=== PATIENT | female | born 1935 | race Caucasian/White ===

== ENCOUNTER 2016-03-03 22:00 | Inpatient (IN) | payer BC, OTHER ==
[2016-03-03 22:31] VITALS: BMI 35.7
--- NOTE | 2016-03-04 00:55 | PDOC ---
*Physical Exam - Vital Signs Last Vital Signs Temp Pulse Resp BP Pulse Ox 98.2 F 109 H 20 147/84 94 L 03/03/16 22:28 03/03/16 22:28 03/03/16 22:28 03/03/16 22:28 03/03/16 22:28 ED Treatment Course - LABORATORY CBC & Chemistry Diagram: 03/05/16 05:35 03/05/16 05:35 Medical Decision Making - Medical Decision Making 03/04/16 00:55 Pt seen by the Advanced Practice Provider under my direct supervision Ancillary studies reviewed I agree with plan as outlined by the Advanced Practice Provider NARAYAN Davidson *DC/Admit/Observation/Transfer Diagnosis at time of Disposition: CHF (congestive heart failure) - Discharge Dispostion Condition at time of disposition: Fair
[2016-03-04 01:11] LABS: MCH 31.1 pg (25.7-33.7); MCHC 33.8 g/dl (32.0-36.0); MEAN CELL VOLUME 92.1 fl (80-96); MEAN PLT VOLUME 8.3 fl (7.5-11.1); PLATELET COUNT 158 K/MM3 (134-434); RDW 13.9 % (11.6-15.6); WHITE BLOOD COUNT 8.8 K/mm3 (4.0-10.0)
[2016-03-04 01:40] LABS: CALCIUM 9.4 mg/dL (8.5-10.1); CREATININE 0.8 mg/dL (0.55-1.02)
--- NOTE | 2016-03-04 02:25 | PDOC ---
History of Present Illness - General Chief Complaint: Shortness of Breath Stated Complaint: SOB Time Seen by Provider: 03/03/16 22:54 History Source: Patient, Family Exam Limitations: No Limitations - History of Present Illness Initial Comments: 03/04/16 00:19 80yo Female patient presents to ED c/o shortness of breath on exertion. Patient states symptoms began 7 days ago, she saw her PCP a few days ago and was diagnosed with upper respiratory infection; given flonase and cough syrup. Patient states symptoms progressed to being SOB when walking short distances and continued to progress throughout the day. Patient grandson called 911 due to patient c/o chest pain with trouble breathing. O2 sat 90% RA. Denies being home O2 dependent. Patient currently denies CP, Abd pain, n/v/d, fever, back pain, cough, or any other complaints. Associated SOB. 03/04/16 02:26 Timing/Duration: reports: week Severity: reports: moderate Possible Cause: Yes: no prior episodes Modifying Factors: improves with: oxygen, rest Associated Symptoms: reports: shortness of breath. denies: chest pain/soreness , cough, dizziness, earache, fever/chills, headache, nasal congestion, nasal drainage, sore throat, wheezing Aspirin Received prior to arrival: Yes: no aspirin today Past History - Travel Traveled outside of the country in the last 30 days: No Close contact w/someone who was outside of country & ill: No - Past Medical History Allergies/Adverse Reactions: Allergies Allergy/AdvReac Type Severity Reaction Status Date / Time No Known Allergies Allergy Verified 03/03/16 22:30 Home Medications: Ambulatory Orders Hydrochlorothiazide [Hctz -] 25 mg PO DAILY 01/04/14 Sertraline HCl [Zoloft -] 50 mg PO HS 01/05/14 Multivitamin [Poly-Vitamin] 1 each PO DAILY 12/22/15 Simvastatin 20 mg PO HS 12/22/15 Anemia: No Asthma: No Cancer: No Cardiac Disorders: No CVA: Yes (04/07/13) COPD: No CHF: No Dementia: No Diabetes: No GI Disorders: Yes (diverticulosis, hx of diverticulitis) Disorders: No HTN: Yes Hypercholesterolemia: No Liver Disease: No Suicide Attempt (Hx): No Seizures: No Thyroid Disease: No - Surgical History Abdominal Surgery: Yes Appendectomy: Yes Cardiac Surgery: No Cholecystectomy: Yes Lung Surgery: No Neurologic Surgery: No Orthopedic Surgery: Yes (left hip replacement) - Immunization History Immunization Up to Date: Yes - Psycho/Social/Smoking Cessation Hx Anxiety: No Suicidal Ideation: No Smoking Status: No Smoking History: Never smoked Number of Cigarettes Smoked Daily: 0 Hx Alcohol Use: No Drug/Substance Use Hx: No Substance Use Type: None Hx Substance Use Treatment: No Respiratory Specific PMHX - Complaint Specific PMHX Angina: No Bronchitis: No Pneumonia: No Pulmonary Embolus: No TB (Tuberculosis): No Review of Systems - Review of Systems Able to Perform ROS?: Yes Is the patient limited Nepali proficient: No Constitutional: No: Chills, Fever, Weakness HEENTM: No: Blurred Vision, Double Vision, Nose Congestion, Throat Pain Respiratory: Yes: Cough, Shortness of Breath, SOB with Exertion. No: Orthopnea , Stridor, Wheezing, Productive cough Cardiac (ROS): Yes: Chest Pain. No: Edema, Irregular Heart Rate, Palpitations, Syncope, Chest Tightness ABD/GI: No: Constipated, Diarrhea, Nausea, Poor Appetite, Poor Fluid Intake, Rectal Bleeding, Vomiting : No: Burning, Dysuria, Frequency, Hematuria, Pain, Urgency Musculoskeletal: No: Back Pain, Joint Pain, Muscle Weakness Integumentary: No: Bruising, Erythema, Rash Neurological: No: Headache, Seizure, Tingling, Dizziness All Other Systems: Reviewed and Negative *Physical Exam - Vital Signs Last Vital Signs Temp Pulse Resp BP Pulse Ox 98.2 F 89 18 139/73 98 03/03/16 22:28 03/04/16 02:07 03/04/16 02:07 03/04/16 02:07 03/04/16 02:07 - Physical Exam General Appearance: Yes: Nourished, Appropriately Dressed. No: Apparent Distress, Mild Distress, Moderate Distress, Severe Distress HEENT: positive: EOMI, LINA, Normal ENT Inspection, Normal Voice, Symmetrical, TMs Normal, Pharynx Normal. negative: Nasal Congestion, Rhinorrhea Neck: positive: Trachea midline, Supple. negative: Stridor, Lymphadenopathy (R) , Lymphadenopathy (L) Respiratory/Chest: positive: Decreased Breath Sounds, Crackles (Fine Bibasilar crackles). negative: Respiratory Distress, Accessory Muscle Use, Labored Respiration, Rapid RR, Rhonchi, Stridor, Wheezing Cardiovascular: positive: Tachycardia Gastrointestinal/Abdominal: positive: Normal Bowel Sounds, Soft. negative: Distended, Guarding, Rebound, Tenderness Musculoskeletal: positive: Normal Inspection. negative: CVA Tenderness Extremity: positive: Normal Capillary Refill, Normal Inspection, Normal Range of Motion Integumentary: positive: Normal Color, Dry, Warm. negative: Swelling Neurologic: positive: ore washer II-XII NML intact, Fully Oriented, Alert, Normal Mood/ Affect, Normal Response, Motor Strength 5/5 Heart Score/ECG Review - ECG Impressions Normal ECG: Yes Non-specific ST Elevation: No Ischemic Changes: No Bradycardia: No Tachycardia: Sinus ED Treatment Course - LABORATORY CBC & Chemistry Diagram: 03/04/16 00:15 03/04/16 00:15 - ADDITIONAL ORDERS Additional order review: Laboratory Results 03/04/16 00:15 Sodium 143 Potassium 3.8 Chloride 103 Carbon Dioxide 27 Anion Gap 13 BUN 13 Creatinine 0.8 Random Glucose 145 H D Calcium 9.4 B-Natriuretic Peptide 2249.27 H 03/04/16 00:15 RBC 4.78 MCV 92.1 MCHC 33.8 RDW 13.9 MPV 8.3 - RADIOLOGY Radiology Studies Ordered: Category Date Time Status CHEST PA & LAT [RAD] Stat Radiology 03/04/16 01:07 Taken *DC/Admit/Observation/Transfer Diagnosis at time of Disposition: Congestive heart failure Qualifiers: Congestive heart failure type: unspecified congestive heart failure type Congestive heart failure chronicity: acute Qualified Code(s): I50.9 - Heart failure, unspecified - Discharge Dispostion Condition at time of disposition: Fair Admit: Yes - Referrals Referrals: Jamie Mccabe MD [Primary Care Provider] -
[2016-03-04 03:28] LABS: INR 1.14 (0.82-1.09); PROTHROMBIN TIME (PATIENT) 12.6 SEC (9.98-11.88)
[2016-03-04 08:45] LABS: TROPONIN I 0.28 ng/ml (0.00-0.05)
[2016-03-04] MEDS: PANTOPRAZOLE 40 MG TABLET (FP) PO SCH (09:36)
[2016-03-04] MEDS: ASPIRIN COATED 81 MG TABLET.EC PO SCH (09:36)
[2016-03-04] MEDS: FUROSEMIDE 40 MG/4 ML INJECTABLE VIAL IVPB SCH (09:36)
[2016-03-04] MEDS: HEPARIN NA (PORCINE) 5,000 UNITS/ML 1ML VIAL SQ SCH ×2 (09:36→22:11)
--- NOTE | 2016-03-04 10:41 | CON.CARD ---
Cardiology Consult (text) - Consultation Consultation Note: cc: sob hpi: 80 f hx htn, hld, here with sob. Past week has felt sob with URI sxs ( cough, runny nose). Went to pmd and given abx but sob worsened so came to ER. Pt also reports mild le edema past few weeks as well. No cp, palps, dizzy, loc , pnd, orthopnea. No hx hrt dz. Admitted for possible chf. pmh: per hpi psh: hip surgery, cholecystectomy fam: no premature cad, scd social: no tob ros: per hpi; no nvd, fever, valle, vision changes, wt loss, gib, hematuria, muscle pains meds: Medication Instructions Recorded Hydrochlorothiazide [Hctz -] 25 mg PO DAILY 01/04/14 Sertraline HCl [Zoloft -] 50 mg PO HS 01/05/14 Multivitamin [Poly-Vitamin] 1 each PO DAILY 12/22/15 Simvastatin 20 mg PO HS 12/22/15 pe: Vital Signs Period Temp Pulse Resp BP Sys/Charles Pulse Ox Last 24 Hr 97 F-98.2 F 89-109 18-20 113-150/73-99 94-98 nad, no jvd rrr s1s2 no mrg cta bl nl eff aaox3 trace-1+le edema bl, no c/c abd nt nd pos bs pos dp pt, no carotid bruits no jaundice diaphoresis Laboratory Last Values WBC 8.8 K/mm3 (4.0-10.0) 03/04/16 00:15 RBC 4.78 M/mm3 (3.60-5.2) 03/04/16 00:15 Hgb 14.8 GM/dL (10.7-15.3) 03/04/16 00:15 Hct 44.0 % (32.4-45.2) 03/04/16 00:15 MCV 92.1 fl (80-96) 03/04/16 00:15 MCHC 33.8 g/dl (32.0-36.0) 03/04/16 00:15 RDW 13.9 % (11.6-15.6) 03/04/16 00:15 Plt Count 158 K/MM3 (134-434) 03/04/16 00:15 MPV 8.3 fl (7.5-11.1) 03/04/16 00:15 INR 1.14 (0.82-1.09) 03/04/16 03:00 Sodium 143 mmol/L (136-145) 03/04/16 00:15 Potassium 3.8 mmol/L (3.5-5.1) 03/04/16 00:15 Chloride 103 mmol/L (98-107) 03/04/16 00:15 Carbon Dioxide 27 mmol/L (21-32) 03/04/16 00:15 Anion Gap 13 (8-16) 03/04/16 00:15 BUN 13 mg/dL (7-18) 03/04/16 00:15 Creatinine 0.8 mg/dL (0.55-1.02) 03/04/16 00:15 Random Glucose 145 mg/dL (74-106) H D 03/04/16 00:15 Calcium 9.4 mg/dL (8.5-10.1) 03/04/16 00:15 Creatine Kinase 135 IU/L (26-192) 03/04/16 06:10 Troponin I 0.28 ng/ml (0.00-0.05) H 03/04/16 06:10 B-Natriuretic Peptide 2249.27 pg/ml (5-450) H 03/04/16 00:15 tele: sr, pacs, pvcs ecg 03/04/16: sr, 103, nl intervals, IRBBB, no ischemic changes cxr: no chf a/p: 80 f hx htn, hld, here with sob. sob, acute chf exacerbation (diastolic vs systolic, echo pending): -pt with some le edema and sob with elevated bnp so possibly with mild chf exacerbation (no prior hx chf) -will cont with trial of iv lasix to see if helps sxs -check echo to see lvef, valves htn: -on hctz at home, holding while giving lasix hld: -cont statin positive trops: -trop in borderline range with nl ck and no ischemic ecg changes, not consistent with acs. cont to trend CE's. -monitor on tele, check echo
--- NOTE | 2016-03-04 13:39 | HP ---
Admitting History and Physical - Primary Care Physician PCP: Jamie Mccabe - Admission Chief Complaint: I could not breathe. History of Present Illness: Ms Asencio is a pleasant 80 year old female who comes in with shortness of breath. She says it began about 3 weeks ago. It was mainly dyspnea on exertion, she would go up her stairs (there are 16 total) and she would be winded. She says that as time when on it began to be harder to go up the stairs. She says she also had lightheadedness with this. She states she had difficulty lying flat with this. She noted some chest pressure with the shortness of breath. She had a non-productive cough with the shortness of breath. She noted worsening swelling in her legs. She denies fevers, chills, passing out, nausea, vomiting, abdominal pain, diarrhea, constipation, difficulty or pain on urination with this. She was seen in the office and there was concern for bronchitis and it was attempted to be treated as an outpatient. However it did not improve and patient presents here for further assistance. History Source: Patient Limitations to Obtaining History: No Limitations - Past Medical History Gastrointestinal: Yes: Diverticulosis, GI Bleed (20 yrs ago), Hemorrhoids Psych: Yes: Depression - Past Surgical History Past Surgical History: Yes: Appendectomy, Cholecystectomy - Smoking History Smoking history: Never smoked Aproximately how many cigarettes per day: 0 - Alcohol/Substance Use Hx Alcohol Use: No History of Substance Use: reports: None - Social History Usual Living Arrangement: Yes: Alone ADL: Independent History of Recent Travel: No Home Medications - Allergies Allergies/Adverse Reactions: Allergies Allergy/AdvReac Type Severity Reaction Status Date / Time No Known Allergies Allergy Verified 03/03/16 22:30 - Home Medications Home Medications: Ambulatory Orders Hydrochlorothiazide [Hctz -] 25 mg PO DAILY 01/04/14 Sertraline HCl [Zoloft -] 50 mg PO HS 01/05/14 Multivitamin [Poly-Vitamin] 1 each PO DAILY 12/22/15 Simvastatin 20 mg PO HS 12/22/15 Family Disease History - Family Disease History Family Disease History: Diabetes: Mother (CHF), Heart Disease: Mother, CA: Father Review of Systems Findings/Remarks: Full review of systems obtained, as per HPI and otherwise negative Physical Examination Vital Signs: Vital Signs Temperature 97.8 F 03/04/16 10:00 Pulse Rate 101 H 03/04/16 10:00 Respiratory Rate 18 03/04/16 10:00 Blood Pressure 113/80 03/04/16 10:00 O2 Sat by Pulse Oximetry (%) 98 03/04/16 09:00 Constitutional: Yes: No Distress, Mild Distress, Obese Eyes: Yes: Conjunctiva Clear, EOM Intact HENT: Yes: Atraumatic, Normocephalic Cardiovascular: Yes: Regular Rate and Rhythm. No: Gallop, Murmur, Rub Respiratory: Yes: On Nasal O2, Rales (bilaterally), SOB on Exertion (with talking), Tachypnea. No: Rhonchi, Wheezes Gastrointestinal: Yes: Normal Bowel Sounds, Soft. No: Distention, Tenderness Extremities: Yes: WNL Edema: Yes Edema: LLE: 1+, RLE: 1+ Labs: Laboratory Results - last 24 hr 03/04/16 03/04/16 03/04/16 00:15 00:15 02:18 WBC 8.8 RBC 4.78 Hgb 14.8 Hct 44.0 MCV 92.1 MCHC 33.8 RDW 13.9 Plt Count 158 MPV 8.3 INR Sodium 143 Potassium 3.8 Chloride 103 Carbon Dioxide 27 Anion Gap 13 BUN 13 Creatinine 0.8 Random Glucose 145 H D Calcium 9.4 Creatine Kinase Troponin I 0.38 H B-Natriuretic Peptide 2249.27 H 03/04/16 03/04/16 03:00 06:10 WBC RBC Hgb Hct MCV MCHC RDW Plt Count MPV INR 1.14 Sodium Potassium Chloride Carbon Dioxide Anion Gap BUN Creatinine Random Glucose Calcium Creatine Kinase 135 Troponin I 0.28 H B-Natriuretic Peptide Imaging - Results Chest X-ray: Report Reviewed, Image Reviewed Problem List - Problems (1) CHF (congestive heart failure) Assessment/Plan: -patient presents with symptoms most consistent with CHF -new diagnosis -appreciate cardiology assistance -currently on IV lasix -follow up ECHO results Code(s): I50.9 - HEART FAILURE, UNSPECIFIED Qualifiers: Congestive heart failure type: unspecified congestive heart failure type Congestive heart failure chronicity: acute Qualified Code(s): I50.9 - Heart failure, unspecified (2) History of CVA (cerebrovascular accident) Assessment/Plan: -patient says she does not have a history of TIA/CVA -there was a concern but it turned out to be labyrinthitis Code(s): Z86.73 - PRSNL HX OF TIA (TIA), AND CEREB INFRC W/O RESID DEFICITS (3) Elevated troponin Assessment/Plan: -cardiology following and trending -appears stress induced as opposed to ACS per cardiology Code(s): R79.89 - OTHER SPECIFIED ABNORMAL FINDINGS OF BLOOD CHEMISTRY
--- NOTE | 2016-03-04 14:13 | EKG ---
Test Reason : Blood Pressure : / mmHG Vent. Rate : 103 BPM Atrial Rate : 103 BPM P-R Int : 198 ms QRS Dur : 102 ms QT Int : 374 ms P-R-T Axes : 038 -36 -07 degrees QTc Int : 489 ms SINUS TACHYCARDIA LEFT AXIS DEVIATION LOW VOLTAGE QRS INCOMPLETE RIGHT BUNDLE BRANCH BLOCK POSSIBLE ANTEROLATERAL INFARCT (CITED ON OR BEFORE 04-JAN-2014) ABNORMAL ECG WHEN COMPARED WITH ECG OF 22-DEC-2015 11:32, VENT. RATE HAS INCREASED BY 38 BPM QT HAS LENGTHENED Confirmed by ROBINSON DIAMOND MD ([id number]) on 03/04/2016 2:12:44 PM Referred By: Confirmed By:ROBINSON DIAMOND MD
[2016-03-04 14:31] LABS: TROPONIN I 0.36 ng/ml (0.00-0.05)
[2016-03-04] MEDS: ATORVASTATIN CA 10 MG TABLET (FP) PO SCH (22:11)
[2016-03-04] MEDS: SERTRALINE HCL 25 MG TABLET (FP) PO SCH (22:11)
[2016-03-05 07:16] LABS: BASOPHIL 0.3 % (0-2.0); EOSINOPHIL 0.5 % (0-4.5); MCH 31.9 pg (25.7-33.7); MCHC 34.4 g/dl (32.0-36.0); MEAN CELL VOLUME 92.9 fl (80-96); MEAN PLT VOLUME 8.7 fl (7.5-11.1); NEUTROPHILS 69.4 % (42.8-82.8); PLATELET COUNT 151 K/MM3 (134-434); RDW 13.8 % (11.6-15.6); WHITE BLOOD COUNT 10.8 K/mm3 (4.0-10.0)
[2016-03-05 08:02] LABS: ALBUMIN 3.5 g/dl (3.4-5.0); ANION GAP 12 (8-16); CALCIUM 9.2 mg/dL (8.5-10.1); CO2 27 mmol/L (21-32); GLUCOSE,RANDOM 114 mg/dL (74-106); MAGNESIUM 2.1 mg/dL (1.8-2.4)
[2016-03-05 08:06] LABS: ALK PHOS 90 U/L (45-117); BILIRUBIN,TOTAL 0.6 mg/dL (0.2-1.0); CREATININE 0.9 mg/dL (0.55-1.02); SGOT/AST 24 U/L (15-37); SGPT/ALT 36 U/L (12-78); TOT PROT 6.8 g/dl (6.4-8.2)
[2016-03-05] MEDS: PANTOPRAZOLE 40 MG TABLET (FP) PO SCH (09:39)
[2016-03-05] MEDS: ASPIRIN COATED 81 MG TABLET.EC PO SCH (09:40)
[2016-03-05] MEDS: FUROSEMIDE 40 MG/4 ML INJECTABLE VIAL IVPB SCH (09:40)
[2016-03-05] MEDS: HEPARIN NA (PORCINE) 5,000 UNITS/ML 1ML VIAL SQ SCH ×2 (09:40→21:21)
--- NOTE | 2016-03-05 11:18 | PN ---
Progress Note (short form) - Note Progress Note: s: sob much better; no cp dizzy palps o: Vital Signs Period Temp Pulse Resp BP Sys/Charles Pulse Ox Last 24 Hr 97.5 F-98.7 F 67-110 18-20 103-149/63-93 89-94 nad, no jvd rrr s1s2 no mrg cta bl nl eff aaox3 trace le edema bl, no c/c no jaundice diaphoresis Current Medications Generic Name Dose Route Start Last Admin Trade Name Freq PRN Reason Stop Dose Admin Acetaminophen 650 mg 03/04/16 03:00 Tylenol - PO Q6H PRN FEVER OR PAIN Aspirin 81 mg 03/04/16 10:00 03/05/16 09:40 Ecotrin - PO 81 mg DAILY JORGE Administration Atorvastatin Calcium 10 mg 03/04/16 22:00 03/04/16 22:11 Lipitor - PO 10 mg HS JORGE Administration Furosemide 40 mg 03/06/16 10:00 Lasix - PO DAILY JORGE Heparin Sodium (Porcine) 5,000 unit 03/04/16 10:00 03/05/16 09:40 Heparin - SQ 5,000 unit BID JORGE Administration Pantoprazole Sodium 40 mg 03/04/16 10:00 03/05/16 09:39 Protonix - PO 40 mg DAILY JORGE Administration Sertraline HCl 50 mg 03/04/16 22:00 03/04/16 22:11 Zoloft - PO 50 mg HS JORGE Administration CBC, BMP 03/05/16 05:35 03/05/16 05:35 tele: sr, brief atrial run ecg 03/04/16: sr, 103, nl intervals, IRBBB, no ischemic changes cxr: no chf echo 02/2016: tds; nl lv/rv, mild-mod tr, mild phtn a/p: 80 f hx htn, hld, here with sob. sob, acute diastolic chf exacerbation -pt with some le edema and sob with elevated bnp being treated as mild chf exacerbation (no prior hx chf) -after iv lasix pt has less le edema and reports feeling much better, able to walk more w/o sob -will cont iv lasix today and likely can change to po tomorrow AM with plans for dc if pt feeling better still htn: -on hctz at home, will dc this now that she will require lasix upon dc -bp has been ok, if becomes high would start metoprolol hld: -cont statin positive trops: -trop in borderline range with flat trend and nl ck and no ischemic ecg changes , not consistent with acs.
--- NOTE | 2016-03-05 12:33 | PN ---
Progress Note, Physician Chief Complaint: Patient says she was feeling well this morning, but when she got up and walked became extremely short of breath. RN notes patient desaturates with ambulation. No cp or n/v. - Current Medication List Current Medications: Active Medications Acetaminophen (Tylenol -) 650 mg PO Q6H PRN PRN Reason: FEVER OR PAIN Aspirin (Ecotrin -) 81 mg PO DAILY [facility] [place] Last Admin: 03/05/16 09:40 Dose: 81 mg Atorvastatin Calcium (Lipitor -) 10 mg PO HS [facility] [place] Last Admin: 03/04/16 22:11 Dose: 10 mg Furosemide (Lasix -) 40 mg PO DAILY [facility] [place] Heparin Sodium (Porcine) (Heparin -) 5,000 unit SQ BID [facility] [place] Last Admin: 03/05/16 09:40 Dose: 5,000 unit Pantoprazole Sodium (Protonix -) 40 mg PO DAILY [facility] [place] Last Admin: 03/05/16 09:39 Dose: 40 mg Sertraline HCl (Zoloft -) 50 mg PO [facility] Last Admin: 03/04/16 22:11 Dose: 50 mg - Objective Vital Signs: Vital Signs Temperature 97.9 F 03/05/16 01:53 Pulse Rate 78 03/05/16 12:06 Respiratory Rate 20 03/05/16 08:07 Blood Pressure 138/93 03/05/16 08:04 O2 Sat by Pulse Oximetry (%) 86 L 03/05/16 12:06 Constitutional: Yes: Well Nourished, No Distress, Calm Cardiovascular: Yes: Regular Rate and Rhythm. No: Gallop, Murmur, Rub Respiratory: Yes: Regular, CTA Bilaterally. No: Rales, Rhonchi, Wheezes Gastrointestinal: Yes: Normal Bowel Sounds, Soft. No: Distention, Tenderness Extremities: Yes: WNL Edema: Yes Edema: LLE: Trace, RLE: Trace Labs: CBC, BMP 03/05/16 05:35 03/05/16 05:35 INR, PTT INR 1.14 (0.82-1.09) 03/04/16 03:00 Problem List - Problems (1) CHF (congestive heart failure) Code(s): I50.9 - HEART FAILURE, UNSPECIFIED Qualifiers: Congestive heart failure type: unspecified congestive heart failure type Congestive heart failure chronicity: acute Qualified Code(s): I50.9 - Heart failure, unspecified (2) History of CVA (cerebrovascular accident) Code(s): Z86.73 - PRSNL HX OF TIA (TIA), AND CEREB INFRC W/O RESID DEFICITS (3) Elevated troponin Code(s): R79.89 - OTHER SPECIFIED ABNORMAL FINDINGS OF BLOOD CHEMISTRY Assessment/Plan (1) CHF (congestive heart failure) Assessment/Plan: -cardiology following -continue IV lasix -ECHO reviewed -still with dyspnea on exertion, will monitor if improves with further diuresis -if continues, will discuss with cardiology further testing -also consider pulmonary consult if does not improve Code(s): I50.9 - HEART FAILURE, UNSPECIFIED Qualifiers: Congestive heart failure type: unspecified congestive heart failure type Congestive heart failure chronicity: acute Qualified Code(s): I50.9 - Heart failure, unspecified (2) History of CVA (cerebrovascular accident) Assessment/Plan: -patient says she does not have a history of TIA/CVA -there was a concern but it turned out to be labyrinthitis Code(s): Z86.73 - PRSNL HX OF TIA (TIA), AND CEREB INFRC W/O RESID DEFICITS (3) Elevated troponin Assessment/Plan: -cardiology following -appears stress induced as opposed to ACS per cardiology Code(s): R79.89 - OTHER SPECIFIED ABNORMAL FINDINGS OF BLOOD CHEMISTRY
[2016-03-05] MEDS: SERTRALINE HCL 25 MG TABLET (FP) PO SCH (21:21)
[2016-03-05] MEDS: ATORVASTATIN CA 10 MG TABLET (FP) PO SCH (21:21)
[2016-03-06 06:57] LABS: BASOPHIL 0.5 % (0-2.0); EOSINOPHIL 1.4 % (0-4.5); MCH 31.6 pg (25.7-33.7); MCHC 34.2 g/dl (32.0-36.0); MEAN CELL VOLUME 92.4 fl (80-96); MEAN PLT VOLUME 8.8 fl (7.5-11.1); NEUTROPHILS 69.3 % (42.8-82.8); PLATELET COUNT 144 K/MM3 (134-434); WHITE BLOOD COUNT 8.9 K/mm3 (4.0-10.0)
[2016-03-06 07:52] LABS: CALCIUM 8.7 mg/dL (8.5-10.1); CREATININE 0.9 mg/dL (0.55-1.02); MAGNESIUM 1.8 mg/dL (1.8-2.4); PHOSPHOROUS 3.6 mg/dL (2.5-4.9)
--- NOTE | 2016-03-06 08:57 | PN ---
Progress Note, Physician Chief Complaint: chf History of Present Illness: no longer sob at rest, as she was at home; remains "panting" when walks to bathroom and back (5-10 feet)--not at all her baseline; no cp, palpitations; feeling nauseated since last night - Current Medication List Current Medications: Active Medications Acetaminophen (Tylenol -) 650 mg PO Q6H PRN PRN Reason: FEVER OR PAIN Aspirin (Ecotrin -) 81 mg PO DAILY [facility] Last Admin: 03/05/16 09:40 Dose: 81 mg Atorvastatin Calcium (Lipitor -) 10 mg PO HS [facility] Last Admin: 03/05/16 21:21 Dose: 10 mg Furosemide (Lasix -) 40 mg PO DAILY [facility] Heparin Sodium (Porcine) (Heparin -) 5,000 unit SQ BID [facility] Last Admin: 03/05/16 21:21 Dose: 5,000 unit Pantoprazole Sodium (Protonix -) 40 mg PO DAILY [facility] Last Admin: 03/05/16 09:39 Dose: 40 mg Sertraline HCl (Zoloft -) 50 mg PO HS [facility] Last Admin: 03/05/16 21:21 Dose: 50 mg - Objective Vital Signs: Vital Signs Temperature 97.5 F L 03/06/16 06:00 Pulse Rate 90 03/06/16 06:00 Respiratory Rate 18 03/06/16 06:00 Blood Pressure 129/84 03/06/16 06:00 O2 Sat by Pulse Oximetry (%) 96 03/06/16 05:35 Constitutional: Yes: No Distress, Calm, Obese Cardiovascular: Yes: Regular Rate and Rhythm, JVD (almost to jaw), S1, S2. No: Gallop, Murmur Respiratory: Yes: Regular, CTA Bilaterally. No: Accessory Muscle Use, Rales, Wheezes Extremities: No: Cold Edema: No Neurological: Yes: Alert, Oriented Psychiatric: No: Agitated Labs: CBC, BMP 03/06/16 05:35 03/06/16 05:35 INR, PTT INR 1.14 (0.82-1.09) 03/04/16 03:00 - ....Imaging EKG: Other (tele: NSR) Assessment/Plan cxr: no chf echo 02/2016: tds; nl lv/rv, mild-mod tr, mild phtn a/p: 80 f hx htn, hld, here with sob. sob, acute diastolic chf exacerbation -+ LE edema and sob with elevated bnp (2200) -03/05: after iv lasix (40 qd) pt reports sob much improved, able to walk significantly more--changed to lasix 40 po -03/06: wt down 3 lbs here (210), remains with marked sob walking short distances , JVD near jaw--likely very volume overloaded still -change back to iv lasix, start 80 qd; -will check office records for pt dry wt (she doesn't know it) -replete K today, monitor daily BMP -consider outpt sleep study htn: -on hctz at home, will dc this now that she will require lasix upon dc -bp controlled here hld: -cont statin positive trops: -trop in borderline range with flat trend (0.2-0.3) and nl ck, no ischemic ecg changes = not consistent with acs.
[2016-03-06] MEDS ORDERED: POTASSIUM CHLORIDE TABS 20 MEQ TABLET.ER (FP) PO ONE (09:15)
[2016-03-06] MEDS: HEPARIN NA (PORCINE) 5,000 UNITS/ML 1ML VIAL SQ SCH ×2 (09:26→21:16)
[2016-03-06] MEDS: ASPIRIN COATED 81 MG TABLET.EC PO SCH (09:26)
[2016-03-06] MEDS: PANTOPRAZOLE 40 MG TABLET (FP) PO SCH (09:27)
[2016-03-06] MEDS ORDERED: FUROSEMIDE 40 MG TABLET (FP) PO SCH (10:00)
--- NOTE | 2016-03-06 13:11 | PN ---
Progress Note (short form) - Note Progress Note: Has exertional dyspnea No chest pain or palpitations No fever but has fatigued Nausea+ O/E Heart regular Lungs clear Ext trace edema Vital Signs Period Temp Pulse Resp BP Sys/Charles Pulse Ox Last 24 Hr 97.5 F-99.3 F 75-90 18-20 108-144/71-84 95-96 Current Medications Acetaminophen (Tylenol -) 650 mg PO Q6H PRN PRN Reason: FEVER OR PAIN Aspirin (Ecotrin -) 81 mg PO DAILY [facility] Last Admin: 03/06/16 09:26 Dose: 81 mg Atorvastatin Calcium (Lipitor -) 10 mg PO HS [facility] Last Admin: 03/05/16 21:21 Dose: 10 mg Furosemide (Lasix Injection -) 80 mg IVPUSH DAILY [facility] Heparin Sodium (Porcine) (Heparin -) 5,000 unit SQ BID [facility] Last Admin: 03/06/16 09:26 Dose: 5,000 unit Pantoprazole Sodium (Protonix -) 40 mg PO DAILY [facility] Last Admin: 03/06/16 09:27 Dose: 40 mg Potassium Chloride (K-Dur -) 40 meq PO DAILY [facility] Sertraline HCl (Zoloft -) 50 mg PO HS [facility] Last Admin: 03/05/16 21:21 Dose: 50 mg Laboratory Results - last 24 hr 03/06/16 03/06/16 03/06/16 05:35 05:35 11:35 WBC 8.9 RBC 4.36 Hgb 13.7 Hct 40.3 MCV 92.4 MCHC 34.2 RDW 14.0 Plt Count 144 MPV 8.8 Neutrophils % 69.3 Lymphocytes % 21.0 Monocytes % 7.8 Eosinophils % 1.4 D Basophils % 0.5 Sodium 142 Potassium 3.3 L Chloride 101 Carbon Dioxide 31 Anion Gap 10 BUN 29 H Creatinine 0.9 Random Glucose 148 H D Calcium 8.7 Phosphorus 3.6 Magnesium 1.8 TSH Cancelled ssessment/Plan (1) CHF (congestive heart failure) Assessment/Plan: -continue IV lasix -ECHO reviewed -still with dyspnea on exertion, will monitor if improves with further diuresis Code(s): I50.9 - HEART FAILURE, UNSPECIFIED Qualifiers: Congestive heart failure type: unspecified congestive heart failure type Congestive heart failure chronicity: acute Qualified Code(s): I50.9 - Heart failure, unspecified (2) History of CVA (cerebrovascular accident) Assessment/Plan: -no evidence Code(s): Z86.73 - PRSNL HX OF TIA (TIA), AND CEREB INFRC W/O RESID DEFICITS (3) Elevated troponin Assessment/Plan: Is mild and resolving Code(s): R79.89 - OTHER SPECIFIED ABNORMAL FINDINGS OF BLOOD CHEMISTRY 4.Dyspnea Pulmonary eval 5.Nausea Etiology is not clear Meds are a likely cause
[2016-03-06] MEDS: FUROSEMIDE 40 MG/4 ML INJECTABLE VIAL IVPUSH SCH (13:32)
[2016-03-06 13:43] LABS: THYROID STIMULATING HORMONE 0.98 uIU/ml (0.358-3.74)
[2016-03-06] MEDS: ATORVASTATIN CA 10 MG TABLET (FP) PO SCH (21:16)
[2016-03-06] MEDS: SERTRALINE HCL 25 MG TABLET (FP) PO SCH (21:16)
[2016-03-07 08:11] LABS: CALCIUM 9.2 mg/dL (8.5-10.1)
[2016-03-07] MEDS: PANTOPRAZOLE 40 MG TABLET (FP) PO SCH (09:06)
[2016-03-07] MEDS: FUROSEMIDE 40 MG/4 ML INJECTABLE VIAL IVPUSH SCH (09:06)
[2016-03-07] MEDS: ASPIRIN COATED 81 MG TABLET.EC PO SCH (09:07)
[2016-03-07] MEDS: POTASSIUM CHLORIDE TABS 20 MEQ TABLET.ER (FP) PO SCH (09:07)
[2016-03-07] MEDS: HEPARIN NA (PORCINE) 5,000 UNITS/ML 1ML VIAL SQ SCH (09:07)
--- NOTE | 2016-03-07 09:14 | PN ---
Progress Note (short form) - Note Progress Note: s: sob better but still present with minimal exertion; no cp dizzy palps o: Vital Signs Period Temp Pulse Resp BP Sys/Charles Pulse Ox Last 24 Hr 97.4 F-98.1 F 74-93 18-20 107-139/64-78 96-96 nad rrr s1s2 no mrg cta bl nl eff aaox3 trace le edema bl, no c/c no jaundice diaphoresis Current Medications Generic Name Dose Route Start Last Admin Trade Name Freq PRN Reason Stop Dose Admin Acetaminophen 650 mg 03/04/16 03:00 Tylenol - PO Q6H PRN FEVER OR PAIN Aspirin 81 mg 03/04/16 10:00 03/06/16 09:26 Ecotrin - PO 81 mg DAILY JORGE Administration Atorvastatin Calcium 10 mg 03/04/16 22:00 03/06/16 21:16 Lipitor - PO 10 mg HS JORGE Administration Furosemide 80 mg 03/06/16 12:15 03/06/16 13:32 Lasix Injection - IVPUSH 80 mg DAILY JORGE Administration Heparin Sodium (Porcine) 5,000 unit 03/04/16 10:00 03/06/16 21:16 Heparin - SQ 5,000 unit BID JORGE Administration Pantoprazole Sodium 40 mg 03/04/16 10:00 03/06/16 09:27 Protonix - PO 40 mg DAILY JORGE Administration Potassium Chloride 40 meq 03/07/16 10:00 K-Dur - PO DAILY JORGE Sertraline HCl 50 mg 03/04/16 22:00 03/06/16 21:16 Zoloft - PO 50 mg HS JORGE Administration CBC, BMP 03/06/16 05:35 03/07/16 05:35 tele: sr ecg 03/04/16: sr, 103, nl intervals, IRBBB, no ischemic changes cxr: no chf echo 02/2016: tds; nl lv/rv, mild-mod tr, mild phtn a/p: 80 f hx htn, hld, here with sob. sob, acute diastolic chf exacerbation -+ LE edema and sob with elevated bnp (2200) -03/05: after iv lasix (40 qd) pt reports sob much improved, able to walk significantly more--changed to lasix 40 po -03/06: wt down 3 lbs here (210), remains with marked sob walking short distances , JVD near jaw--likely very volume overloaded still -change back to iv lasix, start 80 qd; -03/07: still with laguerre but wt continues to drop (208 today), cr stable, cont iv lasix for now. (Baseline office wts from past year have ranged from 215lbs to 224lbs so possibly she has had some vol overload present chronically) -consider outpt sleep study htn: -on hctz at home, will dc this now that she will require lasix upon dc -bp controlled here hld: -cont statin positive trops: -trop in borderline range with flat trend (0.2-0.3) and nl ck, no ischemic ecg changes = not consistent with acs.
[2016-03-07 12:38] LABS: ARTERIAL BLD GAS O2 SATURATION 85.4 % (90-98.9); ARTERIAL BLOOD GAS BASE EXCESS 5.7 meq/l (-2-2); ARTERIAL BLOOD GAS HCO3 29.1 meq/L (22-26); ARTERIAL BLOOD GAS pH 7.49 (7.35-7.45)
[2016-03-07 12:39] LABS: ALLENS TEST POSITIVE; ART PUNCT SITE RIGHT RADIAL; PT. ON O2? NO
[2016-03-07 12:40] LABS: ARTERIAL BLOOD GAS PO2 49.5 mmHg (70-100)
--- NOTE | 2016-03-07 13:10 | PN ---
Progress Note (short form) - Note Progress Note: Has incressed SOB on ambulating No chest pain or palpitations O/E Heart regular Lungs clear Ext no edema Vital Signs Period Temp Pulse Resp BP Sys/Charles Pulse Ox Last 24 Hr 97 F-98.1 F 74-105 18-20 107-139/64-78 88-96 Current Medications Acetaminophen (Tylenol -) 650 mg PO Q6H PRN PRN Reason: FEVER OR PAIN Aspirin (Ecotrin -) 81 mg PO DAILY [facility] Last Admin: 03/07/16 09:07 Dose: 81 mg Atorvastatin Calcium (Lipitor -) 10 mg PO HS [facility] Last Admin: 03/06/16 21:16 Dose: 10 mg Furosemide (Lasix Injection -) 80 mg IVPUSH DAILY [facility] Last Admin: 03/07/16 09:06 Dose: 80 mg Heparin Sodium (Porcine) (Heparin -) 5,000 unit SQ BID [facility] Last Admin: 03/07/16 09:07 Dose: 5,000 unit Pantoprazole Sodium (Protonix -) 40 mg PO DAILY [facility] Last Admin: 03/07/16 09:06 Dose: 40 mg Potassium Chloride (K-Dur -) 40 meq PO DAILY [facility] Last Admin: 03/07/16 09:07 Dose: 40 meq Sertraline HCl (Zoloft -) 50 mg PO HS [facility] Last Admin: 03/06/16 21:16 Dose: 50 mg Vital Signs Period Temp Pulse Resp BP Sys/Charles Pulse Ox Last 24 Hr 97 F-98.1 F 74-105 18-20 107-139/64-78 88-96 ssessment/Plan (1) CHF (congestive heart failure) Assessment/Plan: -continue IV lasix -ECHO reviewed -still with dyspnea on exertion, ABG noted and she has a big Aa gradient. Needs CT to r/o PE Code(s): I50.9 - HEART FAILURE, UNSPECIFIED Qualifiers: Congestive heart failure type: unspecified congestive heart failure type Congestive heart failure chronicity: acute Qualified Code(s): I50.9 - Heart failure, unspecified (2) History of CVA (cerebrovascular accident) Assessment/Plan: -no evidence Code(s): Z86.73 - PRSNL HX OF TIA (TIA), AND CEREB INFRC W/O RESID DEFICITS (3) Elevated troponin Assessment/Plan: Is mild and resolving Code(s): R79.89 - OTHER SPECIFIED ABNORMAL FINDINGS OF BLOOD CHEMISTRY
[2016-03-07] MEDS: KCL 10 MEQ IVPB 100 ML IVPB SCH ×2 (14:43→16:00)
[2016-03-07] MEDS ORDERED: ENOXAPARIN NA (PORCINE) 80 MG/0.8 ML DISP.SYRIN SQ ONE (16:45)
[2016-03-07] MEDS ORDERED: POTASSIUM CHLORIDE TABS 20 MEQ TABLET.ER (FP) PO ONE (17:30)
[2016-03-07] MEDS: APIXABAN 5 MG TABLET PO SCH (21:42)
[2016-03-07] MEDS: ATORVASTATIN CA 10 MG TABLET (FP) PO SCH (21:42)
[2016-03-07] MEDS: SERTRALINE HCL 25 MG TABLET (FP) PO SCH (21:43)
[2016-03-08 07:25] LABS: MCH 31.8 pg (25.7-33.7); MEAN CELL VOLUME 93.6 fl (80-96); MEAN PLT VOLUME 8.7 fl (7.5-11.1); PLATELET COUNT 147 K/MM3 (134-434); RDW 13.9 % (11.6-15.6); WHITE BLOOD COUNT 8.9 K/mm3 (4.0-10.0)
[2016-03-08 08:08] LABS: ALBUMIN 3.5 g/dl (3.4-5.0); CALCIUM 9.5 mg/dL (8.5-10.1); CREATININE 1.1 mg/dL (0.55-1.02); TOT PROT 7.2 g/dl (6.4-8.2)
--- NOTE | 2016-03-08 08:26 | PN ---
Progress Note, Physician Chief Complaint: sob, chf, pe History of Present Illness: remains sob walking to bathroom (3 feet)--new for her vs 1-2 wks ago. no cp, palpit, syncope +PE on CTA yest no cigs (ever) - Current Medication List Current Medications: Active Medications Acetaminophen (Tylenol -) 650 mg PO Q6H PRN PRN Reason: FEVER OR PAIN Apixaban (Eliquis -) 10 mg PO BID [facility] Stop: 03/14/16 10:01 Last Admin: 03/07/16 21:42 Dose: 10 mg Apixaban (Eliquis -) 5 mg PO BID [facility] Aspirin (Ecotrin -) 81 mg PO DAILY [facility] Last Admin: 03/07/16 09:07 Dose: 81 mg Atorvastatin Calcium (Lipitor -) 10 mg PO HS [facility] Last Admin: 03/07/16 21:42 Dose: 10 mg Furosemide (Lasix Injection -) 80 mg IVPUSH DAILY [facility] Last Admin: 03/07/16 09:06 Dose: 80 mg Pantoprazole Sodium (Protonix -) 40 mg PO DAILY [facility] Last Admin: 03/07/16 09:06 Dose: 40 mg Potassium Chloride (K-Dur -) 40 meq PO DAILY [facility] Last Admin: 03/07/16 09:07 Dose: 40 meq Sertraline HCl (Zoloft -) 50 mg PO HS [facility] Last Admin: 03/07/16 21:43 Dose: 50 mg - Objective Vital Signs: Vital Signs Temperature 98.1 F 03/08/16 06:00 Pulse Rate 83 03/08/16 06:00 Respiratory Rate 18 03/08/16 06:00 Blood Pressure 110/69 03/08/16 06:00 O2 Sat by Pulse Oximetry (%) 96 03/08/16 06:00 Constitutional: Yes: No Distress, Calm Eyes: No: Sclera Icterus HENT: No: Nasal Congestion Cardiovascular: Yes: Regular Rate and Rhythm, S1, S2, Other (PMI non diplaced). No: JVD, Gallop, Murmur Respiratory: Yes: CTA Bilaterally, Wheezes (few scattered whz). No: Accessory Muscle Use, Rales Gastrointestinal: Yes: Normal Bowel Sounds, Soft. No: Tenderness Musculoskeletal: Yes: Other (No kyphosis) Extremities: No: Cold Edema: No Integumentary: No: Jaundice Neurological: Yes: Alert, Oriented (x3) Psychiatric: No: Agitated Labs: CBC, BMP 03/08/16 05:35 03/08/16 05:35 INR, PTT INR 1.14 (0.82-1.09) 03/04/16 03:00 Assessment/Plan echo 02/2016: tds; nl lv/rv, mild-mod tr, mild phtn a/p: 80 f hx htn, hld, here with sob. acute bilat PEs, acute HFpEF -+ LE edema and sob with elevated bnp (2200), wt 213 lb -03/08: diuresed 7 lbs here, JVD resolved, bun/creat and bicarb now rising -sob at rest resolved but still dyspneic with minimal activity -+acute bilat PEs on CTA -likely had right heart chf sec to PEs, now diuresed and R heart pressures improved--change to po lasix -eliquis started for PE (10 bid x 7d, then 5 bid) -RV size/fxn normal on echo htn: -on hctz at home, will dc this now that she will require lasix upon dc -bp controlled here hld: -cont statin positive trops: -trop in borderline range with flat trend (0.2-0.3) and nl ck, no ischemic ecg changes = not consistent with acs. -sec to PE
[2016-03-08] MEDS: APIXABAN 5 MG TABLET PO SCH (09:25)
[2016-03-08] MEDS: POTASSIUM CHLORIDE TABS 20 MEQ TABLET.ER (FP) PO SCH (09:25)
[2016-03-08] MEDS: PANTOPRAZOLE 40 MG TABLET (FP) PO SCH (09:26)
[2016-03-08] MEDS: ASPIRIN COATED 81 MG TABLET.EC PO SCH (09:26)
[2016-03-08] MEDS: FUROSEMIDE 40 MG/4 ML INJECTABLE VIAL IVPUSH SCH (09:26)
[2016-03-08] MEDS: FUROSEMIDE 40 MG TABLET (FP) PO SCH (11:07)
--- NOTE | 2016-03-08 15:44 | PN ---
Progress Note, Physician Chief Complaint: Patient still with shortness of breath on exertion. No cp or n/v. - Current Medication List Current Medications: Active Medications Acetaminophen (Tylenol -) 650 mg PO Q6H PRN PRN Reason: FEVER OR PAIN Apixaban (Eliquis -) 10 mg PO BID [facility] Stop: 03/14/16 10:01 Last Admin: 03/08/16 09:25 Dose: 10 mg Apixaban (Eliquis -) 5 mg PO BID [facility] Aspirin (Ecotrin -) 81 mg PO DAILY [facility] Last Admin: 03/08/16 09:26 Dose: 81 mg Atorvastatin Calcium (Lipitor -) 10 mg PO HS [facility] Last Admin: 03/07/16 21:42 Dose: 10 mg Furosemide (Lasix -) 40 mg PO DAILY [facility] Last Admin: 03/08/16 11:07 Dose: Not Given Pantoprazole Sodium (Protonix -) 40 mg PO DAILY [facility] Last Admin: 03/08/16 09:26 Dose: 40 mg Potassium Chloride (K-Dur -) 40 meq PO DAILY [facility] Last Admin: 03/08/16 09:25 Dose: 40 meq Sertraline HCl (Zoloft -) 50 mg PO HS [facility] Last Admin: 03/07/16 21:43 Dose: 50 mg - Objective Vital Signs: Vital Signs Temperature 97.8 F 03/08/16 15:36 Pulse Rate 78 03/08/16 15:36 Respiratory Rate 20 03/08/16 15:36 Blood Pressure 136/64 03/08/16 15:36 O2 Sat by Pulse Oximetry (%) 96 03/08/16 10:00 Constitutional: Yes: Well Nourished, No Distress, Calm Cardiovascular: Yes: Regular Rate and Rhythm. No: Gallop, Murmur, Rub Respiratory: Yes: Regular, CTA Bilaterally, On Nasal O2. No: Rales, Rhonchi, Wheezes Gastrointestinal: Yes: Normal Bowel Sounds, Soft. No: Distention, Tenderness Extremities: Yes: WNL Edema: No Labs: CBC, BMP 03/08/16 05:35 03/08/16 05:35 INR, PTT INR 1.14 (0.82-1.09) 03/04/16 03:00 Problem List - Problems (1) Pulmonary embolism, bilateral Code(s): I26.99 - OTHER PULMONARY EMBOLISM WITHOUT ACUTE COR PULMONALE (2) CHF (congestive heart failure) Code(s): I50.9 - HEART FAILURE, UNSPECIFIED Qualifiers: Congestive heart failure type: unspecified congestive heart failure type Congestive heart failure chronicity: acute Qualified Code(s): I50.9 - Heart failure, unspecified (3) History of CVA (cerebrovascular accident) Code(s): Z86.73 - PRSNL HX OF TIA (TIA), AND CEREB INFRC W/O RESID DEFICITS (4) Elevated troponin Code(s): R79.89 - OTHER SPECIFIED ABNORMAL FINDINGS OF BLOOD CHEMISTRY Assessment/Plan (1) Bilateral pulmonary embolism -patient says she is active at home -no injury, no recent surgery, not sedentary -will consult hematology for unprovoked PE -ECHO reviewed by Dr Duran, right heart strain noted -recommending thrombolysis -Dr Duran to speak with Dr De La Torre to evaluate this -on anticoagulation (2) CHF (congestive heart failure) Assessment/Plan: -secondary to pulmonary embolism causing heart strain -thrombolysis as above Code(s): I50.9 - HEART FAILURE, UNSPECIFIED Qualifiers: Congestive heart failure type: unspecified congestive heart failure type Congestive heart failure chronicity: acute Qualified Code(s): I50.9 - Heart failure, unspecified (3) History of CVA (cerebrovascular accident) Assessment/Plan: -patient says she does not have a history of TIA/CVA -there was a concern but it turned out to be labyrinthitis Code(s): Z86.73 - PRSNL HX OF TIA (TIA), AND CEREB INFRC W/O RESID DEFICITS (4) Elevated troponin Assessment/Plan: -secondary to PE Code(s): R79.89 - OTHER SPECIFIED ABNORMAL FINDINGS OF BLOOD CHEMISTRY
--- NOTE | 2016-03-08 16:12 | CONSULT ---
Consult - text type - Consultation Consultation Note: Ms Asencio is a pleasant 80 year old female who comes in with shortness of breath. She says it began about 3 weeks ago. It was mainly dyspnea on exertion, she would go up her stairs (there are 16 total) and she would be winded. She says that as time when on it began to be harder to go up the stairs. She says she also had lightheadedness with this. She states she had difficulty lying flat with this. She noted some chest pressure with the shortness of breath. She had a non-productive cough with the shortness of breath. She noted worsening swelling in her legs. She denies fevers, chills, passing out, nausea, vomiting, abdominal pain, diarrhea, constipation, difficulty or pain on urination with this. She was admitted on 03/03 and was being treated for CHF. she then had a CTA on the which showed b/l PE Currently she feels better today but still dyspneic She report s that there was no provoking factor for the PE - Past Medical History Gastrointestinal: Yes: Diverticulosis, GI Bleed (20 yrs ago), Hemorrhoids Psych: Yes: Depression obesity arthritis - Past Surgical History Past Surgical History: Yes: Appendectomy, Cholecystectomy - Smoking History Smoking history: Never smoked - Social History Usual Living Arrangement: Yes: Alone ADL: Independent Home Medications - Allergies Allergies/Adverse Reactions: Allergies Allergy/AdvReac Type Severity Reaction Status Date / Time No Known Allergies Allergy Verified 03/03/16 22:30 - Home Medications Home Medications: Ambulatory Orders Hydrochlorothiazide [Hctz -] 25 mg PO DAILY 01/04/14 Sertraline HCl [Zoloft -] 50 mg PO HS 01/05/14 Multivitamin [Poly-Vitamin] 1 each PO DAILY 12/22/15 Simvastatin 20 mg PO HS 12/22/15 Current Medications Acetaminophen (Tylenol -) 650 mg PO Q6H PRN PRN Reason: FEVER OR PAIN Apixaban (Eliquis -) 10 mg PO BID [facility] Stop: 03/14/16 10:01 Last Admin: 03/08/16 09:25 Dose: 10 mg Apixaban (Eliquis -) 5 mg PO BID [facility] Aspirin (Ecotrin -) 81 mg PO DAILY [facility] Last Admin: 03/08/16 09:26 Dose: 81 mg Atorvastatin Calcium (Lipitor -) 10 mg PO HS [facility] Last Admin: 03/07/16 21:42 Dose: 10 mg Furosemide (Lasix -) 40 mg PO DAILY [facility] Last Admin: 03/08/16 11:07 Dose: Not Given Pantoprazole Sodium (Protonix -) 40 mg PO DAILY [facility] Last Admin: 03/08/16 09:26 Dose: 40 mg Potassium Chloride (K-Dur -) 40 meq PO DAILY [facility] Last Admin: 03/08/16 09:25 Dose: 40 meq Sertraline HCl (Zoloft -) 50 mg PO [facility] Last Admin: 03/07/16 21:43 Dose: 50 mg Abnormal Lab Results 03/08/16 05:35 Carbon Dioxide 33 H BUN 27 H Creatinine 1.1 H Random Glucose 117 H Family Disease History - Family Disease History Family Disease History: Diabetes: Mother (CHF), Heart Disease: Mother, CA: Father Vital Signs: AFVSS Constitutional: Yes:, Mild Distress, Obese Eyes: Yes: Conjunctiva Clear, EOM Intact HENT: Yes: Atraumatic, Normocephalic Cardiovascular: Yes: Regular Rate and Rhythm. No: Gallop, Murmur, Rub Respiratory: Yes: On Nasal O2, Rales (bilaterally), SOB on Exertion (with talking), Tachypnea. No: Rhonchi, Wheezes Gastrointestinal: Yes: Normal Bowel Sounds, Soft. No: Distention, Tenderness Extremities: Yes: WNL Edema: Yes Edema: LLE: 1+, RLE: 1+ Labs: Abnormal Lab Results 03/08/16 05:35 Carbon Dioxide 33 H BUN 27 H Creatinine 1.1 H Random Glucose 117 H - Results Chest X-ray: Report Reviewed, Image Reviewed A/P 80 y/o patient with obesity, arthritis,hyperlipidemia, htn came in with wprsening SOB. Was being treated for CHF. CTA on showed b/l upper and lower lobar PEs with suggestion of rt. heart strain. 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 now switched to heparin drip per IR in anticipation of thrombolysis. Discussed with cardiology team. Switch to oral anticoagulant when cleared by IR team Unprovoked PE -- patient reports that she is very mobile despite arthritis. She has had her colonoscopy and mammogram 2 yrs. ago which were normal per patient Her son and of arterial clots Her mother had gastric cancer She will need thrombophilia w/u as out patient Also willneed mammogram, f/u CT scan regarding RT. lung nodule and gi f/u as outpatient discussed in grat detail with delvismary and her son
[2016-03-08] MEDS ORDERED: HEPARIN NA (PORCINE) 5,000 UNITS/ML 1ML VIAL IVPUSH PRN (19:30)
[2016-03-08] MEDS: HEPARIN - 25,000 UNIT in SODIUM CHLORIDE 495 ML IV SCH (21:35)
[2016-03-08] MEDS: ATORVASTATIN CA 10 MG TABLET (FP) PO SCH (21:37)
[2016-03-08] MEDS: SERTRALINE HCL 25 MG TABLET (FP) PO SCH (21:37)
[2016-03-09 07:57] LABS: BASOPHIL 0.6 % (0-2.0); EOSINOPHIL 1.8 % (0-4.5); MCH 32.6 pg (25.7-33.7); MCHC 35.2 g/dl (32.0-36.0); MEAN CELL VOLUME 92.6 fl (80-96); MEAN PLT VOLUME 8.8 fl (7.5-11.1); PLATELET COUNT 150 K/MM3 (134-434); RDW 14.1 % (11.6-15.6); WHITE BLOOD COUNT 8.3 K/mm3 (4.0-10.0)
[2016-03-09 08:48] LABS: CREATININE 0.8 mg/dL (0.55-1.02); PHOSPHOROUS 3.9 mg/dL (2.5-4.9)
[2016-03-09 09:01] LABS: INR 1.47 (0.82-1.09); PROTHROMBIN TIME (PATIENT) 16.3 SEC (9.98-11.88)
[2016-03-09] MEDS: HEPARIN - 25,000 UNIT in SODIUM CHLORIDE 495 ML IV SCH ×3 (09:44→21:52)
[2016-03-09] MEDS: PANTOPRAZOLE 40 MG TABLET (FP) PO SCH (09:45)
[2016-03-09] MEDS: FUROSEMIDE 40 MG TABLET (FP) PO SCH (09:45)
[2016-03-09] MEDS: POTASSIUM CHLORIDE TABS 20 MEQ TABLET.ER (FP) PO SCH (09:45)
--- NOTE | 2016-03-09 10:29 | PN ---
Progress Note (short form) - Note Progress Note: PT not yet seen. Chief Complaint: sob, chf, pe History of Present Illness: remains sob walking to bathroom (3 feet)--new for her vs 1-2 wks ago. no cp, palpit, syncope +PE on CTA yest no cigs (ever) - Current Medication List Current Medications: Active Medications Acetaminophen (Tylenol -) 650 mg PO Q6H PRN PRN Reason: FEVER OR PAIN Apixaban (Eliquis -) 10 mg PO BID [facility] Stop: 03/14/16 10:01 Last Admin: 03/07/16 21:42 Dose: 10 mg Apixaban (Eliquis -) 5 mg PO BID [facility] Aspirin (Ecotrin -) 81 mg PO DAILY [facility] Last Admin: 03/07/16 09:07 Dose: 81 mg Atorvastatin Calcium (Lipitor -) 10 mg PO HS [facility] Last Admin: 03/07/16 21:42 Dose: 10 mg Furosemide (Lasix Injection -) 80 mg IVPUSH DAILY [facility] Last Admin: 03/07/16 09:06 Dose: 80 mg Pantoprazole Sodium (Protonix -) 40 mg PO DAILY [facility] Last Admin: 03/07/16 09:06 Dose: 40 mg Potassium Chloride (K-Dur -) 40 meq PO DAILY [facility] Last Admin: 03/07/16 09:07 Dose: 40 meq Sertraline HCl (Zoloft -) 50 mg PO HS [facility] Last Admin: 03/07/16 21:43 Dose: 50 mg - Objective Vital Signs: Vital Signs Temperature 98.1 F 03/08/16 06:00 Pulse Rate 83 03/08/16 06:00 Respiratory Rate 18 03/08/16 06:00 Blood Pressure 110/69 03/08/16 06:00 O2 Sat by Pulse Oximetry (%) 96 03/08/16 06:00 Constitutional: Yes: No Distress, Calm Eyes: No: Sclera Icterus HENT: No: Nasal Congestion Cardiovascular: Yes: Regular Rate and Rhythm, S1, S2, Other (PMI non diplaced). No: JVD, Gallop, Murmur Respiratory: Yes: CTA Bilaterally, Wheezes (few scattered whz). No: Accessory Muscle Use, Rales Gastrointestinal: Yes: Normal Bowel Sounds, Soft. No: Tenderness Musculoskeletal: Yes: Other (No kyphosis) Extremities: No: Cold Edema: No Integumentary: No: Jaundice Neurological: Yes: Alert, Oriented (x3) Psychiatric: No: Agitated Labs: CBC, BMP 03/08/16 05:35 03/08/16 05:35 INR, PTT INR 1.14 (0.82-1.09) 03/04/16 03:00 Assessment/Plan echo 02/2016: tds; nl lv/rv, mild-mod tr, mild phtn Repeat echo: Per Dr. Duran's review: RV images TDS but it is likely mild or possibly moderately dilated; mid and basal wall systolic function is impaired, with hyperdynamic apical contraction c/w "Mcconell's sign"; suspect there was acute RV strain on admit; peak TR gradient obtained was approximately 41, hence PASP was at least 44 on admit (higher if RA pressure was elevated). a/p: 80 f hx htn, hld, here with sob. acute bilat PEs, acute HFpEF -+ LE edema and sob with elevated bnp (2200), wt 213 lb -03/08: diuresed 7 lbs here, JVD resolved, bun/creat and bicarb now rising -sob at rest resolved but still dyspneic with minimal activity -+acute bilat PEs on CTA -likely had right heart chf sec to PEs, now diuresed and R heart pressures improved--change to po lasix -eliquis started for PE (10 bid x 7d, then 5 bid) - 03/08 Dr. Duran d/w'd dr ponce--intra-PA lytics are indicated even after several days from time of initial PE, given the evidence of RV strain, to minimize risk of persistent pulm HTN and RV dysfunction. He will d/w pt and schedule probably tomorrow. Eliquis --> heparing gtt in preparation. she is hemodynamically stable, no ongoing chf (s/p diuresis). htn: -on hctz at home, will dc this now that she will require lasix upon dc -bp controlled here hld: -cont statin positive trops: -trop in borderline range with flat trend (0.2-0.3) and nl ck, no ischemic ecg changes = not consistent with acs. -sec to PE
[2016-03-09] MEDS ORDERED: ALTEPLASE 50MG 25 MG in SODIUM CHLORIDE 250 ML IVPB ONE (12:00)
--- NOTE | 2016-03-09 14:07 | CONSULT ---
Consult Consult Specialty:: Pulmonary/CCM Referred by:: Pedro Pablo Reason for Consultation:: ICU care for Tpa thrombolysis - History of Present Illness Chief Complaint: dyspnea on exertion History of Present Illness: 80F history of HTN HLD and depression presents to the ED with SOB and worsening dyspnea on exertion for about 3 weeks. She was initially thought to be in new onset CHF exacerbation and was later found to have extensive bilateral DVTs and bilateral PEs. bilateral pulmonary embolisms causing right heart strain and causing a CHF like picture. PE's also causing a troponinemia. She also complained on worsening leg swelling and orthopnea. Per patient she is active and it seems these were unprovoked events. She was started on NOAC and was eventually transitioned to hep gtt in anticipation for IR. She went to IR today for catheter directed TPA thrombolysis of bilateral pulmonary arteries. She tolerated the procedure well and there were no complications. she presents to the ICU hemodynamically stable. She has no complaints. Denies all symptoms. - History Source History Provided By: Patient, Medical Record Limitations to Obtaining History: No Limitations - Past Medical History Cardio/Vascular: Yes: HTN, Hyperlipdemia Gastrointestinal: Yes: Diverticulosis, GI Bleed (20 yrs ago), Hemorrhoids Psych: Yes: Depression Additional Medical History: Insomnia - Past Surgical History Past Surgical History: Yes: Appendectomy, Cholecystectomy - Alcohol/Substance Use Hx Alcohol Use: No History of Substance Use: reports: None - Smoking History Smoking history: Never smoked Aproximately how many cigarettes per day: 0 - Social History ADL: Independent History of Recent Travel: No Home Medications - Allergies Allergies/Adverse Reactions: Allergies Allergy/AdvReac Type Severity Reaction Status Date / Time No Known Allergies Allergy Verified 03/03/16 22:30 - Home Medications Home Medications: Ambulatory Orders Hydrochlorothiazide [Hctz -] 25 mg PO DAILY 01/04/14 Sertraline HCl [Zoloft -] 50 mg PO HS 01/05/14 Multivitamin [Poly-Vitamin] 1 each PO DAILY 12/22/15 Simvastatin 20 mg PO HS 12/22/15 Family Disease History - Family Disease History Family Disease History: Diabetes: Mother (CHF), Heart Disease: Mother, CA: Father Review of Systems - Review of Systems Constitutional: reports: No Symptoms Eyes: reports: No Symptoms HENT: reports: No Symptoms Neck: reports: No Symptoms Cardiovascular: reports: Edema, Shortness of Breath Respiratory: reports: Exercise Intolerance, Orthopnea, SOB on Exertion Gastrointestinal: reports: No Symptoms Genitourinary: reports: No Symptoms Musculoskeletal: reports: No Symptoms Physical Exam Vital Signs: Vital Signs Temperature 97.2 F L 03/09/16 02:00 Pulse Rate 78 03/09/16 13:05 Respiratory Rate 16 03/09/16 13:05 Blood Pressure 127/83 03/09/16 13:05 O2 Sat by Pulse Oximetry (%) 100 03/09/16 13:05 Constitutional: Yes: No Distress, Calm, Obese Eyes: Yes: EOM Intact HENT: Yes: Atraumatic Neck: Yes: Supple, Trachea Midline, Other (cordis in place in right neck. Dressing C/D/I) Cardiovascular: Yes: Regular Rate and Rhythm Respiratory: Yes: CTA Bilaterally Gastrointestinal: Yes: Soft, Abdomen, Obese Extremities: Yes: WNL Edema: Yes Edema: LLE: 1+ (non pitting), RLE: 1+ (non pitting ) Neurological: Yes: WNL, Alert, Oriented Labs: CBC, BMP 03/09/16 06:06 03/09/16 06:06 Imaging - Results X-ray: Report Reviewed, Image Reviewed Ultrasound: Report Reviewed Assessment/Plan 80F with worsening shortness of breath and dyspnea on exertion found to have bilateral DVTs and bilateral PEs. DVT/PE: s/p thrombectomy and catherter directed TPa thrombolysis ICU monitoring continue TPA gtt heparin gtt per protocol q6h PTT and fibrinogen IR to reassess patient tomorrow for removal of catheter vs continuing the gtt's longer frequent neuro checks frequent GI checks to make sure patient does not bleed will need outpt thrombophilia work up Hematology on board consult appreciated Possible heart failure with preserved ejection fraction: Echo reviewed likely heart failure like symptoms due to right heart strain from pulmonary embolism patient diuresed and JVD now flat continue lasix PO stop HCTZ cardiology consult appreciated HTN: lasix BP well controlled at this time Cardiology consult appreciated HLD: lipitor Depression: zoloft FEN: no IVF daily potassium sodium controlled diet PPx: Hep gtt protonix PT consult ICU care CCTime 60 min
--- NOTE | 2016-03-09 17:22 | PN ---
Progress Note, Physician Chief Complaint: Ms Asencio says her breathing is much improved after thrombectomy. Denies cp or n/v. - Current Medication List Current Medications: Active Medications Acetaminophen (Tylenol -) 650 mg PO Q6H PRN PRN Reason: FEVER OR PAIN Atorvastatin Calcium (Lipitor -) 10 mg PO HS JORGE Last Admin: 03/08/16 21:37 Dose: 10 mg Furosemide (Lasix -) 40 mg PO DAILY JORGE Last Admin: 03/09/16 09:45 Dose: 40 mg Heparin Sodium (Porcine) (Heparin -) 5,000 unit IVPUSH PRN PRN Heparin Sodium (Porcine) (Heparin -) 1,000 unit IVPUSH PRN PRN Heparin Sodium (Porcine) 25, (000 unit/ Sodium Chloride) 500 mls @ 20 mls/hr IV TITR JORGE; 1,000 UNIT/HR PRN Reason: Protocol Last Titration: 03/09/16 13:45 Dose: 500 unit/hr Alteplase, Recombinant 25 mg/ (Sodium Chloride) 250 mls @ 5 mls/hr IVPB ONCE ONE Stop: 03/11/16 13:59 Last Admin: 03/09/16 13:45 Dose: 5 mls/hr Alteplase, Recombinant 25 mg/ (Sodium Chloride) 250 mls @ 5 mls/hr IVPB ONCE ONE Stop: 03/11/16 13:59 Last Admin: 03/09/16 13:45 Dose: 5 mls/hr Pantoprazole Sodium (Protonix -) 40 mg PO DAILY JORGE Last Admin: 03/09/16 09:45 Dose: 40 mg Potassium Chloride (K-Dur -) 40 meq PO DAILY JORGE Last Admin: 03/09/16 09:45 Dose: 40 meq Sertraline HCl (Zoloft -) 50 mg PO HS [facility] Last Admin: 03/08/16 21:37 Dose: 50 mg - Objective Vital Signs: Vital Signs Temperature 98.3 F 03/09/16 17:17 Pulse Rate 74 03/09/16 16:49 Respiratory Rate 21 03/09/16 16:49 Blood Pressure 129/81 03/09/16 16:49 O2 Sat by Pulse Oximetry (%) 100 03/09/16 15:00 Constitutional: Yes: Well Nourished, No Distress, Calm Cardiovascular: Yes: Regular Rate and Rhythm. No: Gallop, Murmur, Rub Respiratory: Yes: Regular, CTA Bilaterally. No: Rales, Rhonchi, Wheezes Gastrointestinal: Yes: Normal Bowel Sounds, Soft. No: Distention, Tenderness Extremities: Yes: WNL Edema: No Labs: CBC, BMP 03/09/16 06:06 03/09/16 06:06 INR, PTT INR 1.47 (0.82-1.09) H 03/09/16 06:06 Fibrinogen 362.0 mg/dL (238-498) 03/09/16 06:06 Problem List - Problems (1) Pulmonary embolism, bilateral Code(s): I26.99 - OTHER PULMONARY EMBOLISM WITHOUT ACUTE COR PULMONALE (2) CHF (congestive heart failure) Code(s): I50.9 - HEART FAILURE, UNSPECIFIED Qualifiers: Congestive heart failure type: unspecified congestive heart failure type Congestive heart failure chronicity: acute Qualified Code(s): I50.9 - Heart failure, unspecified (3) History of CVA (cerebrovascular accident) Code(s): Z86.73 - PRSNL HX OF TIA (TIA), AND CEREB INFRC W/O RESID DEFICITS (4) Elevated troponin Code(s): R79.89 - OTHER SPECIFIED ABNORMAL FINDINGS OF BLOOD CHEMISTRY Assessment/Plan (1) Bilateral pulmonary embolism -appreciate hematology assistance -s/p thrombectomy, breathing feels improved -change to oral anticoagulation per cardiology -monitor in the ICU overnight (2) CHF (congestive heart failure) Assessment/Plan: -secondary to pulmonary embolism causing heart strain -thrombolysis as above Code(s): I50.9 - HEART FAILURE, UNSPECIFIED Qualifiers: Congestive heart failure type: unspecified congestive heart failure type Congestive heart failure chronicity: acute Qualified Code(s): I50.9 - Heart failure, unspecified (3) History of CVA (cerebrovascular accident) Assessment/Plan: -patient says she does not have a history of TIA/CVA -there was a concern but it turned out to be labyrinthitis Code(s): Z86.73 - PRSNL HX OF TIA (TIA), AND CEREB INFRC W/O RESID DEFICITS (4) Elevated troponin Assessment/Plan: -secondary to PE Code(s): R79.89 - OTHER SPECIFIED ABNORMAL FINDINGS OF BLOOD CHEMISTRY
[2016-03-09 19:27] LABS: ACTIVATED PTT 39.4 SECONDS (26.9-34.4)
--- NOTE | 2016-03-09 21:02 | PN ---
History of Present Illness: Patient seen and examined Breathing improved. No significant LE discomfort S/P thrombectomy with catheter directed thrombolysis initiated because of P.E .associated with right heart strain and hoped for decrease in sequelae of pulmonary hypertension. Last Vital Signs Temp Pulse Resp BP Pulse Ox 98.3 F 76 18 140/79 99 03/09/16 17:17 03/09/16 20:00 03/09/16 20:00 03/09/16 20:00 03/09/16 19:00 HEENT: LALITA, EOM Intact Oropharynx: No thrush, No mucositis Neck: catheter in place Cor: RSR, No murmurs, No gallops Lungs: Clear to P&A Abd: Soft, Normal bowel sounds, No organomegaly Ext:No significant edema, no significant calf tenderness Skin: No rashes, Integument intact CBC, BMP 03/09/16 06:06 03/09/16 06:06 Current Medications Generic Name Dose Route Start Last Admin Trade Name Freq PRN Reason Stop Dose Admin Acetaminophen 650 mg 03/04/16 03:00 Tylenol - PO Q6H PRN FEVER OR PAIN Atorvastatin Calcium 10 mg 03/04/16 22:00 03/08/16 21:37 Lipitor - PO 10 mg HS JORGE Administration Furosemide 40 mg 03/08/16 10:00 03/09/16 09:45 Lasix - PO 40 mg DAILY JORGE Administration Heparin Sodium (Porcine) 5,000 unit 03/08/16 19:30 03/09/16 19:55 Heparin - IVPUSH 5,000 unit PRN PRN Administration Heparin Sodium (Porcine) 1,000 unit 03/08/16 19:30 Heparin - IVPUSH PRN PRN Heparin Sodium (Porcine) 25, 500 mls @ 20 mls/hr 03/08/16 21:00 03/09/16 19:56 000 unit/ Sodium Chloride IV 13 mls/hr TITR JORGE Administration Protocol 1,000 UNIT/HR Alteplase, Recombinant 25 mg/ 250 mls @ 5 mls/hr 03/09/16 12:00 03/09/16 13:45 Sodium Chloride IVPB 03/11/16 13:59 5 mls/hr ONCE ONE Administration Alteplase, Recombinant 25 mg/ 250 mls @ 5 mls/hr 03/09/16 12:00 03/09/16 13:45 Sodium Chloride IVPB 03/11/16 13:59 5 mls/hr ONCE ONE Administration Pantoprazole Sodium 40 mg 03/04/16 10:00 03/09/16 09:45 Protonix - PO 40 mg DAILY JORGE Administration Potassium Chloride 40 meq 03/07/16 10:00 03/09/16 09:45 K-Dur - PO 40 meq DAILY JORGE Administration Sertraline HCl 50 mg 03/04/16 22:00 03/08/16 21:37 Zoloft - PO 50 mg HS [facility] Administration - Medications/Allergies Allergies/Adverse Reactions: Allergies Allergy/AdvReac Type Severity Reaction Status Date / Time No Known Allergies Allergy Verified 03/03/16 22:30 Medications: Current Medications Acetaminophen (Tylenol -) 650 mg PO Q6H PRN PRN Reason: FEVER OR PAIN Atorvastatin Calcium (Lipitor -) 10 mg PO HS JORGE Last Admin: 03/08/16 21:37 Dose: 10 mg Furosemide (Lasix -) 40 mg PO DAILY [facility] Last Admin: 03/09/16 09:45 Dose: 40 mg Heparin Sodium (Porcine) (Heparin -) 5,000 unit IVPUSH PRN PRN Last Admin: 03/09/16 19:55 Dose: 5,000 unit Heparin Sodium (Porcine) (Heparin -) 1,000 unit IVPUSH PRN PRN Heparin Sodium (Porcine) 25, (000 unit/ Sodium Chloride) 500 mls @ 20 mls/hr IV TITR JORGE; 1,000 UNIT/HR PRN Reason: Protocol Last Admin: 03/09/16 19:56 Dose: 13 mls/hr Alteplase, Recombinant 25 mg/ (Sodium Chloride) 250 mls @ 5 mls/hr IVPB ONCE ONE Stop: 03/11/16 13:59 Last Admin: 03/09/16 13:45 Dose: 5 mls/hr Alteplase, Recombinant 25 mg/ (Sodium Chloride) 250 mls @ 5 mls/hr IVPB ONCE ONE Stop: 03/11/16 13:59 Last Admin: 03/09/16 13:45 Dose: 5 mls/hr Pantoprazole Sodium (Protonix -) 40 mg PO DAILY JORGE Last Admin: 03/09/16 09:45 Dose: 40 mg Potassium Chloride (K-Dur -) 40 meq PO DAILY [facility] Last Admin: 03/09/16 09:45 Dose: 40 meq Sertraline HCl (Zoloft -) 50 mg PO HS JORGE Last Admin: 03/08/16 21:37 Dose: 50 mg - Objective Vital Signs: Vital Signs Temperature 98.3 F 03/09/16 17:17 Pulse Rate 76 03/09/16 20:00 Respiratory Rate 18 03/09/16 20:00 Blood Pressure 140/79 03/09/16 20:00 O2 Sat by Pulse Oximetry (%) 99 03/09/16 19:00 Labs: CBC, BMP 03/09/16 06:06 03/09/16 06:06 Problem List - Problems (1) Pulmonary embolism, bilateral Assessment/Plan: Bilateral Pulmonary embolism and bilateral DVT- unprovoked. When feasible screening for malignancy with CT scans , pulmonary monitoring. Thrombophilia work up as out patient. Code(s): I26.99 - OTHER PULMONARY EMBOLISM WITHOUT ACUTE COR PULMONALE (2) Elevated troponin Assessment/Plan: Likely related to pulmonary rather than cardiac event. Code(s): R79.89 - OTHER SPECIFIED ABNORMAL FINDINGS OF BLOOD CHEMISTRY (3) CHF (congestive heart failure) Assessment/Plan: Weight loss secondary to diuresis. Continued management. Code(s): I50.9 - HEART FAILURE, UNSPECIFIED Qualifiers: Congestive heart failure type: unspecified congestive heart failure type Congestive heart failure chronicity: acute Qualified Code(s): I50.9 - Heart failure, unspecified
[2016-03-09] MEDS: ATORVASTATIN CA 10 MG TABLET (FP) PO SCH (21:52)
[2016-03-09] MEDS: SERTRALINE HCL 25 MG TABLET (FP) PO SCH (21:52)
--- NOTE | 2016-03-09 22:00 | CONSULT ---
Consult Consult Specialty:: Pulm/CC - History of Present Illness History of Present Illness: Pt is a 80yr old woman with PMHx of pulm htn, HTN, HLD and depression. She presented to the ER on 03/04 with CC of HEARN x 7 days, progressively worsening. Pt admitted for presumed CHF and troponemia. Treated with lasix with some improvement. On 03/07 pt had a CTA which showed bilateral pulmonary emboli. Vascular study on 03/09 also shows extensive BLE DVTs. Pt now s/p thrombectomy and in the ICU for further management. Upon assessment pt denies chest pain/sob/headache/n/v, with anteplase and heparin infusing. - History Source History Provided By: Patient, Medical Record Limitations to Obtaining History: No Limitations - Past Medical History Cardio/Vascular: Yes: HTN, Hyperlipdemia Gastrointestinal: Yes: Diverticulosis, GI Bleed (20 yrs ago), Hemorrhoids Psych: Yes: Depression Additional Medical History: Insomnia - Past Surgical History Past Surgical History: Yes: Appendectomy, Cholecystectomy - Alcohol/Substance Use Hx Alcohol Use: No History of Substance Use: reports: None - Smoking History Smoking history: Never smoked Aproximately how many cigarettes per day: 0 - Social History ADL: Independent History of Recent Travel: No Home Medications - Allergies Allergies/Adverse Reactions: Allergies Allergy/AdvReac Type Severity Reaction Status Date / Time No Known Allergies Allergy Verified 03/03/16 22:30 - Home Medications Home Medications: Ambulatory Orders Hydrochlorothiazide [Hctz -] 25 mg PO DAILY 01/04/14 Sertraline HCl [Zoloft -] 50 mg PO HS 01/05/14 Multivitamin [Poly-Vitamin] 1 each PO DAILY 12/22/15 Simvastatin 20 mg PO HS 12/22/15 Family Disease History - Family Disease History Family Disease History: Diabetes: Mother (CHF), Heart Disease: Mother, CA: Father Review of Systems - Review of Systems Eyes: reports: No Symptoms Cardiovascular: reports: Shortness of Breath Respiratory: reports: SOB on Exertion Gastrointestinal: reports: Nausea. denies: Constipation, Diarrhea Genitourinary: denies: Dysuria Neurological: denies: Headache Physical Exam Vital Signs: Vital Signs Period Temp Pulse Resp BP Sys/Charles Pulse Ox Last 24 Hr 97.2 F-98.3 F 67-90 16-25 114-157/63-90 96-100 Intake & Output 03/06/16 03/07/16 03/08/16 03/09/16 23:59 23:59 23:59 23:59 Intake Total 330 310 210 420 Output Total 650 Balance 330 310 210 -230 Weight 210 lb 8 oz 208 lb 206 lb 9.6 oz 209 lb 6.4 oz Constitutional: Yes: Well Nourished, No Distress, Calm Eyes: Yes: WNL, PERRL HENT: Yes: WNL Neck: Yes: Other (rt IJ central line) Cardiovascular: Yes: S1, S2, Other (sinus on tele) Respiratory: Yes: Diminished, On Nasal O2. No: Rhonchi, Tachypnea, Wheezes Gastrointestinal: Yes: Normal Bowel Sounds, Soft, Abdomen, Obese. No: Tenderness ...Rectal Exam: Yes: Deferred Edema: Yes Edema: LLE: Trace, RLE: Trace Peripheral Pulses WNL: (+2 rt, +1 left pedal ) Integumentary: Yes: WNL Neurological: Yes: WNL Psychiatric: Yes: WNL Labs: Abnormal Lab Results 03/09/16 03/09/16 03/09/16 03:45 06:06 06:06 INR 1.47 H PTT (Actin FS) 81.5 H D BUN 31 H Random Glucose 116 H 03/09/16 03/09/16 03/09/16 06:06 15:20 17:45 INR PTT (Actin FS) 94.4 H 41.5 H D 39.4 H BUN Random Glucose Imaging - Results Cat Scan: Report Reviewed (CTA -- bilateral PEs) Ultrasound: Report Reviewed (doppler, extensive BLE DVT) Other: Report Reviewed (echo 03/09 -- EF 62%, RVSP 40-50) Assessment/Plan Pt is a 80yr old woman with PMHx of pulm htn, HTN, HLD and depression. Now in the ICU for management of anteplase infusion s/p thrombectomy and heparin drip in setting of extensive BLE DVTs. Pulm: Pulm htn, bilateral PE with recent thrombectomy -O2 support prn -Albuterol BID and prn -Incentive spirometer Heme: BLE DVTs, bilateral PEs -Hematology group following -Monitor h/h, coags -Anteplase infusing per Dr. [place] -Heparin drip -Thrombophilia workup as outpt ID: -Monitor off antibiotics for now Cardiac -Cardiology following -EF 45 -->62 s/p thrombectomy -BP control -Continue statin Renal -IVF as tolerated -Replete electrolytes prn Neuro -Pain management -Continue home Zoloft Prophylactic -DVT -OOB as able
[2016-03-09] MEDS ORDERED: ALBUTEROL SO4 0.083% IH SOL 2.5 MG/3 ML VIAL.NEB. NEB PRN (22:29)
[2016-03-10 01:39] LABS: ACTIVATED PTT 61.3 SECONDS (26.9-34.4)
[2016-03-10] MEDS: HEPARIN - 25,000 UNIT in SODIUM CHLORIDE 495 ML IV SCH ×3 (02:59→21:19)
[2016-03-10 05:56] LABS: MCH 31.4 pg (25.7-33.7); MCHC 33.7 g/dl (32.0-36.0); MEAN CELL VOLUME 93.3 fl (80-96); MEAN PLT VOLUME 9.1 fl (7.5-11.1); PLATELET COUNT 159 K/MM3 (134-434); RDW 14.1 % (11.6-15.6); WHITE BLOOD COUNT 7.6 K/mm3 (4.0-10.0)
[2016-03-10 06:17] LABS: CALCIUM 8.8 mg/dL (8.5-10.1); CREATININE 0.7 mg/dL (0.55-1.02); MAGNESIUM 1.9 mg/dL (1.8-2.4); PHOSPHOROUS 3.7 mg/dL (2.5-4.9)
[2016-03-10] MEDS: HEPARIN NA (PORCINE) 5,000 UNITS/ML 1ML VIAL IVPUSH PRN ×2 (06:33→20:42)
[2016-03-10] MEDS: ALBUTEROL SO4 0.083% IH SOL 2.5 MG/3 ML VIAL.NEB. NEB SCH ×3 (10:00→22:20)
--- NOTE | 2016-03-10 11:32 | PN ---
Teaching Attending Note Name of Resident: Jah Murdock ATTENDING PHYSICIAN STATEMENT I saw and evaluated the patient. I reviewed the resident's note and discussed the case with the resident. I agree with the resident's findings and plan as documented. SUBJECTIVE: Pt seen and examined in the ICU. s/p catheter directed thrombectomy/ thrombolysis with improvement in symptoms. Denies current shortness of breath or chest pain. No palpitations. OBJECTIVE: Last Vital Signs Temp Pulse Resp BP Pulse Ox 98.2 F 61 16 143/83 97 03/10/16 06:00 03/10/16 10:06 03/10/16 10:06 03/10/16 10:06 03/10/16 08:20 Intake & Output 03/07/16 03/08/16 03/09/16 03/10/16 23:59 23:59 23:59 23:59 Intake Total 310 210 420 510 Output Total 1050 Balance 310 210 -630 510 Weight 208 lb 206 lb 9.6 oz 209 lb 6.4 oz 201 lb 6.4 oz Gen: NAD at rest Heart: RRR Lung: clear to auscultation Abd: soft, nontender Ext: no edema CBC, BMP 03/10/16 05:00 03/10/16 05:00 Active Medications Acetaminophen (Tylenol -) 650 mg PO Q6H PRN PRN Reason: FEVER OR PAIN Albuterol Sulfate (Ventolin 0.083% Nebulizer Soln -) 1 amp NEB BID JORGE Albuterol Sulfate (Ventolin 0.083% Nebulizer Soln -) 1 amp NEB Q4H PRN PRN Reason: SHORT OF BREATH/WHEEZING Atorvastatin Calcium (Lipitor -) 10 mg PO HS JORGE Last Admin: 03/09/16 21:52 Dose: 10 mg Furosemide (Lasix -) 40 mg PO DAILY JORGE Last Admin: 03/09/16 09:45 Dose: 40 mg Heparin Sodium (Porcine) (Heparin -) 5,000 unit IVPUSH PRN PRN Last Admin: 03/09/16 19:55 Dose: 5,000 unit Heparin Sodium (Porcine) (Heparin -) 1,000 unit IVPUSH PRN PRN Last Admin: 03/10/16 06:33 Dose: 1,000 unit Heparin Sodium (Porcine) 25, (000 unit/ Sodium Chloride) 500 mls @ 20 mls/hr IV TITR JORGE; 1,000 UNIT/HR PRN Reason: Protocol Last Admin: 03/10/16 06:33 Dose: 15 mls/hr Alteplase, Recombinant 25 mg/ (Sodium Chloride) 250 mls @ 5 mls/hr IVPB ONCE ONE Stop: 03/11/16 13:59 Last Admin: 03/09/16 13:45 Dose: 5 mls/hr Alteplase, Recombinant 25 mg/ (Sodium Chloride) 250 mls @ 5 mls/hr IVPB ONCE ONE Stop: 03/11/16 13:59 Last Admin: 03/09/16 13:45 Dose: 5 mls/hr Pantoprazole Sodium (Protonix -) 40 mg PO DAILY [facility] Last Admin: 03/09/16 09:45 Dose: 40 mg Potassium Chloride (K-Dur -) 40 meq PO DAILY [facility] Last Admin: 03/09/16 09:45 Dose: 40 meq Potassium Chloride (K-Dur -) 40 meq PO ONCE ONE Stop: 03/10/16 16:01 Sertraline HCl (Zoloft -) 50 mg PO HS [facility] Last Admin: 03/09/16 21:52 Dose: 50 mg ASSESSMENT AND PLAN: Submassive PE Bilateral DVT Unprovoked VTE Right Heart Dysfunction/Pulmonary HTN +Troponins s/p Catheter directed Thrombectomy/Thrombolysis HTN Hyperlipidemia - will need temporary IVC filter placement - continue anticoagulation, transition to PO when invasive procedures completed - O2 as needed - OOB to chair - rehab/PT - can monitor on floor
--- NOTE | 2016-03-10 11:39 | PN ---
Progress Note, Physician History of Present Illness: no issues overnight feels much better today afebrile - Current Medication List Current Medications: Active Medications Acetaminophen (Tylenol -) 650 mg PO Q6H PRN PRN Reason: FEVER OR PAIN Albuterol Sulfate (Ventolin 0.083% Nebulizer Soln -) 1 amp NEB BID JORGE Albuterol Sulfate (Ventolin 0.083% Nebulizer Soln -) 1 amp NEB Q4H PRN PRN Reason: SHORT OF BREATH/WHEEZING Atorvastatin Calcium (Lipitor -) 10 mg PO HS JORGE Last Admin: 03/09/16 21:52 Dose: 10 mg Furosemide (Lasix -) 40 mg PO DAILY JORGE Last Admin: 03/09/16 09:45 Dose: 40 mg Heparin Sodium (Porcine) (Heparin -) 5,000 unit IVPUSH PRN PRN Last Admin: 03/09/16 19:55 Dose: 5,000 unit Heparin Sodium (Porcine) (Heparin -) 1,000 unit IVPUSH PRN PRN Last Admin: 03/10/16 06:33 Dose: 1,000 unit Heparin Sodium (Porcine) 25, (000 unit/ Sodium Chloride) 500 mls @ 20 mls/hr IV TITR JORGE; 1,000 UNIT/HR PRN Reason: Protocol Last Admin: 03/10/16 06:33 Dose: 15 mls/hr Alteplase, Recombinant 25 mg/ (Sodium Chloride) 250 mls @ 5 mls/hr IVPB ONCE ONE Stop: 03/11/16 13:59 Last Admin: 03/09/16 13:45 Dose: 5 mls/hr Alteplase, Recombinant 25 mg/ (Sodium Chloride) 250 mls @ 5 mls/hr IVPB ONCE ONE Stop: 03/11/16 13:59 Last Admin: 03/09/16 13:45 Dose: 5 mls/hr Pantoprazole Sodium (Protonix -) 40 mg PO DAILY JORGE Last Admin: 03/09/16 09:45 Dose: 40 mg Potassium Chloride (K-Dur -) 40 meq PO DAILY JORGE Last Admin: 03/09/16 09:45 Dose: 40 meq Potassium Chloride (K-Dur -) 40 meq PO ONCE ONE Stop: 03/10/16 16:01 Sertraline HCl (Zoloft -) 50 mg PO HS JORGE Last Admin: 03/09/16 21:52 Dose: 50 mg - Objective Vital Signs: Vital Signs Temperature 98.2 F 03/10/16 06:00 Pulse Rate 61 03/10/16 10:06 Respiratory Rate 16 03/10/16 10:06 Blood Pressure 143/83 03/10/16 10:06 O2 Sat by Pulse Oximetry (%) 97 03/10/16 08:20 Constitutional: Yes: No Distress, Calm, Obese Eyes: Yes: EOM Intact HENT: Yes: Atraumatic Neck: Yes: Supple, Trachea Midline, Cardiovascular: Yes: Regular Rate and Rhythm Respiratory: Yes: CTA Bilaterally Gastrointestinal: Yes: Soft, Abdomen, Obese Extremities: Yes: WNL Edema: Yes Edema: LLE: 1+ (non pitting), RLE: 1+ (non pitting ) Neurological: Yes: WNL, Alert, Oriented Labs: CBC, BMP 03/10/16 05:00 03/10/16 05:00 INR, PTT INR 1.47 (0.82-1.09) H 03/09/16 06:06 Fibrinogen 384.0 mg/dL (238-498) 03/10/16 05:00 - ....Imaging Chest X-ray: Report Reviewed, Image Reviewed Assessment/Plan 80F with worsening shortness of breath and dyspnea on exertion found to have bilateral DVTs and bilateral PEs. DVT/PE: s/p thrombectomy and catherter directed TPa thrombolysis now s/p removal ICU monitoring heparin gtt per protocol will need outpt thrombophilia work up Hematology on board consult appreciated will consider oral AC will consider IVC filter Possible heart failure with preserved ejection fraction: Echo reviewed likely heart failure like symptoms due to right heart strain from pulmonary embolism patient diuresed and JVD now flat continue lasix PO stop HCTZ cardiology consult appreciated HTN: lasix BP well controlled at this time Cardiology consult appreciated HLD: lipitor Depression: zoloft FEN: no IVF daily potassium give extra potassium for hypokalemia sodium controlled diet PPx: Hep gtt protonix PT consult ICU care
--- NOTE | 2016-03-10 11:43 | PN ---
Progress Note (short form) - Note Progress Note: s: s/p catheter directed thrombolysis, feeling well since with less sob (not ambulating yet though); no cp, palps, dizzy o: Vital Signs Temp 98.2 F 03/10/16 06:00 Pulse 61 03/10/16 10:06 Resp 16 03/10/16 10:06 BP 143/83 03/10/16 10:06 Pulse Ox 97 03/10/16 08:20 Intake & Output 03/09/16 03/09/16 03/10/16 11:59 23:59 11:59 Intake Total 180 240 510 Output Total 1050 Balance 180 -810 510 Weight 209 lb 6.4 oz 201 lb 6.4 oz Intake: IV 180 120 260 Heparin - 25,000 Unit In 180 60 160 Normal Saline - 495 ml @ 1,000 UNIT/HR 20 mls/hr IV TITR JORGE Rx#: [id number] tpa x 2 60 100 Oral 120 250 Output: Urine 1050 Void 1050 Other: Voiding Method Toilet Bedpan # Unmeasured Voids Void 2 Weight Measurement Method Standing Scale Built in [facility] Constitutional: Yes: No Distress, Calm Eyes: No: Sclera Icterus HENT: No: Nasal Congestion Cardiovascular: Yes: Regular Rate and Rhythm, S1, S2, No: JVD, Gallop, Murmur Respiratory: Yes: CTA Bilaterally, . No: Accessory Muscle Use, Rales Gastrointestinal: Yes: Normal Bowel Sounds, Soft. No: Tenderness Extremities: No: Cold Edema: No Integumentary: No: Jaundice Neurological: Yes: Alert, Oriented (x3) Psychiatric: No: Agitated no diaphoresis, jaundice Current Medications Generic Name Dose Route Start Last Admin Trade Name Freq PRN Reason Stop Dose Admin Acetaminophen 650 mg 03/04/16 03:00 Tylenol - PO Q6H PRN FEVER OR PAIN Albuterol Sulfate 1 amp 03/10/16 10:00 Ventolin 0.083% Nebulizer Soln - NEB BID JORGE Albuterol Sulfate 1 amp 03/09/16 22:29 Ventolin 0.083% Nebulizer Soln - NEB Q4H PRN SHORT OF BREATH/WHEEZING Atorvastatin Calcium 10 mg 03/04/16 22:00 03/09/16 21:52 Lipitor - PO 10 mg HS JORGE Administration Furosemide 40 mg 03/08/16 10:00 03/09/16 09:45 Lasix - PO 40 mg DAILY JORGE Administration Heparin Sodium (Porcine) 5,000 unit 03/08/16 19:30 03/09/16 19:55 Heparin - IVPUSH 5,000 unit PRN PRN Administration Heparin Sodium (Porcine) 1,000 unit 03/08/16 19:30 03/10/16 06:33 Heparin - IVPUSH 1,000 unit PRN PRN Administration Heparin Sodium (Porcine) 25, 500 mls @ 20 mls/hr 03/08/16 21:00 03/10/16 06:33 000 unit/ Sodium Chloride IV 15 mls/hr TITR JORGE Administration Protocol 1,000 UNIT/HR Alteplase, Recombinant 25 mg/ 250 mls @ 5 mls/hr 03/09/16 12:00 03/09/16 13:45 Sodium Chloride IVPB 03/11/16 13:59 5 mls/hr ONCE ONE Administration Alteplase, Recombinant 25 mg/ 250 mls @ 5 mls/hr 03/09/16 12:00 03/09/16 13:45 Sodium Chloride IVPB 03/11/16 13:59 5 mls/hr ONCE ONE Administration Pantoprazole Sodium 40 mg 03/04/16 10:00 03/09/16 09:45 Protonix - PO 40 mg DAILY JORGE Administration Potassium Chloride 40 meq 03/07/16 10:00 03/09/16 09:45 K-Dur - PO 40 meq DAILY JORGE Administration Potassium Chloride 40 meq 03/10/16 16:00 K-Dur - PO 03/10/16 16:01 ONCE ONE Sertraline HCl 50 mg 03/04/16 22:00 03/09/16 21:52 Zoloft - PO 50 mg HS JORGE Administration Laboratory Last Values WBC 7.6 K/mm3 (4.0-10.0) 03/10/16 05:00 RBC 4.27 M/mm3 (3.60-5.2) 03/10/16 05:00 Hgb 13.4 GM/dL (10.7-15.3) 03/10/16 05:00 Hct 39.9 % (32.4-45.2) 03/10/16 05:00 MCV 93.3 fl (80-96) 03/10/16 05:00 MCHC 33.7 g/dl (32.0-36.0) 03/10/16 05:00 RDW 14.1 % (11.6-15.6) 03/10/16 05:00 Plt Count 159 K/MM3 (134-434) 03/10/16 05:00 MPV 9.1 fl (7.5-11.1) 03/10/16 05:00 Neutrophils % 65.0 % (42.8-82.8) 03/09/16 06:06 Lymphocytes % 23.4 % (8-40) 03/09/16 06:06 Monocytes % 9.2 % (3.8-10.2) 03/09/16 06:06 Eosinophils % 1.8 % (0-4.5) 03/09/16 06:06 Basophils % 0.6 % (0-2.0) 03/09/16 06:06 INR 1.47 (0.82-1.09) H 03/09/16 06:06 PTT (Actin FS) 43.6 SECONDS (26.9-34.4) H 03/10/16 05:00 Fibrinogen 384.0 mg/dL (238-498) 03/10/16 05:00 Puncture Site Right radial 03/07/16 12:35 ABG pH 7.49 (7.35-7.45) H 03/07/16 12:35 ABG pCO2 at Pt Temp 39.0 mmHg (35-45) 03/07/16 12:35 ABG pO2 at Pt Temp 49.5 mmHg (70-100) L* 03/07/16 12:35 ABG HCO3 29.1 meq/L (22-26) H 03/07/16 12:35 ABG O2 Sat (Measured) 85.4 % (90-98.9) L 03/07/16 12:35 ABG O2 Content 18.4 % vol (15-22) 03/07/16 12:35 ABG Base Excess 5.7 meq/l (-2-2) H 03/07/16 12:35 Chapin Test Positive 03/07/16 12:35 Oxygen Flow Rate No 03/07/16 12:35 PEEP 0.0 cmH2O 03/07/16 12:35 Sodium 142 mmol/L (136-145) 03/10/16 05:00 Potassium 3.6 mmol/L (3.5-5.1) 03/10/16 05:00 Chloride 102 mmol/L (98-107) 03/10/16 05:00 Carbon Dioxide 32 mmol/L (21-32) 03/10/16 05:00 Anion Gap 8 (8-16) 03/10/16 05:00 BUN 27 mg/dL (7-18) H 03/10/16 05:00 Creatinine 0.7 mg/dL (0.55-1.02) 03/10/16 05:00 Creat Clearance w eGFR 47.91 (>60) 03/08/16 05:35 Random Glucose 106 mg/dL (74-106) 03/10/16 05:00 Calcium 8.8 mg/dL (8.5-10.1) 03/10/16 05:00 Phosphorus 3.7 mg/dL (2.5-4.9) 03/10/16 05:00 Magnesium 1.9 mg/dL (1.8-2.4) 03/10/16 05:00 Total Bilirubin 1.0 mg/dL (0.2-1.0) D 03/08/16 05:35 AST 17 U/L (15-37) D 03/08/16 05:35 ALT 38 U/L (12-78) 03/08/16 05:35 Alkaline Phosphatase 97 U/L (45-117) 03/08/16 05:35 Creatine Kinase 162 IU/L (26-192) 03/04/16 13:45 CK-MB (CK-2) 2.906 ng/ml (0.5-3.6) 03/04/16 13:45 Troponin I 0.36 ng/ml (0.00-0.05) H 03/04/16 13:45 B-Natriuretic Peptide 2249.27 pg/ml (5-450) H 03/04/16 00:15 Total Protein 7.2 g/dl (6.4-8.2) 03/08/16 05:35 Albumin 3.5 g/dl (3.4-5.0) 03/08/16 05:35 TSH Cancelled 03/06/16 11:35 echo 02/2016: tds; nl lv/rv, mild-mod tr, mild phtn tele: sr, occ pvcs cxr: left base consolidation est cct 35 mins a/p: 80 f hx htn, hld, here with sob. sob, hypoxia, acute bilat PEs, acute HFpEF: -on admit with + LE edema and sob with elevated bnp (2200), wt 213 lb -diuresed with iv lasix and wt/vol status improved but sob/hypoxia persisted so had cta chest showing bl pe's. also with bl dvts. -s/p catheter directed thrombolysis 03/09 and now sob/resp status improved -planned for ivc filter as well -repeat echo prior to thrombolysis per dr link review had shown: RV images TDS but it is likely mild or possibly moderately dilated; mid and basal wall systolic function is impaired, with hyperdynamic apical contraction c/w "Mcconell's sign". Thus it appears she had acute right heart strain on admit that led to right sided HF. This should improve now after thrombolysis. Vol status improved, cxr w/o chf. Cont po lasix. -change to po NOAC when invasive procedures complete htn: -on hctz at home, has been dc'ed now that she will require lasix upon dc -bp controlled here hld: -cont statin positive trops: -trop in borderline range with flat trend (0.2-0.3) and nl ck, no ischemic ecg changes = not consistent with acs, likely was secondary to PE's -echo with normal lvef, no WMAs
[2016-03-10] MEDS: POTASSIUM CHLORIDE TABS 20 MEQ TABLET.ER (FP) PO SCH (12:02)
[2016-03-10] MEDS: FUROSEMIDE 40 MG TABLET (FP) PO SCH (12:03)
[2016-03-10] MEDS: PANTOPRAZOLE 40 MG TABLET (FP) PO SCH (12:03)
[2016-03-10 13:23] LABS: ACTIVATED PTT 64.6 SECONDS (26.9-34.4)
--- NOTE | 2016-03-10 15:58 | PN ---
Progress Note, Physician Chief Complaint: Ms Asencio says she is feeling much better. No cp, sob, n/v. - Current Medication List Current Medications: Active Medications Acetaminophen (Tylenol -) 650 mg PO Q6H PRN PRN Reason: FEVER OR PAIN Albuterol Sulfate (Ventolin 0.083% Nebulizer Soln -) 1 amp NEB BID JORGE Last Admin: 03/10/16 14:30 Dose: 1 amp Albuterol Sulfate (Ventolin 0.083% Nebulizer Soln -) 1 amp NEB Q4H PRN PRN Reason: SHORT OF BREATH/WHEEZING Atorvastatin Calcium (Lipitor -) 10 mg PO HS JORGE Last Admin: 03/09/16 21:52 Dose: 10 mg Furosemide (Lasix -) 40 mg PO DAILY JORGE Last Admin: 03/10/16 12:03 Dose: 40 mg Heparin Sodium (Porcine) (Heparin -) 5,000 unit IVPUSH PRN PRN Last Admin: 03/09/16 19:55 Dose: 5,000 unit Heparin Sodium (Porcine) (Heparin -) 1,000 unit IVPUSH PRN PRN Last Admin: 03/10/16 06:33 Dose: 1,000 unit Heparin Sodium (Porcine) 25, (000 unit/ Sodium Chloride) 500 mls @ 20 mls/hr IV TITR JORGE; 1,000 UNIT/HR PRN Reason: Protocol Last Admin: 03/10/16 06:33 Dose: 15 mls/hr Pantoprazole Sodium (Protonix -) 40 mg PO DAILY JORGE Last Admin: 03/10/16 12:03 Dose: 40 mg Potassium Chloride (K-Dur -) 40 meq PO DAILY JORGE Last Admin: 03/10/16 12:02 Dose: 40 meq Potassium Chloride (K-Dur -) 40 meq PO ONCE ONE Stop: 03/10/16 16:01 Sertraline HCl (Zoloft -) 50 mg PO HS JORGE Last Admin: 03/09/16 21:52 Dose: 50 mg - Objective Vital Signs: Vital Signs Temperature 98 F 03/10/16 12:00 Pulse Rate 60 03/10/16 12:00 Respiratory Rate 16 03/10/16 12:00 Blood Pressure 127/73 03/10/16 12:00 O2 Sat by Pulse Oximetry (%) 100 03/10/16 10:00 Constitutional: Yes: No Distress, Calm, Obese Cardiovascular: Yes: Regular Rate and Rhythm. No: Gallop, Murmur, Rub Respiratory: Yes: Regular, CTA Bilaterally. No: Rales, Rhonchi, Wheezes Gastrointestinal: Yes: Normal Bowel Sounds, Soft. No: Distention, Tenderness Extremities: Yes: WNL Edema: No Labs: CBC, BMP 03/10/16 05:00 03/10/16 05:00 INR, PTT INR 1.47 (0.82-1.09) H 03/09/16 06:06 Fibrinogen 420.0 mg/dL (238-498) 03/10/16 12:06 Problem List - Problems (1) Pulmonary embolism, bilateral Code(s): I26.99 - OTHER PULMONARY EMBOLISM WITHOUT ACUTE COR PULMONALE (2) CHF (congestive heart failure) Code(s): I50.9 - HEART FAILURE, UNSPECIFIED Qualifiers: Congestive heart failure type: unspecified congestive heart failure type Congestive heart failure chronicity: acute Qualified Code(s): I50.9 - Heart failure, unspecified (3) History of CVA (cerebrovascular accident) Code(s): Z86.73 - PRSNL HX OF TIA (TIA), AND CEREB INFRC W/O RESID DEFICITS (4) Elevated troponin Code(s): R79.89 - OTHER SPECIFIED ABNORMAL FINDINGS OF BLOOD CHEMISTRY Assessment/Plan (1) Bilateral pulmonary embolism -appreciate hematology assistance -s/p thrombectomy, breathing feels improved -case d/w pulmonary, patient with bilateral DVTs -plan for temporary IVC filter -on heparin gtt while planning for this (2) CHF (congestive heart failure) Assessment/Plan: -secondary to pulmonary embolism causing heart strain -s/p thrombolysis Code(s): I50.9 - HEART FAILURE, UNSPECIFIED Qualifiers: Congestive heart failure type: unspecified congestive heart failure type Congestive heart failure chronicity: acute Qualified Code(s): I50.9 - Heart failure, unspecified (3) History of CVA (cerebrovascular accident) Assessment/Plan: -patient says she does not have a history of TIA/CVA -there was a concern but it turned out to be labyrinthitis Code(s): Z86.73 - PRSNL HX OF TIA (TIA), AND CEREB INFRC W/O RESID DEFICITS (4) Elevated troponin Assessment/Plan: -secondary to PE Code(s): R79.89 - OTHER SPECIFIED ABNORMAL FINDINGS OF BLOOD CHEMISTRY
[2016-03-10] MEDS ORDERED: POTASSIUM CHLORIDE TABS 20 MEQ TABLET.ER (FP) PO ONE (16:00)
[2016-03-10 18:39] LABS: ACTIVATED PTT 40.5 SECONDS (26.9-34.4)
--- NOTE | 2016-03-10 18:57 | PN ---
Progress Note (short form) - Note Progress Note: PAtient seen and examined Brathing more comfortably Last Vital Signs Temp Pulse Resp BP Pulse Ox 97.8 F 68 20 131/66 100 03/10/16 14:00 03/10/16 18:00 03/10/16 18:00 03/10/16 18:00 03/10/16 17:03 HEENT: LALITA, EOM Intact Oropharynx: No thrush, No mucositis Neck: Supple Cor: RSR, No murmurs, No gallops Lungs: decreased at bases Abd: Soft, Normal bowel sounds, No organomegaly Abnormal Lab Results 03/09/16 03/10/16 03/10/16 17:45 01:00 05:00 PTT (Actin FS) 39.4 H 61.3 H D 43.6 H BUN 03/10/16 03/10/16 03/10/16 05:00 12:06 17:00 PTT (Actin FS) 64.6 H D 40.5 H D BUN 27 H Current Medications Acetaminophen (Tylenol -) 650 mg PO Q6H PRN PRN Reason: FEVER OR PAIN Albuterol Sulfate (Ventolin 0.083% Nebulizer Soln -) 1 amp NEB BID JORGE Last Admin: 03/10/16 14:30 Dose: 1 amp Albuterol Sulfate (Ventolin 0.083% Nebulizer Soln -) 1 amp NEB Q4H PRN PRN Reason: SHORT OF BREATH/WHEEZING Atorvastatin Calcium (Lipitor -) 10 mg PO HS JORGE Last Admin: 03/09/16 21:52 Dose: 10 mg Furosemide (Lasix -) 40 mg PO DAILY JORGE Last Admin: 03/10/16 12:03 Dose: 40 mg Heparin Sodium (Porcine) (Heparin -) 5,000 unit IVPUSH PRN PRN Last Admin: 03/09/16 19:55 Dose: 5,000 unit Heparin Sodium (Porcine) (Heparin -) 1,000 unit IVPUSH PRN PRN Last Admin: 03/10/16 06:33 Dose: 1,000 unit Heparin Sodium (Porcine) 25, (000 unit/ Sodium Chloride) 500 mls @ 20 mls/hr IV TITR JORGE; 1,000 UNIT/HR PRN Reason: Protocol Last Admin: 03/10/16 06:33 Dose: 15 mls/hr Pantoprazole Sodium (Protonix -) 40 mg PO DAILY [facility] Last Admin: 03/10/16 12:03 Dose: 40 mg Potassium Chloride (K-Dur -) 40 meq PO DAILY [facility] Last Admin: 03/10/16 12:02 Dose: 40 meq Sertraline HCl (Zoloft -) 50 mg PO HS [facility] Last Admin: 03/09/16 21:52 Dose: 50 mg A/P 80 y/o patient with obesity, arthritis,hyperlipidemia, htn came in with wprsening SOB. Was being treated for CHF. CTA on showed b/l upper and lower lobar PEs with suggestion of rt. heart strain. Submassive PE b/l DVT----noted on s/p catheter directed thrombectomy/thrombolysis of PE may get ivc filter and thrombectomy of DVTs tomorrow On heparin drip Switch to oral anticoagulant when cleared by IR team Unprovoked PE -- patient reports that she is very mobile despite arthritis. She has had her colonoscopy and mammogram 2 yrs. ago which were normal per patient Her son and of arterial clots Her mother had gastric cancer She will need thrombophilia w/u as out patient Also willneed mammogram, f/u CT scan regarding RT. lung nodule and gi f/u as outpatient
[2016-03-10] MEDS: SERTRALINE HCL 25 MG TABLET (FP) PO SCH (21:18)
[2016-03-10] MEDS: ATORVASTATIN CA 10 MG TABLET (FP) PO SCH (21:19)
[2016-03-11 06:18] LABS: MCH 31.3 pg (25.7-33.7); MCHC 33.6 g/dl (32.0-36.0); MEAN CELL VOLUME 93.2 fl (80-96); MEAN PLT VOLUME 8.8 fl (7.5-11.1); PLATELET COUNT 158 K/MM3 (134-434); RDW 13.6 % (11.6-15.6); WHITE BLOOD COUNT 6.5 K/mm3 (4.0-10.0)
[2016-03-11 06:53] LABS: CALCIUM 9.3 mg/dL (8.5-10.1); CREATININE 0.9 mg/dL (0.55-1.02); PHOSPHOROUS 4.1 mg/dL (2.5-4.9)
[2016-03-11] MEDS: ALBUTEROL SO4 0.083% IH SOL 2.5 MG/3 ML VIAL.NEB. NEB SCH ×2 (09:55→22:05)
[2016-03-11] MEDS: HEPARIN - 25,000 UNIT in SODIUM CHLORIDE 495 ML IV SCH ×2 (10:59→21:25)
[2016-03-11] MEDS: FUROSEMIDE 40 MG TABLET (FP) PO SCH (11:00)
[2016-03-11] MEDS: POTASSIUM CHLORIDE TABS 20 MEQ TABLET.ER (FP) PO SCH (11:00)
[2016-03-11] MEDS: PANTOPRAZOLE 40 MG TABLET (FP) PO SCH (11:00)
--- NOTE | 2016-03-11 11:07 | PN ---
Progress Note, Physician History of Present Illness: no issues overnight no complaints seen and examined at bedside in ICU - Current Medication List Current Medications: Active Medications Acetaminophen (Tylenol -) 650 mg PO Q6H PRN PRN Reason: FEVER OR PAIN Albuterol Sulfate (Ventolin 0.083% Nebulizer Soln -) 1 amp NEB BID JORGE Last Admin: 03/11/16 09:55 Dose: 1 amp Albuterol Sulfate (Ventolin 0.083% Nebulizer Soln -) 1 amp NEB Q4H PRN PRN Reason: SHORT OF BREATH/WHEEZING Atorvastatin Calcium (Lipitor -) 10 mg PO HS JORGE Last Admin: 03/10/16 21:19 Dose: 10 mg Furosemide (Lasix -) 40 mg PO DAILY JORGE Last Admin: 03/10/16 12:03 Dose: 40 mg Heparin Sodium (Porcine) (Heparin -) 5,000 unit IVPUSH PRN PRN Last Admin: 03/09/16 19:55 Dose: 5,000 unit Heparin Sodium (Porcine) (Heparin -) 1,000 unit IVPUSH PRN PRN Last Admin: 03/10/16 20:42 Dose: 1,000 unit Heparin Sodium (Porcine) 25, (000 unit/ Sodium Chloride) 500 mls @ 20 mls/hr IV TITR JORGE; 1,000 UNIT/HR PRN Reason: Protocol Last Admin: 03/11/16 10:59 Dose: 16 mls/hr Pantoprazole Sodium (Protonix -) 40 mg PO DAILY [facility] Last Admin: 03/10/16 12:03 Dose: 40 mg Polyethylene Glycol (Miralax (For Daily Use) -) 17 gm PO DAILY [facility] Potassium Chloride (K-Dur -) 40 meq PO DAILY [facility] Last Admin: 03/10/16 12:02 Dose: 40 meq Sertraline HCl (Zoloft -) 50 mg PO HS [facility] Last Admin: 03/10/16 21:18 Dose: 50 mg - Objective Vital Signs: Vital Signs Temperature 98.2 F 03/11/16 10:00 Pulse Rate 69 03/11/16 10:00 Respiratory Rate 16 03/11/16 10:00 Blood Pressure 127/50 03/11/16 10:00 O2 Sat by Pulse Oximetry (%) 96 03/11/16 09:31 Constitutional: Yes: No Distress, Calm, Obese Eyes: Yes: EOM Intact HENT: Yes: Atraumatic Neck: Yes: Supple, Trachea Midline, Cardiovascular: Yes: Regular Rate and Rhythm Respiratory: Yes: CTA Bilaterally Gastrointestinal: Yes: Soft, Abdomen, Obese Extremities: Yes: WNL Edema: Yes Edema: LLE: 1+ (non pitting), RLE: 1+ (non pitting ) Neurological: Yes: WNL, Alert, Oriented Labs: CBC, BMP 03/11/16 05:20 03/11/16 05:20 INR, PTT INR 1.47 (0.82-1.09) H 03/09/16 06:06 Fibrinogen 369.0 mg/dL (238-498) 03/10/16 17:00 Assessment/Plan 80F with worsening shortness of breath and dyspnea on exertion found to have bilateral DVTs and bilateral PEs. DVT/PE: s/p thrombectomy and catherter directed TPa thrombolysis now s/p removal ICU monitoring heparin gtt per protocol will need outpt thrombophilia work up Hematology on board consult appreciated for IR today IVC filter counselled on needing to re-evaluate filter need in 6 months with PMD possible thrombectomy of leg today Possible heart failure with preserved ejection fraction: Echo reviewed likely heart failure like symptoms due to right heart strain from pulmonary embolism patient diuresed and JVD now flat continue lasix PO stop HCTZ cardiology consult appreciated HTN: lasix BP well controlled at this time Cardiology consult appreciated HLD: lipitor Depression: zoloft FEN: no IVF daily potassium give extra potassium for hypokalemia sodium controlled diet npo for now pending procedure PPx: Hep gtt protonix PT consult miralax for constipation ICU care
--- NOTE | 2016-03-11 11:11 | PN ---
Progress Note (short form) - Note Progress Note: s: s/p catheter directed thrombolysis, feeling well since with less sob (not ambulating yet though); no cp, palps, dizzy o: Vital Signs Period Temp Pulse Resp BP Sys/Charles Pulse Ox Last 24 Hr 97.8 F-98.4 F 55-78 15-20 118-149/50-76 96-100 Constitutional: Yes: No Distress, Calm Eyes: No: Sclera Icterus HENT: No: Nasal Congestion Cardiovascular: Yes: Regular Rate and Rhythm, S1, S2, No: JVD, Gallop, Murmur Respiratory: Yes: CTA Bilaterally, . No: Accessory Muscle Use, Rales Gastrointestinal: Yes: Normal Bowel Sounds, Soft. No: Tenderness Extremities: No: Cold Edema: No Integumentary: No: Jaundice Neurological: Yes: Alert, Oriented (x3) Psychiatric: No: Agitated no diaphoresis, jaundice Current Medications Generic Name Dose Route Start Last Admin Trade Name Freq PRN Reason Stop Dose Admin Acetaminophen 650 mg 03/04/16 03:00 Tylenol - PO Q6H PRN FEVER OR PAIN Albuterol Sulfate 1 amp 03/10/16 10:00 03/11/16 09:55 Ventolin 0.083% Nebulizer Soln - NEB 1 amp BID JORGE Administration Albuterol Sulfate 1 amp 03/09/16 22:29 Ventolin 0.083% Nebulizer Soln - NEB Q4H PRN SHORT OF BREATH/WHEEZING Atorvastatin Calcium 10 mg 03/04/16 22:00 03/10/16 21:19 Lipitor - PO 10 mg HS JORGE Administration Furosemide 40 mg 03/08/16 10:00 03/10/16 12:03 Lasix - PO 40 mg DAILY JORGE Administration Heparin Sodium (Porcine) 5,000 unit 03/08/16 19:30 03/09/16 19:55 Heparin - IVPUSH 5,000 unit PRN PRN Administration Heparin Sodium (Porcine) 1,000 unit 03/08/16 19:30 03/10/16 20:42 Heparin - IVPUSH 1,000 unit PRN PRN Administration Heparin Sodium (Porcine) 25, 500 mls @ 20 mls/hr 03/08/16 21:00 03/11/16 10:59 000 unit/ Sodium Chloride IV 16 mls/hr TITR JORGE Administration Protocol 1,000 UNIT/HR Pantoprazole Sodium 40 mg 03/04/16 10:00 03/10/16 12:03 Protonix - PO 40 mg DAILY JORGE Administration Polyethylene Glycol 17 gm 03/11/16 11:00 Miralax (For Daily Use) - PO DAILY JORGE Potassium Chloride 40 meq 03/07/16 10:00 03/10/16 12:02 K-Dur - PO 40 meq DAILY JORGE Administration Sertraline HCl 50 mg 03/04/16 22:00 03/10/16 21:18 Zoloft - PO 50 mg HS JORGE Administration CBC, BMP 03/11/16 05:20 03/11/16 05:20 echo 02/2016: tds; nl lv/rv, mild-mod tr, mild phtn tele: sr a/p: 80 f hx htn, hld, here with sob. sob, hypoxia, acute bilat PEs, acute HFpEF: -on admit with + LE edema and sob with elevated bnp (2200), wt 213 lb -diuresed with iv lasix and wt/vol status improved but sob/hypoxia persisted so had cta chest showing bl pe's. also with bl dvts. -s/p catheter directed thrombolysis 03/09 and now sob/resp status improved -planned for ivc filter as well -repeat echo prior to thrombolysis per dr link review had shown: RV images TDS but it is likely mild or possibly moderately dilated; mid and basal wall systolic function is impaired, with hyperdynamic apical contraction c/w "Mcconell's sign". Thus it appears she had acute right heart strain on admit that led to right sided HF. This should improve now after thrombolysis. Vol status improved. Cont po lasix. -change to po NOAC when invasive procedures complete htn: -on hctz at home, has been dc'ed now that she will require lasix upon dc -bp controlled here hld: -cont statin positive trops: -trop in borderline range with flat trend (0.2-0.3) and nl ck, no ischemic ecg changes = not consistent with acs, likely was secondary to PE's -echo with normal lvef, no WMAs
--- NOTE | 2016-03-11 11:18 | PN ---
Teaching Attending Note Name of Resident: Jah Murdock ATTENDING PHYSICIAN STATEMENT I saw and evaluated the patient. I reviewed the resident's note and discussed the case with the resident. I agree with the resident's findings and plan as documented. SUBJECTIVE: Pt seen and examined in the ICU. Denies shortness of breath, chest pain or palpitations. On heparin gtt. OBJECTIVE: Last Vital Signs Temp Pulse Resp BP Pulse Ox 98.2 F 69 16 127/50 96 03/11/16 10:00 03/11/16 10:00 03/11/16 10:00 03/11/16 10:03/11/16 09:31 Intake & Output 03/08/16 03/09/16 03/10/16 03/11/16 23:59 23:59 23:59 23:59 Intake Total 681 142 8575 136 Output Total 1050 750 400 Balance 210 -630 420 -264 Weight 206 lb 9.6 oz 209 lb 6.4 oz 201 lb 6.4 oz 218 lb Gen: NAD at rest Heart: RRR Lung: decreased breath sounds at the bases Abd: soft, nontender Ext: no edema CBC, BMP 03/11/16 05:20 03/11/16 05:20 Active Medications Acetaminophen (Tylenol -) 650 mg PO Q6H PRN PRN Reason: FEVER OR PAIN Albuterol Sulfate (Ventolin 0.083% Nebulizer Soln -) 1 amp NEB BID JORGE Last Admin: 03/11/16 09:55 Dose: 1 amp Albuterol Sulfate (Ventolin 0.083% Nebulizer Soln -) 1 amp NEB Q4H PRN PRN Reason: SHORT OF BREATH/WHEEZING Atorvastatin Calcium (Lipitor -) 10 mg PO HS [facility]OR[facility] Last Admin: 03/10/16 21:19 Dose: 10 mg Furosemide (Lasix -) 40 mg PO DAILY [facility] Last Admin: 03/10/16 12:03 Dose: 40 mg Heparin Sodium (Porcine) (Heparin -) 5,000 unit IVPUSH PRN PRN Last Admin: 03/09/16 19:55 Dose: 5,000 unit Heparin Sodium (Porcine) (Heparin -) 1,000 unit IVPUSH PRN PRN Last Admin: 03/10/16 20:42 Dose: 1,000 unit Heparin Sodium (Porcine) 25, (000 unit/ Sodium Chloride) 500 mls @ 20 mls/hr IV TITR JORGE; 1,000 UNIT/HR PRN Reason: Protocol Last Admin: 03/11/16 10:59 Dose: 16 mls/hr Pantoprazole Sodium (Protonix -) 40 mg PO DAILY [facility] Last Admin: 03/10/16 12:03 Dose: 40 mg Polyethylene Glycol (Miralax (For Daily Use) -) 17 gm PO DAILY [facility] Potassium Chloride (K-Dur -) 40 meq PO DAILY [facility] Last Admin: 03/10/16 12:02 Dose: 40 meq Sertraline HCl (Zoloft -) 50 mg PO HS [facility] Last Admin: 03/10/16 21:18 Dose: 50 mg ASSESSMENT AND PLAN: Submassive PE Bilateral DVT Unprovoked VTE Right Heart Dysfunction/Pulmonary HTN +Troponins s/p Catheter directed Thrombectomy/Thrombolysis HTN Hyperlipidemia - for venous thrombectomy/temporary IVC filter placement today - continue anticoagulation, transition to PO when invasive procedures completed - O2 as needed - OOB to chair - rehab/PT
[2016-03-11] MEDS: POLYETHYLENE GLYCOL 3350 119 GM BTL PO SCH (12:00)
--- NOTE | 2016-03-11 12:46 | PN ---
Progress Note, Physician Chief Complaint: Ms Asencio says her breathing is doing well. No cp or n/v. - Current Medication List Current Medications: Active Medications Acetaminophen (Tylenol -) 650 mg PO Q6H PRN PRN Reason: FEVER OR PAIN Albuterol Sulfate (Ventolin 0.083% Nebulizer Soln -) 1 amp NEB BID JORGE Last Admin: 03/11/16 09:55 Dose: 1 amp Albuterol Sulfate (Ventolin 0.083% Nebulizer Soln -) 1 amp NEB Q4H PRN PRN Reason: SHORT OF BREATH/WHEEZING Atorvastatin Calcium (Lipitor -) 10 mg PO HS [facility] Last Admin: 03/10/16 21:19 Dose: 10 mg Furosemide (Lasix -) 40 mg PO DAILY [facility] Last Admin: 03/10/16 12:03 Dose: 40 mg Heparin Sodium (Porcine) (Heparin -) 5,000 unit IVPUSH PRN PRN Last Admin: 03/09/16 19:55 Dose: 5,000 unit Heparin Sodium (Porcine) (Heparin -) 1,000 unit IVPUSH PRN PRN Last Admin: 03/10/16 20:42 Dose: 1,000 unit Heparin Sodium (Porcine) 25, (000 unit/ Sodium Chloride) 500 mls @ 20 mls/hr IV TITR JORGE; 1,000 UNIT/HR PRN Reason: Protocol Last Admin: 03/11/16 10:59 Dose: 16 mls/hr Pantoprazole Sodium (Protonix -) 40 mg PO DAILY [facility] Last Admin: 03/10/16 12:03 Dose: 40 mg Polyethylene Glycol (Miralax (For Daily Use) -) 17 gm PO DAILY [facility] Potassium Chloride (K-Dur -) 40 meq PO DAILY [facility] Last Admin: 03/10/16 12:02 Dose: 40 meq Sertraline HCl (Zoloft -) 50 mg PO HS [facility] Last Admin: 03/10/16 21:18 Dose: 50 mg - Objective Vital Signs: Vital Signs Temperature 98.2 F 03/11/16 10:00 Pulse Rate 69 03/11/16 10:00 Respiratory Rate 16 03/11/16 10:00 Blood Pressure 127/50 03/11/16 10:00 O2 Sat by Pulse Oximetry (%) 96 03/11/16 09:31 Constitutional: Yes: Well Nourished, No Distress, Calm Cardiovascular: Yes: Regular Rate and Rhythm. No: Gallop, Murmur, Rub Respiratory: Yes: Regular, CTA Bilaterally. No: Rales, Rhonchi, Wheezes Gastrointestinal: Yes: Normal Bowel Sounds, Soft. No: Distention, Tenderness Extremities: Yes: WNL Edema: No Labs: CBC, BMP 03/11/16 05:20 03/11/16 05:20 INR, PTT INR 1.47 (0.82-1.09) H 03/09/16 06:06 Fibrinogen 369.0 mg/dL (238-498) 03/10/16 17:00 Problem List - Problems (1) Pulmonary embolism, bilateral Code(s): I26.99 - OTHER PULMONARY EMBOLISM WITHOUT ACUTE COR PULMONALE (2) CHF (congestive heart failure) Code(s): I50.9 - HEART FAILURE, UNSPECIFIED Qualifiers: Congestive heart failure type: unspecified congestive heart failure type Congestive heart failure chronicity: acute Qualified Code(s): I50.9 - Heart failure, unspecified (3) History of CVA (cerebrovascular accident) Code(s): Z86.73 - PRSNL HX OF TIA (TIA), AND CEREB INFRC W/O RESID DEFICITS (4) Elevated troponin Code(s): R79.89 - OTHER SPECIFIED ABNORMAL FINDINGS OF BLOOD CHEMISTRY Assessment/Plan (1) Bilateral pulmonary embolism -appreciate hematology assistance -s/p thrombectomy, breathing feels improved -case d/w pulmonary -planning for IVC filter today (2) CHF (congestive heart failure) Assessment/Plan: -secondary to pulmonary embolism causing heart strain -s/p thrombolysis Code(s): I50.9 - HEART FAILURE, UNSPECIFIED Qualifiers: Congestive heart failure type: unspecified congestive heart failure type Congestive heart failure chronicity: acute Qualified Code(s): I50.9 - Heart failure, unspecified (3) History of CVA (cerebrovascular accident) Assessment/Plan: -patient says she does not have a history of TIA/CVA -there was a concern but it turned out to be labyrinthitis Code(s): Z86.73 - PRSNL HX OF TIA (TIA), AND CEREB INFRC W/O RESID DEFICITS (4) Elevated troponin Assessment/Plan: -secondary to PE Code(s): R79.89 - OTHER SPECIFIED ABNORMAL FINDINGS OF BLOOD CHEMISTRY
[2016-03-11] MEDS ORDERED: ALTEPLASE 50 MG VIAL IV ONE (15:15)
[2016-03-11] MEDS: SERTRALINE HCL 25 MG TABLET (FP) PO SCH (21:26)
[2016-03-11] MEDS: ATORVASTATIN CA 10 MG TABLET (FP) PO SCH (21:26)
--- NOTE | 2016-03-11 22:07 | PN ---
Progress Note (short form) - Note Progress Note: PAtient seen and examined s/p ivc filter? AFVSS HEENT: LALITA, EOM Intact Oropharynx: No thrush, No mucositis Neck: Supple Cor: RSR, No murmurs, No gallops Lungs: decreased at bases Abd: Soft, Normal bowel sounds, No organomegaly Labs/mds reviewed A/P 80 y/o patient with obesity, arthritis,hyperlipidemia, htn came in with wprsening SOB. Was being treated for CHF. CTA on showed b/l upper and lower lobar PEs with suggestion of rt. heart strain. Submassive PEb/l DVT L>Rt s/p catheter directed thrombectomy/thrombolysis of PE ? s/p ivc filter placement today On heparin drip Switch to oral anticoagulant when cleared by IR team Unprovoked DVT/PE -- patient reports that she is very mobile despite arthritis. She has had her colonoscopy and mammogram 2 yrs. ago which were normal per patient Her son and of arterial clots Her mother had gastric cancer She will need thrombophilia w/u as out patient Also willneed mammogram, f/u CT scan regarding RT. lung nodule and gi f/u as outpatient
[2016-03-12 05:45] LABS: BASOPHIL 0.7 % (0-2.0); EOSINOPHIL 2.6 % (0-4.5); MCH 31.6 pg (25.7-33.7); MCHC 34.1 g/dl (32.0-36.0); MEAN CELL VOLUME 92.9 fl (80-96); MEAN PLT VOLUME 8.9 fl (7.5-11.1); NEUTROPHILS 63.5 % (42.8-82.8); PLATELET COUNT 161 K/MM3 (134-434)
[2016-03-12 06:08] LABS: CALCIUM 9.4 mg/dL (8.5-10.1); CREATININE 0.7 mg/dL (0.55-1.02)
[2016-03-12] MEDS: ALBUTEROL SO4 0.083% IH SOL 2.5 MG/3 ML VIAL.NEB. NEB SCH ×2 (09:50→22:25)
--- NOTE | 2016-03-12 11:25 | PN ---
Teaching Attending Note Name of Resident: Jah Murdock ATTENDING PHYSICIAN STATEMENT I saw and evaluated the patient. I reviewed the resident's note and discussed the case with the resident. I agree with the resident's findings and plan as documented. SUBJECTIVE: Patient seen and examined in the ICU. Denies shortness of breath, chest pain, or palpitations. On heparin drip. For review the LLE and determine the need for further intervention today. No bleeding. OBJECTIVE: Intake & Output 03/09/16 03/10/16 03/11/16 03/12/16 23:59 23:59 23:59 23:59 Intake Total 420 1170 1178 Output Total 1050 750 900 Balance -630 420 278 Weight 209 lb 6.4 oz 201 lb 6.4 oz 218 lb Last Vital Signs Temp Pulse Resp BP Pulse Ox 98.2 F 63 17 125/63 97 03/12/16 06:00 03/12/16 10:00 03/12/16 10:00 03/12/16 10:00 03/12/16 10:00 Active Medications Acetaminophen (Tylenol -) 650 mg PO Q6H PRN PRN Reason: FEVER OR PAIN Albuterol Sulfate (Ventolin 0.083% Nebulizer Soln -) 1 amp NEB BID JOR[facility] Last Admin: 03/11/16 22:05 Dose: 1 amp Albuterol Sulfate (Ventolin 0.083% Nebulizer Soln -) 1 amp NEB Q4H PRN PRN Reason: SHORT OF BREATH/WHEEZING Atorvastatin Calcium (Lipitor -) 10 mg PO HS [facility] Last Admin: 03/11/16 21:26 Dose: 10 mg Furosemide (Lasix -) 40 mg PO DAILY [facility] Last Admin: 03/11/16 11:00 Dose: Not Given Heparin Sodium (Porcine) (Heparin -) 5,000 unit IVPUSH PRN PRN Last Admin: 03/09/16 19:55 Dose: 5,000 unit Heparin Sodium (Porcine) (Heparin -) 1,000 unit IVPUSH PRN PRN Last Admin: 03/10/16 20:42 Dose: 1,000 unit Heparin Sodium (Porcine) 25, (000 unit/ Sodium Chloride) 500 mls @ 20 mls/hr IV TITR JORGE; 1,000 UNIT/HR PRN Reason: Protocol Last Titration: 03/12/16 06:51 Dose: 800 unit/hr Pantoprazole Sodium (Protonix -) 40 mg PO DAILY [facility]S AT [facility] Last Admin: 03/11/16 11:00 Dose: Not Given Polyethylene Glycol (Miralax (For Daily Use) -) 17 gm PO DAILY [facility]S [facility] Last Admin: 03/11/16 12:00 Dose: Not Given Potassium Chloride (K-Dur -) 40 meq PO DAILY [facility] 234 [facility]S [facility] Last Admin: 03/11/16 11:00 Dose: Not Given Sertraline HCl (Zoloft -) 50 mg PO HS [facility] 234 BEDS AT [facility] Last Admin: 03/11/16 21:26 Dose: 50 mg Gen: NAD at rest Heart: RRR Lung: decreased breath sounds at the bases Abd: soft, nontender Ext: no edema Laboratory Results - last 24 hr 03/12/16 03/12/16 03/12/16 05:15 05:15 05:15 WBC 6.0 RBC 3.86 Hgb 12.2 Hct 35.8 MCV 92.9 MCHC 34.1 RDW 14.0 Plt Count 161 MPV 8.9 Neutrophils % 63.5 Lymphocytes % 23.3 Monocytes % 9.9 Eosinophils % 2.6 Basophils % 0.7 PTT (Actin FS) 56.8 H D Sodium 143 Potassium 3.9 Chloride 105 Carbon Dioxide 30 Anion Gap 8 BUN 23 H Creatinine 0.7 D Random Glucose 105 Calcium 9.4 ASSESSMENT AND PLAN: Submassive PE Bilateral DVT Unprovoked VTE Right Heart Dysfunction/Pulmonary HTN +Troponins s/p Catheter directed Thrombectomy/Thrombolysis HTN Hyperlipidemia For possible venous thrombectomy of the LLE today Continue anticoagulation, transition to PO when invasive procedures completed O2 as needed OOB to chair Dr Crandall CCTime 35"
--- NOTE | 2016-03-12 11:35 | PN ---
Progress Note, Physician Chief Complaint: Ms Asencio says her breathing is doing well. No cp or n/v. - Current Medication List Current Medications: Active Medications Acetaminophen (Tylenol -) 650 mg PO Q6H PRN PRN Reason: FEVER OR PAIN Albuterol Sulfate (Ventolin 0.083% Nebulizer Soln -) 1 amp NEB BID [facility]OR[facility] Last Admin: 03/11/16 22:05 Dose: 1 amp Albuterol Sulfate (Ventolin 0.083% Nebulizer Soln -) 1 amp NEB Q4H PRN PRN Reason: SHORT OF BREATH/WHEEZING Atorvastatin Calcium (Lipitor -) 10 mg PO HS [facility] Last Admin: 03/11/16 21:26 Dose: 10 mg Furosemide (Lasix -) 40 mg PO DAILY [facility] Last Admin: 03/11/16 11:00 Dose: Not Given Heparin Sodium (Porcine) (Heparin -) 5,000 unit IVPUSH PRN PRN Last Admin: 03/09/16 19:55 Dose: 5,000 unit Heparin Sodium (Porcine) (Heparin -) 1,000 unit IVPUSH PRN PRN Last Admin: 03/10/16 20:42 Dose: 1,000 unit Heparin Sodium (Porcine) 25, (000 unit/ Sodium Chloride) 500 mls @ 20 mls/hr IV TITR JORGE; 1,000 UNIT/HR PRN Reason: Protocol Last Titration: 03/12/16 06:51 Dose: 800 unit/hr Pantoprazole Sodium (Protonix -) 40 mg PO DAILY [facility] Last Admin: 03/11/16 11:00 Dose: Not Given Polyethylene Glycol (Miralax (For Daily Use) -) 17 gm PO DAILY [facility] Last Admin: 03/11/16 12:00 Dose: Not Given Potassium Chloride (K-Dur -) 40 meq PO DAILY [facility] Last Admin: 03/11/16 11:00 Dose: Not Given Sertraline HCl (Zoloft -) 50 mg PO HS [facility] Last Admin: 03/11/16 21:26 Dose: 50 mg - Objective Vital Signs: Vital Signs Temperature 98.2 F 03/12/16 06:00 Pulse Rate 63 03/12/16 10:00 Respiratory Rate 17 03/12/16 10:00 Blood Pressure 125/63 03/12/16 10:00 O2 Sat by Pulse Oximetry (%) 97 03/12/16 10:00 Constitutional: Yes: Well Nourished, No Distress, Calm Cardiovascular: Yes: Regular Rate and Rhythm. No: Gallop, Murmur, Rub Respiratory: Yes: Regular, CTA Bilaterally. No: Rales, Rhonchi, Wheezes Gastrointestinal: Yes: Normal Bowel Sounds, Soft. No: Distention, Tenderness Extremities: Yes: WNL Edema: No Labs: CBC, BMP 03/12/16 05:15 03/12/16 05:15 INR, PTT INR 1.47 (0.82-1.09) H 03/09/16 06:06 Fibrinogen 369.0 mg/dL (238-498) 03/10/16 17:00 Problem List - Problems (1) Pulmonary embolism, bilateral Code(s): I26.99 - OTHER PULMONARY EMBOLISM WITHOUT ACUTE COR PULMONALE (2) CHF (congestive heart failure) Code(s): I50.9 - HEART FAILURE, UNSPECIFIED Qualifiers: Congestive heart failure type: unspecified congestive heart failure type Congestive heart failure chronicity: acute Qualified Code(s): I50.9 - Heart failure, unspecified (3) History of CVA (cerebrovascular accident) Code(s): Z86.73 - PRSNL HX OF TIA (TIA), AND CEREB INFRC W/O RESID DEFICITS (4) Elevated troponin Code(s): R79.89 - OTHER SPECIFIED ABNORMAL FINDINGS OF BLOOD CHEMISTRY Assessment/Plan (1) Bilateral pulmonary embolism -s/p thrombectomy and IVC filter -planning for thrombectomy in LLE today -restart eliquis when safe from IR standpoint -continue heparin gtt currently (2) CHF (congestive heart failure) Assessment/Plan: -secondary to pulmonary embolism causing heart strain -s/p thrombolysis Code(s): I50.9 - HEART FAILURE, UNSPECIFIED Qualifiers: Congestive heart failure type: unspecified congestive heart failure type Congestive heart failure chronicity: acute Qualified Code(s): I50.9 - Heart failure, unspecified (3) History of CVA (cerebrovascular accident) Assessment/Plan: -patient says she does not have a history of TIA/CVA -there was a concern but it turned out to be labyrinthitis Code(s): Z86.73 - PRSNL HX OF TIA (TIA), AND CEREB INFRC W/O RESID DEFICITS (4) Elevated troponin Assessment/Plan: -secondary to PE Code(s): R79.89 - OTHER SPECIFIED ABNORMAL FINDINGS OF BLOOD CHEMISTRY
--- NOTE | 2016-03-12 11:35 | PN ---
Progress Note, Physician History of Present Illness: no issues overnight feels well today no complaints seen and examined at bedside in ICU - Current Medication List Current Medications: Active Medications Acetaminophen (Tylenol -) 650 mg PO Q6H PRN PRN Reason: FEVER OR PAIN Albuterol Sulfate (Ventolin 0.083% Nebulizer Soln -) 1 amp NEB BID JORGE Last Admin: 03/11/16 22:05 Dose: 1 amp Albuterol Sulfate (Ventolin 0.083% Nebulizer Soln -) 1 amp NEB Q4H PRN PRN Reason: SHORT OF BREATH/WHEEZING Atorvastatin Calcium (Lipitor -) 10 mg PO HS [facility] Last Admin: 03/11/16 21:26 Dose: 10 mg Furosemide (Lasix -) 40 mg PO DAILY [facility] Last Admin: 03/11/16 11:00 Dose: Not Given Heparin Sodium (Porcine) (Heparin -) 5,000 unit IVPUSH PRN PRN Last Admin: 03/09/16 19:55 Dose: 5,000 unit Heparin Sodium (Porcine) (Heparin -) 1,000 unit IVPUSH PRN PRN Last Admin: 03/10/16 20:42 Dose: 1,000 unit Heparin Sodium (Porcine) 25, (000 unit/ Sodium Chloride) 500 mls @ 20 mls/hr IV TITR JORGE; 1,000 UNIT/HR PRN Reason: Protocol Last Titration: 03/12/16 06:51 Dose: 800 unit/hr Pantoprazole Sodium (Protonix -) 40 mg PO DAILY [facility] Last Admin: 03/11/16 11:00 Dose: Not Given Polyethylene Glycol (Miralax (For Daily Use) -) 17 gm PO DAILY [facility] Last Admin: 03/11/16 12:00 Dose: Not Given Potassium Chloride (K-Dur -) 40 meq PO DAILY [facility] Last Admin: 03/11/16 11:00 Dose: Not Given Sertraline HCl (Zoloft -) 50 mg PO HS [facility] Last Admin: 03/11/16 21:26 Dose: 50 mg - Objective Vital Signs: Vital Signs Temperature 98.2 F 03/12/16 06:00 Pulse Rate 63 03/12/16 10:00 Respiratory Rate 17 03/12/16 10:00 Blood Pressure 125/63 03/12/16 10:00 O2 Sat by Pulse Oximetry (%) 97 03/12/16 10:00 Constitutional: Yes: No Distress, Calm, Obese Eyes: Yes: EOM Intact HENT: Yes: Atraumatic Neck: Yes: Supple, Trachea Midline, Cardiovascular: Yes: Regular Rate and Rhythm Respiratory: Yes: CTA Bilaterally Gastrointestinal: Yes: Soft, Abdomen, Obese Extremities: Yes: WNL Edema: Yes Edema: LLE: 1+ (non pitting), RLE: 1+ (non pitting ) Neurological: Yes: WNL, Alert, Oriented Labs: CBC, BMP 03/12/16 05:15 03/12/16 05:15 INR, PTT INR 1.47 (0.82-1.09) H 03/09/16 06:06 Fibrinogen 369.0 mg/dL (238-498) 03/10/16 17:00 Assessment/Plan 80F with worsening shortness of breath and dyspnea on exertion found to have bilateral DVTs and bilateral PEs. DVT/PE: s/p thrombectomy and catheter directed TPa thrombolysis of bilateral pulmonary arteries now s/p removal ICU monitoring heparin gtt per protocol will need outpt thrombophilia work up Hematology on board consult appreciated s/p IVC filter and RLE thrombectomy not done since now patent LLE US done which still shows extensive DVT will go for thrombectomy and possible thrombolysis transition to eliquis after IR procedure Possible heart failure with preserved ejection fraction: Echo reviewed likely heart failure like symptoms due to right heart strain from pulmonary embolism patient diuresed and JVD now flat continue lasix PO stop HCTZ cardiology consult appreciated HTN: lasix BP well controlled at this time Cardiology consult appreciated HLD: lipitor Depression: zoloft FEN: no IVF daily potassium give extra potassium for hypokalemia sodium controlled diet npo for now pending procedure PPx: Hep gtt protonix PT consult miralax for constipation ok to monitor on Med/Surg
--- NOTE | 2016-03-12 11:36 | PN ---
Progress Note (short form) - Note Progress Note: s: s/p ivc filter yesterday, no sob, cp, palps, dizzy o: Vital Signs Period Temp Pulse Resp BP Sys/Charles Pulse Ox Last 24 Hr 97.3 F-98.8 F 55-67 12-21 118-166/57-78 96-100 Constitutional: Yes: No Distress, Calm Eyes: No: Sclera Icterus HENT: No: Nasal Congestion Cardiovascular: Yes: Regular Rate and Rhythm, S1, S2, No: JVD, Gallop, Murmur Respiratory: Yes: CTA Bilaterally, . No: Accessory Muscle Use, Rales Gastrointestinal: Yes: Normal Bowel Sounds, Soft. No: Tenderness Extremities: No: Cold Edema: No Integumentary: No: Jaundice Neurological: Yes: Alert, Oriented (x3) Psychiatric: No: Agitated no diaphoresis, jaundice Current Medications Generic Name Dose Route Start Last Admin Trade Name Freq PRN Reason Stop Dose Admin Acetaminophen 650 mg 03/04/16 03:00 Tylenol - PO Q6H PRN FEVER OR PAIN Albuterol Sulfate 1 amp 03/10/16 10:00 03/11/16 22:05 Ventolin 0.083% Nebulizer Soln - NEB 1 amp BID JORGE Administration Albuterol Sulfate 1 amp 03/09/16 22:29 Ventolin 0.083% Nebulizer Soln - NEB Q4H PRN SHORT OF BREATH/WHEEZING Atorvastatin Calcium 10 mg 03/04/16 22:00 03/11/16 21:26 Lipitor - PO 10 mg HS JORGE Administration Furosemide 40 mg 03/08/16 10:00 03/11/16 11:00 Lasix - PO Not Given DAILY JOR[facility] Heparin Sodium (Porcine) 5,000 unit 03/08/16 19:30 03/09/16 19:55 Heparin - IVPUSH 5,000 unit PRN PRN Administration Heparin Sodium (Porcine) 1,000 unit 03/08/16 19:30 03/10/16 20:42 Heparin - IVPUSH 1,000 unit PRN PRN Administration Heparin Sodium (Porcine) 25, 500 mls @ 20 mls/hr 03/08/16 21:00 03/12/16 06:51 000 unit/ Sodium Chloride IV 800 unit/hr TITR JORGE Titration Protocol 1,000 UNIT/HR Pantoprazole Sodium 40 mg 03/04/16 10:00 03/11/16 11:00 Protonix - PO Not Given DAILY [facility] Polyethylene Glycol 17 gm 03/11/16 11:00 03/11/16 12:00 Miralax (For Daily Use) - PO Not Given DAILY [facility] Potassium Chloride 40 meq 03/07/16 10:00 03/11/16 11:00 K-Dur - PO Not Given DAILY [facility] Sertraline HCl 50 mg 03/04/16 22:00 03/11/16 21:26 Zoloft - PO 50 mg HS JORGE Administration CBC, BMP 03/12/16 05:15 03/12/16 05:15 echo 02/2016: tds; nl lv/rv, mild-mod tr, mild phtn tele: sr a/p: 80 f hx htn, hld, here with sob. sob, hypoxia, acute bilat PEs, acute HFpEF: -on admit with + LE edema and sob with elevated bnp (2200), wt 213 lb -diuresed with iv lasix and wt/vol status improved but sob/hypoxia persisted so had cta chest showing bl pe's. also with bl dvts. -s/p catheter directed thrombolysis 03/09 and now sob/resp status improved -s/p ivc filter 03/11 -Extensive DVT on left remains so may go for thrombectomy and possible thrombolysis today with IR -repeat echo prior to thrombolysis per dr link review had shown: RV images TDS but it is likely mild or possibly moderately dilated; mid and basal wall systolic function is impaired, with hyperdynamic apical contraction c/w "Mcconell's sign". Thus it appears she had acute right heart strain on admit that led to right sided HF. This should improve now after thrombolysis. Vol status improved. Cont po lasix. -change to po NOAC when invasive procedures complete htn: -on hctz at home, has been dc'ed now that she will require lasix upon dc hld: -cont statin positive trops: -trop in borderline range with flat trend (0.2-0.3) and nl ck, no ischemic ecg changes = not consistent with acs, likely was secondary to PE's -echo with normal lvef, no WMAs
[2016-03-12] MEDS ORDERED: ALTEPLASE 50 MG VIAL IVPB ONE (13:30)
--- NOTE | 2016-03-12 15:52 | PN ---
Progress Note (short form) - Note Progress Note: PAtient seen and examined Brathing more comfortably Last Vital Signs Temp Pulse Resp BP Pulse Ox 98.2 F 65 16 162/60 100 03/12/16 06:00 03/12/16 15:04 03/12/16 15:04 03/12/16 15:04 03/12/16 15:04 HEENT: LALITA, EOM Intact Oropharynx: No thrush, No mucositis Neck: Supple Cor: RSR, No murmurs, No gallops Lungs: decreased at bases Abd: Soft, Normal bowel sounds, No organomegaly Abnormal Lab Results 03/12/16 03/12/16 05:15 05:15 PTT (Actin FS) 56.8 H D BUN 23 H Current Medications Acetaminophen (Tylenol -) 650 mg PO Q6H PRN PRN Reason: FEVER OR PAIN Albuterol Sulfate (Ventolin 0.083% Nebulizer Soln -) 1 amp NEB BID JORGE Last Admin: 03/12/16 09:50 Dose: 1 amp Albuterol Sulfate (Ventolin 0.083% Nebulizer Soln -) 1 amp NEB Q4H PRN PRN Reason: SHORT OF BREATH/WHEEZING Atorvastatin Calcium (Lipitor -) 10 mg PO HS [facility] Last Admin: 03/11/16 21:26 Dose: 10 mg Furosemide (Lasix -) 40 mg PO DAILY [facility] Last Admin: 03/11/16 11:00 Dose: Not Given Heparin Sodium (Porcine) (Heparin -) 5,000 unit IVPUSH PRN PRN Last Admin: 03/09/16 19:55 Dose: 5,000 unit Heparin Sodium (Porcine) (Heparin -) 1,000 unit IVPUSH PRN PRN Last Admin: 03/10/16 20:42 Dose: 1,000 unit Heparin Sodium (Porcine) 25, (000 unit/ Sodium Chloride) 500 mls @ 20 mls/hr IV TITR JORGE; 1,000 UNIT/HR PRN Reason: Protocol Last Titration: 03/12/16 06:51 Dose: 800 unit/hr Pantoprazole Sodium (Protonix -) 40 mg PO DAILY [facility] Last Admin: 03/11/16 11:00 Dose: Not Given Polyethylene Glycol (Miralax (For Daily Use) -) 17 gm PO DAILY [facility] Last Admin: 03/11/16 12:00 Dose: Not Given Potassium Chloride (K-Dur -) 40 meq PO DAILY [facility] Last Admin: 03/11/16 11:00 Dose: Not Given Sertraline HCl (Zoloft -) 50 mg PO HS [facility] Last Admin: 03/11/16 21:26 Dose: 50 mg A/P 80 y/o patient with obesity, arthritis,hyperlipidemia, htn came in with worsening SOB. Was being treated for CHF. CTA on showed b/l upper and lower lobar PEs with suggestion of rt. heart strain. Submassive PE b/l DVT----noted on s/p catheter directed thrombectomy/thrombolysis of PE may get ivc filter and thrombectomy of DVTs tomorrow On heparin drip Switch to oral anticoagulant-- NOAC -- eliquis 5mg bid-- when cleared by IR team. will need IR clearence Unprovoked PE -- patient reports that she is very mobile despite arthritis. She has had her colonoscopy and mammogram 2 yrs. ago which were normal per patient Her son and of arterial clots Her mother had gastric cancer She will need thrombophilia w/u as out patient Also willneed mammogram, f/u CT scan regarding RT. lung nodule and gi f/u as outpatient
[2016-03-12] MEDS: PANTOPRAZOLE 40 MG TABLET (FP) PO SCH (18:09)
[2016-03-12] MEDS: POLYETHYLENE GLYCOL 3350 119 GM BTL PO SCH (18:09)
[2016-03-12] MEDS: FUROSEMIDE 40 MG TABLET (FP) PO SCH (18:09)
[2016-03-12] MEDS: POTASSIUM CHLORIDE TABS 20 MEQ TABLET.ER (FP) PO SCH (18:10)
[2016-03-12] MEDS: HEPARIN - 25,000 UNIT in SODIUM CHLORIDE 495 ML IV SCH ×2 (20:50→21:53)
[2016-03-12] MEDS ORDERED: HEPARIN INFUSION - 500 ML IVPB ONE (21:51)
[2016-03-12] MEDS: ATORVASTATIN CA 10 MG TABLET (FP) PO SCH (21:52)
[2016-03-12] MEDS: SERTRALINE HCL 25 MG TABLET (FP) PO SCH (21:52)
[2016-03-13 08:24] LABS: MCH 31.9 pg (25.7-33.7); MCHC 34.3 g/dl (32.0-36.0); MEAN PLT VOLUME 8.9 fl (7.5-11.1); PLATELET COUNT 171 K/MM3 (134-434); RDW 13.9 % (11.6-15.6); WHITE BLOOD COUNT 6.3 K/mm3 (4.0-10.0)
[2016-03-13] MEDS: HEPARIN NA (PORCINE) 5,000 UNITS/ML 1ML VIAL IVPUSH PRN (09:12)
[2016-03-13] MEDS: HEPARIN - 25,000 UNIT in SODIUM CHLORIDE 495 ML IV SCH (09:14)
[2016-03-13 09:15] LABS: CALCIUM 8.9 mg/dL (8.5-10.1); CREATININE 0.8 mg/dL (0.55-1.02)
[2016-03-13] MEDS ORDERED: PT OWN MED DRAWER 7, Y5N ONE ×3 (10:30→21:32)
--- NOTE | 2016-03-13 10:30 | PN ---
Progress Note (short form) - Note Progress Note: No CP or SOB. Some leg cramps when walking o the bathroom this AM. Intake & Output 03/10/16 03/11/16 03/12/16 03/13/16 23:59 23:59 23:59 23:59 Intake Total 1170 1178 320 192 Output Total 750 900 600 Balance 420 278 -280 192 Weight 201 lb 6.4 oz 218 lb 214 lb 205 lb 9.6 oz Last Vital Signs Temp Pulse Resp BP Pulse Ox 97.8 F 65 18 107/71 100 03/13/16 09:00 03/13/16 09:00 03/13/16 09:00 03/13/16 09:00 03/12/16 22:00 Active Medications Acetaminophen (Tylenol -) 650 mg PO Q6H PRN PRN Reason: FEVER OR PAIN Albuterol Sulfate (Ventolin 0.083% Nebulizer Soln -) 1 amp NEB BID [facility] Last Admin: 03/12/16 22:25 Dose: 1 amp Albuterol Sulfate (Ventolin 0.083% Nebulizer Soln -) 1 amp NEB Q4H PRN PRN Reason: SHORT OF BREATH/WHEEZING Atorvastatin Calcium (Lipitor -) 10 mg PO HS [facility] Last Admin: 03/12/16 21:52 Dose: 10 mg Furosemide (Lasix -) 40 mg PO DAILY [facility] Last Admin: 03/12/16 18:09 Dose: 40 mg Heparin Sodium (Porcine) (Heparin -) 5,000 unit IVPUSH PRN PRN Last Admin: 03/09/16 19:55 Dose: 5,000 unit Heparin Sodium (Porcine) (Heparin -) 1,000 unit IVPUSH PRN PRN Last Admin: 03/13/16 09:12 Dose: 1,000 unit Heparin Sodium (Porcine) 25, (000 unit/ Sodium Chloride) 500 mls @ 20 mls/hr IV TITR JORGE; 1,000 UNIT/HR PRN Reason: Protocol Last Admin: 03/13/16 09:14 Dose: 18 mls/hr Pantoprazole Sodium (Protonix -) 40 mg PO DAILY [facility] Last Admin: 03/12/16 18:09 Dose: 40 mg Polyethylene Glycol (Miralax (For Daily Use) -) 17 gm PO DAILY [facility] Last Admin: 03/12/16 18:09 Dose: 17 grams Potassium Chloride (K-Dur -) 40 meq PO DAILY [facility]S [facility]CLUDE 234 BEDS AT [facility] Last Admin: 03/12/16 18:10 Dose: 40 meq Sertraline HCl (Zoloft -) 50 mg PO HS [facility]S INCLUDE 234 BEDS AT [facility] Last Admin: 03/12/16 21:52 Dose: 50 mg Gen: NAD at rest Heart: RRR Lung: decreased breath sounds at the bases Abd: soft, nontender Ext: no edema Laboratory Results - last 24 hr 03/13/16 03/13/16 03/13/16 06:00 06:00 06:00 WBC 6.3 RBC 3.94 Hgb 12.6 Hct 36.6 MCV 93.0 MCHC 34.3 RDW 13.9 Plt Count 171 MPV 8.9 PTT (Actin FS) 45.0 H Sodium 142 Potassium 4.4 Chloride 102 Carbon Dioxide 28 Anion Gap 12 BUN 19 H Creatinine 0.8 Random Glucose 106 Calcium 8.9 Phosphorus 4.0 Magnesium 2.0 ASSESSMENT AND PLAN: Submassive PE Bilateral DVT Unprovoked VTE Right Heart Dysfunction/Pulmonary HTN +Troponins s/p Catheter directed Thrombectomy/Thrombolysis HTN Hyperlipidemia 0.5 non-calcified RLL subpleural nodule -> stable since 2006 D/W IR -> OK to change to NOAC O2 as needed D/C planning Dr Crandall
[2016-03-13] MEDS: POTASSIUM CHLORIDE TABS 20 MEQ TABLET.ER (FP) PO SCH (10:32)
[2016-03-13] MEDS: POLYETHYLENE GLYCOL 3350 119 GM BTL PO SCH (10:32)
[2016-03-13] MEDS: FUROSEMIDE 40 MG TABLET (FP) PO SCH (10:32)
[2016-03-13] MEDS: PANTOPRAZOLE 40 MG TABLET (FP) PO SCH (10:32)
[2016-03-13] MEDS: ALBUTEROL SO4 0.083% IH SOL 2.5 MG/3 ML VIAL.NEB. NEB SCH ×2 (11:10→22:00)
[2016-03-13] MEDS: APIXABAN 5 MG TABLET PO SCH ×2 (13:52→21:55)
--- NOTE | 2016-03-13 14:10 | PN ---
Progress Note (short form) - Note Progress Note: C/O B/L Lower extremities pain upon walking. Denies chest pain,shortness of breath, palpitation or dizziness. - Current Medication List Current Medications: Active Medications Acetaminophen (Tylenol -) 650 mg PO Q6H PRN PRN Reason: FEVER OR PAIN Albuterol Sulfate (Ventolin 0.083% Nebulizer Soln -) 1 amp NEB BID [facility] Last Admin: 03/11/16 22:05 Dose: 1 amp Albuterol Sulfate (Ventolin 0.083% Nebulizer Soln -) 1 amp NEB Q4H PRN PRN Reason: SHORT OF BREATH/WHEEZING Atorvastatin Calcium (Lipitor -) 10 mg PO HS [facility] Last Admin: 03/11/16 21:26 Dose: 10 mg Furosemide (Lasix -) 40 mg PO DAILY [facility] Last Admin: 03/11/16 11:00 Dose: Not Given Heparin Sodium (Porcine) (Heparin -) 5,000 unit IVPUSH PRN PRN Last Admin: 03/09/16 19:55 Dose: 5,000 unit Heparin Sodium (Porcine) (Heparin -) 1,000 unit IVPUSH PRN PRN Last Admin: 03/10/16 20:42 Dose: 1,000 unit Heparin Sodium (Porcine) 25, (000 unit/ Sodium Chloride) 500 mls @ 20 mls/hr IV TITR [facility]OR[facility]; 1,000 UNIT/HR PRN Reason: Protocol Last Titration: 03/12/16 06:51 Dose: 800 unit/hr Pantoprazole Sodium (Protonix -) 40 mg PO DAILY [facility] Last Admin: 03/11/16 11:00 Dose: Not Given Polyethylene Glycol (Miralax (For Daily Use) -) 17 gm PO DAILY [facility] Last Admin: 03/11/16 12:00 Dose: Not Given Potassium Chloride (K-Dur -) 40 meq PO DAILY [facility] Last Admin: 03/11/16 11:00 Dose: Not Given Sertraline HCl (Zoloft -) 50 mg PO HS [facility] Last Admin: 03/11/16 21:26 Dose: 50 mg - Objective Vital Signs: Vital Signs Period Temp Pulse Resp BP Sys/Charles Pulse Ox Last 24 Hr 97.6 F-98.6 F 58-90 16-20 107-163/46-77 99-100 Constitutional: Yes: Well Nourished, No Distress, Calm Cardiovascular: Yes: Regular Rate and Rhythm. No: Gallop, Murmur, Rub Respiratory: Yes: Regular, CTA Bilaterally. No: Rales, Rhonchi, Wheezes Gastrointestinal: Yes: Normal Bowel Sounds, Soft. No: Distention, Tenderness Extremities: Yes: WNL Edema: No Labs: CBC, BMP 03/13/16 06:00 03/13/16 06:00 INR, PTT INR 1.47 (0.82-1.09) H 03/09/16 06:06 Fibrinogen 369.0 mg/dL (238-498) 03/10/16 17:00 Problem List - Problems (1) Pulmonary embolism, bilateral Code(s): I26.99 - OTHER PULMONARY EMBOLISM WITHOUT ACUTE COR PULMONALE (2) CHF (congestive heart failure) Code(s): I50.9 - HEART FAILURE, UNSPECIFIED Qualifiers: Congestive heart failure type: unspecified congestive heart failure type Congestive heart failure chronicity: acute Qualified Code(s): I50.9 - Heart failure, unspecified (3) History of CVA (cerebrovascular accident) Code(s): Z86.73 - PRSNL HX OF TIA (TIA), AND CEREB INFRC W/O RESID DEFICITS (4) Elevated troponin Code(s): R79.89 - OTHER SPECIFIED ABNORMAL FINDINGS OF BLOOD CHEMISTRY Assessment/Plan (1) Bilateral pulmonary embolism -s/p thrombectomy and IVC filter -Off heparin gtt - Eliquis started. (2) CHF (congestive heart failure) Assessment/Plan: -Stable. -secondary to pulmonary embolism causing heart strain -s/p thrombolysis Code(s): I50.9 - HEART FAILURE, UNSPECIFIED Qualifiers: Congestive heart failure type: unspecified congestive heart failure type Congestive heart failure chronicity: acute Qualified Code(s): I50.9 - Heart failure, unspecified (3) History of CVA (cerebrovascular accident) Assessment/Plan: -patient says she does not have a history of TIA/CVA -there was a concern but it turned out to be labyrinthitis Code(s): Z86.73 - PRSNL HX OF TIA (TIA), AND CEREB INFRC W/O RESID DEFICITS (4) Elevated troponin Assessment/Plan: -secondary to PE Code(s): R79.89 - OTHER SPECIFIED ABNORMAL FINDINGS OF BLOOD CHEMISTRY
--- NOTE | 2016-03-13 15:10 | PN ---
Progress Note (short form) - Note Progress Note: CC: PE s: no cp, palps, dizzy. mild sob walking to the bathroom, improved. Still with B LE pain when ambulating o: Current Medications Acetaminophen (Tylenol -) 650 mg PO Q6H PRN PRN Reason: FEVER OR PAIN Albuterol Sulfate (Ventolin 0.083% Nebulizer Soln -) 1 amp NEB BID [facility] Last Admin: 03/13/16 11:10 Dose: 1 amp Albuterol Sulfate (Ventolin 0.083% Nebulizer Soln -) 1 amp NEB Q4H PRN PRN Reason: SHORT OF BREATH/WHEEZING Apixaban (Eliquis -) 5 mg PO BID [facility] Last Admin: 03/13/16 13:52 Dose: 5 mg Atorvastatin Calcium (Lipitor -) 10 mg PO HS [facility] Last Admin: 03/12/16 21:52 Dose: 10 mg Furosemide (Lasix -) 40 mg PO DAILY [facility] Last Admin: 03/13/16 10:32 Dose: 40 mg Pantoprazole Sodium (Protonix -) 40 mg PO DAILY [facility] Last Admin: 03/13/16 10:32 Dose: 40 mg Polyethylene Glycol (Miralax (For Daily Use) -) 17 gm PO DAILY [facility] Last Admin: 03/13/16 10:32 Dose: 17 grams Potassium Chloride (K-Dur -) 40 meq PO DAILY [facility] Last Admin: 03/13/16 10:32 Dose: 40 meq Sertraline HCl (Zoloft -) 50 mg PO HS [facility] Last Admin: 03/12/16 21:52 Dose: 50 mg Vital Signs - 24 hr 03/12/16 03/12/16 03/12/16 17:08 21:00 22:00 Temperature 97.6 F 97.8 F Pulse Rate 58 L 67 Respiratory 20 20 Rate Blood Pressure 121/51 113/60 O2 Sat by Pulse 99 100 Oximetry (%) 03/13/16 03/13/16 03/13/16 02:00 05:50 09:00 Temperature 98.3 F 98.6 F 97.8 F Pulse Rate 64 90 65 Respiratory 18 18 18 Rate Blood Pressure 113/46 125/73 107/71 O2 Sat by Pulse 99 Oximetry (%) 03/13/16 14:20 Temperature 98.2 F Pulse Rate 70 Respiratory 18 Rate Blood Pressure 101/57 O2 Sat by Pulse Oximetry (%) Intake & Output 03/11/16 03/12/16 03/13/16 03/14/16 07:59 07:59 07:59 07:59 Intake Total 796 1042 512 Output Total 1150 500 600 Balance -354 542 -88 Weight 218 lb 205 lb 9.6 oz Constitutional: Yes: No Distress, Calm Eyes: No: Sclera Icterus HENT: No: Nasal Congestion Cardiovascular: Yes: Regular Rate and Rhythm, S1, S2, No: JVD, Gallop, Murmur Respiratory: Yes: CTA Bilaterally, . No: Accessory Muscle Use, Rales Gastrointestinal: Yes: Normal Bowel Sounds, Soft. No: Tenderness Extremities: No: Cold Edema: trace Integumentary: No: Jaundice Neurological: Yes: Alert, Oriented (x3) Psychiatric: No: Agitated no diaphoresis, jaundice CBC, BMP 03/13/16 06:00 03/13/16 06:00 Laboratory Tests 03/09/16 03/09/16 03/09/16 06:06 06:06 06:06 INR 1.47 H PTT (Actin FS) 94.4 H Magnesium 2.0 03/13/16 06:00 INR PTT (Actin FS) Magnesium 2.0 echo 02/2016: tds; nl lv/rv, mild-mod tr, mild phtn prior tele: sr a/p: 80 f hx htn, hld, here with sob. sob, hypoxia, acute bilat PEs, acute HFpEF: -on admit with + LE edema and sob with elevated bnp (2200), wt 213 lb -diuresed with iv lasix and wt/vol status improved but sob/hypoxia persisted so had cta chest showing bl pe's. also with bl dvts. -s/p catheter directed thrombolysis 03/09 and now sob/resp status improving -s/p ivc filter 03/11 -repeat echo prior to thrombolysis per dr link review had shown: RV images TDS but it is likely mild or possibly moderately dilated; mid and basal wall systolic function is impaired, with hyperdynamic apical contraction c/w "Mcconell's sign". Thus it appears she had acute right heart strain on admit that led to right sided HF. This should improve now after thrombolysis. Vol status improved. Cont po lasix. - daily weights to monitor volume status. -now off heparin ip and on eliquis htn: -on hctz at home, has been dc'ed now that she will require lasix upon dc - today bp running low, asx. con't to monitor. hgb stable. hld: -cont statin positive trops: -trop in borderline range with flat trend (0.2-0.3) and nl ck, no ischemic ecg changes = not consistent with acs, likely was secondary to PE's -echo with normal lvef, no WMAs
[2016-03-13] MEDS: ATORVASTATIN CA 10 MG TABLET (FP) PO SCH (21:54)
[2016-03-13] MEDS: SERTRALINE HCL 25 MG TABLET (FP) PO SCH (21:54)
[2016-03-14 07:14] LABS: MCH 31.3 pg (25.7-33.7); MCHC 33.6 g/dl (32.0-36.0); MEAN CELL VOLUME 93.3 fl (80-96); MEAN PLT VOLUME 8.8 fl (7.5-11.1); PLATELET COUNT 211 K/MM3 (134-434); RDW 14.5 % (11.6-15.6); WHITE BLOOD COUNT 6.2 K/mm3 (4.0-10.0)
[2016-03-14] MEDS ORDERED: PT OWN MED DRAWER 7, Y5N ONE ×2 (09:02→21:07)
[2016-03-14] MEDS: APIXABAN 5 MG TABLET PO SCH ×2 (09:03→21:31)
[2016-03-14] MEDS: POTASSIUM CHLORIDE TABS 20 MEQ TABLET.ER (FP) PO SCH (09:03)
[2016-03-14] MEDS: FUROSEMIDE 40 MG TABLET (FP) PO SCH (09:04)
[2016-03-14] MEDS: POLYETHYLENE GLYCOL 3350 119 GM BTL PO SCH (09:04)
[2016-03-14] MEDS: PANTOPRAZOLE 40 MG TABLET (FP) PO SCH (09:04)
[2016-03-14] MEDS: ALBUTEROL SO4 0.083% IH SOL 2.5 MG/3 ML VIAL.NEB. NEB SCH ×2 (10:30→22:14)
--- NOTE | 2016-03-14 11:01 | PN ---
Progress Note (short form) - Note Progress Note: No CP or SOB. No acute events overnight. Intake & Output 03/11/16 03/12/16 03/13/16 03/14/16 23:59 23:59 23:59 23:59 Intake Total 1178 320 292 Output Total 900 600 Balance 278 -280 292 Weight 218 lb 214 lb 205 lb 9.6 oz 206 lb Last Vital Signs Temp Pulse Resp BP Pulse Ox 98.5 F 60 18 140/58 98 03/14/16 05:45 03/14/16 05:45 03/14/16 05:45 03/14/16 05:45 03/14/16 09:00 Active Medications Acetaminophen (Tylenol -) 650 mg PO Q6H PRN PRN Reason: FEVER OR PAIN Albuterol Sulfate (Ventolin 0.083% Nebulizer Soln -) 1 amp NEB BID [facility] Last Admin: 03/14/16 10:30 Dose: 1 amp Albuterol Sulfate (Ventolin 0.083% Nebulizer Soln -) 1 amp NEB Q4H PRN PRN Reason: SHORT OF BREATH/WHEEZING Apixaban (Eliquis -) 5 mg PO BID [facility] Last Admin: 03/14/16 09:03 Dose: 5 mg Atorvastatin Calcium (Lipitor -) 10 mg PO HS [facility] Last Admin: 03/13/16 21:54 Dose: 10 mg Furosemide (Lasix -) 40 mg PO DAILY [facility] Last Admin: 03/14/16 09:04 Dose: 40 mg Pantoprazole Sodium (Protonix -) 40 mg PO DAILY [facility] Last Admin: 03/14/16 09:04 Dose: 40 mg Polyethylene Glycol (Miralax (For Daily Use) -) 17 gm PO DAILY [facility] Last Admin: 03/14/16 09:04 Dose: Not Given Potassium Chloride (K-Dur -) 40 meq PO DAILY [facility] Last Admin: 03/14/16 09:03 Dose: 40 meq Sertraline HCl (Zoloft -) 50 mg PO HS [facility] Last Admin: 03/13/16 21:54 Dose: 50 mg Gen: NAD at rest Heart: RRR Lung: decreased breath sounds at the bases Abd: soft, nontender Ext: no edema Laboratory Results - last 24 hr 03/14/16 03/14/16 06:00 06:00 WBC 6.2 RBC 4.01 Hgb 12.6 Hct 37.4 MCV 93.3 MCHC 33.6 RDW 14.5 Plt Count 211 D MPV 8.8 PTT (Actin FS) 35.4 H ASSESSMENT AND PLAN: Submassive PE Bilateral DVT Unprovoked VTE Right Heart Dysfunction/Pulmonary HTN +Troponins s/p Catheter directed Thrombectomy/Thrombolysis HTN Hyperlipidemia 0.5 non-calcified 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
[2016-03-14] MEDS: ACETAMINOPHEN 325 MG TABLET (FP) PO PRN (12:17)
--- NOTE | 2016-03-14 13:57 | PN ---
Progress Note (short form) - Note Progress Note: C/O B/L Lower extremities pain upon ambulation and noted to be very tachycardic on ambulation Denies chest pain,shortness of breath, palpitation or dizziness. - Current Medication List Current Medications: Active Medications Acetaminophen (Tylenol -) 650 mg PO Q6H PRN PRN Reason: FEVER OR PAIN Albuterol Sulfate (Ventolin 0.083% Nebulizer Soln -) 1 amp NEB BID [facility] Last Admin: 03/11/16 22:05 Dose: 1 amp Albuterol Sulfate (Ventolin 0.083% Nebulizer Soln -) 1 amp NEB Q4H PRN PRN Reason: SHORT OF BREATH/WHEEZING Atorvastatin Calcium (Lipitor -) 10 mg PO HS [facility] Last Admin: 03/11/16 21:26 Dose: 10 mg Furosemide (Lasix -) 40 mg PO DAILY [facility] Last Admin: 03/11/16 11:00 Dose: Not Given Heparin Sodium (Porcine) (Heparin -) 5,000 unit IVPUSH PRN PRN Last Admin: 03/09/16 19:55 Dose: 5,000 unit Heparin Sodium (Porcine) (Heparin -) 1,000 unit IVPUSH PRN PRN Last Admin: 03/10/16 20:42 Dose: 1,000 unit Heparin Sodium (Porcine) 25, (000 unit/ Sodium Chloride) 500 mls @ 20 mls/hr IV TITR [facility]OR[facility]; 1,000 UNIT/HR PRN Reason: Protocol Last Titration: 03/12/16 06:51 Dose: 800 unit/hr Pantoprazole Sodium (Protonix -) 40 mg PO DAILY [facility] Last Admin: 03/11/16 11:00 Dose: Not Given Polyethylene Glycol (Miralax (For Daily Use) -) 17 gm PO DAILY [facility] Last Admin: 03/11/16 12:00 Dose: Not Given Potassium Chloride (K-Dur -) 40 meq PO DAILY [facility] Last Admin: 03/11/16 11:00 Dose: Not Given Sertraline HCl (Zoloft -) 50 mg PO HS [facility] Last Admin: 03/11/16 21:26 Dose: 50 mg - Objective Vital Signs: Vital Signs Period Temp Pulse Resp BP Sys/Charles Pulse Ox Last 24 Hr 98.2 F-98.7 F 60-91 16-20 101-140/57-67 96-98 Constitutional: Yes: Well Nourished, No Distress, Calm Cardiovascular: Yes: Regular Rate and Rhythm. No: Gallop, Murmur, Rub Respiratory: Yes: Regular, CTA Bilaterally. No: Rales, Rhonchi, Wheezes Gastrointestinal: Yes: Normal Bowel Sounds, Soft. No: Distention, Tenderness Extremities: Yes: WNL Edema: No Labs: CBC, BMP 03/14/16 06:00 03/13/16 06:00 INR, PTT INR 1.47 (0.82-1.09) H 03/09/16 06:06 Fibrinogen 369.0 mg/dL (238-498) 03/10/16 17:00 Problem List - Problems (1) Pulmonary embolism, bilateral Code(s): I26.99 - OTHER PULMONARY EMBOLISM WITHOUT ACUTE COR PULMONALE (2) CHF (congestive heart failure) Code(s): I50.9 - HEART FAILURE, UNSPECIFIED Qualifiers: Congestive heart failure type: unspecified congestive heart failure type Congestive heart failure chronicity: acute Qualified Code(s): I50.9 - Heart failure, unspecified (3) History of CVA (cerebrovascular accident) Code(s): Z86.73 - PRSNL HX OF TIA (TIA), AND CEREB INFRC W/O RESID DEFICITS (4) Elevated troponin Code(s): R79.89 - OTHER SPECIFIED ABNORMAL FINDINGS OF BLOOD CHEMISTRY Assessment/Plan (1) Bilateral pulmonary embolism -s/p thrombectomy and IVC filter -Off heparin gtt - Eliquis started. (2) CHF (congestive heart failure) Assessment/Plan: -Stable. -secondary to pulmonary embolism causing heart strain -s/p thrombolysis Code(s): I50.9 - HEART FAILURE, UNSPECIFIED Qualifiers: Congestive heart failure type: unspecified congestive heart failure type Congestive heart failure chronicity: acute Qualified Code(s): I50.9 - Heart failure, unspecified (3) History of CVA (cerebrovascular accident) Assessment/Plan: -patient says she does not have a history of TIA/CVA -there was a concern but it turned out to be labyrinthitis Code(s): Z86.73 - PRSNL HX OF TIA (TIA), AND CEREB INFRC W/O RESID DEFICITS (4) Elevated troponin Assessment/Plan: -secondary to PE Code(s): R79.89 - OTHER SPECIFIED ABNORMAL FINDINGS OF BLOOD CHEMISTRY Patient will need snf placement. Discussed with patient and she agreed. PT evaluation. If everything is set up then she is stable to be discharged to snf tomorrow.
--- NOTE | 2016-03-14 14:02 | PN ---
Progress Note (short form) - Note Progress Note: CC: PE s: no cp, palps, dizzy. mild sob walking to the bathroom, improved. Still with B LE pain when ambulating o: Current Medications Acetaminophen (Tylenol -) 650 mg PO Q6H PRN PRN Reason: FEVER OR PAIN Last Admin: 03/14/16 12:17 Dose: 650 mg Albuterol Sulfate (Ventolin 0.083% Nebulizer Soln -) 1 amp NEB BID [facility] Last Admin: 03/14/16 10:30 Dose: 1 amp Albuterol Sulfate (Ventolin 0.083% Nebulizer Soln -) 1 amp NEB Q4H PRN PRN Reason: SHORT OF BREATH/WHEEZING Apixaban (Eliquis -) 5 mg PO BID [facility] Last Admin: 03/14/16 09:03 Dose: 5 mg Atorvastatin Calcium (Lipitor -) 10 mg PO [facility] Last Admin: 03/13/16 21:54 Dose: 10 mg Furosemide (Lasix -) 40 mg PO DAILY [facility] Last Admin: 03/14/16 09:04 Dose: 40 mg Pantoprazole Sodium (Protonix -) 40 mg PO DAILY [facility] Last Admin: 03/14/16 09:04 Dose: 40 mg Polyethylene Glycol (Miralax (For Daily Use) -) 17 gm PO DAILY [facility] Last Admin: 03/14/16 09:04 Dose: Not Given Potassium Chloride (K-Dur -) 40 meq PO DAILY [facility] Last Admin: 03/14/16 09:03 Dose: 40 meq Sertraline HCl (Zoloft -) 50 mg PO [facility] Last Admin: 03/13/16 21:54 Dose: 50 mg Vital Signs - 24 hr 03/13/16 03/13/16 03/13/16 14:20 18:00 20:49 Temperature 98.2 F 98.2 F 98.7 F Pulse Rate 70 65 64 Respiratory 18 16 20 Rate Blood Pressure 101/57 127/67 135/66 O2 Sat by Pulse Oximetry (%) 03/14/16 03/14/16 03/14/16 05:45 09:00 11:40 Temperature 98.5 F Pulse Rate 60 91 H Respiratory 18 Rate Blood Pressure 140/58 O2 Sat by Pulse 98 96 Oximetry (%) Intake & Output 03/12/16 03/13/16 03/14/16 03/15/16 07:59 07:59 07:59 07:59 Intake Total 1042 512 100 Output Total 500 600 Balance 542 -88 100 Weight 205 lb 9.6 oz 206 lb Constitutional: Yes: No Distress, Calm Eyes: No: Sclera Icterus HENT: No: Nasal Congestion Cardiovascular: Yes: Regular Rate and Rhythm, S1, S2, No: JVD, Gallop, Murmur Respiratory: Yes: CTA Bilaterally, . No: Accessory Muscle Use, Rales Gastrointestinal: Yes: Normal Bowel Sounds, Soft. No: Tenderness Extremities: No: Cold Edema: trace Integumentary: No: Jaundice Neurological: Yes: Alert, Oriented (x3) Psychiatric: No: Agitated no diaphoresis, jaundice CBC, BMP 03/14/16 06:00 03/13/16 06:00 Laboratory Tests 03/13/16 06:00 Magnesium 2.0 echo 02/2016: tds; nl lv/rv, mild-mod tr, mild phtn prior tele: sr a/p: 80 f hx htn, hld, here with sob. sob, hypoxia, acute bilat PEs, acute HFpEF: -on admit with + LE edema and sob with elevated bnp (2200), wt 213 lb -diuresed with iv lasix and wt/vol status improved but sob/hypoxia persisted so had cta chest showing bl pe's. also with bl dvts. -s/p catheter directed thrombolysis 03/09 and now sob/resp status improving -s/p ivc filter 03/11 -repeat echo prior to thrombolysis per dr link review had shown: RV images TDS but it is likely mild or possibly moderately dilated; mid and basal wall systolic function is impaired, with hyperdynamic apical contraction c/w "Mcconell's sign". Thus it appears she had acute right heart strain on admit that led to right sided HF. This should improve now after thrombolysis. Vol status improved. Cont po lasix. - daily weights to monitor volume status. -now off heparin drip and on eliquis - sx's still persist, will change lasix to IV lasix. htn: -on hctz at home, has been dc'ed now that she will require lasix upon dc - con't to monitor off anti-hypertensives. hgb stable. hld: -cont statin positive trops: -trop in borderline range with flat trend (0.2-0.3) and nl ck, no ischemic ecg changes = not consistent with acs, likely was secondary to PE's -echo with normal lvef, no WMAs
[2016-03-14] MEDS: ATORVASTATIN CA 10 MG TABLET (FP) PO SCH (21:31)
[2016-03-14] MEDS: SERTRALINE HCL 25 MG TABLET (FP) PO SCH (21:32)
[2016-03-14] MEDS ORDERED: APIXABAN 5 MG TABLET PO SCH (22:00)
[2016-03-15 07:01] LABS: EOSINOPHIL 2.9 % (0-4.5); MCH 31.6 pg (25.7-33.7); MEAN PLT VOLUME 8.3 fl (7.5-11.1); NEUTROPHILS 65.4 % (42.8-82.8); PLATELET COUNT 188 K/MM3 (134-434); RDW 14.2 % (11.6-15.6); WHITE BLOOD COUNT 6.9 K/mm3 (4.0-10.0)
[2016-03-15 07:21] LABS: ALBUMIN 3.1 g/dl (3.4-5.0); ANION GAP 9 (8-16); CALCIUM 9.4 mg/dL (8.5-10.1); CO2 31 mmol/L (21-32); CREATININE 0.8 mg/dL (0.55-1.02); GLUCOSE,RANDOM 116 mg/dL (74-106); SGOT/AST 20 U/L (15-37); SGPT/ALT 28 U/L (12-78)
[2016-03-15 07:23] LABS: ALK PHOS 93 U/L (45-117); BILIRUBIN,TOTAL 0.4 mg/dL (0.2-1.0)
[2016-03-15] MEDS ORDERED: PT OWN MED DRAWER 7, Y5N ONE (09:27)
[2016-03-15] MEDS: APIXABAN 5 MG TABLET PO SCH ×2 (09:41→21:14)
[2016-03-15] MEDS: POTASSIUM CHLORIDE TABS 20 MEQ TABLET.ER (FP) PO SCH (09:47)
[2016-03-15] MEDS: PANTOPRAZOLE 40 MG TABLET (FP) PO SCH (09:48)
[2016-03-15] MEDS ORDERED: FUROSEMIDE 40 MG/4 ML INJECTABLE VIAL IVPUSH SCH (10:00)
--- NOTE | 2016-03-15 10:28 | PN ---
Progress Note, Physician Chief Complaint: PE, sob History of Present Illness: only mild sob ambulating to bathroom (10 feet), much improved vs prior; no cp, palpit, presyncope - Current Medication List Current Medications: Active Medications Acetaminophen (Tylenol -) 650 mg PO Q6H PRN PRN Reason: FEVER OR PAIN Last Admin: 03/14/16 12:17 Dose: 650 mg Apixaban (Eliquis -) 5 mg PO BID [facility] Last Admin: 03/15/16 09:41 Dose: 5 mg Atorvastatin Calcium (Lipitor -) 10 mg PO HS [facility] Last Admin: 03/14/16 21:31 Dose: 10 mg Furosemide (Lasix Injection -) 40 mg IVPUSH DAILY [facility] Last Admin: 03/15/16 09:43 Dose: 40 mg Pantoprazole Sodium (Protonix -) 40 mg PO DAILY [facility] Last Admin: 03/15/16 09:48 Dose: 40 mg Polyethylene Glycol (Miralax (For Daily Use) -) 17 gm PO DAILY [facility] Last Admin: 03/14/16 09:04 Dose: Not Given Potassium Chloride (K-Dur -) 40 meq PO DAILY [facility] Last Admin: 03/15/16 09:47 Dose: 40 meq Sertraline HCl (Zoloft -) 50 mg PO HS [facility] Last Admin: 03/14/16 21:32 Dose: 50 mg - Objective Vital Signs: Vital Signs Temperature 97.5 F L 03/15/16 06:00 Pulse Rate 91 H 03/15/16 06:00 Respiratory Rate 20 03/15/16 06:00 Blood Pressure 137/64 03/15/16 06:00 O2 Sat by Pulse Oximetry (%) 96 03/14/16 22:00 Constitutional: Yes: Well Nourished, No Distress, Calm Cardiovascular: Yes: Regular Rate and Rhythm, S1, S2. No: Gallop, Murmur Respiratory: Yes: Regular, CTA Bilaterally. No: Accessory Muscle Use, Wheezes Extremities: No: Cold Edema: No Neurological: Yes: Alert, Oriented Psychiatric: No: Agitated Labs: CBC, BMP 03/15/16 06:00 03/15/16 06:00 INR, PTT INR 1.47 (0.82-1.09) H 03/09/16 06:06 Fibrinogen 369.0 mg/dL (238-498) 03/10/16 17:00 Assessment/Plan echo 02/2016: tds; nl lv/rv, mild-mod tr, mild phtn prior tele: sr a/p: 80 f hx htn, hld, here with sob. sob, hypoxia, acute bilat PEs, acute RV strain with right sided CHF: -on admit with + LE edema and sob with elevated bnp (2200), wt 213 lb -diuresed with iv lasix and wt/vol status improved but sob/hypoxia persisted so had cta chest showing bl pe's. also with bl dvts. -s/p catheter directed thrombolysis 03/09 and now sob/resp status improving -s/p ivc filter 03/11 -repeat echo prior to thrombolysis per dr link review had shown: RV images TDS but it is likely mild or possibly moderately dilated; mid and basal wall systolic function is impaired, with hyperdynamic apical contraction c/w "Mcconell's sign". Thus it appears she had acute right heart strain on admit that led to right sided HF. This should improve now after thrombolysis. Vol status improved. Cont po lasix. -cont eliquis -for outpt hypercoag w/u per heme (family h/o arterial clotting events noted) -wt remains well below her chronic office baseline wt; evidence of right sided CHF resolved with iv lasix, sob much improved--will likely need maintenance po lasix for now--change to 40 po qd -routine electrolyte/bun and creat monitoring in SNF -rpt BNP -she was told to make 4 wk outpt f/u with us (for once home from rehab)--cont lasix until then if BMPs remains table -will reassess pulm pressure/RV size and fxn on f/u echo later in office (6-8 wks) htn: -on hctz at home, has been dc'ed now that she will require lasix upon dc - con't to monitor off anti-hypertensives. hgb stable. hld: -cont statin positive trops: -trop in borderline range with flat trend (0.2-0.3) and nl ck, no ischemic ecg changes = not consistent with acs, likely was secondary to PE's -echo with normal lvef, no WMAs
--- NOTE | 2016-03-15 10:45 | PN ---
Progress Note (short form) - Note Progress Note: PULMONARY Denies shortness of breath, chest pain or palpitations. c/o leg pain/weakness when ambulating. Last Vital Signs Temp Pulse Resp BP Pulse Ox 97.5 F L 91 H 20 137/64 96 03/15/16 06:00 03/15/16 06:00 03/15/16 06:00 03/15/16 06:00 03/14/16 22:00 Gen: NAD at rest Heart: RRR Lung: distant breath sounds Abd: soft, nontender Ext: no edema CBC, BMP 03/15/16 06:00 03/15/16 06:00 Active Medications Acetaminophen (Tylenol -) 650 mg PO Q6H PRN PRN Reason: FEVER OR PAIN Last Admin: 03/14/16 12:17 Dose: 650 mg Apixaban (Eliquis -) 5 mg PO BID [facility] Last Admin: 03/15/16 09:41 Dose: 5 mg Atorvastatin Calcium (Lipitor -) 10 mg PO HS [facility] Last Admin: 03/14/16 21:31 Dose: 10 mg Furosemide (Lasix Injection -) 40 mg IVPUSH DAILY [facility] Last Admin: 03/15/16 09:43 Dose: 40 mg Pantoprazole Sodium (Protonix -) 40 mg PO DAILY [facility] Last Admin: 03/15/16 09:48 Dose: 40 mg Polyethylene Glycol (Miralax (For Daily Use) -) 17 gm PO DAILY [facility] Last Admin: 03/14/16 09:04 Dose: Not Given Potassium Chloride (K-Dur -) 40 meq PO DAILY [facility] Last Admin: 03/15/16 09:47 Dose: 40 meq Sertraline HCl (Zoloft -) 50 mg PO HS [facility] Last Admin: 03/14/16 21:32 Dose: 50 mg A/P Unprovoked Submassive PE/Bilateral DVT Right Heart Dysfunction/Pulmonary HTN +Troponins s/p Catheter directed Thrombectomy/Thrombolysis/IVC filter placement HTN Hyperlipidemia - continue anticoagulation - O2 as needed - OOB to chair - rehab/PT - d/c planning - outpt malignancy screening
[2016-03-15] MEDS: ALBUTEROL SO4 0.083% IH SOL 2.5 MG/3 ML VIAL.NEB. NEB SCH (11:00)
[2016-03-15] MEDS ORDERED: ALBUTEROL SO4 0.083% IH SOL 2.5 MG/3 ML VIAL.NEB. NEB ONE (11:06)
--- NOTE | 2016-03-15 11:19 | PN ---
Progress Note, Physician Chief Complaint: Ms Asencio says she feels good today, that this is the first day she feels like herself. No cp, sob, n/v. - Current Medication List Current Medications: Active Medications Acetaminophen (Tylenol -) 650 mg PO Q6H PRN PRN Reason: FEVER OR PAIN Last Admin: 03/14/16 12:17 Dose: 650 mg Apixaban (Eliquis -) 5 mg PO BID [facility] Last Admin: 03/15/16 09:41 Dose: 5 mg Atorvastatin Calcium (Lipitor -) 10 mg PO HS [facility] Last Admin: 03/14/16 21:31 Dose: 10 mg Furosemide (Lasix Injection -) 40 mg IVPUSH DAILY [facility] Last Admin: 03/15/16 09:43 Dose: 40 mg Pantoprazole Sodium (Protonix -) 40 mg PO DAILY [facility] Last Admin: 03/15/16 09:48 Dose: 40 mg Polyethylene Glycol (Miralax (For Daily Use) -) 17 gm PO DAILY [facility] Last Admin: 03/14/16 09:04 Dose: Not Given Potassium Chloride (K-Dur -) 40 meq PO DAILY [facility] Last Admin: 03/15/16 09:47 Dose: 40 meq Sertraline HCl (Zoloft -) 50 mg PO HS [facility] Last Admin: 03/14/16 21:32 Dose: 50 mg - Objective Vital Signs: Vital Signs Temperature 97.5 F L 03/15/16 06:00 Pulse Rate 91 H 03/15/16 06:00 Respiratory Rate 20 03/15/16 06:00 Blood Pressure 137/64 03/15/16 06:00 O2 Sat by Pulse Oximetry (%) 96 03/14/16 22:00 Constitutional: Yes: No Distress, Calm, Obese Cardiovascular: Yes: Regular Rate and Rhythm. No: Gallop, Murmur, Rub Respiratory: Yes: Regular, CTA Bilaterally. No: Rales, Rhonchi, Wheezes Gastrointestinal: Yes: Normal Bowel Sounds, Soft. No: Distention, Tenderness Extremities: Yes: WNL Edema: No Labs: CBC, BMP 03/15/16 06:00 03/15/16 06:00 INR, PTT INR 1.47 (0.82-1.09) H 03/09/16 06:06 Fibrinogen 369.0 mg/dL (238-498) 03/10/16 17:00 Problem List - Problems (1) Pulmonary embolism, bilateral Code(s): I26.99 - OTHER PULMONARY EMBOLISM WITHOUT ACUTE COR PULMONALE (2) CHF (congestive heart failure) Code(s): I50.9 - HEART FAILURE, UNSPECIFIED Qualifiers: Qualified Code(s): I50.9 - Heart failure, unspecified (3) History of CVA (cerebrovascular accident) Code(s): Z86.73 - PRSNL HX OF TIA (TIA), AND CEREB INFRC W/O RESID DEFICITS (4) Elevated troponin Code(s): R79.89 - OTHER SPECIFIED ABNORMAL FINDINGS OF BLOOD CHEMISTRY Assessment/Plan (1) Bilateral pulmonary embolism -s/p thrombectomy and IVC filter -feeling well today -on eliquis -PT and pre/post oxygen saturations -may need oxygen at home -evaluate if needs SNF placement (2) CHF (congestive heart failure) Assessment/Plan: -cardiology following -currently receiving IV lasix -when changed to oral lasix, begin discharge planning Code(s): I50.9 - HEART FAILURE, UNSPECIFIED Qualifiers: Congestive heart failure type: unspecified congestive heart failure type Congestive heart failure chronicity: acute Qualified Code(s): I50.9 - Heart failure, unspecified (3) History of CVA (cerebrovascular accident) Assessment/Plan: -patient says she does not have a history of TIA/CVA -there was a concern but it turned out to be labyrinthitis Code(s): Z86.73 - PRSNL HX OF TIA (TIA), AND CEREB INFRC W/O RESID DEFICITS (4) Elevated troponin Assessment/Plan: -secondary to PE Code(s): R79.89 - OTHER SPECIFIED ABNORMAL FINDINGS OF BLOOD CHEMISTRY Dispo -possible discharge tomorrow if changed to oral lasix
[2016-03-15] MEDS: POLYETHYLENE GLYCOL 3350 119 GM BTL PO SCH (12:42)
[2016-03-15] MEDS: ATORVASTATIN CA 10 MG TABLET (FP) PO SCH (21:14)
[2016-03-15] MEDS: SERTRALINE HCL 25 MG TABLET (FP) PO SCH (21:15)
[2016-03-16] MEDS: ACETAMINOPHEN 325 MG TABLET (FP) PO PRN (06:02)
[2016-03-16 07:37] LABS: CALCIUM 9.2 mg/dL (8.5-10.1); CREATININE 0.9 mg/dL (0.55-1.02)
[2016-03-16] MEDS ORDERED: PT OWN MED DRAWER 7, Y5N ONE ×2 (09:32→21:11)
[2016-03-16] MEDS: PANTOPRAZOLE 40 MG TABLET (FP) PO SCH (09:38)
[2016-03-16] MEDS: FUROSEMIDE 40 MG TABLET (FP) PO SCH (09:38)
[2016-03-16] MEDS: APIXABAN 5 MG TABLET PO SCH ×2 (09:38→21:22)
[2016-03-16] MEDS: POTASSIUM CHLORIDE TABS 20 MEQ TABLET.ER (FP) PO SCH (09:38)
[2016-03-16] MEDS: POLYETHYLENE GLYCOL 3350 119 GM BTL PO SCH (09:38)
--- NOTE | 2016-03-16 10:36 | PN ---
Progress Note (short form) - Note Progress Note: PULMONARY Denies shortness of breath, chest pain or palpitations. Still with bilateral leg pain/weakness when ambulating. Requesting rehab placement. SpO2 98% on room air. Last Vital Signs Temp Pulse Resp BP Pulse Ox 98.2 F 63 20 143/68 94 L 03/16/16 05:45 03/16/16 05:45 03/16/16 05:45 03/16/16 05:45 03/15/16 22:00 Gen: NAD at rest Heart: RRR Lung: distant breath sounds Abd: soft, nontender Ext: no edema CBC, BMP 03/15/16 06:00 03/16/16 06:00 Active Medications Acetaminophen (Tylenol -) 650 mg PO Q6H PRN PRN Reason: FEVER OR PAIN Last Admin: 03/16/16 06:02 Dose: 650 mg Apixaban (Eliquis -) 5 mg PO BID [facility] Last Admin: 03/16/16 09:38 Dose: 5 mg Atorvastatin Calcium (Lipitor -) 10 mg PO HS [facility] Last Admin: 03/15/16 21:14 Dose: 10 mg Furosemide (Lasix -) 40 mg PO DAILY [facility] Last Admin: 03/16/16 09:38 Dose: 40 mg Pantoprazole Sodium (Protonix -) 40 mg PO DAILY [facility] Last Admin: 03/16/16 09:38 Dose: 40 mg Polyethylene Glycol (Miralax (For Daily Use) -) 17 gm PO DAILY [facility] Last Admin: 03/16/16 09:38 Dose: 17 grams Potassium Chloride (K-Dur -) 40 meq PO DAILY [facility] Last Admin: 03/16/16 09:38 Dose: 40 meq Sertraline HCl (Zoloft -) 50 mg PO HS [facility] Last Admin: 03/15/16 21:15 Dose: 50 mg A/P Unprovoked Submassive PE/Bilateral DVT Right Heart Dysfunction/Pulmonary HTN +Troponins s/p Catheter directed Thrombectomy/Thrombolysis/IVC filter placement HTN Hyperlipidemia - continue anticoagulation likely lifelong - outpt hypercoagulable work up/malignancy screening - O2 as needed - OOB to chair - rehab/PT - d/c planning
[2016-03-16] MEDS ORDERED: oxyCODONE HCL 5 MG TABLET PO PRN (14:16)
--- NOTE | 2016-03-16 17:10 | PN ---
Progress Note, Physician Chief Complaint: Ms Asencio complains of leg pain with walking. No cp, sob, n/v. - Current Medication List Current Medications: Active Medications Acetaminophen (Tylenol -) 650 mg PO Q6H PRN PRN Reason: FEVER OR PAIN Last Admin: 03/16/16 06:02 Dose: 650 mg Apixaban (Eliquis -) 5 mg PO BID [facility] Last Admin: 03/16/16 09:38 Dose: 5 mg Atorvastatin Calcium (Lipitor -) 10 mg PO HS [facility] Last Admin: 03/15/16 21:14 Dose: 10 mg Furosemide (Lasix -) 40 mg PO DAILY [facility] Last Admin: 03/16/16 09:38 Dose: 40 mg Oxycodone HCl (Roxicodone -) 10 mg PO Q4H PRN PRN Reason: PAIN Last Admin: 03/16/16 14:28 Dose: 10 mg Pantoprazole Sodium (Protonix -) 40 mg PO DAILY [facility] Last Admin: 03/16/16 09:38 Dose: 40 mg Polyethylene Glycol (Miralax (For Daily Use) -) 17 gm PO DAILY [facility] Last Admin: 03/16/16 09:38 Dose: 17 grams Potassium Chloride (K-Dur -) 40 meq PO DAILY [facility] Last Admin: 03/16/16 09:38 Dose: 40 meq Sertraline HCl (Zoloft -) 50 mg PO HS [facility] Last Admin: 03/15/16 21:15 Dose: 50 mg - Objective Vital Signs: Vital Signs Temperature 97.4 F L 03/16/16 15:07 Pulse Rate 60 03/16/16 15:07 Respiratory Rate 20 03/16/16 15:07 Blood Pressure 120/65 03/16/16 15:07 O2 Sat by Pulse Oximetry (%) 97 03/16/16 12:57 Constitutional: Yes: No Distress, Calm, Obese Cardiovascular: Yes: Regular Rate and Rhythm. No: Gallop, Murmur, Rub Respiratory: Yes: Regular, CTA Bilaterally. No: Rales, Rhonchi, Wheezes Gastrointestinal: Yes: Normal Bowel Sounds, Soft. No: Distention, Tenderness Extremities: Yes: WNL Edema: No Labs: CBC, BMP 03/15/16 06:00 03/16/16 06:00 INR, PTT INR 1.47 (0.82-1.09) H 03/09/16 06:06 Fibrinogen 369.0 mg/dL (238-498) 03/10/16 17:00 Problem List - Problems (1) Pulmonary embolism, bilateral Code(s): I26.99 - OTHER PULMONARY EMBOLISM WITHOUT ACUTE COR PULMONALE (2) CHF (congestive heart failure) Code(s): I50.9 - HEART FAILURE, UNSPECIFIED Qualifiers: Congestive heart failure type: unspecified congestive heart failure type Congestive heart failure chronicity: acute Qualified Code(s): I50.9 - Heart failure, unspecified (3) History of CVA (cerebrovascular accident) Code(s): Z86.73 - PRSNL HX OF TIA (TIA), AND CEREB INFRC W/O RESID DEFICITS (4) Elevated troponin Code(s): R79.89 - OTHER SPECIFIED ABNORMAL FINDINGS OF BLOOD CHEMISTRY Assessment/Plan (1) Bilateral pulmonary embolism -s/p thrombectomy and IVC filter -on eliquis -evaluated for SNF, currently not a candidate -stairs training, concern patient will not be able to walk up stairs to her home (2) CHF (congestive heart failure) Assessment/Plan: -cardiology following -continue oral lasix Code(s): I50.9 - HEART FAILURE, UNSPECIFIED Qualifiers: Congestive heart failure type: unspecified congestive heart failure type Congestive heart failure chronicity: acute Qualified Code(s): I50.9 - Heart failure, unspecified (3) History of CVA (cerebrovascular accident) Assessment/Plan: -patient says she does not have a history of TIA/CVA -there was a concern but it turned out to be labyrinthitis Code(s): Z86.73 - PRSNL HX OF TIA (TIA), AND CEREB INFRC W/O RESID DEFICITS (4) Elevated troponin Assessment/Plan: -secondary to PE Code(s): R79.89 - OTHER SPECIFIED ABNORMAL FINDINGS OF BLOOD CHEMISTRY Dispo -pending further evaluation for SNF placement
--- NOTE | 2016-03-16 18:20 | PN ---
Progress Note (short form) - Note Progress Note: Patient seen and examined Complains of SOB on exertion, not at rest Complains of discomfort in thighs bilaterally Last Vital Signs Temp Pulse Resp BP Pulse Ox 97.4 F L 60 20 120/65 97 03/16/16 15:07 03/16/16 15:07 03/16/16 15:07 03/16/16 15:07 03/16/16 12:57 HEENT: LALITA, EOM Intact Oropharynx: No thrush, No mucositis Cor-RSR Lungs: Clear to P&A Abd: Soft, Normal bowel sounds, No organomegaly Ext:No significant edema Skin: No rashes, Integument intact CBC, BMP 03/15/16 06:00 03/16/16 06:00 Current Medications Generic Name Dose Route Start Last Admin Trade Name Freq PRN Reason Stop Dose Admin Acetaminophen 650 mg 03/04/16 03:00 03/16/16 06:02 Tylenol - PO 650 mg Q6H PRN Administration FEVER OR PAIN Apixaban 5 mg 03/13/16 11:30 03/16/16 09:38 Eliquis - PO 5 mg BID JORGE Administration Atorvastatin Calcium 10 mg 03/04/16 22:00 03/15/16 21:14 Lipitor - PO 10 mg HS JORGE Administration Furosemide 40 mg 03/16/16 10:00 03/16/16 09:38 Lasix - PO 40 mg DAILY [facility] Administration Oxycodone HCl 10 mg 03/16/16 14:16 03/16/16 14:28 Roxicodone - PO 10 mg Q4H PRN Administration PAIN Pantoprazole Sodium 40 mg 03/04/16 10:00 03/16/16 09:38 Protonix - PO 40 mg DAILY JORGE Administration Polyethylene Glycol 17 gm 03/11/16 11:00 03/16/16 09:38 Miralax (For Daily Use) - PO 17 grams DAILY [facility] Administration Potassium Chloride 40 meq 03/07/16 10:00 03/16/16 09:38 K-Dur - PO 40 meq DAILY [facility] Administration Sertraline HCl 50 mg 03/04/16 22:00 03/15/16 21:15 Zoloft - PO 50 mg HS JORGE Administration Impression: Unprovoked DVT/P.E> S/P thrombectomy, thrombolysis and IVC filter Indication_ Submassive PE with right heart strain Plan: Lifelong A/C for unprovoked P.E. Complete malignancy work up and thrombophilia work up as out patient. Problem List - Problems (1) Pulmonary embolism, bilateral Code(s): I26.99 - OTHER PULMONARY EMBOLISM WITHOUT ACUTE COR PULMONALE (2) Elevated troponin Code(s): R79.89 - OTHER SPECIFIED ABNORMAL FINDINGS OF BLOOD CHEMISTRY (3) CHF (congestive heart failure) Code(s): I50.9 - HEART FAILURE, UNSPECIFIED Qualifiers: Congestive heart failure type: unspecified congestive heart failure type Congestive heart failure chronicity: acute Qualified Code(s): I50.9 - Heart failure, unspecified
[2016-03-16] MEDS: SERTRALINE HCL 25 MG TABLET (FP) PO SCH (21:21)
[2016-03-16] MEDS: ATORVASTATIN CA 10 MG TABLET (FP) PO SCH (21:21)
[2016-03-17] MEDS ORDERED: PT OWN MED DRAWER 7, Y5N ONE (10:57)
[2016-03-17] MEDS: PANTOPRAZOLE 40 MG TABLET (FP) PO SCH (10:57)
[2016-03-17] MEDS: APIXABAN 5 MG TABLET PO SCH (10:58)
[2016-03-17] MEDS: FUROSEMIDE 40 MG TABLET (FP) PO SCH (10:58)
[2016-03-17] MEDS: POTASSIUM CHLORIDE TABS 20 MEQ TABLET.ER (FP) PO SCH (10:58)
--- NOTE | 2016-03-17 11:16 | PN ---
Progress Note (short form) - Note Progress Note: s: no sob, cp, palps, dizzy o: Vital Signs Period Temp Pulse Resp BP Sys/Charles Pulse Ox Last 24 Hr 97.4 F-97.9 F 59-80 20-20 115-125/46-75 92-97 Constitutional: Yes: No Distress, Calm Eyes: No: Sclera Icterus HENT: No: Nasal Congestion Cardiovascular: Yes: Regular Rate and Rhythm, S1, S2, No: JVD, Gallop, Murmur Respiratory: Yes: CTA Bilaterally, . No: Accessory Muscle Use, Rales Gastrointestinal: Yes: Normal Bowel Sounds, Soft. No: Tenderness Extremities: No: Cold Edema: No Integumentary: No: Jaundice Neurological: Yes: Alert, Oriented (x3) Psychiatric: No: Agitated no diaphoresis, jaundice Current Medications Generic Name Dose Route Start Last Admin Trade Name Freq PRN Reason Stop Dose Admin Acetaminophen 650 mg 03/04/16 03:00 03/16/16 06:02 Tylenol - PO 650 mg Q6H PRN Administration FEVER OR PAIN Apixaban 5 mg 03/13/16 11:30 03/17/16 10:58 Eliquis - PO 5 mg BID [facility] Administration Atorvastatin Calcium 10 mg 03/04/16 22:00 03/16/16 21:21 Lipitor - PO 10 mg HS [facility] Administration Furosemide 40 mg 03/16/16 10:00 03/17/16 10:58 Lasix - PO 40 mg DAILY [facility] Administration Oxycodone HCl 10 mg 03/16/16 14:16 03/16/16 14:28 Roxicodone - PO 10 mg Q4H PRN Administration PAIN Pantoprazole Sodium 40 mg 03/04/16 10:00 03/17/16 10:57 Protonix - PO 40 mg DAILY [facility] Administration Polyethylene Glycol 17 gm 03/11/16 11:00 03/16/16 09:38 Miralax (For Daily Use) - PO 17 grams DAILY [facility] Administration Potassium Chloride 40 meq 03/07/16 10:00 03/17/16 10:58 K-Dur - PO 40 meq DAILY [facility] Administration Sertraline HCl 50 mg 03/04/16 22:00 03/16/16 21:21 Zoloft - PO 50 mg HS [facility] Administration CBC, BMP 03/15/16 06:00 03/16/16 06:00 echo 02/2016: tds; nl lv/rv, mild-mod tr, mild phtn a/p: 80 f hx htn, hld, here with sob. sob, hypoxia, acute bilat PEs, acute RV strain with right sided CHF: -on admit with + LE edema and sob with elevated bnp (2200), wt 213 lb -diuresed with iv lasix and wt/vol status improved but sob/hypoxia persisted so had cta chest showing bl pe's. also with bl dvts. -s/p catheter directed thrombolysis 03/09 and now sob/resp status improving -s/p ivc filter 03/11 -repeat echo prior to thrombolysis per dr link review had shown: RV images TDS but it is likely mild or possibly moderately dilated; mid and basal wall systolic function is impaired, with hyperdynamic apical contraction c/w "Mcconell's sign". Thus it appears she had acute right heart strain on admit that led to right sided HF. This should improve now after thrombolysis. Vol status improved. -cont eliquis -for outpt hypercoag w/u per heme (family h/o arterial clotting events noted) -wt remains well below her chronic office baseline wt; evidence of right sided CHF resolved with iv lasix, sob much improved--will likely need maintenance po lasix for now, cont 40 po qd -routine electrolyte/bun and creat monitoring in SNF -she was told to make 4 wk outpt f/u with us (for once home from rehab)--cont lasix until then if BMPs remains stable -will reassess pulm pressure/RV size and fxn on f/u echo later in office (6-8 wks) htn: -on hctz at home, has been dc'ed now that she will require lasix upon dc hld: -cont statin positive trops: -trop in borderline range with flat trend (0.2-0.3) and nl ck, no ischemic ecg changes = not consistent with acs, likely was secondary to PE's -echo with normal lvef, no WMAs cardiac lozada remains stable
--- NOTE | 2016-03-17 11:42 | PN ---
Progress Note (short form) - Note Progress Note: PULMONBARY SITTING UP IN BED DENIES CP/SOB CONTINUES TO HAVE LOWER EXT DISCOMFORT VSS/AFEBRILE ANICTERIC CHEST CLEAR S1S2 BS+ NO EDEMA LABS/MEDS/NOTES/IMAGING/ORDERS REVIEWED Unprovoked Sub-massive PE/Bilateral DVT Right Heart Dysfunction/Pulmonary HTN +Troponin s/p Catheter directed Thrombectomy/Thrombolysis/IVC filter placement HTN Hyperlipidemia - continue anticoagulation likely lifelong - outpt hypercoagulable work up/malignancy screening - O2 as needed - OOB to chair - rehab/PT - will order pre/post amb sp02 - no objection to discharge Jessica CARRION MD
--- NOTE | 2016-03-17 15:13 | DS ---
Physical Examination Vital Signs: Vital Signs Temperature 97.9 F 03/17/16 05:33 Pulse Rate 95 H 03/17/16 13:15 Respiratory Rate 20 03/17/16 05:33 Blood Pressure 115/46 03/17/16 05:33 O2 Sat by Pulse Oximetry (%) 92 L 03/17/16 13:15 Constitutional: Yes: No Distress, Calm, Obese Cardiovascular: Yes: Regular Rate and Rhythm. No: Gallop, Murmur, Rub Respiratory: Yes: Regular, CTA Bilaterally. No: Rales, Rhonchi, Wheezes Gastrointestinal: Yes: Normal Bowel Sounds, Soft. No: Distention, Tenderness Extremities: Yes: WNL Edema: No Labs: CBC, BMP 03/15/16 06:00 03/16/16 06:00 Discharge Summary Reason For Visit: CHF Current Active Problems CHF (congestive heart failure) (Acute) DVT (deep venous thrombosis) (Acute) Elevated troponin (Acute) Pulmonary embolism, bilateral (Acute) Hospital Course: (1) Pulmonary embolism, bilateral Code(s): I26.99 - OTHER PULMONARY EMBOLISM WITHOUT ACUTE COR PULMONALE (2) CHF (congestive heart failure) Code(s): I50.9 - HEART FAILURE, UNSPECIFIED Qualifiers: Congestive heart failure type: unspecified congestive heart failure type Congestive heart failure chronicity: acute Qualified Code(s): I50.9 - Heart failure, unspecified (3) History of CVA (cerebrovascular accident) Code(s): Z86.73 - PRSNL HX OF TIA (TIA), AND CEREB INFRC W/O RESID DEFICITS (4) Elevated troponin Code(s): R79.89 - OTHER SPECIFIED ABNORMAL FINDINGS OF BLOOD CHEMISTRY Ms Asencio is a pleasant 81 year old female who presents to the hospital and was found to have bilateral pulmonary embolism. She was admitted to the hospital and was started on anticoagulation. She was evaluated and underwent thrombolysis. Also a filter was placed. She tolerated this well and was able to be weaned off of oxygen. Currently she is doing better and is safe for discharge home with [facility]. 36 minutes spent in preparation of this discharge Condition: Good - Instructions Diet, Activity, Other Instructions: resume previous diet and activity Referrals: Jose Chanel MD [Staff Physician] - Jamie Mccabe MD [Primary Care Provider] - Chad Roman MD [Staff Physician] - Disposition: VNS/HOME HEALTH CARE - Home Medications Comprehensive Discharge Medication List: Ambulatory Orders Sertraline HCl [Zoloft -] 50 mg PO HS 01/05/14 Multivitamin [Poly-Vitamin] 1 each PO DAILY 12/22/15 Simvastatin 20 mg PO HS 12/22/15 Apixaban [Eliquis -] 5 mg PO BID #60 tablet 03/17/16 Furosemide [Lasix -] 40 mg PO DAILY #30 tablet 03/17/16 Oxycodone HCl [Roxicodone -] 10 mg PO Q4H PRN #30 tablet MDD 60mg 03/17/16 Potassium Chloride [K-Dur -] 40 meq PO DAILY #30 tablet.er 03/17/16
[2016-03-17 15:22] VITALS: BP 109/67; PULSE 71; TEMP 97.8
== END 2016-03-17 15:47 | disposition home health service (06) | DRG 163 ==
LOC: JER 22:00 → UNDOADMIN 03-04 02:50 → JERBED 03-04 02:50 → J4W 03-04 04:30 → JICU 03-09 13:49 → J7W 03-12 15:42
PROVIDERS: ADMIT Internal Medicine Geriatric Medicine; ATTEND Internal Medicine Geriatric Medicine
PROC: 02CR3ZZ Extirpation of Matter from Left Pulmonary Artery, Percutaneous Approach (ICD-10-PCS; principal; 2016-03-09)
PROC: 3E06317 Introduction of Other Thrombolytic into Central Artery, Percutaneous Approach (ICD-10-PCS; 2016-03-09)
PROC: 3E033GC Introduction of Other Therapeutic Substance into Peripheral Vein, Percutaneous Approach (ICD-10-PCS; 2016-03-09)
PROC: B31TZZZ Fluoroscopy of Left Pulmonary Artery (ICD-10-PCS; 2016-03-09)
PROC: B31SZZZ Fluoroscopy of Right Pulmonary Artery (ICD-10-PCS; 2016-03-09)
PROC: 02CR3ZZ Extirpation of Matter from Left Pulmonary Artery, Percutaneous Approach (ICD-10-PCS; 2016-03-10)
PROC: 02CQ3ZZ Extirpation of Matter from Right Pulmonary Artery, Percutaneous Approach (ICD-10-PCS; 2016-03-10)
PROC: B31TZZZ Fluoroscopy of Left Pulmonary Artery (ICD-10-PCS; 2016-03-10)
PROC: B31SZZZ Fluoroscopy of Right Pulmonary Artery (ICD-10-PCS; 2016-03-10)
PROC: 06H03DZ Insertion of Intraluminal Device into Inferior Vena Cava, Percutaneous Approach (ICD-10-PCS; 2016-03-11)
DX: I26.99 Other pulmonary embolism without acute cor pulmonale (principal); I50.33 Acute on chronic diastolic (congestive) heart failure; I82.403 Acute embolism and thrombosis of unspecified deep veins of lower extremity, bilateral; K57.90 Diverticulosis of intestine, part unspecified, without perforation or abscess without bleeding; I11.0 Hypertensive heart disease with heart failure; R79.89 Other specified abnormal findings of blood chemistry; F32.9 Major depressive disorder, single episode, unspecified; E66.9 Obesity, unspecified; Z68.34 Body mass index [BMI] 34.0-34.9, adult; Z71.3 Dietary counseling and surveillance; M19.90 Unspecified osteoarthritis, unspecified site; I27.2 Other secondary pulmonary hypertension; E87.6 Hypokalemia
CPT/HCPCS: 36415; 36600; 37187; 37191; 37212; 61651; 71010-TC; 71020-TC; 71260-TC; 75743-TC; 75820-TC; 76000-TC; 76937-TC; 76998-TC; 80048; 80053; 82550; 82553; 82803; 83735; 83880; 84100; 84443; 84484; 85025; 85027; 85384; 85610; 85730; 93005; 93010; 93306-TC; 93970-TC; 93971-TC; 94640; 94761; 97116-GP; 97162-PG; 99283-25; C1769; C1880; C1887; C1894; C9999; J1644; J2997

== ENCOUNTER 2017-10-29 19:50 | Observation (INO) | payer BC, OTHER ==
--- NOTE | 2017-10-29 20:42 | PDOC ---
Attending Attestation - HPI HPI: 10/29/17 22:25 The patient is a 82 year old female, with a significant PMH of CAD, PE, DVT, HLD , who presents to the emergency department sent in by PCP Dr. Mccabe for admission secondary to CT findings from yesterday reporting acute/subacute left occipital cortical infarct. The patient states she had difficulty ambulating and blurry vision on Tuesday which prompted the head CT. The patient states her visual disturbance had resolved but she still has unsteady gait. The patient denies any recent injuries, fall or trauma. The patient denies chest pain, shortness of breath, headache and dizziness. Denies fever, chills, nausea, vomit, diarrhea and constipation. Denies dysuria, frequency, urgency and hematuria. Allergies: olmesartan Past surgical history: cholecystectomy and appendectomy - Physicial Exam PE: 10/29/17 22:37 Vitals: Triage vital signs reviewed General Appearance: No acute distress, well nourished, well developed Neck: Supple; No nuchal rigidity Chest Wall: Nontender Cardiac: Regular rate and rhythm, no murmurs, no rubs, no gallops Lungs: Clear to auscultation bilateral, good air movement bilaterally Abdomen: Soft, nondistended, normal bowel sounds, nontender to palpation Rectal: Exam deferred Extremities: Full range of motion to all extremities, no cyanosis, clubbing, or edema Skin: Warm and dry, no rashes or lesions, no rash, no petechiae Neuro: AOX3; Cranial Nerves 2-12 grossly intact, Strength intact to all extremities, Sensation intact to all extremities. Psych: Normal mood, normal affect - Medical Decision Making 10/29/17 22:27 82 year old female with history of CAD, PE, DVT, HLD presents to the emergency department sent in by PCP Dr. Mccabe for admission secondary to CT findings from yesterday reporting acute/subacute left occipital cortical infarct. Plan: blood work/ labs, EKG, Meds, CXR, neuro consult <Matt Day - Last Filed: 10/29/17 22:37> - Resident Resident Name: Yony Owen - ED Attending Attestation I have performed the following: I have examined & evaluated the patient, The case was reviewed & discussed with the resident, I agree w/resident's findings & plan, Exceptions are as noted - Medical Decision Making 10/29/17 23:01 NIHSS stroke scale score now [address] from yesterday demonstrates subtle stroke Case discussed with neurology We'll admit for further management. Patient already on <Garry Noel - Last Filed: 10/29/17 23:02> Attestations - Attestations 10/29/17 22:27 Documentation prepared by Matt Day, acting as certified medical biller for Garry Noel MD. <Matt Day - Last Filed: 10/29/17 22:37>
[2017-10-29] MEDS: SODIUM CHLORIDE 1,000 ML IV SCH (20:45)
[2017-10-29 21:11] LABS: BASO % 0.7 % (0-2.0); EOS % 3.7 % (0-4.5); HEMOGLOBIN 13.4 GM/dL (10.7-15.3); MCH 31.5 pg (25.7-33.7); MCHC 34.5 g/dl (32.0-36.0); MEAN CELL VOLUME 91.4 fl (80-96); MEAN PLT VOLUME 8.5 fl (7.5-11.1); MONO % 9.5 % (3.8-10.2); NEUT % 59.1 % (42.8-82.8); PLATELET COUNT 228 K/MM3 (134-434); RBC 4.26 M/mm3 (3.60-5.2); RDW 14.1 % (11.6-15.6); WHITE BLOOD COUNT 8.4 K/mm3 (4.0-10.0)
[2017-10-29 21:29] LABS: INR 1.27 (0.83-1.09); PROTHROMBIN TIME (PATIENT) 14.4 SEC (9.7-13.0)
[2017-10-29 21:32] LABS: ACTIVATED PTT 30.8 SECONDS (25.2-36.5)
--- NOTE | 2017-10-29 21:40 | PDOC ---
History of Present Illness - General Chief Complaint: Revisit,Radiology Variance Stated Complaint: PCP ADMIT Time Seen by Provider: 10/29/17 19:55 History Source: Patient Exam Limitations: No Limitations - History of Present Illness Initial Comments: 10/29/17 21:34 Ms. Asencio is a 82 yo F with a hx of CAD, multiple pulmonary embolisms and DVTs (last one 1.5 yrs ago s/p IVC filter), and HLD who presents to the emergency department after referral from her PMD (Dr. Mccabe) 03/11 to acute/ subacute left occipital cortical infarct on head CT yesterday. She states she began having unstable gait and visual disturbances Tuesday prompting a head CT. Currently, her visual disturbance resolved but has residual unsteady gait. Per the patient, she denies head trauma, mechanical fall, LOC, or palpitations during the episode. Dr. Mccabe called at 12:30 am this morning to notify the patient to proceed to the emergency department immediately for evaluation, but the patient delayed due to "not wanting to ruin the weekend". Currently denies pain. Denies the following: fevers, chills, headaches, nausea, vomiting, abdominal pain, dysuria, hematuria, diarrhea, and leg pain/swelling. Allergies: Olmesartan Social: Denies tobacco, alcohol, and substance abuse. tPA Exclusion Checklist 0-3hr - Time Elapsed Date last known well: 10/26/17 Time last known well: 12:00 Elaspsed time: 4 Day(s) and 10 Hour(s) and 36 Minutes - Thrombolytic Therapy Candidate Is the patient eligible for Thrombolytic Therapy?: No - Exclusion Criteria 0-3hr SBP greater than 185 or DBP greater than 110mmHg despite tx: No Recent IC/spinal surgery,head trauma or stroke w/in last 3mo: No Hx of previous IC hemorrhage, IC neoplasm, AVM or aneurysm: No Active internal bleeding: No Blding diathesis(low plt ct, inc PTT,INR>1.7 or use of NOAC): No Symptoms suggest subarachnoid hemorrhage: No CT demonstrates multilobar infarct(>1/3 cerebral hemiphere): No Arterial puncture at noncompressible site in previous 7 days: No Blood glucose concentration less than 50mg/dL (2.7mmol/L): No - Relative Exclusion Criteria 0-3h Life expectancy <1yr/severe co-morbid illness/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 on admit: No : No Patient/family refused: No Rapid improvement: No Stroke severity too mild: Yes Recent acute [place] (w/in previous 3 months): No Seizure at onset with postictal residual neuro impairments: No Major surgery or serious trauma w/in previous 14 days: No Recent GI or hemorrhage (w/in previous 21 days): No - Ineligibility reason(s) Reasons No tPA given: Outside of window - delayed arrival (pt was last normal on tuesday when she began experiencing unsteady gait and visual disturbances) NIH Stroke Scale - Last Known Well Date/Time & Onset Date Last Known Well: 10/26/17 Time Last Known Well: 12:00 - Initial Evaluation Level of consciousness: Alert Ask patient the month and their age: Answers both correctly Ask patient to open & close eyes; make fist and let go: Obeys both correctly Best gaze (horizontal eye movement): Normal Visual field testing: No visual field loss Facial paresis (Show teeth/raise eyebrows/close eyes tight): Normal symmetrical movement Motor Function: Left Arm: Normal Motor Function: Right Arm: Normal (extends arm 90 (or 45) degrees for 10 seconds without drift Motor Function: Left Leg: Normal (extends leg 30 degrees for 5 seconds without drift) Motor Function: Right Leg: Normal (extends leg 30 degrees for 5 seconds without drift) Limb Ataxia: No ataxia Sensory(Use pinprick test arms,legs,trunk,face/side to side): Normal Best language (Describe picture, name items, read sentences): No Aphasia Dysarthria (read several words): Normal articulation Extinction and Inattention: No abnormality - Total Score NIH Stroke Scale Score: 0 Past History - Past Medical History Allergies/Adverse Reactions: Allergies Allergy/AdvReac Type Severity Reaction Status Date / Time olmesartan [From Benicar] Allergy Verified 10/29/17 20:02 Home Medications: Ambulatory Orders Sertraline HCl [Zoloft -] 50 mg PO HS 01/05/14 Multivitamin [Poly-Vitamin] 1 each PO DAILY 12/22/15 Simvastatin 20 mg PO HS 12/22/15 Apixaban [Eliquis -] 5 mg PO BID #60 tablet 03/17/16 Furosemide [Lasix -] 40 mg PO DAILY #30 tablet 03/17/16 Potassium Chloride [K-Dur -] 40 meq PO DAILY #30 tablet.er 03/17/16 Anemia: No Asthma: No Cancer: No Cardiac Disorders: Yes (a.fib, P.E) CVA: Yes (04/07/13) COPD: No CHF: No Dementia: No Diabetes: No GI Disorders: Yes (diverticulosis, hx of diverticulitis) Disorders: No HTN: Yes Hypercholesterolemia: No Liver Disease: No Seizures: No Thyroid Disease: No - Surgical History Abdominal Surgery: Yes (cholecystectomy) Appendectomy: Yes Cardiac Surgery: No Cholecystectomy: Yes Lung Surgery: No Neurologic Surgery: No Orthopedic Surgery: Yes (left hip replacement) - Immunization History Immunization Up to Date: Yes - Suicide/Smoking/Psychosocial Hx Smoking Status: No Smoking History: Never smoked Have you smoked in the past 12 months: No Number of Cigarettes Smoked Daily: 0 Information on smoking cessation initiated: No Hx Alcohol Use: No Drug/Substance Use Hx: No Substance Use Type: None Hx Substance Use Treatment: No Review of Systems - Review of Systems Able to Perform ROS?: Yes Is the patient limited Tajik proficient: No Constitutional: No: Chills, Diaphoresis, Fever HEENTM: No: Eye Pain, Recent change in vision, Double Vision, Ear Pain, Nose Pain, Throat Pain, Mouth Pain Respiratory: No: Cough, Shortness of Breath, Hemoptysis Cardiac (ROS): No: Chest Pain, Edema, Irregular Heart Rate, Lightheadedness, Palpitations, Syncope, Chest Tightness ABD/GI: No: Abdominal Distended, Constipated, Diarrhea, Difficulty Swallowing, Nausea, Rectal Bleeding, Vomiting, Tarry Stools : No: Burning, Dysuria, Hematuria Musculoskeletal: No: Back Pain, Joint Pain, Neck Pain Integumentary: No: Rash Neurological: Yes: Unsteady Gait. No: Headache, Numbness, Paresthesia, Pre- Existing Deficit, Seizure, Tingling, Tremors, Weakness, Dizziness Psychiatric: Yes: Anxiety. No: Stressors Endocrine: No: Unexplained Weight Gain Hematologic/Lymphatic: No: Anemia *Physical Exam - Vital Signs Last Vital Signs Temp Pulse Resp BP Pulse Ox 98.5 F 60 18 165/84 95 10/29/17 20:02 10/29/17 20:02 10/29/17 20:02 10/29/17 20:02 10/29/17 20:02 - Physical Exam General Appearance: Yes: Nourished, Appropriately Dressed HEENT: positive: EOMI, LINA, Normal Voice, Symmetrical Neck: positive: Trachea midline. negative: Lymphadenopathy (R), Lymphadenopathy (L) Respiratory/Chest: positive: Lungs Clear, Normal Breath Sounds. negative: Chest Tender, Respiratory Distress, Accessory Muscle Use, Rhonchi, Stridor, Wheezing Cardiovascular: positive: Regular Rhythm, Regular Rate, S1, S2. negative: Systolic Murmur Vascular Pulses: Dorsalis-Pedis (R): 3+, Doralis-Pedis (L): 3+ Gastrointestinal/Abdominal: positive: Normal Bowel Sounds. negative: Tender Lymphatic: negative: Adenopathy Musculoskeletal: positive: Normal Inspection. negative: CVA Tenderness Extremity: positive: Normal Capillary Refill, Normal Inspection, Normal Range of Motion. 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 negative: EOM Palsy, Facial Droop, Numbness, Sensory Deficit, Confused, Disoriented, Depressed Affect Heart Score/ECG Review - ECG Intrepretation Comment:: 10/29/17 22:14 ventricular rate 54 bpm, GA 206 ms, QRS duration 100 ms, QTc is 430 ms. Sinus bradycardia without ST elevations and depressions. Incomplete right bundle bracj block seen. T wave inversion in V2-5. ED Treatment Course - LABORATORY CBC & Chemistry Diagram: 10/30/17 06:00 10/30/17 06:00 - ADDITIONAL ORDERS Additional order review: Laboratory Results 10/29/17 20:50 Total LDL Cholesterol Cancelled 10/29/17 20:50 RBC 4.26 MCV 91.4 MCHC 34.5 RDW 14.1 MPV 8.5 Neutrophils % 59.1 Lymphocytes % 27.0 D Monocytes % 9.5 Eosinophils % 3.7 Basophils % 0.7 - RADIOLOGY Radiology Studies Ordered: Category Date Time Status CHEST X-RAY PORTABLE* [RAD] Stat Radiology 10/29/17 20:30 Taken Medical Decision Making - Medical Decision Making 10/29/17 22:21 Ms. Asencio is a 82 yo F with a hx of CAD, multiple pulmonary embolisms and DVTs (last one 1.5 yrs ago s/p IVC filter), and HLD who presents to the emergency department after referral from her PMD (Dr. Mccabe) 2/ to acute/ subacute left occipital cortical infarct on head CT yesterday. ddx: ischemic CVA Initial vitals: Initial Vital Signs Temp Pulse Resp BP Pulse Ox 98.5 F 60 18 165/84 95 10/29/17 20:02 10/29/17 20:02 10/29/17 20:02 10/29/17 20:02 10/29/17 20:02 Work up: Laboratory Tests 10/29/17 10/29/17 10/29/17 20:50 20:50 20:50 WBC 8.4 RBC 4.26 Hgb 13.4 Hct 39.0 MCV 91.4 MCH 31.5 MCHC 34.5 RDW 14.1 Plt Count 228 D MPV 8.5 Absolute Neuts (auto) 5.0 Neutrophils % 59.1 Lymphocytes % 27.0 D Monocytes % 9.5 Eosinophils % 3.7 Basophils % 0.7 Nucleated RBC % 0 PT with INR 14.40 H INR 1.27 H PTT (Actin FS) 30.8 Sodium 144 Potassium 3.3 L Chloride 103 Carbon Dioxide 30 Anion Gap 11 BUN 19 H Creatinine 1.0 Creat Clearance w eGFR 53.21 Random Glucose 95 Calcium 9.5 Total Bilirubin 0.5 AST 24 ALT 28 Alkaline Phosphatase 107 Creatine Kinase 233 H Troponin I < 0.02 Total Protein 7.3 Albumin 3.7 Triglycerides 259 H Cholesterol 202 H Total LDL Cholesterol 137 H HDL Cholesterol 40 10/29/17 20:50 WBC RBC Hgb Hct MCV MCH MCHC RDW Plt Count MPV Absolute Neuts (auto) Neutrophils % Lymphocytes % Monocytes % Eosinophils % Basophils % Nucleated RBC % PT with INR INR PTT (Actin FS) Sodium Potassium Chloride Carbon Dioxide Anion Gap BUN Creatinine Creat Clearance w eGFR Random Glucose Calcium Total Bilirubin AST ALT Alkaline Phosphatase Creatine Kinase Troponin I Total Protein Albumin Triglycerides Cholesterol Total LDL Cholesterol Cancelled HDL Cholesterol The patient presents after her referral from PMD for ischemia in the left occipital region. While in the emergency department, her initial presenting neuro exam was within normal limits and no deficits were found on exam. She was pain free and complained of unsteady gait but visual disturbances resolved Based on her labs, imaging, and clinical exam, she should be admitted. Dr. Rhodes who is the neurologist operations and maintenance technician, recommends telemetry and to continue the eliquis. Dispo: Admit 10/29/17 23:38 *DC/Admit/Observation/Transfer Diagnosis at time of Disposition: Acute cerebral ischemia - Discharge Dispostion Decision to Admit order: Yes - Referrals - Patient Instructions - Post Discharge Activity
[2017-10-29 21:41] LABS: ALBUMIN 3.7 g/dl (3.4-5.0); ALK PHOS 107 U/L (45-117); ANION GAP 11 MMOL/L (8-16); BILIRUBIN,TOTAL 0.5 mg/dL (0.2-1); BLOOD UREA NITROGEN 19 mg/dL (7-18); CALCIUM 9.5 mg/dL (8.5-10.1); CHLORIDE 103 mmol/L (98-107); CHOLESTEROL 202 mg/dL (50-200); CO2 30 mmol/L (21-32); GLUCOSE,RANDOM 95 mg/dL (74-106); HDL CHOLESTEROL 40 mg/dL (40-60); POTASSIUM 3.3 mmol/L (3.5-5.1); SGOT/AST 24 U/L (15-37); SGPT/ALT 28 U/L (13-61); SODIUM 144 mmol/L (136-145); TOT PROT 7.3 g/dl (6.4-8.2); TRIGLYCERIDES 259 mg/dL (0-150)
--- NOTE | 2017-10-29 21:55 | CON.NEURO ---
Consult Consult Specialty:: Carmelo Referred by:: Neurology Reason for Consultation:: CVA - History of Present Illness History of Present Illness: 82 years old woman with PMH CAd OA PE DVT On AC was complaining to her PCP of lightheaded CT head done 10/28 ?? 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 I saw the patient on the telemetry no report of any chest pain palpitations diarrhea blurry vision double vision no dizziness. - History Source History Provided By: Patient, Medical Record Limitations to Obtaining History: No Limitations - Past Medical History Cardio/Vascular: Yes: HTN, Hyperlipdemia Gastrointestinal: Yes: Diverticulosis, GI Bleed (20 yrs ago), Hemorrhoids Psych: Yes: Depression Additional Medical History: Insomnia - Past Surgical History Past Surgical History: Yes: Appendectomy, Cholecystectomy - Alcohol/Substance Use Hx Alcohol Use: No History of Substance Use: reports: None - Smoking History Smoking history: Never smoked Have you smoked in the past 12 months: No Aproximately how many cigarettes per day: 0 - Social History ADL: Independent History of Recent Travel: No Home Medications - Allergies Allergies/Adverse Reactions: Allergies Allergy/AdvReac Type Severity Reaction Status Date / Time olmesartan [From Benicar] Allergy Verified 10/29/17 20:02 - Home Medications Home Medications: Ambulatory Orders Sertraline HCl [Zoloft -] 50 mg PO HS 01/05/14 Multivitamin [Poly-Vitamin] 1 each PO DAILY 12/22/15 Simvastatin 20 mg PO HS 12/22/15 Apixaban [Eliquis -] 5 mg PO BID #60 tablet 03/17/16 Furosemide [Lasix -] 40 mg PO DAILY #30 tablet 03/17/16 Potassium Chloride [K-Dur -] 40 meq PO DAILY #30 tablet.er 03/17/16 Family Disease History - Family Disease History Family Disease History: Diabetes: Mother (CHF), Heart Disease: Mother, CA: Father Physical Exam-Neuro Vital Signs: Vital Signs Temperature 98.5 F 10/29/17 20:02 Pulse Rate 60 10/29/17 20:02 Respiratory Rate 18 10/29/17 20:02 Blood Pressure 165/84 10/29/17 20:02 O2 Sat by Pulse Oximetry (%) 95 10/29/17 20:02 Labs: CBC, BMP 10/29/17 20:50 10/29/17 20:50 INR, PTT INR 1.27 (0.83-1.09) H 10/29/17 20:50 - Neuro Exam Level Of Consciousness: Yes: Oriented to Person, Oriented to Place, Oriented to Time Eyes: Yes: PERRLA Speech: WNL Dominant Hand: Right Cranial Nerves II-XII Intact: Yes Gag: Present DTR's: 1+ Left Bicep, 1+ Right Bicep, 1+ Left Brachioradialis, 1+ Right Brachioradialis Response to light touch: Normal Response to pain prick: Normal Response to temperature: Normal Response to vibration: Normal Motor Strength: 3/5: Left Arm, Right Arm, Left Leg, Right Leg Gait: Deferred Imaging - Results Cat Scan: Image Reviewed MRI: Image Reviewed Problem List - Problems (1) 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 Neuro check 2. Hold off ASA Antiplatelet 3. Fall precautions 4, Am lipid 5. PT 5. Dysphagia protocol 6. Statin 7. Echo 8. Stroke education: weight loss and smoking cessation 9. SCDs units 10. MRI brain with no Ronak 11. Tight BP control target mean ABP around 110 12. continue ellquis the same. I thank you for getting me involved in the is patient neurological care Thank you Code(s): I63.9 - CEREBRAL INFARCTION, UNSPECIFIED; D57.1 - SICKLE-CELL DISEASE WITHOUT CRISIS
[2017-10-29 22:26] LABS: URINE APPEARANCE CLOUDY; URINE BILIRUBIN NEGATIVE (<2.0 mg/dL); URINE COLOR DKYELLOW; URINE GLUCOSE (UA) NEGATIVE (NEGATIVE); URINE KETONE NEGATIVE (NEGATIVE); URINE LEUK ESTERASE NEGATIVE (NEGATIVE); URINE NITRITE NEGATIVE (NEGATIVE); URINE UROBILINOGEN NEGATIVE mg/dL (0.2-1.0)
[2017-10-29 22:28] LABS: URINE PROTEIN 1+ (NEGATIVE)
[2017-10-29 22:31] LABS: URINE HYALINE CAST 2 /lpf; URINE MUCUS MODERATE
--- NOTE | 2017-10-29 22:34 | HP ---
CHIEF COMPLAINT: gait imbalance x3 days PCP: HISTORY OF PRESENT ILLNESS: Pt is an 82 yo F, with a signif PMHx of CAD, PE, DVT , HLD, presenting to ER for visual and gait disturbances and a referral from her PCP, Dr. Mccabe for CT head 10/28 findings showing acute/subacute left occipital cortical infarct. Pt describes a new onset R sided tilt while walking for the past 3 days, requiring extra concentration and focus to avoid walking into objects. She describes an episode of flashing lights while working on the computer in the day time and a one minute sharp midline occipital headache also on Tuesday. The patient states her visual disturbance has resolved but she still has unsteady gait. No recent injuries, fall or trauma. No fevers, nasal congestion, dizziness or vertigo. No syncope, palpitations, SOB or chest pain. There is an unclear history of vestibular neuronitis in the past or a likely TIA. She has had previous ECHO and 2 stress tests done in the past which she says are normal with no known CAD disease or hx of irregular heart rate. 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 ED spoke to Dr Rhodes who asked for pt to be continued on her home meds and stroke protocol, including MRI. Pt has had bilateral hip replacements (she thinks she has had an MRI done since the hip replacements). ER course was notable for: (1) K-3.3, trop x1<0.02, Ck-233, TG-259, chol 202, HDL-40 (2) UA- 3+ blood, mod mucus, [id number], 1+ Pr, WBC-3 (3) Recent Travel: PAST MEDICAL HISTORY: CAD- unclear hx PE- s/p catheter thrombectomy- Mar 2016 DVT-2017 ([facility]) HLD PAST SURGICAL HISTORY: Appendectomy, cholecystectomy R hip replacement 2017 L hip replacement-2013 Back surgery Social History: Smoking: Alcohol: Drugs: Family History: Allergies olmesartan [From Benicar] Allergy (Verified 10/29/17 20:02) HOME MEDICATIONS: Home Medications Medication Instructions Recorded Sertraline HCl [Zoloft -] 50 mg PO HS 01/05/14 Multivitamin [Poly-Vitamin] 1 each PO DAILY 12/22/15 Simvastatin 20 mg PO HS 12/22/15 Apixaban [Eliquis -] 5 mg PO BID #60 tablet 03/17/16 Furosemide [Lasix -] 40 mg PO DAILY #30 tablet 03/17/16 Potassium Chloride [K-Dur -] 40 meq PO DAILY #30 tablet.er 03/17/16 REVIEW OF SYSTEMS CONSTITUTIONAL: Absent: fever, chills, diaphoresis, generalized weakness, malaise, loss of appetite, weight change HEENT: Absent: rhinorrhea, nasal congestion, throat pain, throat swelling, difficulty swallowing, mouth swelling, ear pain, eye pain, visual changes CARDIOVASCULAR: Absent: chest pain, syncope, palpitations, irregular heart rate, lightheadedness , peripheral edema RESPIRATORY: Absent: cough, shortness of breath, dyspnea with exertion, orthopnea, wheezing, stridor, hemoptysis GASTROINTESTINAL: Absent: abdominal pain, abdominal distension, nausea, vomiting, diarrhea, constipation, melena, hematochezia GENITOURINARY: Absent: dysuria, frequency, urgency, hesitancy, hematuria, flank pain, genital pain MUSCULOSKELETAL: Absent: myalgia, arthralgia, joint swelling, back pain, neck pain SKIN: Absent: rash, itching, pallor HEMATOLOGIC/IMMUNOLOGIC: Absent: easy bleeding, easy bruising, lymphadenopathy, frequent infections ENDOCRINE: Absent: unexplained weight gain, unexplained weight loss, heat intolerance, cold intolerance NEUROLOGIC: Absent: headache, focal weakness or paresthesias, dizziness, unsteady gait, seizure, mental status changes, bladder or bowel incontinence PSYCHIATRIC: Absent: anxiety, depression, suicidal or homicidal ideation, hallucinations. PHYSICAL EXAMINATION Vital Signs - 24 hr 10/29/17 20:02 Temperature 98.5 F Pulse Rate 60 Respiratory 18 Rate Blood Pressure 165/84 O2 Sat by Pulse 95 Oximetry (%) GENERAL: Awake, alert, and fully oriented, in no acute distress. Very detail oriented, good historian HEAD: Normal with no signs of trauma. EYES: Visual acuity appears normal in both eyes, no visual field impairments, fundoscopy- (limited- showed enlared vessels) Pupils equal, round and reactive to light, extraocular movements intact, sclera anicteric, conjunctiva clear. No lid lag. EARS, NOSE, THROAT: Ears normal, nares patent, oropharynx clear without exudates. Moist mucous membranes. NECK: Normal range of motion, supple without lymphadenopathy, JVD, or masses. LUNGS: Breath sounds equal, clear to auscultation bilaterally. No wheezes, and no crackles. HEART: Regular rate and rhythm, normal S1 and S2 without murmur ABDOMEN: Obese, Soft, nontender, normoactive bowel sounds, no guarding, no rebound, no masses. MUSCULOSKELETAL: Normal range of motion at all joints. No bony deformities or tenderness. No CVA tenderness. Midline and bilateral paraspinal lumbar healed surgical scars, no spinal or paraspinal tenderness LOWER EXTREMITIES: 2+ pulses, warm, well-perfused. No calf tenderness. No peripheral edema. NEUROLOGICAL: No facial droop, no slurred speech, no tongue deviation, midline , UE b/l and LE b/l 5/5 flexion extension, abduction and adduction, b/l dorsiflexion and plantar flexion 5/5. No pronator drift. Sensation intact. Pt with unstable gait favoring the R side. No tremors PSYCHIATRIC: Cooperative. Good eye contact. Appropriate mood and affect. Laboratory Results - last 24 hr 10/29/17 10/29/17 10/29/17 20:50 20:50 20:50 WBC 8.4 RBC 4.26 Hgb 13.4 Hct 39.0 MCV 91.4 MCH 31.5 MCHC 34.5 RDW 14.1 Plt Count 228 D MPV 8.5 Absolute Neuts (auto) 5.0 Neutrophils % 59.1 Lymphocytes % 27.0 D Monocytes % 9.5 Eosinophils % 3.7 Basophils % 0.7 Nucleated RBC % 0 PT with INR 14.40 H INR 1.27 H PTT (Actin FS) 30.8 Sodium 144 Potassium 3.3 L Chloride 103 Carbon Dioxide 30 Anion Gap 11 BUN 19 H Creatinine 1.0 Creat Clearance w eGFR 53.21 Random Glucose 95 Calcium 9.5 Total Bilirubin 0.5 AST 24 ALT 28 Alkaline Phosphatase 107 Creatine Kinase 233 H Troponin I < 0.02 Total Protein 7.3 Albumin 3.7 Triglycerides 259 H Cholesterol 202 H Total LDL Cholesterol 137 H HDL Cholesterol 40 Urine Color Urine Appearance Urine pH Ur Specific [place] Urine Protein Urine Glucose (UA) Urine Ketones Urine Blood Urine Nitrite Urine Bilirubin Urine Urobilinogen Ur Leukocyte Esterase Urine WBC (Auto) Urine RBC (Auto) Hyaline Casts Urine Mucus 10/29/17 10/29/17 20:50 22:15 WBC RBC Hgb Hct MCV MCH MCHC RDW Plt Count MPV Absolute Neuts (auto) Neutrophils % Lymphocytes % Monocytes % Eosinophils % Basophils % Nucleated RBC % PT with INR INR PTT (Actin FS) Sodium Potassium Chloride Carbon Dioxide Anion Gap BUN Creatinine Creat Clearance w eGFR Random Glucose Calcium Total Bilirubin AST ALT Alkaline Phosphatase Creatine Kinase Troponin I Total Protein Albumin Triglycerides Cholesterol Total LDL Cholesterol Cancelled HDL Cholesterol Urine Color Dkyellow Urine Appearance Cloudy Urine pH 5.0 D Ur Specific [place] 1.017 Urine Protein 1+ H Urine Glucose (UA) Negative Urine Ketones Negative Urine Blood 3+ H Urine Nitrite Negative Urine Bilirubin Negative Urine Urobilinogen Negative Ur Leukocyte Esterase Negative Urine WBC (Auto) 3 Urine RBC (Auto) 113 Hyaline Casts 2 Urine Mucus Moderate ASSESSMENT/PLAN: Pt is an 82 yo F, with a signif PMHx of CAD, PE, DVT, HLD, presenting to ER for visual and gait disturbances and a referral from her PCP, Dr. Mccabe for CT head 10/28 findings showing acute/subacute left occipital cortical infarct. R/O Stroke Pt with new onset and on going unstable gait favoring the R side, hx of flashes of light affecting vision, now resolved CT head 10/28 findings showing acute/subacute left occipital cortical infarct. Pt has bilateral metallic hip replacement- to verify if MRI compartible prior to undergoing MRI by primary team ED spoke with neurologist- Dr Rhodes see recommendations below NihSS scale-0, pt also out of TPA window, last known well was Friday 10/27 Stroke protocol initiated NPO ECHO Tele Obs Speech and swallow Cont eliquis Fall precautions PT Stroke education MRI brain w/o contrast Hold off ASA Neurochecks Glucose monitoring NPO for now Elevated lipids- Crestor initiated Trops negativ x1, repeat Cardiac monitoring Hypokalemia No hx of losses via vomiting or diarrhea, may be due to low intake PO Kcl 40meq tid x3 doses monitor Mg Hematuria UA Kidney bladder US For outpx urology fll up CAD, Pt not noted to be on ASA at home, was not given in ED, unclear neurologist recommendations PE/DVT Cont home eliquis, no evidence of bleed HLD Crestor 40mg Anxiety Cont sertraline FEN No standing fluids Monitor lytes NPO for dysphagia evaluation Dispo Tele obs Visit type - Emergency Visit Emergency Visit: Yes ED Registration Date: 10/29/17 Care time: The patient presented to the Emergency Department on the above date and was hospitalized for further evaluation of their emergent condition. - New Patient This patient is new to me today: Yes Date on this admission: 10/30/17 - Critical Care Critical Care patient: No Hospitalist Screening - Colonoscopy Questionnaire Colonoscopy Questionnaire: Colonoscopy Questionnaire - Patient: 50 - 75 years old and never had a screening colonoscopy: No History of colon or rectal polyps, or CA: Unknown History of IBD, Crohn's disease or UC: Unknown History of abdominal radiation therapy as a child: Unknown - Relative: 1 with colon or rectal CA, or polyps at age 60 or younger: Unknown Colon or rectal CA diagnosed at age 45 or younger: Unknown Multiple relatives with colon or rectal CA: Unknown - Outcome: Screening Result: Negative Screen
--- NOTE | 2017-10-29 22:44 | PN ---
Teaching Attending Note Name of Resident: Carina Ray ATTENDING PHYSICIAN STATEMENT I saw and evaluated the patient. I reviewed the resident's note and discussed the case with the resident. I agree with the resident's findings and plan as documented. SUBJECTIVE: Patient is a 82 year old woman with a history of CAD, bilateral hip replacement , multiple pulmonary embolisms and DVTs (last one 1.5 yrs ago s/p IVC filter), and HLD who presents to the ER after referral from her PMD (Dr. Mccabe) due to acute/subacute left occipital cortical infarct on head CT yesterday. She states she began having unstable gait and visual disturbances Tuesday prompting a head CT. Currently, her visual disturbance resolved but has residual unsteady gait. Per the patient, she denies head trauma, mechanical fall, LOC, or palpitations during the episode. Dr. Mccabe called at 12:30 am this morning to notify the patient to proceed to the emergency department immediately for evaluation, but the patient delayed due to "not wanting to ruin the weekend". Currently denies pain, chills, headaches, nausea, vomiting, abdominal pain or dysuria. OBJECTIVE: Alert Vital Signs Period Temp Pulse Resp BP Sys/Charles Pulse Ox Last 24 Hr 98.5 F 60 18 165/84 95 HEENT: No Jaundice, eye redness or discharge, PERRLA, EOMI. Normocephalic, atraumatic. External ears are normal and hearing is grossly intact. No nasal discharge. Neck: Supple, nontender. No palpable adenopathy or thyromegaly. No JVD Chest: Good effort. Clear to auscultation and percussion. Heart: Regular. No S3, rub or murmur Abdomen: Not distended, soft, nontender and no HSM. No rebound or guarding. Normoactive bowel sounds. Ext: Peripheral pulses intact. No leg edema. Skin: Warm and dry. No petechiae, rash or ecchymosis. Neuro: Alert. Oriented x3. CN 2-12 grossly intact. Sensation grossly intact in all four extremities and DTR are symmetric. Current Medications Generic Name Dose Route Start Last Admin Trade Name Freq PRN Reason Stop Dose Admin Sodium Chloride 1,000 mls @ 42 mls/hr 10/29/17 20:45 10/29/17 20:45 Normal Saline - IV 42 mls/hr ASDIR [facility] Administration Rosuvastatin Calcium 40 mg 10/30/17 22:00 Crestor - PO HS [facility] Home Medications Medication Instructions Recorded Sertraline HCl [Zoloft -] 50 mg PO HS 01/05/14 Multivitamin [Poly-Vitamin] 1 each PO DAILY 12/22/15 Simvastatin 20 mg PO HS 12/22/15 Apixaban [Eliquis -] 5 mg PO BID #60 tablet 03/17/16 Furosemide [Lasix -] 40 mg PO DAILY #30 tablet 03/17/16 Potassium Chloride [K-Dur -] 40 meq PO DAILY #30 tablet.er 03/17/16 Abnormal Lab Results 10/29/17 10/29/17 10/29/17 20:50 20:50 22:15 PT with INR 14.40 H INR 1.27 H Potassium 3.3 L BUN 19 H Creatine Kinase 233 H Triglycerides 259 H Cholesterol 202 H Total LDL Cholesterol 137 H Urine Protein 1+ H Urine Blood 3+ H ASSESSMENT AND PLAN: 1. CVA:left occipital infarct - Outside the window for TPA. Consult PT and maximize statin and diet therapy to address hyperlipidemia. Implement fall precautions and permissive hypertension. Speech and swallow evaluation and aspirin therapy. Get ECHO. Monitor on telemetry to detect any arrhythmia - has unexplained bradycardia with no chnages of ACS - will repeat EKG. Continue Eliquis for remote PE and DVT. Has hematuria - will get kidney and bladder sonogram and outpatient evaluation by urology. 2. Hypokalemia - Likely due to lasix. Check Mg+ level and give PO KCL. 3. DVT prophylaxis - On Eliquis 4. Advance directives - Full code
[2017-10-29] MEDS ORDERED: POTASSIUM CHLORIDE ORAL LIQUID 20 MEQ/15 ML PO SCH (23:30)
[2017-10-29] MEDS ORDERED: POTASSIUM CHLORIDE ORAL LIQUID 20 MEQ/15 ML ONE (23:45)
[2017-10-29] MEDS: POTASSIUM CHLORIDE ORAL LIQUID 20 MEQ/15 ML PO SCH (23:48)
[2017-10-29] MEDS: APIXABAN 5 MG TABLET PO SCH (23:55)
[2017-10-30 02:42] VITALS: BMI 36.6
[2017-10-30] MEDS: POTASSIUM CHLORIDE ORAL LIQUID 20 MEQ/15 ML PO SCH (07:40)
[2017-10-30 08:05] LABS: BASO % 0.8 % (0-2.0); HEMATOCRIT 35.4 % (32.4-45.2); HEMOGLOBIN 12.2 GM/dL (10.7-15.3); MCH 31.5 pg (25.7-33.7); MCHC 34.5 g/dl (32.0-36.0); MEAN CELL VOLUME 91.2 fl (80-96); MEAN PLT VOLUME 8.1 fl (7.5-11.1); MONO % 9.8 % (3.8-10.2); NEUT % 55.4 % (42.8-82.8); PLATELET COUNT 177 K/MM3 (134-434); RBC 3.88 M/mm3 (3.60-5.2); RDW 13.9 % (11.6-15.6); WHITE BLOOD COUNT 5.8 K/mm3 (4.0-10.0)
[2017-10-30 08:57] LABS: ALBUMIN 3.2 g/dl (3.4-5.0); ALK PHOS 93 U/L (45-117); ANION GAP 7 MMOL/L (8-16); BILIRUBIN,TOTAL 0.5 mg/dL (0.2-1); BLOOD UREA NITROGEN 20 mg/dL (7-18); CALCIUM 8.8 mg/dL (8.5-10.1); CHLORIDE 107 mmol/L (98-107); CHOLESTEROL 171 mg/dL (50-200); CO2 29 mmol/L (21-32); CREATININE 0.9 mg/dL (0.55-1.3); GLUCOSE,RANDOM 114 mg/dL (74-106); HDL CHOLESTEROL 37 mg/dL (40-60); MAGNESIUM 1.8 mg/dL (1.8-2.4); PHOSPHOROUS 3.8 mg/dL (2.5-4.9); POTASSIUM 3.4 mmol/L (3.5-5.1); SGOT/AST 21 U/L (15-37); SGPT/ALT 22 U/L (13-61); SODIUM 143 mmol/L (136-145); TOT PROT 6.2 g/dl (6.4-8.2); TRIGLYCERIDES 159 mg/dL (0-150)
[2017-10-30] MEDS ORDERED: PT OWN MED DRAWER 7, Y5N ONE (09:47)
[2017-10-30] MEDS: MULTIVITAMINS (DAILY MVI) TABLET (FP) PO SCH (09:58)
[2017-10-30] MEDS: POTASSIUM CHLORIDE TABS 20 MEQ TABLET.ER (FP) PO SCH ×2 (09:59→15:43)
[2017-10-30] MEDS: FUROSEMIDE 40 MG TABLET (FP) PO SCH (09:59)
[2017-10-30] MEDS: APIXABAN 5 MG TABLET PO SCH ×2 (09:59→21:11)
--- NOTE | 2017-10-30 11:52 | PN ---
Progress Note, Physician Chief Complaint: Denies any ocular symptoms or weakness no c/o difficulty in walking History of Present Illness: 82 yo F, with a significant PMHx of CAD, sub massive PE, DVT s/p Catheter directed Thrombectomy/Thrombolysis/IVC filter placement in Mar 2016 on Life long AC HLD, presenting to ER for visual and gait disturbances and a referral from her PCP, Dr. Mccabe for CT head 10/28 findings showing acute/subacute left occipital cortical infarct. - Current Medication List Current Medications: Active Medications Apixaban (Eliquis -) 5 mg PO BID [facility] Last Admin: 10/30/17 09:59 Dose: 5 mg Furosemide (Lasix -) 40 mg PO DAILY [facility] Last Admin: 10/30/17 09:59 Dose: 40 mg Sodium Chloride (Normal Saline -) 1,000 mls @ 42 mls/hr IV ASDIR [facility] Last Admin: 10/29/17 20:45 Dose: 42 mls/hr Multivitamins/Minerals/Vitamin C (Tab-A-Vit -) 1 tab PO DAILY [facility] Last Admin: 10/30/17 09:58 Dose: 1 tab Potassium Chloride (K-Dur -) 40 meq PO Q8H [facility] Stop: 10/30/17 16:01 Last Admin: 10/30/17 09:59 Dose: 40 meq Rosuvastatin Calcium (Crestor -) 40 mg PO HS [facility] Sertraline HCl (Zoloft -) 50 mg PO HS [facility]OR[facility] - Objective Vital Signs: Vital Signs Temperature 98.0 F 10/30/17 05:25 Pulse Rate 53 L 10/30/17 05:25 Respiratory Rate 20 10/30/17 05:25 Blood Pressure 132/63 10/30/17 05:25 O2 Sat by Pulse Oximetry (%) 94 L 10/30/17 02:00 Elderly F comfortable not in ditress HEENT: Mm moist, no anemia, PERRLA EOMI NECK: No JVd No Bruit CHEST: CTA B/L CVS; S1S2 R no m/g/r ABD: Obese, non tender Bs + EXT: Trace edema feet, no calf tenderness EXCELSIOR CUTTER: AOx3 Speech normal Cranial N 2-12 are normal no facial asymmetry, Motor ;5/5 in all extremities Reflexes not Legalizing Sensory; No abnormality Cerebellar sign: alternate movement, nose to finger and straight walk normal some Hesitancy in tandem walk n Romberg absent Labs: CBC, BMP 10/30/17 06:00 10/30/17 06:00 INR, PTT INR 1.27 (0.83-1.09) H 10/29/17 20:50 - ....Imaging Chest X-ray: Report Reviewed (No acute changes) Cat Scan: Report Reviewed (Left occipital infarct of undernind age) MRI: Report Reviewed (No acute or sub acute infarct chronic ischemic infarct Left occipital cortex new since 2013) EKG: Report Reviewed (No acute St T changes) Problem List - Problems (1) Occipital cortex infarction Assessment/Plan: Ct and MRI confirm Left Occipital infarct probably old , currently on AC, for PE , at present no neurological symptoms, Rt sided swaying and occular symptoms resolve will cont current management F./U carotid Doppler, F/U Neurology input and ECHO Code(s): I63.9 - CEREBRAL INFARCTION, UNSPECIFIED (2) HTN (hypertension) Assessment/Plan: Well controlled cont all home meds Code(s): I10 - ESSENTIAL (PRIMARY) HYPERTENSION (3) Hypokalemia Assessment/Plan: Repleted F/U BMP Code(s): E87.6 - HYPOKALEMIA (4) Pulmonary embolism, bilateral Assessment/Plan: Submassive in Feb 2017 s/p Catheter directed Thrombectomy/Thrombolysis/IVC filter placement cont AC Code(s): I26.99 - OTHER PULMONARY EMBOLISM WITHOUT ACUTE COR PULMONALE (5) Hypercholesteremia Assessment/Plan: Cont Statin and F/U Lipid panel LDL Target < 100 Code(s): E78.00 - PURE HYPERCHOLESTEROLEMIA, UNSPECIFIED (6) CHF (congestive heart failure) Assessment/Plan: compensated Code(s): I50.9 - HEART FAILURE, UNSPECIFIED Qualifiers: Qualified Code(s): I50.9 - Heart failure, unspecified
--- NOTE | 2017-10-30 17:06 | EKG ---
Test Reason : Blood Pressure : / mmHG Vent. Rate : 054 BPM Atrial Rate : 054 BPM P-R Int : 206 ms QRS Dur : 100 ms QT Int : 454 ms P-R-T Axes : 074 -41 037 degrees QTc Int : 430 ms SINUS BRADYCARDIA LEFT AXIS DEVIATION INCOMPLETE RIGHT BUNDLE BRANCH BLOCK T WAVE ABNORMALITY, CONSIDER ANTERIOR ISCHEMIA ABNORMAL ECG WHEN COMPARED WITH ECG OF 04-MAR-2016 00:41, SIGNIFICANT CHANGES HAVE OCCURRED Confirmed by MD Vitaly, Sean ([id number]) on 10/30/2017 5:06:13 PM Referred By: Confirmed By:Sean Haider MD
[2017-10-30] MEDS: ROSUVASTATIN CA 20 MG TABLET (FP) PO SCH (21:11)
[2017-10-30] MEDS: SODIUM CHLORIDE 1,000 ML IV SCH (21:11)
[2017-10-30] MEDS: SERTRALINE HCL 50 MG TABLET (FP) PO SCH (21:11)
[2017-10-31 07:06] LABS: BASO % 0.9 % (0-2.0); EOS % 5.8 % (0-4.5); HEMATOCRIT 35.4 % (32.4-45.2); HEMOGLOBIN 12.1 GM/dL (10.7-15.3); LYMPH % 26.5 % (8-40); MCH 31.2 pg (25.7-33.7); MCHC 34.2 g/dl (32.0-36.0); MEAN CELL VOLUME 91.3 fl (80-96); MEAN PLT VOLUME 7.8 fl (7.5-11.1); MONO % 9.8 % (3.8-10.2); PLATELET COUNT 176 K/MM3 (134-434); RBC 3.88 M/mm3 (3.60-5.2); RDW 13.7 % (11.6-15.6)
[2017-10-31 07:33] LABS: ANION GAP 6 MMOL/L (8-16); BLOOD UREA NITROGEN 16 mg/dL (7-18); CALCIUM 8.7 mg/dL (8.5-10.1); CHLORIDE 106 mmol/L (98-107); CO2 29 mmol/L (21-32); CREATININE 0.9 mg/dL (0.55-1.3); GLUCOSE,RANDOM 113 mg/dL (74-106); POTASSIUM 4.2 mmol/L (3.5-5.1); SODIUM 140 mmol/L (136-145)
[2017-10-31] MEDS ORDERED: PT OWN MED DRAWER 7, Y5N ONE (09:14)
[2017-10-31] MEDS: MULTIVITAMINS (DAILY MVI) TABLET (FP) PO SCH (09:16)
[2017-10-31] MEDS: FUROSEMIDE 40 MG TABLET (FP) PO SCH (09:16)
[2017-10-31] MEDS: APIXABAN 5 MG TABLET PO SCH ×2 (09:16→21:30)
--- NOTE | 2017-10-31 11:05 | CONSULT ---
Admitting History and Physical - Primary Care Physician PCP: Jamie Mccabe - Admission History of Present Illness: Pt is an 82 yo F, with a signif PMHx of CAD, PE, DVT, HLD, presenting to ER for visual and gait disturbances R/O Stroke Pt with new onset and on going unstable gait favoring the R side, hx of flashes of light affecting vision, now resolved CT head 10/28 findings showing acute/subacute left occipital cortical infarct. Passed Dysphagia screen. Initially NPO then on vclear liquids. Presently on Regular diet/thin liquids. Selected Entries 10/30/17 10/30/17 10/30/17 02:00 05:25 13:00 Breakfast Supper Temperature 97.9 F 98.0 F 97.8 F 10/30/17 10/30/17 10/30/17 18:00 19:26 21:00 Breakfast Supper 100% Temperature 97.9 F 98.2 F 10/31/17 10/31/17 10/31/17 01:20 09:00 09:44 Breakfast 75% Supper Temperature 98.2 F 98.2 F Laboratory Tests 10/31/17 06:00 WBC 5.0 History Source: Patient Limitations to Obtaining History: No Limitations - Past Medical History Cardiovascular: Yes: HTN, Hyperlipdemia Gastrointestinal: Yes: Diverticulosis, GI Bleed (20 yrs ago), Hemorrhoids ...LMP Comment: menopause ...: No Psych: Yes: Depression - Past Surgical History Past Surgical History: Yes: Appendectomy, Cholecystectomy - Advance Directives Advance Directives: Yes: Health Care Proxy - Smoking History Smoking history: Never smoked Have you smoked in the past 12 months: No Aproximately how many cigarettes per day: 0 - Alcohol/Substance Use Hx Alcohol Use: No History of Substance Use: reports: None - Social History ADL: Independent Occupation: employed History of Recent Travel: No History - Admission Reason For Visit: CEREBROVSCULAR ACCIDENT (CVA) - Diagnostics X-ray: Report Reviewed CT Scan: Report Reviewed MRI: Report Reviewed (Chrinc left occipital infarct. No acute stroke identified. ) - General Mental Status: Alert and Oriented, Awake and Alert Attention: Intact Ability to Follow Directions: Excellent Head/Neck Control: WFL - Hearing Hearing: Normal Speech Evaluation - Communication Primary Language: SWEDISH Communication: Yes: Within Normal Limits Oral Expression Ability: Yes: No Impairment - Speech Production Able to Make Needs Known: Yes: WNL Intelligibility: Yes: WNL - Speech Characteristics Voice Loudness: Normal Voice Pitch: Yes: Normal Voice Phonatory-based Quality: Yes: Normal Speech Pattern: Normal Speech Clarity: < 100% Nasal Resonance: Normal Articulation: Yes: Precise - Language/Auditory Comprehension Follows: Yes: 2 Stage Simple Commands - Language/Verbal Expression Able to Respond to Simple Queries: Yes: WNL Able to Communicate Wants and Needs: Yes: WNL Functional Communication Status: Yes: WNL Attention: Yes: Intact - Memory/Perception ferry terminal agent Memory: Yes: WNL Short Term Memory: Yes: WNL - Swallow Evaluation/Bedside Assessment Current Nutritional Intake: Regular, Thin Liquids Oral Secretions: Yes: WFL Dentition: Yes: Adequate Facial Symmetry at Rest: Symmetrical Facial Symmetry on Retraction: Symmetrical Facial Movement: Controlled Sensation: Normal Against Resistance Opening: Normal Against Resistance Closing: Normal Pucker Lips: Normal Smile: Normal Lingual Movement: Normal, Symmetric Lingual Speed of Movement: Normal Lingual Movement Strgth Against Opposition: Normal Lingual Movement Characteristics: Normal Velopharyngeal Movement: Normal Laryngeal Elevation: WFL Laryngeal Movement: Able to Palpate Rate of Intake: WFL Bolus Size: WFL Labial Seal: WFL Chewing: WFL Oral Prep Time: WFL A-P Transit: WFL Pocketing: None Timing of Swallow: WFL Coughing/Throat Clear: No Change in Voice: No Recommendations - Speech Evaluation, Impression/Plan Impression: Speech, language, swallowing, cognition intact - Dysphagia Impressions/Plan Swallowing Skills: WF Dysphagia Impressions: No Impairment *Silent aspiration: cannot be R/O at bedside - Recommendations Diet Consistency: Regular Medication Administration: Whole with water Liquids: Thin Liquids
--- NOTE | 2017-10-31 12:55 | PN ---
Progress Note, Physician Chief Complaint: Ms Asencio says she is doing well and is without complaint. No cp, sob, n/v. - Current Medication List Current Medications: Active Medications Apixaban (Eliquis -) 5 mg PO BID [facility] Last Admin: 10/31/17 09:16 Dose: 5 mg Furosemide (Lasix -) 40 mg PO DAILY [facility] Last Admin: 10/31/17 09:16 Dose: 40 mg Multivitamins/Minerals/Vitamin C (Tab-A-Vit -) 1 tab PO DAILY [facility] Last Admin: 10/31/17 09:16 Dose: 1 tab Rosuvastatin Calcium (Crestor -) 40 mg PO [facility] Last Admin: 10/30/17 21:11 Dose: 40 mg Sertraline HCl (Zoloft -) 50 mg PO [facility] Last Admin: 10/30/17 21:11 Dose: 50 mg - Objective Vital Signs: Vital Signs Temperature 36.8 C 10/31/17 09:00 Pulse Rate 58 L 10/31/17 09:00 Respiratory Rate 19 10/31/17 09:00 Blood Pressure 139/60 10/31/17 09:00 O2 Sat by Pulse Oximetry (%) 98 10/31/17 09:00 Constitutional: Yes: Well Nourished, No Distress, Calm Cardiovascular: Yes: Regular Rate and Rhythm. No: Gallop, Murmur, Rub Respiratory: Yes: Regular, CTA Bilaterally. No: Rales, Rhonchi, Wheezes Gastrointestinal: Yes: Normal Bowel Sounds, Soft. No: Distention, Tenderness Extremities: Yes: WNL Edema: No Labs: CBC, BMP 10/31/17 06:00 10/31/17 06:00 INR, PTT INR 1.27 (0.83-1.09) H 10/29/17 20:50 Problem List - Problems (1) Pre-syncope Assessment/Plan: -patient with symptoms most c/w pre-syncope -concern for acute CVA, however MRI negative and showing only chronic CVA -appreciate neurology assistance -states had recent increase in medication, but unsure of her home medications -suspect increase in blood pressure medication -currently resolved -follow up ECHO results -PT consult -called office to obtain home medication list -possible discharge today or tomorrow pending ECHO read and PT evaluation Code(s): R55 - SYNCOPE AND COLLAPSE (2) HTN (hypertension) Assessment/Plan: -on lasix here however says is on more medication as an outpatient -SBP in the 130s today -monitor and obtain home medications Code(s): I10 - ESSENTIAL (PRIMARY) HYPERTENSION (3) Hypercholesteremia Assessment/Plan: -continue statin Code(s): E78.00 - PURE HYPERCHOLESTEROLEMIA, UNSPECIFIED (4) Hypokalemia Assessment/Plan: -replaced Code(s): E87.6 - HYPOKALEMIA (5) CHF (congestive heart failure) Assessment/Plan: -continue lasix -not in exacerbation -follow up ECHO result Code(s): I50.9 - HEART FAILURE, UNSPECIFIED Qualifiers: Qualified Code(s): I50.9 - Heart failure, unspecified (6) DVT (deep venous thrombosis) Assessment/Plan: -continue eliquis Code(s): I82.409 - ACUTE EMBOLISM AND THOMBOS UNSP DEEP VN UNSP LOWER EXTREMITY (7) History of CVA (cerebrovascular accident) Assessment/Plan: -noted on MRI Code(s): Z86.73 - PRSNL HX OF TIA (TIA), AND CEREB INFRC W/O RESID DEFICITS (8) Pulmonary embolism, bilateral Assessment/Plan: -history of -continue eliquis Code(s): I26.99 - OTHER PULMONARY EMBOLISM WITHOUT ACUTE COR PULMONALE
--- NOTE | 2017-10-31 19:12 | ECHO ---
Name: LORENA FOWLER Exam:Adult Echocardiogram Study Date: 10/31/2017 08:18 AM Age: 82 yrs Reason For Study: CVA Height: 65 in Weight: 210 lb BSA: 2.0 m2 BP: 139/60 mmHg MMode/2D Measurements & Calculations IVSd: 1.0 cm Ao root diam: 3.0 cm LVIDd: 5.4 cm LA dimension: 3.9 cm LVIDs: 3.0 cm ACS: 1.5 cm LVPWd: 1.0 cm IVSs: 1.5 cm LVPWs: 1.3 cm EDV(Teich): 142.1 ml ESV(Teich): 35.7 ml Doppler Measurements & Calculations MV E max crow: 82.7 cm/sec Ao V2 max: 155.3 cm/sec MV A max crow: 97.7 cm/sec Ao max P.6 mmHg MV E/A: 0.85 Ao V2 mean: 104.3 cm/sec Ao mean P.0 mmHg Ao V2 VTI: 36.4 cm MR max crow: 493.1 cm/sec TR max crow: 285.7 cm/sec MR max P.6 mmHg TR max P.7 mmHg Med Peak E' Crow: 4.1 cm/sec Med E/e': 20.4 Lat Peak E' Crow: 4.4 cm/sec Lat E/e': 18.8 Procedure The study was technically adequate with some images being suboptimal in quality. Left Ventricle The left ventricular size, thickness and function are normal. Grade I diastolic dysfunction, (abnorma l relaxation pattern). Right Ventricle The right ventricle is normal in size and function. Atria The left atrium is mildly dilated. The right atrium is mildly dilated. Mitral Valve There is mild mitral annular calcification. The mitral valve is grossly normal. There is mild mitral regurgitation. Tricuspid Valve The tricuspid valve is not well visualized, but is grossly normal. There is Trace to mild tricuspid regurgitation. Right ventricular systolic pressure is 25 mmhg. Aortic Valve The aortic valve opens well. There is mild aortic sclerosis.;. The aortic valve is trileaflet. No aor tic regurgitation is present. Pulmonic Valve The pulmonic valve is not well visualized. Great Vessels The aortic root is normal size. Pericardium/Pleura There is no pericardial effusion. Interpretation Summary There is no comparison study available. The right ventricle is normal in size and function. There is Trace to mild tricuspid regurgitation. The left atrium is mildly dilated. The right atrium is mildly dilated. There is mild mitral regurgitation. Grade I diastolic dysfunction, (abnormal relaxation pattern). Lenny Mohamud MD 10/31/2017 07:11 PM
[2017-10-31] MEDS: ROSUVASTATIN CA 20 MG TABLET (FP) PO SCH (21:30)
[2017-10-31] MEDS: SERTRALINE HCL 50 MG TABLET (FP) PO SCH (21:30)
[2017-11-01] MEDS: APIXABAN 5 MG TABLET PO SCH (09:20)
[2017-11-01] MEDS: MULTIVITAMINS (DAILY MVI) TABLET (FP) PO SCH (09:20)
[2017-11-01] MEDS: FUROSEMIDE 40 MG TABLET (FP) PO SCH (09:20)
[2017-11-01 10:29] VITALS: BP 152/79; PULSE 76; TEMP 98
--- NOTE | 2017-11-01 11:16 | DS ---
Physical Examination Vital Signs: Vital Signs Temperature 36.6 C 11/01/17 10:00 Pulse Rate 76 11/01/17 10:00 Respiratory Rate 20 11/01/17 10:00 Blood Pressure 152/79 11/01/17 10:00 O2 Sat by Pulse Oximetry (%) 94 L 11/01/17 03:57 Constitutional: Yes: Well Nourished, No Distress, Calm Cardiovascular: Yes: Regular Rate and Rhythm. No: Gallop, Murmur, Rub Respiratory: Yes: Regular, CTA Bilaterally. No: Rales, Rhonchi, Wheezes Gastrointestinal: Yes: Normal Bowel Sounds, Soft. No: Distention, Tenderness Extremities: Yes: WNL Edema: No Labs: CBC, BMP 10/31/17 06:00 10/31/17 06:00 Discharge Summary Reason For Visit: CEREBROVSCULAR ACCIDENT (CVA) Current Active Problems Acute cerebral ischemia (Acute) HTN (hypertension) (Acute) Hypercholesteremia (Acute) Hypokalemia (Acute) Occipital cortex infarction (Acute) Pre-syncope (Acute) Hospital Course: (1) Pre-syncope Code(s): R55 - SYNCOPE AND COLLAPSE (2) HTN (hypertension) Code(s): I10 - ESSENTIAL (PRIMARY) HYPERTENSION (3) Hypercholesteremia Code(s): E78.00 - PURE HYPERCHOLESTEROLEMIA, UNSPECIFIED (4) Hypokalemia Code(s): E87.6 - HYPOKALEMIA (5) CHF (congestive heart failure) Code(s): I50.9 - HEART FAILURE, UNSPECIFIED Qualifiers: Qualified Code(s): I50.9 - Heart failure, unspecified (6) DVT (deep venous thrombosis) Code(s): I82.409 - ACUTE EMBOLISM AND THOMBOS UNSP DEEP VN UNSP LOWER EXTREMITY (7) History of CVA (cerebrovascular accident) Code(s): Z86.73 - PRSNL HX OF TIA (TIA), AND CEREB INFRC W/O RESID DEFICITS (8) Pulmonary embolism, bilateral Code(s): I26.99 - OTHER PULMONARY EMBOLISM WITHOUT ACUTE COR PULMONALE Ms Asencio is a very pleasant 82 year old female who came in with presyncope but was admitted for possible CVA. She had episodes of unsteadiness prior to admission and had an outpatient CT scan of the head. There was concern for possible CVA so she was called to present to the ED late Tuesday evening. However she presented Tuesday for admission. She was admitted and seen by neurology. A MRI of the head showed no acute CVA but a chronic occipital CVA. She did not have recurrence of symptoms while here in the hospital. ECHO was performed and within normal limits. She was seen by PT and showed some listing but self corrected. Possible if residual from chronic occipital stroke. Currently she is safe for discharge home with close follow up with both her PCP and neurology. Call was placed to daughter and plan explained. 37 minutes spent in preparation of this discharge Condition: Good - Instructions Diet, Activity, Other Instructions: resume previous diet and activity. No change in medications. Referrals: Jamie Mccabe MD [Staff Physician] - 1 Week Disposition: HOME - Home Medications Comprehensive Discharge Medication List: Ambulatory Orders Sertraline HCl [Zoloft -] 50 mg PO HS 01/05/14 Multivitamin [Poly-Vitamin] 1 each PO DAILY 12/22/15 Simvastatin 20 mg PO HS 12/22/15 Apixaban [Eliquis -] 5 mg PO BID #60 tablet 03/17/16 Furosemide [Lasix -] 40 mg PO DAILY #30 tablet 03/17/16 Potassium Chloride [K-Dur -] 40 meq PO DAILY #30 tablet.er 03/17/16
== END 2017-11-01 13:22 | disposition home or self-care (01) ==
LOC: JER 19:50 → INTOOBSV 22:03 → UNDOADMOB 22:03 → JERBED 22:03 → J4S 10-30 01:14
PROVIDERS: ADMIT Internal Medicine Geriatric Medicine; ATTEND Internal Medicine Geriatric Medicine
PROC: 3E0337Z Introduction of Electrolytic and Water Balance Substance into Peripheral Vein, Percutaneous Approach (ICD-10-PCS; principal; 2017-10-29)
DX: I63.9 Cerebral infarction, unspecified (principal); D57.1 Sickle-cell disease without crisis; I67.82 Cerebral ischemia; R55 Syncope and collapse; E87.6 Hypokalemia; I50.9 Heart failure, unspecified; I11.0 Hypertensive heart disease with heart failure; I26.99 Other pulmonary embolism without acute cor pulmonale; I25.10 Atherosclerotic heart disease of native coronary artery without angina pectoris; E78.5 Hyperlipidemia, unspecified; R26.81 Unsteadiness on feet; R31.9 Hematuria, unspecified; M19.90 Unspecified osteoarthritis, unspecified site; F41.9 Anxiety disorder, unspecified; Z96.643 Presence of artificial hip joint, bilateral; Z79.01 Long term (current) use of anticoagulants; Z86.718 Personal history of other venous thrombosis and embolism; Z95.828 Presence of other vascular implants and grafts; Z79.82 Long term (current) use of aspirin
CPT/HCPCS: 36415; 70551-TC; 71045-TC-FY; 76775-TC; 76856-TC; 80048; 80053; 80061; 81003; 81015; 82465; 82550; 82553; 82962; 83090; 83718; 83721; 83735; 84100; 84478; 84484; 85025; 85610; 85651; 85730; 86593; 86850; 86900; 86901; 93005; 93010; 93306-TC; 97116-GP; 97161-GP; 99284-25; G0378; J7030

== ENCOUNTER 2017-12-06 16:53 | Emergency (ER) | payer BC, OTHER ==
[2017-12-06 17:15] VITALS: BP 135/47; PULSE 52; TEMP 98.1; BMI 37.4
--- NOTE | 2017-12-06 17:17 | PDOC ---
Rapid Medical Evaluation Medical Evaluation: Allergies Allergy/AdvReac Type Severity Reaction Status Date / Time olmesartan [From Benicar] Allergy Verified 10/29/17 20:02 12/06/17 17:11 Pt with PMH of CVA presents to the ED for an episode of not being able to find her words. Pt states this happened at 9:30 this morning. Pt states that it was a brief episode lasting less than one one minute. She states she returned to her normal neurological baseline. Pt admits to having a similar episode on 12/01. Pt is on Eliquis. Seen by Dr. Ragsdale today and told to come to the ED Exam: No gross neurological findings at this time Orders: Labs, head CT, ekg Pt to proceed to the ED for further evaluation Discharge Disposition - Diagnosis Aphasia - Referrals - Patient Instructions - Post Discharge Activity
[2017-12-06 18:18] LABS: BASO % 1.2 % (0-2.0); EOS % 4.3 % (0-4.5); HEMATOCRIT 39.9 % (32.4-45.2); HEMOGLOBIN 13.4 GM/dL (10.7-15.3); MCH 31.1 pg (25.7-33.7); MCHC 33.6 g/dl (32.0-36.0); MEAN CELL VOLUME 92.5 fl (80-96); MONO % 9.3 % (3.8-10.2); NEUT % 59.2 % (42.8-82.8); PLATELET COUNT 230 K/MM3 (134-434); RBC 4.32 M/mm3 (3.60-5.2); RDW 13.9 % (11.6-15.6); WHITE BLOOD COUNT 6.3 K/mm3 (4.0-10.0)
[2017-12-06 18:38] LABS: INR 1.16 (0.83-1.09); PROTHROMBIN TIME (PATIENT) 13.7 SEC (9.7-13.0)
[2017-12-06 18:40] LABS: ACTIVATED PTT 30.7 SECONDS (25.2-36.5)
--- NOTE | 2017-12-06 18:44 | PDOC ---
History of Present Illness - General Chief Complaint: CVA/TIA Stated Complaint: PCP SENT Time Seen by Provider: 12/06/17 17:19 History Source: Patient Exam Limitations: No Limitations - History of Present Illness Initial Comments: 12/06/17 18:41 Pt is an 82yo f with PMH of CAD, PE (on Eliquis) DVT with IVC filter, vestibular neuronitis, HLD sent to ED from pcp office for TIA. Pt said around 9am this morning she was talking and noticed her speech was slurred and she was having trouble finding words. This lasted for about 1 minute. She had a similar episode 5 days ago on . Pt never had a stroke in the past. 12/06/17 19:39 Past History - Past Medical History Allergies/Adverse Reactions: Allergies Allergy/AdvReac Type Severity Reaction Status Date / Time olmesartan [From Benicar] Allergy Verified 12/06/17 17:12 Home Medications: Ambulatory Orders Sertraline HCl [Zoloft -] 50 mg PO HS 01/05/14 Multivitamin [Poly-Vitamin] 1 each PO DAILY 12/22/15 Simvastatin 20 mg PO HS 12/22/15 Apixaban [Eliquis -] 5 mg PO BID #60 tablet 03/17/16 Potassium Chloride [K-Dur -] 40 meq PO DAILY #30 tablet.er 03/17/16 Ascorbate Calcium [Vitamin C] 1,000 mg PO DAILY 12/06/17 Furosemide [Lasix -] 80 mg PO DAILY 12/06/17 Anemia: No Asthma: No Cancer: No Cardiac Disorders: Yes (a.fib, P.E) CVA: Yes (04/07/13,10/2017) COPD: No CHF: No Dementia: No Diabetes: No GI Disorders: Yes (diverticulosis, hx of diverticulitis) Disorders: No HTN: Yes Hypercholesterolemia: No Liver Disease: No Seizures: No Thyroid Disease: No - Surgical History Abdominal Surgery: Yes (cholecystectomy) Appendectomy: Yes Cardiac Surgery: No Cholecystectomy: Yes Lung Surgery: No Neurologic Surgery: No Orthopedic Surgery: Yes - Immunization History Immunization Up to Date: Yes - Suicide/Smoking/Psychosocial Hx Smoking Status: No Smoking History: Never smoked Have you smoked in the past 12 months: No Number of Cigarettes Smoked Daily: 0 Hx Alcohol Use: No Drug/Substance Use Hx: No Substance Use Type: None Hx Substance Use Treatment: No *Physical Exam - Vital Signs Last Vital Signs Temp Pulse Resp BP Pulse Ox 98.1 F 52 L 18 135/47 L 97 12/06/17 17:12 12/06/17 17:12 12/06/17 17:12 12/06/17 17:12 12/06/17 17:12 *DC/Admit/Observation/Transfer Diagnosis at time of Disposition: Aphasia - Referrals Referrals: Jamie Mccabe MD [Primary Care Provider] - - Patient Instructions - Post Discharge Activity
[2017-12-06 18:51] LABS: ALBUMIN 3.8 g/dl (3.4-5.0); ALK PHOS 108 U/L (45-117); ANION GAP 10 MMOL/L (8-16); BILIRUBIN,TOTAL 0.4 mg/dL (0.2-1); BLOOD UREA NITROGEN 20 mg/dL (7-18); CALCIUM 8.9 mg/dL (8.5-10.1); CHLORIDE 105 mmol/L (98-107); CO2 27 mmol/L (21-32); GLUCOSE,RANDOM 93 mg/dL (74-106); POTASSIUM 3.7 mmol/L (3.5-5.1); SGOT/AST 20 U/L (15-37); SGPT/ALT 27 U/L (13-61); SODIUM 142 mmol/L (136-145); TOT PROT 7.2 g/dl (6.4-8.2)
--- NOTE | 2017-12-06 19:04 | PDOC ---
Attending Attestation - Resident Resident Name: Filomena Sin - ED Attending Attestation I have performed the following: I have examined & evaluated the patient, The case was reviewed & discussed with the resident, I agree w/resident's findings & plan, Exceptions are as noted - HPI HPI: 12/06/17 19:03 -year-old female had an episode of difficulty speaking slurring her words at 9 AM today. This lasted for about a minute and a half and she's had no symptoms since that time. She states that she's had TIAs in the past. She does have a history of PEs and DVTs 12/07/17 00:15 - Physicial Exam PE: 12/06/17 19:38 82 yo female in no acute distress wnwd 82 yo female who appears younger that her states age head ncat eyes evangelina eomi lungs cta b/l cvs [id number] abd protuberant neuro axox3,ambulatory,cn2-12 grossly intact,motor strength 5/5.b/l, dtr+2,no ataxia 12/07/17 00:15 - Medical Decision Making 12/07/17 00:17 pt refused hospital admission and left AMA
--- NOTE | 2017-12-07 09:55 | EKG ---
Test Reason : Blood Pressure : / mmHG Vent. Rate : 052 BPM Atrial Rate : 052 BPM P-R Int : 220 ms QRS Dur : 102 ms QT Int : 454 ms P-R-T Axes : 054 -33 021 degrees QTc Int : 422 ms SINUS BRADYCARDIA WITH SINUS ARRHYTHMIA WITH 1ST DEGREE A-V BLOCK LEFT AXIS DEVIATION INCOMPLETE RIGHT BUNDLE BRANCH BLOCK CANNOT RULE OUT ANTERIOR INFARCT , AGE UNDETERMINED ABNORMAL ECG WHEN COMPARED WITH ECG OF 29-OCT-2017 20:03, NO SIGNIFICANT CHANGE WAS FOUND Confirmed by ADRIENNE ROD, JYOTI ([id number]) on 12/07/2017 9:55:22 AM Referred By: Confirmed By:JYOTI DELEON MD
== END 2017-12-06 19:50 | disposition left against medical advice (07) ==
LOC: JER 16:53
DX: R47.01 Aphasia (principal); I25.10 Atherosclerotic heart disease of native coronary artery without angina pectoris; E78.5 Hyperlipidemia, unspecified; H81.20 Vestibular neuronitis, unspecified ear; Z86.711 Personal history of pulmonary embolism; Z86.718 Personal history of other venous thrombosis and embolism; Z79.01 Long term (current) use of anticoagulants; Z87.19 Personal history of other diseases of the digestive system; Z86.73 Personal history of transient ischemic attack (TIA), and cerebral infarction without residual deficits
CPT/HCPCS: 36415; 70450-TC; 80053; 84484; 85025; 85610; 85730; 93005; 93010; 99282-25

== ENCOUNTER 2018-01-26 12:22 | Inpatient (IN) | payer BC, OTHER ==
[2018-01-26 12:44] VITALS: BMI 37.5
--- NOTE | 2018-01-26 12:59 | PDOC ---
Attending Attestation - HPI HPI: 01/26/18 13:21 The patient is a 82 year old female, with a significant past medical history of CAD, PE (on Eliquis BID last dosage yesterday) DVT with IVC filter, vestibular neuronitis, HLD, who presents to the emergency department s/p dysphasia and unsteady gait. As per patients son, he came to see her at 11am (2 hours prior to her arrival) and the patient was dysphasic and he could not understand anything she was saying prompting him to take her to the ER. Upon her arrival, patient endorses for the past 2-3 days she has been experiencing disturbances in her vision. She notes today an occipital headache (not the worst of her life) , her vision became blurred, she began to feel unbalanced, and she fell at home. Patients son notes the last time he visited his mother was 2 days ago and she was well. Patient as evaluated for similar symptoms in the ER 12/06 when she signed out AMA and 10/29 at which time she was admitted. She denies recent fevers or chills. She denies recent nausea, vomit, diarrhea or constipation. She denies recent dysuria, frequency, urgency or hematuria. She denies recent chest pain or shortness of breath. Allergies: olmesartan Past surgical history: cholecystectomy and appendectomy Primary Care Physician: Dr. Mccabe <Kary Gregorio - Last Filed: 01/26/18 13:21> - Resident Resident Name: Matt Harrington - ED Attending Attestation I have performed the following: I have examined & evaluated the patient, The case was reviewed & discussed with the resident, I agree w/resident's findings & plan, Exceptions are as noted - Physicial Exam PE: 01/26/18 13:26 GENERAL: The patient is awake, alert, and fully oriented, Nontoxic - in no acute distress. HEAD: Normocephalic, atraumatic. EYES: extraocular movements intact, sclera anicteric, conjunctiva clear. ENT: Normal voice, Moist mucous membranes. NECK: Normal range of motion, supple LUNGS: Breath sounds equal, clear to auscultation bilaterally. No wheezes, no rhonchi, no rales. HEART: Regular rate and rhythm, normal S1 and S2 without murmur, rub or gallop. ABDOMEN: Soft, nontender, normoactive bowel sounds. No guarding, no rebound. . No CVA tenderness EXTREMITIES: Normal range of motion, no edema. No clubbing or cyanosis. No cords, erythema, or tenderness. PSYCH: Normal mood, normal affect. SKIN: Warm, Dry, normal turgor, NEURO: Mental status: The patient is oriented x3. Cranial nerves: Cranial nerves II through XII are intact Motor: The upper extremities are 5 over 5 in all muscle groups. The lower extremities are 5 over 5 in all muscle groups. Negative pronator drift Sensation: Sensation is intact to light touch throughout. romberg negative Cerebellar: Tgcgxd-enxvas-iscb is normal in both upper extremities. Heel-knee- rodriguez is normal in both lower extremities. rapid alternating movements are normal. Reflexes: 2+ and symmetric in the upper and lower extremities. - Critical Care Time Total Critical Care Time: 45 Critical Care Statement: The care of this patient involved high complexity decision making to prevent further life threatening deterioration of the patient 's condition and/or to evaluate & treat vital organ system(s) failure or risk of failure. - Medical Decision Making 01/26/18 13:10 82y F hx of CAD, PE (on eliquis), DVT w/ IVC filter, vestibular neuronitis, hld , presents with blurry vision, dizziness, off balance gait - vision changes started 2 days ago, with onset of the other symptmos approx 11:30am today. Per son the pt was also dysarthric when she got there but resolved after approx 10 minutes. The patient denies any other symptoms includes chest pain, palpitations , shortness of breath, nausea, vomiting, diaphoresis. PCP: Dr. Mccabe Allergies: Olmesartan Social: Denies tobacco, alcohol, and substance abuse. 01/26/18 13:35 Concern for possible occipital stroke, cold sykes was initiated upon arrival Patient was brought to CT the patient's exam is otherwise unremarkable, Case was discussed with neurology Will defer TPA as the patient's NIH stroke scale is 0, also - onset of her cva arguably began 2 days ago with addition of other syptoms at 11:30am today 01/26/18 14:35 CT noted for acute occipital stroke suggestive of acute/subacute stroke case dw dr. hopkins - requests CTA. Currently basically asymptmatic when at rest with normal speech, w/o dizziness will admit for further management. CTA pending 01/26/18 19:40 pt difficult stick, was unable to obtain line via multple attempts by nursing and via US. I was able to place a 20g IV in the L AC using US. pt will proced to CTA. <Chad Godinez - Last Filed: 01/27/18 00:45> Heart Score/ECG Review - ECG Impressions Comment:: 01/26/18 13:26 Twelve-lead EKG was performed and reviewed by me. There is normal sinus rhythm with a rate of 56 Left axis deviation Incomplete right bundle-branch block Abnormal R wave progression <Chad Godinez - Last Filed: 01/27/18 00:45> Attestations - Attestations 01/26/18 13:21 Documentation prepared by Kary Gregorio, acting as medical technicians for Chad Godinez MD. <Kary Gregorio - Last Filed: 01/26/18 13:21>
[2018-01-26] MEDS ORDERED: SODIUM CHLORIDE 1,000 ML IV SCH ×2 (13:00→18:00)
--- NOTE | 2018-01-26 13:06 | PDOC ---
History of Present Illness - General Chief Complaint: CVA/TIA Stated Complaint: POSSIBLE CVA/TIA Time Seen by Provider: 01/26/18 12:43 History Source: Patient Exam Limitations: No Limitations - History of Present Illness Initial Comments: Bernadette is an 82 yo f with a PMH of CAD, PE (on Eliquis - did not take it this morning) DVT with IVC filter, vestibular neuronitis, HLD who presents to the ER with blurry vision (not double) and unsteadiness on her feet which began acutely this morning. She has been experiencing occasional black spots in both eyes for the past few days but this morning it acutely worsened. Patient ran out of her amlodipine a few weeks back and has not refilled it. She denies ever having had a stroke in the past. Denies weakness, numbness, tingling, chills, headache, neck pain, chest pain, SOB, difficulty breathing, abdominal pain, leg pain, dysuria, frequency, urgency, or recent fevers and infections. PCP: Dr. Damian Allergies: Olmesartan Social: Denies tobacco, alcohol, and substance abuse. Past History - Past Medical History Allergies/Adverse Reactions: Allergies Allergy/AdvReac Type Severity Reaction Status Date / Time olmesartan [From [facility] [place]] Allergy Verified 01/26/18 12:38 Home Medications: Ambulatory Orders Sertraline HCl [Zoloft -] 50 mg PO HS 01/05/14 Multivitamin [Poly-Vitamin] 1 each PO DAILY 12/22/15 Simvastatin 20 mg PO HS 12/22/15 Apixaban [Eliquis -] 5 mg PO BID #60 tablet 03/17/16 Potassium Chloride [K-Dur -] 40 meq PO DAILY #30 tablet.er 03/17/16 Ascorbate Calcium [Vitamin C] 1,000 mg PO DAILY 12/06/17 Furosemide [Lasix -] 80 mg PO DAILY 12/06/17 Anemia: No Asthma: No Cancer: No Cardiac Disorders: Yes (a.fib, P.E) CVA: Yes (04/07/13,10/2017) COPD: No CHF: No Dementia: No Diabetes: No GI Disorders: Yes (diverticulosis, hx of diverticulitis) Disorders: No HTN: Yes Hypercholesterolemia: No Liver Disease: No Seizures: No Thyroid Disease: No - Surgical History Abdominal Surgery: Yes (cholecystectomy) Appendectomy: Yes Cardiac Surgery: No Cholecystectomy: Yes Lung Surgery: No Neurologic Surgery: No Orthopedic Surgery: Yes - Immunization History Immunization Up to Date: Yes - Suicide/Smoking/Psychosocial Hx Smoking Status: No Smoking History: Never smoked Have you smoked in the past 12 months: No Number of Cigarettes Smoked Daily: 0 Hx Alcohol Use: No Drug/Substance Use Hx: No Substance Use Type: None Hx Substance Use Treatment: No Review of Systems - Review of Systems Able to Perform ROS?: Yes Constitutional: No: Chills, Fever, Malaise, Weakness HEENTM: Yes: Blurred Vision. No: Double Vision Respiratory: No: Cough, Shortness of Breath, Wheezing Cardiac (ROS): No: Chest Pain, Edema, Lightheadedness, Syncope ABD/GI: No: Abdominal Distended, Constipated, Diarrhea, Nausea, Vomiting : No: Burning, Dysuria, Discharge, Frequency Musculoskeletal: No: Back Pain, Muscle Pain, Neck Pain Integumentary: No: Bruising, Change in Color, Dryness, Pallor, Rash Neurological: No: Headache, Numbness, Tingling, Weakness, Ataxia, Dizziness Psychiatric: No: Anxiety, Depression, Stressors, Emotional Problems Endocrine: No: Flushing, Intolerance to Cold, Intolerance to Heat Hematologic/Lymphatic: No: Anemia, Blood Clots, Easy Bleeding *Physical Exam - Vital Signs Last Vital Signs Temp Pulse Resp BP Pulse Ox 98.0 F 56 L 16 123/55 L 94 L 01/26/18 12:38 01/26/18 12:38 01/26/18 12:38 01/26/18 12:38 01/26/18 12:38 - Physical Exam General Appearance: Yes: Nourished, Appropriately Dressed, Apparent Distress HEENT: positive: EOMI, LINA, Normal Voice Neck: positive: Trachea midline, Supple. negative: Decreased range of motion, Lymphadenopathy (R), Lymphadenopathy (L) Respiratory/Chest: positive: Lungs Clear, Normal Breath Sounds. negative: Respiratory Distress, Crackles Cardiovascular: positive: Regular Rhythm, Regular Rate, S1, S2. negative: Edema Vascular Pulses: Dorsalis-Pedis (R): 2+, Doralis-Pedis (L): 2+ Gastrointestinal/Abdominal: positive: Normal Bowel Sounds, Soft. negative: Increased Bowel Sounds, Guarding, Rebound, Tenderness Rectal Exam: positive: deferred Lymphatic: negative: Adenopathy Musculoskeletal: positive: Normal Inspection. negative: CVA Tenderness Extremity: positive: Normal Capillary Refill, Normal Inspection, Normal Range of Motion Integumentary: positive: Normal Color, Dry, Warm Neurologic: positive: mutuel teller II-XII NML intact, Fully Oriented, Alert, Normal Mood/ Affect, Normal Response, Motor Strength 5/5, Responsive, Finger to Nose (normal) . negative: EOM Palsy, Facial Droop, Numbness, Sensory Deficit, Confused, Disoriented NIH Stroke Scale - Last Known Well Date/Time & Onset Date Last Known Well: 01/24/18 - Initial Evaluation Level of consciousness: Alert Ask patient the month and their age: Answers both correctly Ask patient to open & close eyes; make fist and let go: Obeys both correctly Best gaze (horizontal eye movement): Normal Visual field testing: No visual field loss Facial paresis (Show teeth/raise eyebrows/close eyes tight): Normal symmetrical movement Motor Function: Left Arm: Normal Motor Function: Right Arm: Normal (extends arm 90 (or 45) degrees for 10 seconds without drift Motor Function: Left Leg: Normal (extends leg 30 degrees for 5 seconds without drift) Motor Function: Right Leg: Normal (extends leg 30 degrees for 5 seconds without drift) Limb Ataxia: No ataxia Sensory(Use pinprick test arms,legs,trunk,face/side to side): Normal Best language (Describe picture, name items, read sentences): No Aphasia Dysarthria (read several words): Normal articulation Extinction and Inattention: No abnormality - Total Score NIH Stroke Scale Score: 0 Moderate Sedation - Procedure Monitoring Vital Signs: Procedure Monitoring Vital Signs Temperature 98.0 F 01/26/18 12:38 Pulse Rate 56 L 01/26/18 12:38 Respiratory Rate 16 01/26/18 12:38 Blood Pressure 123/55 L 01/26/18 12:38 O2 Sat by Pulse Oximetry (%) 94 L 01/26/18 12:38 Heart Score/ECG Review - ECG Intrepretation Rhythm: Regular Rhythm - [place]: Left [place] Deviation - QRS Widened: RBBB (incomplete) Comment:: low voltage - ECG Impressions Non-specific ST Elevation: No Ischemic Changes: No Critical Care Time/MDM Note - Medical Decision Making Note: Bernadette is an 82 yo f with a PMH of CAD, PE (on Eliquis - did not take it this morning) DVT with IVC filter, vestibular neuronitis, HLD who presents to the ER with blurry vision (not double), dysarthria earlier this morning, and unsteadiness on her feet which began acutely this morning. DDx IBNLT: Stroke/CVA/Tia, Posterior stroke, scotoma, ICH, Brain bleed, Infection, Migraine Plan: Stroke protocol, Head CT, Labs, Neuro consult. Spoke with Dr. Valadez - He will come evaluate the patient. Head CT shows an acute infarct in the occipital lobe Spoke with Dr. Trammell as a consult. Will admit patient to stroke unit and order CTA *DC/Admit/Observation/Transfer Diagnosis at time of Disposition: Cerebrovascular accident (CVA) - Discharge Dispostion Condition at time of disposition: Guarded Decision to Admit order: Yes - Referrals Referrals: Jamie Mccabe MD [Primary Care Provider] - - Patient Instructions - Post Discharge Activity
[2018-01-26 14:25] LABS: BASO % 0.9 % (0-2.0); EOS % 2.3 % (0-4.5); HEMATOCRIT 37.7 % (32.4-45.2); HEMOGLOBIN 13.2 GM/dL (10.7-15.3); LYMPH % 18.3 % (8-40); MCH 32.2 pg (25.7-33.7); MCHC 34.9 g/dl (32.0-36.0); MEAN CELL VOLUME 92.1 fl (80-96); MEAN PLT VOLUME 8.4 fl (7.5-11.1); MONO % 9.2 % (3.8-10.2); NEUT % 69.3 % (42.8-82.8); PLATELET COUNT 218 K/MM3 (134-434); RBC 4.09 M/mm3 (3.60-5.2); RDW 13.8 % (11.6-15.6); WHITE BLOOD COUNT 9.3 K/mm3 (4.0-10.0)
[2018-01-26 14:39] LABS: INR 1.11 (0.83-1.09); PROTHROMBIN TIME (PATIENT) 13.1 SEC (9.7-13.0)
[2018-01-26 15:09] LABS: ALBUMIN 3.5 g/dl (3.4-5.0); ALK PHOS 109 U/L (45-117); ANION GAP 7 MMOL/L (8-16); BILIRUBIN,TOTAL 0.5 mg/dL (0.2-1); BLOOD UREA NITROGEN 17 mg/dL (7-18); CALCIUM 9.3 mg/dL (8.5-10.1); CHLORIDE 100 mmol/L (98-107); CHOLESTEROL 161 mg/dL (50-200); CO2 31 mmol/L (21-32); CREATININE 0.9 mg/dL (0.55-1.3); GLUCOSE,RANDOM 96 mg/dL (74-106); HDL CHOLESTEROL 42 mg/dL (40-60); POTASSIUM 3.7 mmol/L (3.5-5.1); SGOT/AST 21 U/L (15-37); SGPT/ALT 28 U/L (13-61); SODIUM 138 mmol/L (136-145); TOT PROT 6.9 g/dl (6.4-8.2); TRIGLYCERIDES 143 mg/dL (0-150)
[2018-01-26] MEDS ORDERED: ASPIRIN 81 MG CHEWABLE TABLETS PO ONE (15:21)
[2018-01-26] MEDS ORDERED: ASPIRIN 81 MG CHEWABLE TABLETS ONE (15:42)
--- NOTE | 2018-01-26 18:03 | CON.NEURO ---
Consult Consult Specialty:: Carmelo Referred by:: ER Reason for Consultation:: Lightheaded - History of Present Illness History of Present Illness: this is an 82-year-old right-handed female patient with present medical history significant for *Coronary artery disease *Vestibular neuritis DVT *On anticoagulation *chronic low back pain *High cholesterol Patient presented to the emergency room at [facility] yesterday with a chief complaint of few days of difficulty with her vision. I spoke to the emergency room doctor at 1:30 PM yesterday CAT scan of the head was still pending patient was on anticoagulation patient was not a candidate of thrombolysis her NIH stroke scale was 0. Patient had a CAT scan of the head and I spoke again to the emergency room doctor and a CAT scan revealed evidence of questionable age right occipital stroke. Patient was to be admitted to stroke unit patient is still in the emergency room at the time of her neurological assessment and evaluation. When I interviewed the patient in the emergency room patient was not complaining of any acute change no headaches no difficulty with balance no speech alteration patient was able to eat lunch. Patient had an MRI of the brain which confirmed the presence of right occipital 2 strokes.. No evidence of bleed. - History Source History Provided By: Patient Limitations to Obtaining History: No Limitations - Past Medical History Cardio/Vascular: Yes: HTN, Hyperlipdemia Gastrointestinal: Yes: Diverticulosis, GI Bleed (20 yrs ago), Hemorrhoids Psych: Yes: Depression Additional Medical History: Insomnia - Past Surgical History Past Surgical History: Yes: Appendectomy, Cholecystectomy - Alcohol/Substance Use Hx Alcohol Use: No History of Substance Use: reports: None - Smoking History Smoking history: Never smoked Have you smoked in the past 12 months: No Aproximately how many cigarettes per day: 0 - Social History ADL: Independent Occupation: employed History of Recent Travel: No Home Medications - Allergies Allergies/Adverse Reactions: Allergies Allergy/AdvReac Type Severity Reaction Status Date / Time olmesartan [From Benicar] Allergy Verified 01/26/18 12:38 - Home Medications Home Medications: Ambulatory Orders Sertraline HCl [Zoloft -] 50 mg PO HS 01/05/14 Multivitamin [Poly-Vitamin] 1 each PO DAILY 12/22/15 Simvastatin 20 mg PO HS 12/22/15 Apixaban [Eliquis -] 5 mg PO BID #60 tablet 03/17/16 Potassium Chloride [K-Dur -] 40 meq PO DAILY #30 tablet.er 03/17/16 Ascorbate Calcium [Vitamin C] 1,000 mg PO DAILY 12/06/17 Furosemide [Lasix -] 80 mg PO DAILY 12/06/17 Family Disease History - Family Disease History Family Disease History: Diabetes: Mother (CHF), Heart Disease: Mother, CA: Father Review of Systems - Review of Systems Constitutional: reports: No Symptoms Eyes: reports: No Symptoms Neurological: reports: Incoordination, Other Physical Exam-Neuro Vital Signs: Vital Signs Temperature 98.3 F 01/26/18 16:54 Pulse Rate 58 L 01/26/18 16:54 Respiratory Rate 16 01/26/18 12:38 Blood Pressure 135/43 L 01/26/18 16:54 O2 Sat by Pulse Oximetry (%) 96 01/26/18 16:54 Constitutional: Yes: Well Nourished Neck: Yes: WNL Cardiovascular: Yes: WNL Labs: CBC, BMP 01/26/18 13:51 01/26/18 13:51 INR, PTT INR 1.11 (0.83-1.09) H 01/26/18 13:51 - Neuro Exam Level Of Consciousness: Yes: Oriented to Person, Oriented to Place, Oriented to Time Eyes: Yes: PERRLA Speech: WNL Dominant Hand: Right Cranial Nerves II-XII Intact: Yes Gag: Present DTR's: 1+ Left Bicep, 1+ Right Bicep, 1+ Left Brachioradialis, 1+ Right Brachioradialis Response to light touch: Normal Response to pain prick: Normal Response to temperature: Normal Motor Strength: 3/5: Left Arm, Right Arm, Left Leg, Right Leg Gait: Deferred NIH Stroke Scale - Last Known Well Date/Time & Onset Date Last Known Well: 01/26/18 Time Last Known Well: 13:00 - Initial Evaluation Level of consciousness: Alert Ask patient the month and their age: Answers both correctly Ask patient to open & close eyes; make fist and let go: Obeys both correctly Best gaze (horizontal eye movement): Normal Visual field testing: No visual field loss Facial paresis (Show teeth/raise eyebrows/close eyes tight): Normal symmetrical movement Motor Function: Left Arm: Normal Motor Function: Right Arm: Normal (extends arm 90 (or 45) degrees for 10 seconds without drift Motor Function: Left Leg: Normal (extends leg 30 degrees for 5 seconds without drift) Motor Function: Right Leg: Normal (extends leg 30 degrees for 5 seconds without drift) Limb Ataxia: No ataxia Sensory(Use pinprick test arms,legs,trunk,face/side to side): Normal Best language (Describe picture, name items, read sentences): No Aphasia Dysarthria (read several words): Normal articulation Extinction and Inattention: No abnormality - Total Score NIH Stroke Scale Score: 0 Imaging - Results Cat Scan: Image Reviewed MRI: Image Reviewed Problem List - Problems (1) 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 1. Neuro checks every 1 hour. 2. Fall precautions. 3. At the baby aspirin. 4. Continue the Ellquis 5. Obtain the old charts for review and check the echocardiogram questionable need for MEGHA. 6. Stop atorvastatin. 7. Trial of Crestor 20 mg. 8. Target cholesterol less than 160. 9. Stroke education with weight loss. 10. Physical therapy. 11. eexpected length of stay is 2 days Discharge will be to home with visiting nurse service Thank you very much for neurological evaluation and consultation Code(s): I63.9 - CEREBRAL INFARCTION, UNSPECIFIED; D57.1 - SICKLE-CELL DISEASE WITHOUT CRISIS
[2018-01-26] MEDS ORDERED: ATORVASTATIN CA 10 MG TABLET (FP) PO SCH (22:00)
[2018-01-26] MEDS ORDERED: APIXABAN 5 MG TABLET PO ONE (22:34)
[2018-01-26] MEDS ORDERED: SERTRALINE HCL 50 MG TABLET (FP) ONE (22:35)
[2018-01-26] MEDS ORDERED: ATORVASTATIN CA 10 MG TABLET (FP) ONE (22:35)
[2018-01-26] MEDS: APIXABAN 5 MG TABLET PO SCH (22:37)
[2018-01-26] MEDS: SERTRALINE HCL 50 MG TABLET (FP) PO SCH (22:37)
--- NOTE | 2018-01-27 02:19 | HP ---
CHIEF COMPLAINT: Slurred speech PCP: Dr. Damian HISTORY OF PRESENT ILLNESS: 82 year old female with a H signficant for CAD, PE (on Eliquis) DVT with IVC filter, vestibular neuronitis, right-sided CHF, and HLD presented to the ED after she experienced an episode of blurry vision and slurred speech. Head CT shows an acute infarct in the occipital lobe. Her symptoms started when she woke up this morning she felt very fatigued and felt her dexterity was off when she was making a sandwich. She then fell against a wall but caught herself. She called her son who found her to have slurred, unintelligible speech. He came and brought her to the hospital. By the time they arrived at the hospital, her vision and speech were back to baseline. She reports having intermittent HAs that last a few seconds and she feels a numbness in the back of her head for the past 2 weeks. Her vision would intermittently show objects moving or everything would appear pixelated. She reports two separate incidents in the past 2 weeks at her work where her speech became slurred for short periods of time. She was seen by a neurologist after these incidents but nothing was found on the neuro work up. Denies, dizziness, syncope, chest pain, sob, abdominal pain, n/v/d. Upon admission to the ED, VSS, labs WNL, trop negative, Head CT shows an acute infarct in the occipital lobe. She was given ASA in the ED. Neurologist Dr. Valadez was consulted and she is admitted to the stroke unit. 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[employer], lives at home Smoking: Never Alcohol: Rarely Drugs: Denies Family History: Mother: Diabetes, CHF, stomach cancer, age 72 Father: age 69 from an assault Brother: Emphysema, age 72 Brother: Lung cancer, age 75 2 sisters: Alzheimer's disease Allergies olmesartan [From Benicar] Allergy (Verified 01/26/18 12:38) HOME MEDICATIONS: Home Medications Medication Instructions Recorded Sertraline HCl [Zoloft -] 50 mg PO HS 01/05/14 Multivitamin [Poly-Vitamin] 1 each PO DAILY 12/22/15 Simvastatin 20 mg PO HS 12/22/15 Apixaban [Eliquis -] 5 mg PO BID #60 tablet 03/17/16 Potassium Chloride [K-Dur -] 40 meq PO DAILY #30 tablet.er 03/17/16 Ascorbate Calcium [Vitamin C] 1,000 mg PO DAILY 12/06/17 Furosemide [Lasix -] 80 mg PO DAILY 12/06/17 REVIEW OF SYSTEMS CONSTITUTIONAL: (+) generalized weakness, malaise Absent: fever, chills, diaphoresis, loss of appetite, weight change HEENT: (+) visual changes Absent: rhinorrhea, nasal congestion, throat pain, throat swelling, difficulty swallowing, mouth swelling, ear pain, eye pain CARDIOVASCULAR: Absent: chest pain, syncope, palpitations, irregular heart rate, lightheadedness , peripheral edema RESPIRATORY: Absent: cough, shortness of breath, dyspnea with exertion, orthopnea, wheezing, stridor, hemoptysis GASTROINTESTINAL: Absent: abdominal pain, abdominal distension, nausea, vomiting, diarrhea, constipation, melena, hematochezia GENITOURINARY: Absent: dysuria, frequency, urgency, hesitancy, hematuria, flank pain, genital pain MUSCULOSKELETAL: Absent: myalgia, arthralgia, joint swelling, back pain, neck pain SKIN: Absent: rash, itching, pallor HEMATOLOGIC/IMMUNOLOGIC: Absent: easy bleeding, easy bruising, lymphadenopathy, frequent infections ENDOCRINE: Absent: unexplained weight gain, unexplained weight loss, heat intolerance, cold intolerance NEUROLOGIC: (+) headache, focal weakness, unsteady gait Absent: paresthesias, dizziness, seizure, mental status changes, bladder or bowel incontinence PSYCHIATRIC: Absent: anxiety, depression, suicidal or homicidal ideation, hallucinations. PHYSICAL EXAMINATION Vital Signs - 24 hr 01/26/18 01/26/18 01/26/18 12:22 12:38 16:54 Temperature 98.3 F 98.0 F 98.3 F Pulse Rate 56 L Pulse Rate [ 58 L 58 L Apical] Respiratory 18 16 Rate Blood Pressure 123/55 L Blood Pressure 133/43 L 135/43 L [Left Arm] O2 Sat by Pulse 96 94 L 96 Oximetry (%) 01/26/18 01/26/18 18:29 21:39 Temperature 97.7 F Pulse Rate Pulse Rate [ 67 Apical] Respiratory Rate Blood Pressure Blood Pressure 165/69 [Left Arm] O2 Sat by Pulse 94 L 95 Oximetry (%) GENERAL: Awake, alert, and fully oriented, in no acute distress. HEAD: Normal with no signs of trauma. EYES: Pupils equal, round and reactive to light, extraocular movements intact, sclera anicteric, conjunctiva clear. No lid lag. EARS, NOSE, THROAT: Nares patent, oropharynx clear without exudates. Moist mucous membranes. NECK: Normal range of motion, supple without lymphadenopathy, JVD, or masses. LUNGS: Breath sounds equal, clear to auscultation bilaterally. No wheezes, and no crackles. No accessory muscle use. HEART: Regular rate and rhythm, normal S1 and S2 without murmur, rub or gallop. ABDOMEN: Obese, soft, nontender, not distended, normoactive bowel sounds, no guarding, no rebound, no masses. No hepatomegaly or splenomegaly. MUSCULOSKELETAL: Normal range of motion at all joints. No bony deformities or tenderness. No CVA tenderness. UPPER EXTREMITIES: 2+ pulses, warm, well-perfused. No cyanosis. No clubbing. No peripheral edema. LOWER EXTREMITIES: 2+ pulses, warm, well-perfused. No calf tenderness. No peripheral edema. NEUROLOGICAL: No focal deficit, no facial droop, normal speech PSYCHIATRIC: Cooperative. Good eye contact. Appropriate mood and affect. SKIN: Warm, dry, normal turgor, no rashes or lesions noted, normal capillary refill. Laboratory Results - last 24 hr 01/26/18 01/26/18 01/26/18 13:51 13:51 13:51 WBC 9.3 RBC 4.09 Hgb 13.2 Hct 37.7 MCV 92.1 MCH 32.2 MCHC 34.9 RDW 13.8 Plt Count 218 MPV 8.4 Absolute Neuts (auto) 6.4 Neutrophils % 69.3 Lymphocytes % 18.3 D Monocytes % 9.2 Eosinophils % 2.3 Basophils % 0.9 Nucleated RBC % 0 PT with INR 13.10 H INR 1.11 H Sodium 138 Potassium 3.7 Chloride 100 Carbon Dioxide 31 Anion Gap 7 L BUN 17 Creatinine 0.9 Creat Clearance w eGFR > 60 Random Glucose 96 Calcium 9.3 Total Bilirubin 0.5 AST 21 ALT 28 Alkaline Phosphatase 109 Creatine Kinase 120 Troponin I < 0.02 Total Protein 6.9 Albumin 3.5 Triglycerides 143 Cholesterol 161 Total LDL Cholesterol 94 HDL Cholesterol 42 Blood Type Antibody Screen 01/26/18 01/26/18 13:51 18:30 WBC RBC Hgb Hct MCV MCH MCHC RDW Plt Count MPV Absolute Neuts (auto) Neutrophils % Lymphocytes % Monocytes % Eosinophils % Basophils % Nucleated RBC % PT with INR INR Sodium Potassium Chloride Carbon Dioxide Anion Gap BUN Creatinine Creat Clearance w eGFR Random Glucose Calcium Total Bilirubin AST ALT Alkaline Phosphatase Creatine Kinase 109 Troponin I < 0.02 Total Protein Albumin Triglycerides Cholesterol Total LDL Cholesterol HDL Cholesterol Blood Type O NEGATIVE Antibody Screen Negative ASSESSMENT/PLAN: 82 year old female with a H signficant for CAD, PE (on Eliquis) DVT with IVC filter, vestibular neuronitis, right-sided CHF, and HLD presented to the ED after she experienced an episode of blurry vision and slurred speech. Head CT shows an acute infarct in the occipital lobe. She was admitted to the stroke unit and seen by neurologist Dr. Lechuga. CVA - Head CT shows an acute infarct in the occipital lobe - MRI of brain without contrast, final read pending - Admitted to stroke unit - Telemetry monitoring - PT consult - Neurologist Dr. Lechuga consulted Hx of PE - s/p catheter thrombectomy, Mar 2016 - Eliquis 5 mg PO BID Right-sided CHF - Lasix 80 mg PO DAILY - Potassium Chloride 40 meq PO DAILY HLD - Simvastatin 20 mg PO HS - LFTs WNL Depression - Zoloft 50 mg PO HS Supplement - Multivitamin 1 tab PO DAILY - Ascorbate Calcium [Vitamin C] 1,000 mg PO DAILY Prophylaxis - DVT: Heparin SQ FEN - PO intake adequate - BMP in the AM - Sodium and cholesterol restricted diet Disp: Patient requires further inpatient monitoring for her emergent condition. Visit type - Emergency Visit Emergency Visit: Yes ED Registration Date: 01/26/18 Care time: The patient presented to the Emergency Department on the above date and was hospitalized for further evaluation of their emergent condition. - New Patient This patient is new to me today: Yes Date on this admission: 01/27/18 - Critical Care Critical Care patient: No
[2018-01-27 09:03] LABS: HEMOGLOBIN 12.5 GM/dL (10.7-15.3); RBC 3.96 M/mm3 (3.60-5.2); WHITE BLOOD COUNT 6.5 K/mm3 (4.0-10.0)
[2018-01-27 09:04] LABS: BASO % 0.6 % (0-2.0); EOS % 2.5 % (0-4.5); HEMATOCRIT 36.2 % (32.4-45.2); LYMPH % 20.6 % (8-40); MCH 31.5 pg (25.7-33.7); MCHC 34.5 g/dl (32.0-36.0); MEAN CELL VOLUME 91.4 fl (80-96); MEAN PLT VOLUME 8.3 fl (7.5-11.1); MONO % 9.2 % (3.8-10.2); NEUT % 67.1 % (42.8-82.8); PLATELET COUNT 204 K/MM3 (134-434); RDW 13.9 % (11.6-15.6)
[2018-01-27 09:24] LABS: URINE APPEARANCE CLEAR; URINE BILIRUBIN NEGATIVE (<2.0 mg/dL); URINE COLOR LTYELLOW; URINE GLUCOSE (UA) NEGATIVE (NEGATIVE); URINE KETONE NEGATIVE (NEGATIVE); URINE LEUK ESTERASE 1+ (NEGATIVE); URINE NITRITE NEGATIVE (NEGATIVE); URINE PROTEIN NEGATIVE (NEGATIVE); URINE UROBILINOGEN NEGATIVE mg/dL (0.2-1.0)
[2018-01-27 09:42] LABS: ALBUMIN 3.3 g/dl (3.4-5.0); ALK PHOS 96 U/L (45-117); ANION GAP 7 MMOL/L (8-16); BILIRUBIN,TOTAL 0.6 mg/dL (0.2-1); BLOOD UREA NITROGEN 16 mg/dL (7-18); CALCIUM 8.9 mg/dL (8.5-10.1); CHLORIDE 105 mmol/L (98-107); CHOLESTEROL 166 mg/dL (50-200); CO2 28 mmol/L (21-32); CREATININE 0.9 mg/dL (0.55-1.3); GLUCOSE,RANDOM 115 mg/dL (74-106); HDL CHOLESTEROL 40 mg/dL (40-60); POTASSIUM 3.7 mmol/L (3.5-5.1); SGOT/AST 20 U/L (15-37); SGPT/ALT 21 U/L (13-61); SODIUM 140 mmol/L (136-145); TOT PROT 6.4 g/dl (6.4-8.2); TRIGLYCERIDES 155 mg/dL (0-150)
[2018-01-27] MEDS: MULTIVITAMINS (DAILY MVI) TABLET (FP) PO SCH (10:00)
[2018-01-27] MEDS: FUROSEMIDE 40 MG TABLET (FP) PO SCH (10:00)
[2018-01-27] MEDS: APIXABAN 5 MG TABLET PO SCH ×2 (10:00→21:47)
[2018-01-27] MEDS: ASCORBIC ACID 500 MG TABLET (FP) PO SCH (10:00)
[2018-01-27] MEDS: ASPIRIN COATED 81 MG TABLET.EC PO SCH (10:00)
[2018-01-27] MEDS: POTASSIUM CHLORIDE TABS 20 MEQ TABLET.ER (FP) PO SCH (10:00)
[2018-01-27 10:12] LABS: EPI CELLS RARE /HPF (FEW); URINE MUCUS RARE
[2018-01-27] MEDS ORDERED: ASPIRIN COATED 81 MG TABLET.EC ONE ×2 (10:20→10:31)
--- NOTE | 2018-01-27 11:29 | EKG ---
Test Reason : Blood Pressure : / mmHG Vent. Rate : 056 BPM Atrial Rate : 056 BPM P-R Int : 204 ms QRS Dur : 098 ms QT Int : 432 ms P-R-T Axes : 069 -30 019 degrees QTc Int : 416 ms SINUS BRADYCARDIA LEFT AXIS DEVIATION LOW VOLTAGE QRS INCOMPLETE RIGHT BUNDLE BRANCH BLOCK CANNOT RULE OUT ANTERIOR INFARCT (CITED ON OR BEFORE 06-DEC-2017) ABNORMAL ECG WHEN COMPARED WITH ECG OF 06-DEC-2017 18:44, NONSPECIFIC T WAVE ABNORMALITY NO LONGER EVIDENT IN LATERAL LEADS Confirmed by ADRIENNE ROD, JYOTI ([id number]) on 01/27/2018 11:28:31 AM Referred By: Confirmed By:JYOTI DELEON MD
--- NOTE | 2018-01-27 13:14 | CONSULT ---
Admitting History and Physical - Primary Care Physician PCP: Bernadette Zamudio - Admission History of Present Illness: Per EMR: HISTORY OF PRESENT ILLNESS: 82 year old female with a PMH signficant for CAD, PE (on Eliquis) DVT with IVC filter, vestibular neuronitis, right-sided CHF, and HLD presented to the ED after she experienced an episode of blurry vision and slurred speech. Head CT shows an acute infarct in the occipital lobe. Her symptoms started when she woke up this morning she felt very fatigued and felt her dexterity was off when she was making a sandwich. She then fell against a wall but caught herself. She called her son who found her to have slurred, unintelligible speech. He came and brought her to the hospital. By the time they arrived at the hospital, her vision and speech were back to baseline. She reports having intermittent HAs that last a few seconds and she feels a numbness in the back of her head for the past 2 weeks. Her vision would intermittently show objects moving or everything would appear pixelated. She reports two separate incidents in the past 2 weeks at her work where her speech became slurred for short periods of time. She was seen by a neurologist after these incidents but nothing was found on the neuro work up. Denies, dizziness, syncope, chest pain, sob, abdominal pain, n/v/d. Upon admission to the ED, VSS, labs WNL, trop negative, Head CT shows an acute infarct in the occipital lobe. She was given ASA in the ED. Neurologist Dr. aVladez was consulted and she is admitted to the stroke unit. Pt reports inability to speak with "gibberish" comin out. She denied dysphagia but reports a "terrible cough" x 2 days as well. Known to me from 10/31/17 Pt with new onset and on going unstable gait favoring the R side, hx of flashes of light affecting vision, resolved CT head 10/28 findings showing acute/subacute left occipital cortical infarct. History Source: Patient, Family Member Limitations to Obtaining History: No Limitations - Past Medical History Cardiovascular: Yes: HTN, Hyperlipdemia Gastrointestinal: Yes: Diverticulosis, GI Bleed (20 yrs ago), Hemorrhoids Psych: Yes: Depression - Past Surgical History Past Surgical History: Yes: Appendectomy, Cholecystectomy - Smoking History Smoking history: Never smoked Have you smoked in the past 12 months: No Aproximately how many cigarettes per day: 0 - Alcohol/Substance Use Hx Alcohol Use: No History of Substance Use: reports: None - Social History ADL: Independent Occupation: employed History of Recent Travel: No History - Admission Reason For Visit: CVA - Diagnostics X-ray: Report Reviewed CT Scan: Report Reviewed MRI: Report Reviewed (acute infarct in the right occipital lobe) - General Mental Status: Alert and Oriented, Awake and Alert, Able to Follow Commands Attention: Intact Ability to Follow Directions: Excellent Head/Neck Control: WFL - Hearing Hearing: Functional Speech Evaluation - Communication Primary Language: FRISIAN Communication: Yes: Within Normal Limits - Speech Production Able to Make Needs Known: Yes: WNL Intelligibility: Yes: WNL - Speech Characteristics Voice Loudness: Normal Voice Pitch: Yes: Normal Voice Phonatory-based Quality: Yes: Normal, Dysphonia (mild) Speech Pattern: Normal Speech Clarity: < 100% Nasal Resonance: Normal Articulation: Yes: Precise Rate of Speech: Intact - Language/Auditory Comprehension Follows: Yes: Complex Commands - Language/Verbal Expression Able to Respond to Simple Queries: Yes: WNL Able to Communicate Wants and Needs: Yes: WNL Functional Communication Status: Yes: WNL - Memory/Perception FDC Memory: Yes: WNL Short Term Memory: Yes: WNL - Swallow Evaluation/Bedside Assessment Current Nutritional Intake: Regular, Thin Liquids Oral Secretions: Yes: WFL Dentition: Yes: Adequate Facial Symmetry at Rest: Facial Droop Left (slight) Facial Symmetry on Retraction: Symmetrical Facial Movement: Controlled Sensation: Normal Against Resistance Opening: Normal Against Resistance Closing: Normal Pucker Lips: Normal Smile: Normal Lingual Movement: Normal, Symmetric Lingual Speed of Movement: Normal Lingual Movement Strgth Against Opposition: Normal Lingual Movement Characteristics: Normal Velopharyngeal Movement: Normal Laryngeal Elevation: WFL Laryngeal Movement: Able to Palpate Rate of Intake: WFL Bolus Size: WFL A-P Transit: WFL Pocketing: None Timing of Swallow: WFL Coughing/Throat Clear: No Change in Voice: No Recommendations - Speech Evaluation, Impression/Plan Impression: Slight left facial at rest, mild dysphonia, with c/o cough x 2 days. Otherwise sp/sw/cognition/language intact. - Dysphagia Impressions/Plan Dysphagia Impressions: Minimal Impairment *Silent aspiration: cannot be R/O at bedside Dysphagia Treatment Plan: Other (Monitor PO tolerance) Recommendations: Modified Barium Swallow (if cough,congestion,fever) - Recommendations Diet Consistency: Regular Medication Administration: Whole with water Liquids: Thin Liquids
[2018-01-27] MEDS ORDERED: ROSUVASTATIN CA 20 MG TABLET (FP) PO ONE (13:15)
--- NOTE | 2018-01-27 13:42 | PN ---
Progress Note, Physician Chief Complaint: Pt sitting in stretcher in no acute distress. reports feeling better today. still has mild blurred vision. Denies any chest pain, sob, n/v/d, unilateral weakness - Current Medication List Current Medications: Active Medications Apixaban (Eliquis -) 5 mg PO BID [facility] Last Admin: 01/27/18 10:00 Dose: 5 mg Ascorbic Acid (Vitamin C -) 1,000 mg PO DAILY [facility] Last Admin: 01/27/18 10:00 Dose: 1,000 mg Aspirin (Ecotrin -) 81 mg PO DAILY [facility] Last Admin: 01/27/18 10:00 Dose: 81 mg Furosemide (Lasix -) 80 mg PO DAILY [facility] Last Admin: 01/27/18 10:00 Dose: 80 mg Multivitamins/Minerals/Vitamin C (Tab-A-Vit -) 1 tab PO DAILY [facility] Last Admin: 01/27/18 10:00 Dose: 1 tab Potassium Chloride (K-Dur -) 40 meq PO DAILY [facility] Last Admin: 01/27/18 10:00 Dose: 40 meq Sertraline HCl (Zoloft -) 50 mg PO HS [facility] Last Admin: 01/26/18 22:37 Dose: 50 mg - Objective Vital Signs: Vital Signs Temperature 98.2 F 01/27/18 07:12 Pulse Rate 61 01/27/18 07:12 Respiratory Rate 16 01/26/18 12:38 Blood Pressure 136/55 L 01/27/18 07:12 O2 Sat by Pulse Oximetry (%) 92 L 01/27/18 07:12 Constitutional: Yes: Well Nourished, No Distress, Calm Eyes: Yes: Other (blurry vision) Cardiovascular: Yes: WNL, Regular Rate and Rhythm. No: Pulse Irregular Respiratory: Yes: WNL, Regular, CTA Bilaterally. No: Accessory Muscle Use, SOB , Tachypnea, Wheezes Gastrointestinal: Yes: WNL, Normal Bowel Sounds, Soft, Abdomen, Obese. No: Distention, Tenderness, Vomiting Genitourinary: Yes: WNL Musculoskeletal: Yes: WNL Edema: No Neurological: Yes: Alert, Oriented. No: Aphasia, Loss of Sensation, Seizure, Tingling, Tremors, Weakness Labs: CBC, BMP 01/27/18 08:20 01/27/18 08:20 INR, PTT INR 1.11 (0.83-1.09) H 12/20/18 13:51 Problem List - Problems (1) Cerebrovascular accident (CVA) Assessment/Plan: MRI- multiple subacute right occipital infarcts, chronic left occipital unsteady gailt, aphasia resolved, pt still w/ mild blurred vision case discussed with neurology possible MEGHA?- cardiology consulted echo ordered crestor/asa bp controlled speech/pt eval Code(s): I63.9 - CEREBRAL INFARCTION, UNSPECIFIED Qualifiers: CVA mechanism: embolism Precerebral and cerebral artery: posterior cerebral artery Laterality of affected vessel: right Qualified Code(s): 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 (2) Vertebral artery stenosis with cerebral infarction Assessment/Plan: CTA- reveals marked stenosis of b/l intracranial vertebral arteries pt presents w/ acute cva vascular consulted Code(s): I63.219 - CEREB INFRC DUE TO UNSP OCCLS OR STENOSIS OF UNSP VERTEB ART Qualifiers: Laterality of affected vessel: bilateral Qualified Code(s): I63.213 - Cerebral infarction due to unspecified occlusion or stenosis of bilateral vertebral arteries (3) CHF (congestive heart failure) Assessment/Plan: euvolemic continue lasix Code(s): I50.9 - HEART FAILURE, UNSPECIFIED (4) HTN (hypertension) Assessment/Plan: controlled continue home regimen Code(s): I10 - ESSENTIAL (PRIMARY) HYPERTENSION Qualifiers: Hypertension type: essential hypertension Qualified Code(s): I10 - Essential (primary) hypertension (5) Hypercholesteremia Assessment/Plan: LDL 96, TGL 155 LDL goal <70 crestor started per neuro low fat diet outpt monitoring Code(s): E78.00 - PURE HYPERCHOLESTEROLEMIA, UNSPECIFIED (6) History of CVA (cerebrovascular accident) Assessment/Plan: as above Code(s): Z86.73 - PRSNL HX OF TIA (TIA), AND CEREB INFRC W/O RESID DEFICITS (7) History of pulmonary embolism Assessment/Plan: S/P thrombectomy, thrombolysis and IVC filter Code(s): Z86.711 - PERSONAL HISTORY OF PULMONARY EMBOLISM (8) History of DVT (deep vein thrombosis) Assessment/Plan: chronic Code(s): Z86.718 - PERSONAL HISTORY OF OTHER VENOUS THROMBOSIS AND EMBOLISM
[2018-01-27] MEDS: SERTRALINE HCL 50 MG TABLET (FP) PO SCH (21:47)
[2018-01-27] MEDS ORDERED: ATORVASTATIN CA 80 MG TABLET (FP) PO SCH (22:00)
[2018-01-28 08:36] LABS: ALBUMIN 2.9 g/dl (3.4-5.0); ALK PHOS 105 U/L (45-117); ANION GAP 8 MMOL/L (8-16); BILIRUBIN,TOTAL 0.5 mg/dL (0.2-1); BLOOD UREA NITROGEN 18 mg/dL (7-18); CALCIUM 8.7 mg/dL (8.5-10.1); CHLORIDE 102 mmol/L (98-107); CO2 29 mmol/L (21-32); CREATININE 0.9 mg/dL (0.55-1.3); GLUCOSE,RANDOM 136 mg/dL (74-106); POTASSIUM 3.4 mmol/L (3.5-5.1); SGOT/AST 17 U/L (15-37); SGPT/ALT 19 U/L (13-61); SODIUM 139 mmol/L (136-145); TOT PROT 6.1 g/dl (6.4-8.2)
[2018-01-28] MEDS: FUROSEMIDE 40 MG TABLET (FP) PO SCH (09:11)
[2018-01-28] MEDS: APIXABAN 5 MG TABLET PO SCH (09:11)
[2018-01-28] MEDS: ASCORBIC ACID 500 MG TABLET (FP) PO SCH (09:11)
[2018-01-28] MEDS: POTASSIUM CHLORIDE TABS 20 MEQ TABLET.ER (FP) PO SCH (09:12)
[2018-01-28] MEDS: ASPIRIN COATED 81 MG TABLET.EC PO SCH (09:12)
[2018-01-28] MEDS: MULTIVITAMINS (DAILY MVI) TABLET (FP) PO SCH (09:12)
--- NOTE | 2018-01-28 10:34 | CON.CARD ---
Consult Consult Specialty:: Cardiology Referred by:: Tylor Reason for Consultation:: stroke - History of Present Illness Chief Complaint: stroke History of Present Illness: 82F h/o CAD, PE on eliquis, DVT with IVC filter, vestibular neuronitis, R side CHF, HLD p/w blurry vision, slurred speech. CT head showed acute infarct in occipital lobe. [place] fatigued and felt like she was going to fall, son felt she had unintelligible speech, by the time she got to ER vision and speech were back to baseline. Received aspirin, neuro consulted. Per patient she had a couple of episodes where she had slurred speech before, had carotid ultrasound and echo in office which she says were unremarkable. She feels well today and wants to go home. - Past Medical History Cardio/Vascular: Yes: HTN, Hyperlipdemia Gastrointestinal: Yes: Diverticulosis, GI Bleed (20 yrs ago), Hemorrhoids Psych: Yes: Depression Additional Medical History: Insomnia - Past Surgical History Past Surgical History: Yes: Appendectomy, Cholecystectomy - Alcohol/Substance Use Hx Alcohol Use: No History of Substance Use: reports: None - Smoking History Smoking history: Never smoked Have you smoked in the past 12 months: No Aproximately how many cigarettes per day: 0 - Social History ADL: Independent Occupation: employed History of Recent Travel: No Home Medications - Allergies Allergies/Adverse Reactions: Allergies Allergy/AdvReac Type Severity Reaction Status Date / Time olmesartan [From Benicar] Allergy Verified 01/26/18 12:38 - Home Medications Home Medications: Ambulatory Orders Sertraline HCl [Zoloft -] 50 mg PO HS 01/05/14 Multivitamin [Poly-Vitamin] 1 each PO DAILY 12/22/15 Simvastatin 20 mg PO HS 12/22/15 Apixaban [Eliquis -] 5 mg PO BID #60 tablet 03/17/16 Potassium Chloride [K-Dur -] 40 meq PO DAILY #30 tablet.er 03/17/16 Ascorbate Calcium [Vitamin C] 1,000 mg PO DAILY 12/06/17 Furosemide [Lasix -] 80 mg PO DAILY 12/06/17 Family Disease History - Family Disease History Family Disease History: Diabetes: Mother (CHF), Heart Disease: Mother, CA: Father Review of Systems - Review of Systems Constitutional: reports: No Symptoms Eyes: reports: No Symptoms HENT: reports: No Symptoms Neck: reports: No Symptoms Cardiovascular: reports: No Symptoms Respiratory: reports: No Symptoms Gastrointestinal: reports: No Symptoms Genitourinary: reports: No Symptoms Musculoskeletal: reports: No Symptoms Integumentary: reports: No Symptoms Neurological: reports: No Symptoms Endocrine: reports: No Symptoms Hematology/Lymphatic: reports: No Symptoms Psychiatric: reports: No Symptoms Vital Signs: Vital Signs Temperature 98 F 01/28/18 05:00 Pulse Rate 62 01/28/18 05:00 Respiratory Rate 20 01/28/18 05:00 Blood Pressure 113/56 L 01/28/18 05:00 O2 Sat by Pulse Oximetry (%) 98 01/27/18 21:00 Constitutional: Yes: No Distress, Calm Eyes: Yes: Conjunctiva Clear, EOM Intact HENT: Yes: Atraumatic, Normocephalic Neck: Yes: Supple, Trachea Midline Respiratory: Yes: Regular, CTA Bilaterally Gastrointestinal: Yes: Normal Bowel Sounds, Soft Cardiovascular: Yes: Regular Rate and Rhythm JVD: No Carotid Bruit: No PMI: Non-Displaced Heart Sounds: Yes: S1, S2 Musculoskeletal: No: Back Pain Extremities: No: Cold Edema: No Peripheral Pulses WNL: Yes Peripheral Pulses: 2+ Left Doralis Pedis, 2+ Right Dorsalis Pedis Integumentary: No: Jaundice Neurological: Yes: Alert, Oriented Psychiatric: Yes: Alert, Oriented - Other Data Labs, Other Data: CBC, BMP 01/27/18 08:20 01/28/18 05:50 INR, PTT INR 1.11 (0.83-1.09) H 01/26/18 13:51 Assessment/Plan EKG: sinus sara, IRBBB, low voltage tele: sinus, PVCs CVA - multiple subacute R occipital infarcts on MRI - per patient had normal echo in clinic within the last month, will obtain report - no events on tele - continue statin, aspirin - no further cardiac workup as inpatient, follow up as outpatient in 2-4 weeks CHF - h/o right sided CHF reported - continue lasix - appears euvolemic HLD - cont statin h/o PE, DVT - on eliquis
--- NOTE | 2018-01-28 11:43 | PN ---
Progress Note (short form) - Note Progress Note: Vascular Surgery Neck and Head CTA reviewed. All the disease seems to be intracranially. No extra-cranial carotid disease. The acute infarct is in the occipital lobe, which means it came from the posterior circulation. No need for any surgical intervention. Medical management. Angel Rudd DO
[2018-01-28] MEDS ORDERED: POTASSIUM CHLORIDE TABS 20 MEQ TABLET.ER (FP) PO ONE (16:45)
--- NOTE | 2018-01-28 17:05 | DS ---
Physical Exam: SUBJECTIVE: Patient seen and examined OBJECTIVE: Vital Signs Period Temp Pulse Resp BP Sys/Charles Pulse Ox Last 24 Hr 98 F-98.1 F 62-73 20-20 113-155/56-76 98-98 PHYSICAL EXAM GENERAL: The patient is awake, alert, and fully oriented, in no acute distress. HEAD: Normal with no signs of trauma. EYES: PERRL, extraocular movements intact, sclera anicteric, conjunctiva clear. ENT: Ears normal, nares patent, oropharynx clear without exudates, moist mucous membranes. NECK: Trachea midline, full range of motion, supple. LUNGS: Breath sounds equal, clear to auscultation bilaterally, no wheezes, no crackles, no accessory muscle use. HEART: Regular rate and rhythm, S1, S2 without murmur, rub or gallop. ABDOMEN: Soft, nontender, nondistended, normoactive bowel sounds, no guarding, no rebound, no hepatosplenomegaly, no masses. EXTREMITIES: 2+ pulses, warm, well-perfused, no edema. NEUROLOGICAL: Cranial nerves II through XII grossly intact. Normal speech, gait not observed. PSYCH: Normal mood, normal affect. SKIN: Warm, dry, normal turgor, no rashes or lesions noted. 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 You were found to have a possible stroke on CT scan of your brain. You were seen by a neurologist, Dr. Rhodes. You were started on a baby aspirin daily and Zocor (simvastatin) was changed to Crestor (rosuvastatin) to better control your cholesterol. MRI of your brain showed several subacute and chronic strokes involving the occipital lobes of the brain. CT angiogram showed blockages of the vertebral arteries bilaterally within the skull. You were seen by a vascular surgeon, Dr. Angel Rudd, who recommended medical management and no surgical intervention. You had a normal swallow evaluation. You are ambulating independently. You are being discharged home on January 28. You may resume your usual activity. You should follow a low sodium, low cholesterol/fat diet. Please schedule appointments with your primary care physician, Dr. Mccabe , next week, and with the neurologist, Dr. Rhodes, in two weeks. Please return to the ER if you develop headache, weakness, slurred speech. Referrals: Jamie Mccabe MD [Primary Care Provider] - 1 Week Delfino Rhodes MD [Staff Physician] - 2 Weeks Disposition: HOME - Home Medications Comprehensive Discharge Medication List: Ambulatory Orders Sertraline HCl [Zoloft -] 50 mg PO HS 01/05/14 Multivitamin [Poly-Vitamin] 1 each PO DAILY 12/22/15 Apixaban [Eliquis -] 5 mg PO BID #60 tablet 03/17/16 Potassium Chloride [K-Dur -] 40 meq PO DAILY #30 tablet.er 03/17/16 Ascorbate Calcium [Vitamin C] 1,000 mg PO DAILY 12/06/17 Furosemide [Lasix -] 80 mg PO DAILY 12/06/17 Aspirin Coated [Ecotrin -] 81 mg PO DAILY tablet.ec 01/28/18 Rosuvastatin Calcium [Crestor] 1 tab PO HS #30 tablet 01/28/18 This patient is new to me today: Yes Date on this admission: 01/28/18 Emergency Visit: Yes ED Registration Date: 01/26/18 Care time: The patient presented to the Emergency Department on the above date and was hospitalized for further evaluation of their emergent condition. Critical Care patient: No - Discharge Referral Referred to [facility] Med P.C.: No
[2018-01-28 18:25] VITALS: BP 140/74; PULSE 75; TEMP 98.2
== END 2018-01-28 19:02 | disposition home or self-care (01) | DRG 64 ==
LOC: JER 12:22 → JERBED 16:21 → J4W 01-27 18:28
PROVIDERS: ADMIT Internal Medicine; ATTEND Internal Medicine
DX: I63.9 Cerebral infarction, unspecified (principal); I63.213 Cerebral infarction due to unspecified occlusion or stenosis of bilateral vertebral arteries; I25.10 Atherosclerotic heart disease of native coronary artery without angina pectoris; E78.5 Hyperlipidemia, unspecified; H81.20 Vestibular neuronitis, unspecified ear; I45.10 Unspecified right bundle-branch block; H53.8 Other visual disturbances; R29.700 NIHSS score 0; R26.81 Unsteadiness on feet; M54.5 Low back pain; K57.90 Diverticulosis of intestine, part unspecified, without perforation or abscess without bleeding; R47.81 Slurred speech; M54.16 Radiculopathy, lumbar region; R47.02 Dysphasia; K64.9 Unspecified hemorrhoids; F32.9 Major depressive disorder, single episode, unspecified; G47.00 Insomnia, unspecified; M19.90 Unspecified osteoarthritis, unspecified site; D57.1 Sickle-cell disease without crisis; I11.0 Hypertensive heart disease with heart failure; E87.6 Hypokalemia; Z86.718 Personal history of other venous thrombosis and embolism; Z86.711 Personal history of pulmonary embolism
CPT/HCPCS: 36415; 70450-TC; 70496-TC; 70498-TC; 70551-TC; 71046-TC-FY; 80053; 81003; 81015; 82465; 82550; 83090; 83718; 83721; 84478; 84484; 85025; 85610; 85651; 86850; 86900; 86901; 93005; 93010; 99285-25; J7030

== ENCOUNTER 2018-03-14 19:24 | Observation (INO) | payer BC, OTHER ==
--- NOTE | 2018-03-14 19:51 | PDOC ---
Rapid Medical Evaluation Time Seen by Provider: 03/14/18 19:46 Medical Evaluation: Allergies Allergy/AdvReac Type Severity Reaction Status Date / Time olmesartan [From Benicar] Allergy Verified 01/26/18 12:38 03/14/18 19:47 Pt presents to the ED for evaluation after a fall. Son states that patient got light headed and fell backwards. Pt hit her head. She is on blood thinners. Denies LOC Exam: NAD, no gross neuro deficits Orders: Labs ,Urine, ekg, Head CT, r elbow/r knee x-rays Pt to proceed to ED for further evaluation Discharge Disposition - Diagnosis Fall - Referrals - Patient Instructions - Post Discharge Activity
[2018-03-14 20:44] LABS: HEMOGLOBIN 13.2 GM/dL (10.7-15.3); PLATELET COUNT 202 K/MM3 (134-434)
[2018-03-14 20:50] LABS: URINE APPEARANCE CLEAR; URINE BILIRUBIN NEGATIVE (<2.0 mg/dL); URINE COLOR STRAW; URINE GLUCOSE (UA) NEGATIVE (NEGATIVE); URINE KETONE NEGATIVE (NEGATIVE); URINE LEUK ESTERASE NEGATIVE (NEGATIVE); URINE NITRITE NEGATIVE (NEGATIVE); URINE PROTEIN NEGATIVE (NEGATIVE); URINE UROBILINOGEN NEGATIVE mg/dL (0.2-1.0)
[2018-03-14 20:52] LABS: BASO % 0.7 % (0-2.0); EOS % 2.3 % (0-4.5); HEMATOCRIT 37.6 % (32.4-45.2); MCH 32.7 pg (25.7-33.7); MCHC 35.2 g/dl (32.0-36.0); MEAN CELL VOLUME 92.9 fl (80-96); MEAN PLT VOLUME 8.6 fl (7.5-11.1); RBC 4.04 M/mm3 (3.60-5.2); RDW 14.8 % (11.6-15.6); WHITE BLOOD COUNT 6.6 K/mm3 (4.0-10.0)
[2018-03-14 20:57] LABS: EPI CELLS RARE /HPF (FEW)
[2018-03-14 21:00] LABS: INR 1.33 (0.83-1.09); PROTHROMBIN TIME (PATIENT) 15.7 SEC (9.7-13.0)
[2018-03-14 21:14] LABS: ALBUMIN 4.1 g/dl (3.4-5.0); ALK PHOS 108 U/L (45-117); ANION GAP 8 MMOL/L (8-16); BILIRUBIN,TOTAL 0.6 mg/dL (0.2-1); BLOOD UREA NITROGEN 19 mg/dL (7-18); CALCIUM 9.3 mg/dL (8.5-10.1); CHLORIDE 103 mmol/L (98-107); CO2 31 mmol/L (21-32); CREATININE 0.8 mg/dL (0.55-1.3); GLUCOSE,RANDOM 99 mg/dL (74-106); POTASSIUM 3.6 mmol/L (3.5-5.1); SGOT/AST 26 U/L (15-37); SGPT/ALT 32 U/L (13-61); SODIUM 142 mmol/L (136-145); TOT PROT 7.4 g/dl (6.4-8.2)
--- NOTE | 2018-03-14 21:42 | PDOC ---
Attending Attestation - HPI HPI: 03/14/18 22:07 The patient is a 82 year old female, with a significant past medical history of CAD, PE (on Eliquis BID) DVT with IVC filter, vestibular neuronitis, HLD, who presents to the emergency department s/p mechanical fall. Patient notes walking up stairs when she lost her footing subsequently falling backwards and hitting her head on a doorknob, prompting her arrival to the ED. She denies recent fevers, chills, headache or dizziness. She denies recent nausea, vomit, diarrhea or constipation. She denies recent dysuria, frequency, urgency or hematuria. She denies recent chest pain or shortness of breath. Allergies: olmesartan Past surgical history: cholecystectomy and appendectomy Primary Care Physician: Dr. Mccabe - Physicial Exam PE: 03/14/18 22:07 Agree with resident exam. <Kary Gregorio - Last Filed: 03/14/18 22:07> - Resident Resident Name: Lenny Plascencia - ED Attending Attestation I have performed the following: I have examined & evaluated the patient, The case was reviewed & discussed with the resident, I agree w/resident's findings & plan - Medical Decision Making 03/15/18 01:55 82-year-old female status post mechanical fall with a strike to the head currently on anticoagulation CT scan of the brain showed no acute abnormality Patient will be admitted to medical service for repeat CT scan in 6 hours She is currently awake alert and has had no significant change or decline in mental status while in the emergency department <Demetria Briseno - Last Filed: 03/15/18 01:56> Attestations - Attestations 03/14/18 22:07 Documentation prepared by Kary Gregorio, acting as biomedical repair technician for Demetria Briseno DO. <Kary Gregorio - Last Filed: 03/14/18 22:07>
--- NOTE | 2018-03-14 22:28 | PDOC ---
History of Present Illness - General Chief Complaint: Injury Stated Complaint: FALL Time Seen by Provider: 03/14/18 19:46 History Source: Patient Exam Limitations: No Limitations - History of Present Illness Initial Comments: 03/14/18 22:26 The patient is an 82F with a PMH of CAD, PE (on Eliquis BID last dosage yesterday) DVT with IVC filter, vestibular neuronitis, HLD who presents to the ER after having a mechanical fall. The patient states that she was going up the stairs, bumped into the side of the wall, and fell down backwards. She was up 2 stairs, took the two steps down, then fell on the ground. She denies lightheadedness, CP, SOB, palpitations, nausea, vomiting, numbness, tingling, or weakness. She denies LOC. She denies any pain in her head or neck pain. She admits to a "lump" on her head. Past History - Past Medical History Allergies/Adverse Reactions: Allergies Allergy/AdvReac Type Severity Reaction Status Date / Time olmesartan [From Benicar] Allergy Verified 01/26/18 12:38 Home Medications: Ambulatory Orders Sertraline HCl [Zoloft -] 50 mg PO HS 01/05/14 Multivitamin [Poly-Vitamin] 1 each PO DAILY 12/22/15 Apixaban [Eliquis -] 5 mg PO BID #60 tablet 03/17/16 Potassium Chloride [K-Dur -] 40 meq PO DAILY #30 tablet.er 03/17/16 Ascorbate Calcium [Vitamin C] 1,000 mg PO DAILY 12/06/17 Furosemide [Lasix -] 80 mg PO DAILY 12/06/17 Aspirin Coated [Ecotrin -] 81 mg PO DAILY tablet.ec 01/28/18 Rosuvastatin Calcium [Crestor] 1 tab PO HS #30 tablet 01/28/18 Anemia: No Asthma: No Cancer: No Cardiac Disorders: Yes (a.fib, P.E) CVA: Yes (04/07/13,10/2017) COPD: No CHF: No Dementia: No Diabetes: No GI Disorders: Yes (diverticulosis, hx of diverticulitis) Disorders: No HTN: Yes Hypercholesterolemia: No Liver Disease: No Seizures: No Thyroid Disease: No - Surgical History Abdominal Surgery: Yes (cholecystectomy) Appendectomy: Yes Cardiac Surgery: No Cholecystectomy: Yes Lung Surgery: No Neurologic Surgery: No Orthopedic Surgery: Yes - Immunization History Immunization Up to Date: Yes - Suicide/Smoking/Psychosocial Hx Smoking Status: No Smoking History: Never smoked Have you smoked in the past 12 months: No Number of Cigarettes Smoked Daily: 0 Hx Alcohol Use: No Drug/Substance Use Hx: No Substance Use Type: None Hx Substance Use Treatment: No Review of Systems - Review of Systems Able to Perform ROS?: Yes Comments:: 03/14/18 23:56 GENERAL/CONSTITUTIONAL: Positive for fall. No fever or chills. No weakness. HEAD, EYES, EARS, NOSE AND THROAT: No change in vision. No ear pain or discharge. No sore throat. CARDIOVASCULAR: No chest pain, palpitations, or lightheadedness. RESPIRATORY: No cough, wheezing, shortness of breath, or hemoptysis. GASTROINTESTINAL: No nausea, vomiting, diarrhea, constipation, or abdominal pain. GENITOURINARY: No dysuria, frequency, hematuria, or change in urination. MUSCULOSKELETAL: No joint or muscle swelling or pain. No neck or back pain. SKIN: No rash or lesions. NEUROLOGIC: No headache, numbness, tingling, focal weakness, loss of consciousness, or change in strength/sensation. Is the patient limited Beninese proficient: No *Physical Exam - Vital Signs Last Vital Signs Temp Pulse Resp BP Pulse Ox 97.8 F 64 20 130/86 95 03/14/18 19:46 03/14/18 19:46 03/14/18 19:46 03/14/18 19:46 03/14/18 19:46 - Physical Exam Comments: 03/14/18 23:56 GENERAL: Well developed, well nourished. Awake and alert. No acute distress. HEENT: 2cm hematoma on L occiput. Hearing grossly normal. Moist mucous membranes. PERRLA, EOMI. No conjunctival pallor. Sclera are non-icteric. NECK: Supple. Full ROM. No JVD. No C-spine tenderness. CARDIOVASCULAR: Regular rate and rhythm. No murmurs, rubs, or gallops. PULMONARY: No evidence of respiratory distress. Lungs clear to auscultation bilaterally. No wheezing, rales or rhonchi. ABDOMINAL: Soft. Non-tender. Non-distended. No rebound or guarding. GENITOURINARY: No CVA tenderness bilaterally. MUSCULOSKELETAL: Normal range of motion at all joints. No bony deformities or tenderness. No T or L spine tenderness. EXTREMITIES: No cyanosis. No clubbing. No edema. No calf tenderness or swelling. SKIN: Warm and dry. Normal capillary refill. No rashes. No jaundice. NEUROLOGICAL: Alert, awake, appropriate. Cranial nerves 2-12 grossly intact. Normal speech. PSYCHIATRIC: Cooperative. Good eye contact. Appropriate mood and affect. Moderate Sedation - Procedure Monitoring Vital Signs: Procedure Monitoring Vital Signs Temperature 97.8 F 03/14/18 19:46 Pulse Rate 64 03/14/18 19:46 Respiratory Rate 20 03/14/18 19:46 Blood Pressure 130/86 03/14/18 19:46 O2 Sat by Pulse Oximetry (%) 95 03/14/18 19:46 ED Treatment Course - LABORATORY CBC & Chemistry Diagram: 03/14/18 20:30 03/14/18 20:30 - ADDITIONAL ORDERS Additional order review: Laboratory Results 03/14/18 03/14/18 03/14/18 20:39 20:30 20:30 PT with INR 15.70 H INR 1.33 H Sodium 142 Potassium 3.6 Chloride 103 Carbon Dioxide 31 Anion Gap 8 BUN 19 H Creatinine 0.8 Creat Clearance w eGFR > 60 Random Glucose 99 Calcium 9.3 Total Bilirubin 0.6 AST 26 ALT 32 Alkaline Phosphatase 108 Creatine Kinase 127 Troponin I < 0.02 Total Protein 7.4 Albumin 4.1 Urine Color Straw Urine Appearance Clear Urine pH 6.0 Ur Specific [place] 1.008 L Urine Protein Negative Urine Glucose (UA) Negative Urine Ketones Negative Urine Blood 2+ H Urine Nitrite Negative Urine Bilirubin Negative Urine Urobilinogen Negative Ur Leukocyte Esterase Negative Urine WBC (Auto) 15 Urine RBC (Auto) 12 Ur Epithelial Cells Rare 03/14/18 20:30 RBC 4.04 MCV 92.9 MCHC 35.2 RDW 14.8 MPV 8.6 Neutrophils % 66.0 Lymphocytes % 23.0 Monocytes % 8.0 Eosinophils % 2.3 Basophils % 0.7 Medical Decision Making - Medical Decision Making 03/14/18 23:02 The patient is an 82F on eliquis who had a mechanical fall. Initial head CT negative. Pt will need to be admitted for repeat imaging. PE otherwise negative. Pt endorsed to Dr. Denny for admission. *DC/Admit/Observation/Transfer Diagnosis at time of Disposition: Fall Qualifiers: Encounter type: initial encounter Qualified Code(s): W19.XXXA - Unspecified fall, initial encounter - Discharge Dispostion Condition at time of disposition: Guarded Decision to Admit order: Yes - Referrals - Patient Instructions - Post Discharge Activity
--- NOTE | 2018-03-14 22:54 | PN ---
Teaching Attending Note Name of Resident: Tiffanie Denny ATTENDING PHYSICIAN STATEMENT I saw and evaluated the patient. I reviewed the resident's note and discussed the case with the resident. I agree with the resident's findings and plan as documented. SUBJECTIVE: Patient is an 82F with a PMH of CAD, unprovoked PE (on Eliquis BID last dosage yesterday) DVT with IVC filter, cholecystectomy, appendectomy, vestibular neuronitis, multiple brain infarcts on MRI and HLD who presents to the ER after a mechanical fall. The patient states that she was going up the stairs, bumped into the side of the wall, and fell down backwards. She was up 2 stairs, took the two steps down, then fell on the ground. She denies lightheadedness, chest pain, SOB, palpitations, nausea, vomiting, numbness, tingling, or weakness. She denies LOC. She denies any pain in her head or neck pain. She admits to a "lump " on her head. Has bilateral hip replacement, appendectomy and cholecystectomy. OBJECTIVE: Alert Vital Signs Period Temp Pulse Resp BP Sys/Charles Pulse Ox Last 24 Hr 97.8 F 64 20 130/86 95 HEENT: No Jaundice, eye redness or discharge, PERRLA, EOMI. Small bump on the parieta-occipital scalp area - small break in the skin - no active bleeding. External ears are normal and hearing is grossly intact. No nasal discharge. Neck: Supple, nontender. No palpable adenopathy or thyromegaly. No JVD Chest: Good effort. Clear to auscultation and percussion. Heart: Regular. No S3, rub or murmur Abdomen: Not distended, soft, nontender and no HSM. No rebound or guarding. Normoactive bowel sounds. Ext: Peripheral pulses intact. No leg edema. Skin: Warm and dry. No petechiae, rash or ecchymosis. Neuro: Alert. Oriented x3. CN 2-12 grossly intact. Sensation grossly intact in all four extremities and DTR are symmetric. Home Medications Medication Instructions Recorded Sertraline HCl [Zoloft -] 50 mg PO HS 01/05/14 Multivitamin [Poly-Vitamin] 1 each PO DAILY 12/22/15 Apixaban [Eliquis -] 5 mg PO BID #60 tablet 03/17/16 Potassium Chloride [K-Dur -] 40 meq PO DAILY #30 tablet.er 03/17/16 Ascorbate Calcium [Vitamin C] 1,000 mg PO DAILY 12/06/17 Furosemide [Lasix -] 80 mg PO DAILY 12/06/17 Aspirin Coated [Ecotrin -] 81 mg PO DAILY tablet.ec 01/28/18 Rosuvastatin Calcium [Crestor] 1 tab PO HS #30 tablet 01/28/18 Abnormal Lab Results 03/14/18 03/14/18 03/14/18 20:30 20:30 20:39 PT with INR 15.70 H INR 1.33 H BUN 19 H Ur Specific [place] 1.008 L Urine Blood 2+ H ASSESSMENT AND PLAN: 1. Mechanical Fall - No acute pathology on head CT scan. Will observe her on telemetry, do neurochecks and implement fall precautions. Use cold compress on scalp bump and repeat head CT in 12 to 24 hours in view of Eliquis therapy. No obvious fracture on xrays of the right elbow and knee. Will continue Eliquis and monitor hematocrit and size of bump on her head. 2. Obesity - Will provide patient all the necessary assistance, counseling and positive reinforcement to facilitate weight loss. Consult electronic gluing machine operator. 3. DVT prophylaxis - On Eliquis. 4. Advance directives - Full code
--- NOTE | 2018-03-14 23:53 | HP ---
CHIEF COMPLAINT: mechanical fall at home PCP: Dr. Mccabe HISTORY OF PRESENT ILLNESS: 82 y/o female with PMH of PE (on eliquis), CAD, HTN, DVT (s/p IVC filter), HLD, CVA in the past- presents to the ED after suffering a mechanical fall at home. patient states that she was taking her laundry out of the dryer when she missed the step, fell back 2 steps and hit her head, and also had some right elbow/ knee pain at the time which has since subsided- she did not lose consciousness nor did she have any symptoms such has H/A or dizziness leading up to the fall. 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 and lives and walks totally independently without the help of a cane or walker; ER course was notable for: (1) vitals/labs wnl (2)head CT negative for acute pathology (3) Recent Travel: denies PAST MEDICAL HISTORY: see above PAST SURGICAL HISTORY: cholecystectomy, appendectomy, B/L hip replacements Social History: Smoking:denies Alcohol:denies Drugs: denies Family History:mother: DM/HTN; father- from an assault Allergies olmesartan [From Getix] Allergy (Verified 01/26/18 12:38) HOME MEDICATIONS: Home Medications Medication Instructions Recorded Sertraline HCl [Zoloft -] 50 mg PO HS 01/05/14 Multivitamin [Poly-Vitamin] 1 each PO DAILY 12/22/15 Apixaban [Eliquis -] 5 mg PO BID #60 tablet 03/17/16 Potassium Chloride [K-Dur -] 40 meq PO DAILY #30 tablet.er 03/17/16 Ascorbate Calcium [Vitamin C] 1,000 mg PO DAILY 12/06/17 Furosemide [Lasix -] 80 mg PO DAILY 12/06/17 Aspirin Coated [Ecotrin -] 81 mg PO DAILY tablet.ec 01/28/18 Rosuvastatin Calcium [Crestor] 1 tab PO HS #30 tablet 01/28/18 REVIEW OF SYSTEMS CONSTITUTIONAL: Absent: fever, chills, diaphoresis, generalized weakness, malaise, loss of appetite, weight change HEENT: Absent: rhinorrhea, nasal congestion, throat pain, throat swelling, difficulty swallowing, mouth swelling, ear pain, eye pain, visual changes CARDIOVASCULAR: Absent: chest pain, syncope, palpitations, irregular heart rate, lightheadedness , peripheral edema RESPIRATORY: Absent: cough, shortness of breath, dyspnea with exertion, orthopnea, wheezing, stridor, hemoptysis GASTROINTESTINAL: Absent: abdominal pain, abdominal distension, nausea, vomiting, diarrhea, constipation, melena, hematochezia GENITOURINARY: Absent: dysuria, frequency, urgency, hesitancy, hematuria, flank pain, genital pain MUSCULOSKELETAL: Absent: myalgia, arthralgia, joint swelling, back pain, neck pain SKIN: Absent: rash, itching, pallor HEMATOLOGIC/IMMUNOLOGIC: Absent: easy bleeding, easy bruising, lymphadenopathy, frequent infections ENDOCRINE: Absent: unexplained weight gain, unexplained weight loss, heat intolerance, cold intolerance NEUROLOGIC: Present:headache Absent: focal weakness or paresthesias, dizziness, unsteady gait, seizure, mental status changes, bladder or bowel incontinence PSYCHIATRIC: Absent: anxiety, depression, suicidal or homicidal ideation, hallucinations. PHYSICAL EXAMINATION Vital Signs - 24 hr 03/14/18 19:46 Temperature 97.8 F Pulse Rate 64 Respiratory 20 Rate Blood Pressure 130/86 O2 Sat by Pulse 95 Oximetry (%) GENERAL: Awake, alert, and fully oriented, in no acute distress. HEAD:small bump on the crown of the head- no blood appreciated; slightly tender upon palpation EYES: EOMI; PEERLA; no scleral icterus NECK: no JVD, no lymphadenopathy. LUNGS:CTA B/L; no rales, rhonchi or wheezing. HEART: Regular rate and rhythm, normal S1 and S2 without murmur, rub or gallop. ABDOMEN: Soft, nontender, not distended, normoactive bowel sounds, no guarding, no rebound, no masses. No hepatomegaly or splenomegaly. MUSCULOSKELETAL: Normal range of motion at all joints. No bony deformities or tenderness. No CVA tenderness. EXTREMITIES: warm; well-perfused, no clubbbing/cyanosis or edema NEUROLOGICAL: Cranial nerves II-XII intact. Normal speech. Normal gait. PSYCHIATRIC: Cooperative. Good eye contact. Appropriate mood and affect. SKIN: Warm, dry, normal turgor, no rashes or lesions noted, normal capillary refill. Laboratory Results - last 24 hr 03/14/18 03/14/18 03/14/18 20:30 20:30 20:30 WBC 6.6 RBC 4.04 Hgb 13.2 Hct 37.6 MCV 92.9 MCH 32.7 MCHC 35.2 RDW 14.8 Plt Count 202 MPV 8.6 Absolute Neuts (auto) 4.4 Neutrophils % 66.0 Lymphocytes % 23.0 Monocytes % 8.0 Eosinophils % 2.3 Basophils % 0.7 Nucleated RBC % 0 PT with INR 15.70 H INR 1.33 H Sodium 142 Potassium 3.6 Chloride 103 Carbon Dioxide 31 Anion Gap 8 BUN 19 H Creatinine 0.8 Creat Clearance w eGFR > 60 Random Glucose 99 Calcium 9.3 Total Bilirubin 0.6 AST 26 ALT 32 Alkaline Phosphatase 108 Creatine Kinase 127 Troponin I < 0.02 Total Protein 7.4 Albumin 4.1 Urine Color Urine Appearance Urine pH Ur Specific [place] Urine Protein Urine Glucose (UA) Urine Ketones Urine Blood Urine Nitrite Urine Bilirubin Urine Urobilinogen Ur Leukocyte Esterase Urine WBC (Auto) Urine RBC (Auto) Ur Epithelial Cells 03/14/18 20:39 WBC RBC Hgb Hct MCV MCH MCHC RDW Plt Count MPV Absolute Neuts (auto) Neutrophils % Lymphocytes % Monocytes % Eosinophils % Basophils % Nucleated RBC % PT with INR INR Sodium Potassium Chloride Carbon Dioxide Anion Gap BUN Creatinine Creat Clearance w eGFR Random Glucose Calcium Total Bilirubin AST ALT Alkaline Phosphatase Creatine Kinase Troponin I Total Protein Albumin Urine Color Straw Urine Appearance Clear Urine pH 6.0 Ur Specific [place] 1.008 L Urine Protein Negative Urine Glucose (UA) Negative Urine Ketones Negative Urine Blood 2+ H Urine Nitrite Negative Urine Bilirubin Negative Urine Urobilinogen Negative Ur Leukocyte Esterase Negative Urine WBC (Auto) 15 Urine RBC (Auto) 12 Ur Epithelial Cells Rare ASSESSMENT/PLAN: 82 y/o female with PMH of PE (on eliquis), DVT, CAD, HTN, HLD, previous CVA who presents to the ED after suffering a mechanical fall at home #Mechanical fall -repeat head CT 12 hours after first one given that patient is on eliquis -f/u elbow and knee XRAY -tylenol PRN for pain -cold compress on head #PE -c/w eliquis given that patient is not having a bleed; nor showing any signs of bleed #CAD -c/w aspirin daily #HLD -c/w crestor F/E/N not on fluids monitor electolytes sodium-controlled diet DVT PPX: on eliquis Problem List - Problem (1) Fall Code(s): W19.XXXA - UNSPECIFIED FALL, INITIAL ENCOUNTER Qualifiers: Encounter type: initial encounter Qualified Code(s): W19.XXXA - Unspecified fall, initial encounter (2) HTN (hypertension) Code(s): I10 - ESSENTIAL (PRIMARY) HYPERTENSION Qualifiers: Hypertension type: essential hypertension Qualified Code(s): I10 - Essential (primary) hypertension (3) History of CVA (cerebrovascular accident) Code(s): Z86.73 - PRSNL HX OF TIA (TIA), AND CEREB INFRC W/O RESID DEFICITS (4) History of DVT (deep vein thrombosis) Code(s): Z86.718 - PERSONAL HISTORY OF OTHER VENOUS THROMBOSIS AND EMBOLISM (5) History of pulmonary embolism Code(s): Z86.711 - PERSONAL HISTORY OF PULMONARY EMBOLISM (6) Hypercholesteremia Code(s): E78.00 - PURE HYPERCHOLESTEROLEMIA, UNSPECIFIED Visit type - Emergency Visit Emergency Visit: Yes ED Registration Date: 03/14/18 Care time: The patient presented to the Emergency Department on the above date and was hospitalized for further evaluation of their emergent condition. - New Patient This patient is new to me today: Yes Date on this admission: 03/15/18 - Critical Care Critical Care patient: No
[2018-03-15 04:07] VITALS: BMI 34.7
[2018-03-15 08:14] LABS: BASO % 0.6 % (0-2.0); EOS % 2.8 % (0-4.5); HEMATOCRIT 33.1 % (32.4-45.2); HEMOGLOBIN 11.9 GM/dL (10.7-15.3); LYMPH % 30.3 % (8-40); MEAN CELL VOLUME 91.6 fl (80-96); MEAN PLT VOLUME 8.4 fl (7.5-11.1); MONO % 10.4 % (3.8-10.2); NEUT % 55.9 % (42.8-82.8); PLATELET COUNT 176 K/MM3 (134-434); RBC 3.61 M/mm3 (3.60-5.2); RDW 14.2 % (11.6-15.6); WHITE BLOOD COUNT 5.1 K/mm3 (4.0-10.0)
[2018-03-15 09:10] VITALS: BP 128/61; TEMP 98
[2018-03-15 09:36] LABS: ALBUMIN 3.4 g/dl (3.4-5.0); ALK PHOS 94 U/L (45-117); ANION GAP 8 MMOL/L (8-16); BILIRUBIN,TOTAL 0.5 mg/dL (0.2-1); BLOOD UREA NITROGEN 19 mg/dL (7-18); CALCIUM 8.6 mg/dL (8.5-10.1); CHLORIDE 104 mmol/L (98-107); CO2 30 mmol/L (21-32); CREATININE 0.7 mg/dL (0.55-1.3); GLUCOSE,RANDOM 101 mg/dL (74-106); MAGNESIUM 2.1 mg/dL (1.8-2.4); PHOSPHOROUS 4.2 mg/dL (2.5-4.9); POTASSIUM 3.2 mmol/L (3.5-5.1); SGOT/AST 20 U/L (15-37); SGPT/ALT 27 U/L (13-61); SODIUM 142 mmol/L (136-145); TOT PROT 6.3 g/dl (6.4-8.2)
[2018-03-15] MEDS ORDERED: MULTIVITAMINS (DAILY MVI) TABLET (FP) PO SCH (10:00)
[2018-03-15] MEDS ORDERED: PATIENT'S OWN MEDICATION (NON-FORMULARY) (Multivitamin [Poly-Vitamin] 1 EACH) PO SCH (10:00)
[2018-03-15] MEDS ORDERED: FUROSEMIDE 40 MG TABLET (FP) PO SCH (10:00)
[2018-03-15] MEDS ORDERED: ASPIRIN COATED 81 MG TABLET.EC PO SCH (10:00)
[2018-03-15] MEDS ORDERED: APIXABAN 5 MG TABLET PO SCH (10:00)
--- NOTE | 2018-03-15 11:39 | DS ---
Physical Exam: SUBJECTIVE: Patient seen and examined by me at bedside. Admitted s/p fall on Eliquis with small head laceration No acute events overnight Patient reports she would like to go home. 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 Still drives Denies any acute vision changes, dizziness, loss of consciousness, chest pain, palpitations, shortness of breath, nausea, vomiting, abdominal pain. OBJECTIVE: Vital Signs Period Temp Pulse Resp BP Sys/Charles Pulse Ox Last 24 Hr 97.8 F-98.1 F 64-65 18-20 128-142/61-86 95-100 PHYSICAL EXAM GENERAL: The patient is awake, alert, and fully oriented, in no acute distress. HEAD: small bump on the crown of the head with a small lesion with no blood in the occipital region. EYES: PERRL, extraocular movements intact, sclera anicteric, conjunctiva clear. ENT: (+) bruise at the left tip of the tongue. Oropharynx clear without exudates , moist mucous membranes. NECK: Trachea midline, full range of motion, supple. LUNGS: Breath sounds equal, clear to auscultation bilaterally, no wheezes, no crackles, no accessory muscle use. HEART: Regular rate and rhythm, normal S1 and S2 without murmur, rub or gallop. ABDOMEN: Soft, nontender, nondistended, normoactive bowel sounds, no guarding, no rebound, no hepatosplenomegaly, no masses. EXTREMITIES: No edema. NEUROLOGICAL: Cranial nerves II through XII grossly intact. Normal speech. Motor strength 5/5 bilaterally with sensory intact PSYCH: Normal mood, normal affect. SKIN: Warm, dry, normal turgor, no rashes or lesions noted. Laboratory Results 03/15/18 07:00 03/15/18 07:00 03/15/18 07:00 Phosphorus 4.2 Magnesium 2.1 Total Bilirubin 0.5 AST 20 ALT 27 Alkaline Phosphatase 94 Total Protein 6.3 L Albumin 3.4 Urine Color Straw 03/14/18 20:39 Urine Appearance Clear 03/14/18 20:39 Urine pH 6.0 (5.0-8.0) 03/14/18 20:39 Ur Specific [place] 1.008 (1.010-1.035) L 03/14/18 20:39 Urine Protein Negative (NEGATIVE) 03/14/18 20:39 Urine Glucose (UA) Negative (NEGATIVE) 03/14/18 20:39 Urine Ketones Negative (NEGATIVE) 03/14/18 20:39 Urine Blood 2+ (NEGATIVE) H 03/14/18 20:39 Urine Nitrite Negative (NEGATIVE) 03/14/18 20:39 Urine Bilirubin Negative (<2.0 mg/dL) 03/14/18 20:39 Ur Leukocyte Esterase Negative (NEGATIVE) 03/14/18 20:39 Ur Epithelial Cells Rare /HPF (FEW) 03/14/18 20:39 PRE-HOSPITAL COURSE: Patient is an 82 year old female with a PMHx of HTN, HLD, CAD, 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 Patient reports falling on her right side but denies any loss of consciousness or dizziness. Patient on Eliquis and was admitted for further monitoring and management. HOSPITAL COURSE: Throughout hospitalization, patient had two Head CT's which were both negative for any acute pathology or hemorrhage. Patient was monitored overnight without any acute events overnight. She was seen by PT and cleared her for discharge. She had elbow X-ray done of the left arm, which was negative. Patient medically cleared for discharge and may resume her home medications. She was advised to return to the ED if she was to experience any focal deficits. Patients son at bedside and will be taking her home. Date of Admission:03/14/18 Date of Discharge: 03/15/18 Minutes to complete discharge: 45 Discharge Summary Reason For Visit: FALL Current Active Problems Fall (Acute) Condition: Stable - Instructions Diet, Activity, Other Instructions: RECOMMENDATIONS: -You were admitted here for a fall and hit your head. Because you are on blood thinners we had to do at least two cat scans of the head to rule out any bleeding so you can safely resume your blood thinners. -Please use safety precautions when going up and down the stairs -If you have any symptoms such as severe headache, acute vision changes, loss of consciousness, dizziness, or altered mental status, please call 911 or return to the emergency department. FOLLOW UP: -Please follow up with your primary care physician within one week for re- evaluation. MEDICATIONS: -You may resume your home medications Referrals: Jamie Mccabe MD [Primary Care Provider] - Disposition: HOME - Home Medications Comprehensive Discharge Medication List: Ambulatory Orders Amlodipine Besylate [Norvasc -] 5 mg PO DAILY 03/15/18 Apixaban [Eliquis -] 5 mg PO BID 03/15/18 Furosemide [Lasix] 40 mg PO DAILY 03/15/18 Meclizine HCl 12.5 mg PO BID 03/15/18 Potassium Chloride 20 meq PO DAILY 03/15/18 Rosuvastatin [Crestor -] 20 mg PO HS 03/15/18 Sertraline HCl 50 mg PO HS 03/15/18 This patient is new to me today: Yes Date on this admission: 03/15/18 Emergency Visit: Yes ED Registration Date: 03/14/18 Care time: The patient presented to the Emergency Department on the above date and was hospitalized for further evaluation of their emergent condition. Critical Care patient: No - Discharge Referral Referred to [facility] Med P.C.: No
--- NOTE | 2018-03-15 11:40 | EKG ---
Test Reason : Blood Pressure : / mmHG Vent. Rate : 069 BPM Atrial Rate : 069 BPM P-R Int : 202 ms QRS Dur : 104 ms QT Int : 418 ms P-R-T Axes : 047 -35 036 degrees QTc Int : 447 ms NORMAL SINUS RHYTHM LEFT AXIS DEVIATION INCOMPLETE RIGHT BUNDLE BRANCH BLOCK ABNORMAL ECG WHEN COMPARED WITH ECG OF 26-JAN-2018 13:13, NO SIGNIFICANT CHANGE WAS FOUND Confirmed by ADRIENNE ROD, JYOTI ([id number]) on 03/15/2018 11:39:53 AM Referred By: Confirmed By:JYOTI DELEON MD
[2018-03-15 12:26] VITALS: PULSE 61
--- NOTE | 2018-03-15 16:53 | PN ---
Teaching Attending Note Name of Resident: Blanche Travis ATTENDING PHYSICIAN STATEMENT I saw and evaluated the patient. I reviewed the resident's note and discussed the case with the resident. I agree with the resident's findings and plan as documented. SUBJECTIVE: Ms Asencio is without complaint. No cp, sob, n/v. OBJECTIVE: Last Vital Signs Temp Pulse Resp BP Pulse Ox 36.6 C 61 20 128/61 95 03/15/18 11:00 03/15/18 11:00 03/15/18 11:00 03/15/18 11:00 03/15/18 09:00 Gen: nad Pulm: ctab w/o w/r/r CV: rrr w/o m/r/g Abd: +bs, s/nt/nd Ext: no c/c/e CBC, BMP 03/15/18 07:00 03/15/18 07:00 Ms Asencio is a very pleasant 82 year old female who came in a mechanical fall. She had head CT x2 which were negative. She was able to ambulate without difficulty. She is safe for discharge home.
[2018-03-15] MEDS ORDERED: ROSUVASTATIN CA 20 MG TABLET (FP) PO SCH (22:00)
[2018-03-15] MEDS ORDERED: SERTRALINE HCL 50 MG TABLET (FP) PO SCH (22:00)
== END 2018-03-15 14:43 | disposition home or self-care (01) ==
LOC: JER 19:24 → JERBED 23:02 → J6S 03-15 03:44
PROVIDERS: ADMIT Internal Medicine; ATTEND Internal Medicine
DX: Z04.3 Encounter for examination and observation following other accident (principal); I11.0 Hypertensive heart disease with heart failure; I50.9 Heart failure, unspecified; I25.10 Atherosclerotic heart disease of native coronary artery without angina pectoris; E78.5 Hyperlipidemia, unspecified; I48.91 Unspecified atrial fibrillation; E66.9 Obesity, unspecified; Z68.24 Body mass index [BMI] 24.0-24.9, adult; Z86.73 Personal history of transient ischemic attack (TIA), and cerebral infarction without residual deficits; Z95.828 Presence of other vascular implants and grafts; Z86.711 Personal history of pulmonary embolism; Z86.718 Personal history of other venous thrombosis and embolism; Z79.01 Long term (current) use of anticoagulants; Z79.82 Long term (current) use of aspirin; W10.8XXA Fall (on) (from) other stairs and steps, initial encounter; Y93.E2 Activity, laundry; Y92.008 Other place in unspecified non-institutional (private) residence as the place of occurrence of the external cause
CPT/HCPCS: 36415; 70450-TC; 72125-TC; 73070-TC-LT-FY; 80053; 81003; 81015; 82550; 83735; 84100; 84484; 85025; 85610; 87086; 93005; 93010; 97116-GP; 97161-GP; 99285-25; G0378

== ENCOUNTER 2019-01-11 09:39 | Day surgery (SDC) | payer BC, OTHER ==
[2019-01-10 16:29] VITALS: BMI 36.9
[2019-01-11] MEDS ORDERED: DEXAMETHASONE SOD PHOSPHATE 4 MG/1 ML VIAL ONE (12:16)
[2019-01-11] MEDS ORDERED: PROPOFOL 20 ML ONE (12:17)
[2019-01-11] MEDS ORDERED: MIDAZOLAM HCL 2 MG/2 ML SINGLE DOSE VIAL ONE (13:27)
[2019-01-11] MEDS ORDERED: FUROSEMIDE 40 MG/4 ML INJECTABLE VIAL ONE (13:54)
[2019-01-11] MEDS ORDERED: IOHEXOL 300 MG/ML INFUS..BTL IJ ONE (13:55)
[2019-01-11] MEDS ORDERED: DEXTROSE 5%-0.45% SALINE 1,000 ML IV SCH (14:15)
[2019-01-11] MEDS ORDERED: oxyCODONE HCL 5 MG TABLET PO PRN ×2 (14:15→14:31)
--- NOTE | 2019-01-11 14:17 | OP ---
Operative Note - Note: Operative Date: 01/11/19 Pre-Operative Diagnosis: LK stone Operation: ureteroscopy/laser/stent Post-Operative Diagnosis: Same as Pre-op Estimated Blood Loss (mls): 2 Drains & Tubes with Location: 8fr 24cm stent Operative Report Dictated: Yes
[2019-01-11] MEDS ORDERED: ONDANSETRON 4 MG/2 ML VIAL IVPUSH PRN (14:31)
--- NOTE | 2019-01-11 14:37 | OP ---
DATE OF OPERATION: 01/11/2019 PREOPERATIVE DIAGNOSIS: Large left ureteropelvic junction stone. POSTOPERATIVE DIAGNOSIS: Large left ureteropelvic junction stone. PROCEDURE: Cystoscopy, ureteroscopy, laser lithotripsy, stent placement. SURGEON: Sharonda Bhardwaj MD INDICATION: Patient is an 83-year-old female noted to have large 1.5-cm stone obstructing the left kidney at the left UPJ after workup of hematuria. After reviewing treatment options, elected to undergo ureteroscopy, laser lithotripsy. Risks, benefits, and alternatives discussed. DESCRIPTION OF PROCEDURE: After informed consent was obtained, patient taken to the OR, placed supine on the table with cardiac monitors administered. General anesthesia was established. She was prepped and draped in supine position. She was given 500 mg of Levaquin. Rigid cystoscope was introduced without difficulty, and attention was turned to left ureteral orifice. It was intubated with ureteral catheter, contrast injected for retrograde pyelogram where a large stone was seen at the UPJ. Guidewire advanced beyond the stone. Over guidewire, dual-lumen catheter was advanced, and over a second wire a flexible ureteroscope was advanced to the level of the stone. Using 365-micron laser fiber, the stone was pulverized to fine dust and 1- to 2-mm fragments until entire stone burden was fragmented. No other stone burden was noted. Ureteroscope was then removed, and an 8-[place] 24-cm double pigtail stent was then advanced in monorail fashion. Fluoroscopy confirmed this to be in good position. Patient awoken from anesthesia and transferred to recovery room in stable condition. There were no complications. Estimated blood loss was minimal. SHARONDA BHARDWAJ M.D. [id number]
[2019-01-11] MEDS ORDERED: LACTATED RINGERS SOLUTION 1,000 ML IV SCH (14:45)
[2019-01-11] MEDS ORDERED: ONDANSETRON 4 MG/2 ML VIAL ONE ×2 (15:24→16:41)
[2019-01-11] MEDS ORDERED: ONDANSETRON 4 MG/2 ML VIAL IVPUSH ONE (16:38)
[2019-01-11 16:55] VITALS: BP 141/60; PULSE 60; TEMP 97.6
== END 2019-01-11 18:25 | disposition home or self-care (01) ==
LOC: JASU-SURG 09:39
PROVIDERS: ATTEND Urology
PROC: 0TF48ZZ Fragmentation in Left Kidney Pelvis, Via Natural or Artificial Opening Endoscopic (ICD-10-PCS; principal; 2019-01-11 12:00)
PROC: 0T778DZ Dilation of Left Ureter with Intraluminal Device, Via Natural or Artificial Opening Endoscopic (ICD-10-PCS; 2019-01-11 12:00)
DX: N20.0 Calculus of kidney (principal)
CPT/HCPCS: 76000-TC-FY; 94760

== ENCOUNTER 2019-03-31 23:24 | Inpatient (IN) | payer BC, OTHER ==
[2019-03-31] MEDS ORDERED: ACETAMINOPHEN 1000 MG/100 ML VIAL (NON FORMULARY) IVPB ONE (23:46)
[2019-04-01] MEDS ORDERED: PIPERACILLIN/TAZOB 3.375 GM 3.375 GM in DEXTROSE 5%-WATER - 50 ML IVPB ONE (00:02)
[2019-04-01] MEDS ORDERED: DEXAMETHASONE SOD PHOSPHATE 10 MG/1 ML VIAL IVPUSH ONE (00:03)
[2019-04-01] MEDS ORDERED: DEXAMETHASONE SOD PHOSPHATE 10 MG/1 ML VIAL ONE ×2 (00:29→08:58)
[2019-04-01 00:40] LABS: BASO % 0.3 % (0-2.0); EOS % 0.6 % (0-4.5); HEMATOCRIT 40.5 % (35.4-49); LYMPH % 21.5 % (8-40); MCH 31.7 pg (25.7-33.7); MCHC 34.5 g/dl (32.0-35.9); MEAN CELL VOLUME 91.9 fl (80-96); MEAN PLT VOLUME 8.9 fl (7.5-11.1); MONO % 7.8 % (3.8-10.2); NEUT % 69.8 % (42.8-82.8); PLATELET COUNT 217 K/MM3 (134-434); RBC 4.41 M/mm3 (4.00-5.60); RDW 13.6 % (11.9-15.9); WHITE BLOOD COUNT 9.9 K/mm3 (4.0-10.0)
[2019-04-01 01:04] LABS: INR 1.18 (0.83-1.09); PROTHROMBIN TIME (PATIENT) 13.9 SEC (9.7-13.0)
[2019-04-01 01:30] LABS: N-TERMINAL BNP 313.9 pg/ml (5-450)
[2019-04-01 01:32] LABS: BILIRUBIN,TOTAL 0.8 mg/dL (0.2-1); BLOOD UREA NITROGEN 16.4 mg/dL (7-18); CALCIUM 9.2 mg/dL (8.5-10.1); CREATININE 0.9 mg/dL (0.55-1.3); POTASSIUM 3.5 mmol/L (3.5-5.1); TOT PROT 7.6 g/dl (6.4-8.2)
[2019-04-01] MEDS ORDERED: PIPERACILLIN/TAZOB 3.375 GM 3.375 GM/50 ML BAG IVPB ONE (01:33)
--- NOTE | 2019-04-01 01:39 | PDOC ---
Attending Attestation - Resident Resident Name: DeeptiJuan Daniel - ED Attending Attestation I have performed the following: I have examined & evaluated the patient, The case was reviewed & discussed with the resident, I agree w/resident's findings & plan - HPI HPI: 04/01/19 01:38 Pt comes with fever and neck swelling and feeling unwell. - Physicial Exam PE: 04/01/19 01:38 Left submental swelling fever no thriat redness mild tongue swelling at the left side No wheezing; lungs CTAb Heart RRR abd soft NT ND +BS no C/C/E - Medical Decision Making 04/01/19 01:41 labs normal CXR coarse breath sounds bilaterally Neck CT scan result is pending. Pt will be admitted for observation and further workup. 04/01/19 01:54 Strep negative flu pending 04/01/19 02:10 Patient Name: LORENA FOWLER THIS IS A PRELIMINARY REPORT FROM [employer] [employer] EXAM: Chest x-ray IMAGES: 1 DATE OF EXAM: 2019-04-01 00:33:19 REASON FOR EXAM: Fever, throat fullness, and shortness of breath COMPARISON: None. FINDINGS: No acute cardiopulmonary disease. No focal pneumonia. 04/01/19 03:43 Patient Name: LORENA FOWLER THIS IS A PRELIMINARY REPORT FROM [facility] [employer] EXAM: CT neck with contrast IMAGES: 957 EXAM DATE AND TIME: 2019-04-01 00:56:35 HISTORY: 84 year old man: Soft tissue infection. COMPARISON: None. TECHNIQUE: CT scan of the neck: Axial images were obtained through the oral cavity, supra and infrahyoid neck to the thoracic inlet, during the i.v. administration of non- ionic iodinated contrast. Coronal and sagittal reformatted images were also generated. FINDINGS: There is infiltration in the left subcutaneous soft tissues, consistent with cellulitis, superficial to the left mandibular ramus and body, extending posteriorly to the left submandibular gland, which exhibits increased contrast uptake relative to the normal right submandibular gland, consistent with inflammation and hyperemia. Inflammatory infiltration is also suggested at the left sublingual space, and also seen extending inferiorly in the left parapharyngeal and paralaryngeal spaces, extending down to the vallecula, left false vocal cord to the top of the left cricoid cartilage. There are no drainable fluid collections. The left parotid gland appears normal. There is no evidence of adenopathy. Vascular structures appear grossly normal. The pharyngeal, laryngeal and tracheal airways are all widely patent. There is no evidence of parapharyngeal space displacement. The soft palate, posterior pharyngeal wall, and uvula all appear normal. The cervical spine appears unremarkable. The thoracic inlet and lung apices are unremarkable. IMPRESSION: Infiltration in the left subcutaneous soft tissues, consistent with cellulitis, superficial to the left mandibular ramus and body, extending posteriorly to the left submandibular gland, which exhibits increased contrast uptake relative to the normal right submandibular gland, consistent with inflammation and hyperemia. Inflammatory infiltration is also suggested anteriorly extending into the left sublingual space, and extending inferiorly in the left parapharyngeal and paralaryngeal spaces, extending down to the vallecula, left false vocal cord to the top of the left cricoid cartilage. No drainable fluid collections. Pt will be given an IV dose of clindamycin in addition to the zosyn that was initially ordered.
--- NOTE | 2019-04-01 02:40 | PDOC ---
History of Present Illness - General Chief Complaint: Edema Stated Complaint: SWELLING TO NECL AND JAW Time Seen by Provider: 03/31/19 23:46 History Source: Patient - History of Present Illness Initial Comments: 04/01/19 02:49 Ms. Asencio is an 84 y/o woman w/hx HTN, HLD, prior DVT/PE, CHF p/w acute onset neck and jaw pain/swelling. She reports noticing swelling and pain on her anterior L neck starting this morning. She reports that her pain worsened, and she noticed the pain also on the inside of her mouth, which prompted her to seek evaluation. She reports chills over the last 3 days, no n/v/d, no shortness of breath or chest pain. She reports no difficulty in speaking full sentences, and reports tolerating secretions without difficulty. She denies any prior similar episodes. Past History - Past Medical History Allergies/Adverse Reactions: Allergies Allergy/AdvReac Type Severity Reaction Status Date / Time olmesartan [From Benicar] Allergy Verified 04/01/19 00:08 Home Medications: Ambulatory Orders Amlodipine Besylate [Norvasc -] 5 mg PO DAILY 04/01/19 Apixaban [Eliquis -] 5 mg PO BID 04/01/19 Aspirin [ASA -] 81 mg PO DAILY 04/01/19 Furosemide [Lasix] 80 mg PO DAILY 04/01/19 Metoprolol Tartrate [Lopressor -] 25 mg PO BID 04/01/19 Rosuvastatin [Crestor -] 20 mg PO HS 04/01/19 - Psycho Social/Smoking Cessation Hx Smoking History: Never smoked Have you smoked in the past 12 months: No Information on smoking cessation initiated: No Hx Alcohol Use: No Drug/Substance Use Hx: No Review of Systems - Review of Systems Able to Perform ROS?: Yes Comments:: 04/01/19 03:31 ROS: GENERAL/CONSTITUTIONAL: Fever, chills. No weakness. HEAD, EYES, EARS, NOSE AND THROAT: L neck swelling, pain. No change in vision. No ear pain or discharge. CARDIOVASCULAR: No chest pain or shortness of breath RESPIRATORY: No cough, wheezing, or hemoptysis. GASTROINTESTINAL: No nausea, vomiting, diarrhea or constipation. GENITOURINARY: No dysuria, frequency, or change in urination. MUSCULOSKELETAL: No joint or muscle swelling or pain. No neck or back pain. SKIN: No rash NEUROLOGIC: No headache, vertigo, loss of consciousness, or change in strength/ sensation. ENDOCRINE: No increased thirst. No abnormal weight change HEMATOLOGIC/LYMPHATIC: No anemia, easy bleeding, or history of blood clots. ALLERGIC/IMMUNOLOGIC: No hives or skin allergy. *Physical Exam - Vital Signs Last Vital Signs Temp Pulse Resp BP Pulse Ox 100.8 F H 103 H 18 161/76 97 03/31/19 23:33 03/31/19 23:33 03/31/19 23:33 03/31/19 23:33 03/31/19 23:33 - Physical Exam 04/01/19 03:32 PE: GENERAL: Awake, alert, and fully oriented, in no acute distress HEAD: No signs of trauma, normocephalic, atraumatic EYES: PERRLA, EOMI, sclera anicteric, conjunctiva clear ENT: Auricles normal inspection, hearing grossly normal, nares patent, oropharynx clear without exudates. Moist mucosa NECK: Tender L lateral neck mass palpated. Speaking full sentences without difficulty. Normal ROM, supple, no JVD LUNGS: No distress, speaks full sentences, clear to auscultation bilaterally HEART: Regular rate and rhythm, normal S1 and S2, no murmurs, rubs or gallops, peripheral pulses normal and equal bilaterally. ABDOMEN: Soft, nontender, normoactive bowel sounds. No guarding, no rebound. No masses EXTREMITIES : Normal inspection, Normal range of motion, no edema. No clubbing or cyanosis NEUROLOGICAL: Cranial nerves II through XII grossly intact. Normal speech, normal gait, no focal sensorimotor deficits SKIN: Warm, Dry, normal turgor, no rashes or lesions noted ED Treatment Course - LABORATORY CBC & Chemistry Diagram: 04/01/19 00:01 04/01/19 00:01 - ADDITIONAL ORDERS Additional order review: Laboratory Results 04/01/19 04/01/19 04/01/19 00:01 00:01 00:01 PT with INR 13.90 H INR 1.18 H Sodium 139 Potassium 3.5 Chloride 104 Carbon Dioxide 26 Anion Gap 9 BUN 16.4 Creatinine 0.9 Est GFR (CKD-EPI)AfAm 91.22 Est GFR (CKD-EPI)NonAf 78.71 Random Glucose 130 H Calcium 9.2 Total Bilirubin 0.8 AST 28 ALT 22 Alkaline Phosphatase 108 Creatine Kinase 190 Creatine Kinase Index 0.5 CK-MB (CK-2) 1.0 Troponin I < 0.02 B-Natriuretic Peptide 313.9 Total Protein 7.6 Albumin 4.0 04/01/19 00:01 RBC 4.41 MCV 91.9 MCHC 34.5 RDW 13.6 MPV 8.9 Neutrophils % 69.8 Lymphocytes % 21.5 Monocytes % 7.8 Eosinophils % 0.6 Basophils % 0.3 - Medications Given in the ED: ED Medications Discontinued Medications Generic Name Dose Route Start Last Admin Trade Name Freq PRN Reason Stop Dose Admin Acetaminophen 1,000 mg 03/31/19 23:46 04/01/19 00:50 Ofirmev Injection - IVPB 03/31/19 23:47 1,000 mg ONCE ONE Administration Dexamethasone Sodium Phosphate 10 mg 04/01/19 00:03 04/01/19 00:50 Decadron Injection - IVPUSH 04/01/19 00:04 10 mg ONCE ONE Administration Piperacillin Sod/Tazobactam 50 mls @ 100 mls/hr 04/01/19 00:02 04/01/19 01:41 Sod 3.375 gm/ Dextrose IVPB 04/01/19 00:31 100 mls/hr ONCE ONE Administration Protocol Medical Decision Making - Medical Decision Making 04/01/19 02:58 84F w/hx HTN, HLD, CHF, prior DVTs/PE p/w neck and jaw swelling, speaking normally and tolerating secretions without difficulty, tachycardic and febrile, likely representing abscess as source of sepsis. Ddx includes abscess, soft tissue swelling. Sohail's angina unlikely as swelling localized to L lateral neck. No airway compromise at this time. Plan: CBC CMP Cardiac profile EKG CXR PT/INR APTT Blood cultures x2 Zosyn Decadron Ofirmev Dispo: Admit --- CBC - wnl CMP - wnl Troponin - negative BNP - negative --- CT Soft tissue pending On reassessment, laying back comfortably sleeping in no acute distress, O2% 98% 04/01/19 03:54 CT read notable for cellulitis. Clindamycin 900mg ordered 04/01/19 04:42 Patient signed out/admitted to Dr. Cole. Discharge - Discharge Information Problems reviewed: Yes Clinical Impression/Diagnosis: Cellulitis and abscess of face Condition: Stable - Admission Yes - Follow up/Referral - Patient Discharge Instructions - Post Discharge Activity
[2019-04-01] MEDS ORDERED: CLINDAMYCIN 900 MG PREMIX IVPB 900 MG/50 ML BAG IVPB ONE ×2 (03:39→04:18)
--- NOTE | 2019-04-01 05:20 | PN ---
Teaching Attending Note Name of Resident: Carlos Collier ATTENDING PHYSICIAN STATEMENT I saw and evaluated the patient. I reviewed the resident's note and discussed the case with the resident. I agree with the resident's findings and plan as documented. SUBJECTIVE: 84-year-old woman with a history of hypertension, dyslipidemia, prior DVT/PE, CHF sudden onset of neck and jaw pain and swelling. She noticed swelling and pain of her anterior left neck starting 03/29 in the morning. The pain worsened since then and also had pain in the inside of her mouth. Denied any shortness of breath or chest pain. No difficulty in swallowing and can speak in full sentences. OBJECTIVE: Last Vital Signs Temp Pulse Resp BP Pulse Ox 98 F 66 16 161/76 96 04/01/19 01:38 04/01/19 01:38 04/01/19 01:38 03/31/19 23:33 04/01/19 01:38 Abnormal Lab Results 04/01/19 04/01/19 00:01 00:01 PT with INR 13.90 H INR 1.18 H Random Glucose [address] scan of the neck: IMPRESSION: Infiltration in the left subcutaneous soft tissues, consistent with cellulitis, superficial to the left mandibular ramus and body, extending posteriorly to the left submandibular gland, which exhibits increased contrast uptake relative to the normal right submandibular gland, consistent with inflammation and hyperemia. Inflammatory infiltration is also suggested anteriorly extending into the left sublingual space, and extending inferiorly in the left parapharyngeal and paralaryngeal spaces, extending down to the vallecula, left false vocal cord to the top of the left cricoid cartilage. No drainable fluid collections. ASSESSMENT AND PLAN: Left neck cellulitis Extending posterior to left submandibular gland
[2019-04-01] MEDS ORDERED: VANCOMYCIN 1,000 MG in DEXTROSE 5%-WATER - 250 ML IVPB ONE (05:30)
[2019-04-01] MEDS ORDERED: ACETAMINOPHEN 1000 MG/100 ML VIAL (NON FORMULARY) IVPB PRN (05:32)
--- NOTE | 2019-04-01 05:34 | HP ---
CHIEF COMPLAINT: neck cellulitis PCP: HISTORY OF PRESENT ILLNESS: 84-year-old woman with a history of hypertension, dyslipidemia, prior DVT/PE, CHF Presents withsudden onset of neck and jaw pain and swelling. She noticed swelling and pain of her anterior left neck 1 day ago in the morning. The pain worsened since then and also had pain in the inside of her mouth. Patient reported that initially was having difficulty with breathing due to swelling in her neck and pain with swallowing. ER course was notable for: (1) zosyn (2) clindamycin (3)dexamethasone Recent Travel:no PAST MEDICAL HISTORY:hypertension, dyslipidemia, prior DVT/PE, CHF PAST SURGICAL HISTORY:no Social History: Smoking:no Alcohol:no Drugs: no Allergies olmesartan [From [facility]] Allergy (Verified 04/01/19 00:08) HOME MEDICATIONS: Home Medications Medication Instructions Recorded Amlodipine Besylate [Norvasc -] 5 mg PO DAILY 04/01/19 Apixaban [Eliquis -] 5 mg PO BID 04/01/19 Aspirin [ASA -] 81 mg PO DAILY 04/01/19 Furosemide [Lasix] 80 mg PO DAILY 04/01/19 Metoprolol Tartrate [Lopressor -] 25 mg PO BID 04/01/19 Rosuvastatin [Crestor -] 20 mg PO HS 04/01/19 REVIEW OF SYSTEMS CONSTITUTIONAL: Absent: fever, chills, diaphoresis, generalized weakness, malaise, loss of appetite, weight change HEENT: Absent: rhinorrhea, nasal congestion,, mouth swelling, ear pain, eye pain, visual changes present- difficulty swallowing, throat pain, throat swelling CARDIOVASCULAR: Absent: chest pain, syncope, palpitations, irregular heart rate, lightheadedness , peripheral edema RESPIRATORY: Absent: cough, dyspnea with exertion, orthopnea, wheezing, stridor, hemoptysis present- shortness of breath, GASTROINTESTINAL: Absent: abdominal pain, abdominal distension, nausea, vomiting, diarrhea, constipation, melena, hematochezia GENITOURINARY: Absent: dysuria, frequency, urgency, hesitancy, hematuria, flank pain, genital pain MUSCULOSKELETAL: Absent: myalgia, arthralgia, joint swelling, back pain, neck pain SKIN: Absent: rash, itching, pallor HEMATOLOGIC/IMMUNOLOGIC: Absent: easy bleeding, easy bruising, lymphadenopathy, frequent infections ENDOCRINE: Absent: unexplained weight gain, unexplained weight loss, heat intolerance, cold intolerance NEUROLOGIC: Absent: headache, focal weakness or paresthesias, dizziness, unsteady gait, seizure, mental status changes, bladder or bowel incontinence PSYCHIATRIC: Absent: anxiety, depression, suicidal or homicidal ideation, hallucinations. PHYSICAL EXAMINATION Vital Signs - 24 hr 03/31/19 03/31/19 04/01/19 23:33 23:38 00:10 Temperature 100.8 F H Pulse Rate 103 H Pulse Rate [ 94 H Right Radial] Respiratory 18 22 H Rate Blood Pressure 161/76 O2 Sat by Pulse 97 97 92 L Oximetry (%) 04/01/19 01:38 Temperature 98 F Pulse Rate Pulse Rate [ 66 Right Radial] Respiratory 16 Rate Blood Pressure O2 Sat by Pulse 96 Oximetry (%) GENERAL: Awake, alert, and fully oriented, in no acute distress. HEAD: Normal with no signs of trauma. EYES: Pupils equal, round and reactive to light, extraocular movements intact, sclera anicteric, conjunctiva clear. No lid lag. EARS, NOSE, THROAT: Ears normal, nares patent, oropharynx clear without exudates. Moist mucous membranes. NECK: Normal range of motion, Left neck without erythema but swollen, tender to palpation LUNGS: Breath sounds equal, clear to auscultation bilaterally. No wheezes, and no crackles. No accessory muscle use. HEART: Regular rate and rhythm, normal S1 and S2 without murmur, rub or gallop. ABDOMEN: Soft, nontender, not distended, normoactive bowel sounds, no guarding, no rebound, no masses. MUSCULOSKELETAL: Normal range of motion at all joints. No bony deformities or tenderness. No CVA tenderness. UPPER EXTREMITIES: 2+ pulses, warm, well-perfused. No cyanosis. No clubbing. No peripheral edema. LOWER EXTREMITIES: 2+ pulses, warm, well-perfused. No calf tenderness. No peripheral edema. NEUROLOGICAL: Cranial nerves II-XII intact. Normal speech. Normal gait. PSYCHIATRIC: Cooperative. Good eye contact. Appropriate mood and affect. Laboratory Results - last 24 hr 04/01/19 04/01/19 04/01/19 00:01 00:01 00:01 WBC 9.9 RBC 4.41 Hgb 14.0 Hct 40.5 MCV 91.9 MCH 31.7 MCHC 34.5 RDW 13.6 Plt Count 217 MPV 8.9 Absolute Neuts (auto) 6.9 Neutrophils % 69.8 Lymphocytes % 21.5 Monocytes % 7.8 Eosinophils % 0.6 Basophils % 0.3 Nucleated RBC % 0 PT with INR INR Sodium 139 Potassium 3.5 Chloride 104 Carbon Dioxide 26 Anion Gap 9 BUN 16.4 Creatinine 0.9 Est GFR (CKD-EPI)AfAm 91.22 Est GFR (CKD-EPI)NonAf 78.71 Random Glucose 130 H Calcium 9.2 Total Bilirubin 0.8 AST 28 ALT 22 Alkaline Phosphatase 108 Creatine Kinase 190 Creatine Kinase Index 0.5 CK-MB (CK-2) 1.0 Troponin I < 0.02 B-Natriuretic Peptide 313.9 Total Protein 7.6 Albumin 4.0 Influenza A (Rapid) Influenza B (Rapid) Group A Strep Rapid 04/01/19 04/01/19 04/01/19 00:01 00:01 01:15 WBC RBC Hgb Hct MCV MCH MCHC RDW Plt Count MPV Absolute Neuts (auto) Neutrophils % Lymphocytes % Monocytes % Eosinophils % Basophils % Nucleated RBC % PT with INR 13.90 H INR 1.18 H Sodium Potassium Chloride Carbon Dioxide Anion Gap BUN Creatinine Est GFR (CKD-EPI)AfAm Est GFR (CKD-EPI)NonAf Random Glucose Calcium Total Bilirubin AST ALT Alkaline Phosphatase Creatine Kinase Creatine Kinase Index CK-MB (CK-2) Troponin I B-Natriuretic Peptide Total Protein Albumin Influenza A (Rapid) Negative Influenza B (Rapid) Negative Group A Strep Rapid Negative CT scan of the neck: IMPRESSION: Infiltration in the left subcutaneous soft tissues, consistent with cellulitis, superficial to the left mandibular ramus and body, extending posteriorly to the left submandibular gland, which exhibits increased contrast uptake relative to the normal right submandibular gland, consistent with inflammation and hyperemia. Inflammatory infiltration is also suggested anteriorly extending into the left sublingual space, and extending inferiorly in the left parapharyngeal and paralaryngeal spaces, extending down to the vallecula, left false vocal cord to the top of the left cricoid cartilage. No drainable fluid collections. Assessment and plan: Left neck cellulitis as described above and CT of neck. Inflammatory infiltrate suggested to extend to left sublingual space and extending inferiorly into left parapharyngeal and paralaryngeal spaces.No drainable abscess was seen on imaging. Difficulty with swallowing and sensation of shortness of breath justifies use of high-dose steroids in this case to decrease inflammation. [facility]2 Vancomycin Unasyn Lactate Trend CBC Dexamethasone 10 mg IV every 6 hours N.p.o. Speech and swallow eval Infectious disease consultation Consider ENT consultation #History of DVT/PE Continue with Eliquis 5 mg p.o. twice daily #Dyslipidemia Continue with home dose Crestor #Hypertension Continue with home dose amlodipine and Lopressor and furosemide Eliquis for DVT prophylaxis Visit type - Emergency Visit Emergency Visit: Yes ED Registration Date: 04/01/19 Care time: The patient presented to the Emergency Department on the above date and was hospitalized for further evaluation of their emergent condition. - New Patient This patient is new to me today: Yes Date on this admission: 04/01/19 - Critical Care Critical Care patient: No
[2019-04-01] MEDS ORDERED: VANCOMYCIN 1 GRAM (PRE-DOCKED) 1,000 MG/250 ML BAG IVPB ONE (06:26)
[2019-04-01] MEDS: SODIUM CHLORIDE 1,000 ML IV SCH ×2 (06:33→13:42)
[2019-04-01] MEDS ORDERED: PT OWN MED DRAWER 7, Y5N ONE ×2 (08:47→14:36)
--- NOTE | 2019-04-01 09:01 | PN ---
Progress Note, Physician Chief Complaint: Complaint of mild diffuse pain in submandibular gland and throat History of Present Illness: 84-year-old woman with a history of hypertension, dyslipidemia, prior DVT/PE, CHF Presents withsudden onset of neck and jaw pain and swelling with fever and chills - Current Medication List Current Medications: Active Medications Acetaminophen (Ofirmev Injection -) 1,000 mg IVPB Q6H PRN PRN Reason: PAIN LEVEL 1-5 Stop: 04/02/19 05:32 Amlodipine Besylate (Norvasc -) 5 mg PO DAILY JORGE Apixaban (Eliquis -) 5 mg PO BID JORGE Aspirin (Asa -) 81 mg PO DAILY JORGE Dexamethasone Sodium Phosphate (Decadron Injection -) 10 mg IVPUSH Q6H-IV JORGE Furosemide (Lasix -) 80 mg PO DAILY JORGE Sodium Chloride (Normal Saline -) 1,000 mls @ 75 mls/hr IV ASDIR JORGE Last Admin: 04/01/19 06:33 Dose: 75 mls/hr Ampicillin Sodium/Sulbactam (Sodium 3 gm/ Sodium Chloride) 100 mls @ 200 mls/ hr IVPB Q6H-IV JORGE Metoprolol Tartrate (Lopressor -) 25 mg PO BID JORGE Rosuvastatin Calcium (Crestor -) 20 mg PO HS JORGE - Objective Vital Signs: Vital Signs Temperature 97.8 F 04/01/19 06:58 Pulse Rate 77 04/01/19 06:58 Respiratory Rate 17 04/01/19 06:58 Blood Pressure 123/64 04/01/19 06:58 O2 Sat by Pulse Oximetry (%) 98 04/01/19 06:58 General: Elderly woman, comfortable, not in distress HEENT: Mucous membrane dry, duration mass in left side of floor of mouth sublingual area at the opening of submandibular gland, no anemia, no jaundice, PERRLA, no nystagmus Neck:palpable left submandibular gland, heart with mild tenderness no clinical sign of acute inflammation. No JVD, supple, no bruit, thyroid palpably normal, normal carotid pulsations. Chest: Nontender, clear to auscultation bilaterally/bilateral wheezing/ bilateral basal rales. CVS: S1-S2 regular/irregular no murmur/gallop/rub Abdomen: Nondistended, soft, bowel sounds present. Extremities: No edema., No cough tenderness, pulses present [employer]: AO X3 , no gross motor sensory deficit Labs: CBC, BMP 04/01/19 00:01 04/01/19 00:01 INR, PTT INR 1.18 (0.83-1.09) H 04/01/19 00:01 - ....Imaging Cat Scan: Report Reviewed (Neck and soft tissue with IV contrast: Infiltration in the left subcutaneous soft tissues, consistent with cellulitis, superficial to the left mandibular ramus and body, extending posteriorly to the left submandibular gland, which exhibits increased contrast uptake relative to the normal right submandibular gland, consistent with inflammation and hyperemia. Inflammatory infiltration is also suggested anteriorly extending into the left sublingual space, and extending inferiorly in the left parapharyngeal and paralaryngeal spaces, extending down to the vallecula, left false vocal cord to the top of the left cricoid cartilage. No drainable fluid collections.) Problem List - Problems (1) Submandibular gland infection Assessment/Plan: Considering CT finding and acute onset possibility of submandibular duct obstruction, discussed with ENT consult recommended clear liquid diet, oral hygiene, IV hydration gentle massage of submandibular gland continue IV Unasyn and vancomycin, patient is evaluated by ID. Problems reviewed: Yes Code(s): K11.20 - SIALOADENITIS, UNSPECIFIED (2) History of pulmonary embolism Assessment/Plan: Continue apixaban Problems reviewed: Yes Code(s): Z86.711 - PERSONAL HISTORY OF PULMONARY EMBOLISM (3) Hypertension Assessment/Plan: Well-controlled continue home medication Problems reviewed: Yes Code(s): I10 - ESSENTIAL (PRIMARY) HYPERTENSION (4) Hypercholesterolemia Assessment/Plan: Continue statin Problems reviewed: Yes Code(s): E78.00 - PURE HYPERCHOLESTEROLEMIA, UNSPECIFIED (5) Diastolic dysfunction Assessment/Plan: At present compensated continue close observation while on IV hydration. Code(s): I51.89 - OTHER ILL-DEFINED HEART DISEASES
[2019-04-01] MEDS ORDERED: FUROSEMIDE 40 MG TABLET (FP) ONE (09:33)
[2019-04-01] MEDS ORDERED: APIXABAN 5 MG TABLET ONE (09:33)
[2019-04-01] MEDS: AMPICILLIN NA/SULBACTAM NA 3 GM in SODIUM CHLORIDE 100 ML IVPB SCH ×4 (09:44→22:36)
[2019-04-01] MEDS: METOPROLOL TARTRATE 25 MG TABLET (FP) PO SCH ×2 (09:44→21:04)
[2019-04-01] MEDS: ASPIRIN 81 MG CHEWABLE TABLETS PO SCH (09:44)
[2019-04-01] MEDS: amLODIPine BESYLATE 5 MG TABLET (FP) PO SCH (09:44)
[2019-04-01] MEDS: APIXABAN 5 MG TABLET PO SCH ×2 (09:44→21:04)
[2019-04-01] MEDS: DEXAMETHASONE SOD PHOSPHATE 10 MG/1 ML VIAL IVPUSH SCH ×2 (09:44→16:10)
[2019-04-01] MEDS ORDERED: FUROSEMIDE 40 MG TABLET (FP) PO SCH (10:00)
--- NOTE | 2019-04-01 10:21 | PN ---
Progress Note (short form) - Note Progress Note: ID consult dictated d/w hospitalist imp/recedd 84 yo female admitted from home acute onset of left neck pain yesterday am submandibular swelling- ?blocked duct cultures vanco/unasyn IVF ENT evaluation d/w dr tracey
[2019-04-01] MEDS: INSULIN SLIDING SCALE (NOVOLOG) 1 VIAL SQ SCH (18:28)
[2019-04-01] MEDS ORDERED: VANCOMYCIN HCL 1,250 MG in DEXTROSE 5%-WATER - 250 ML IVPB SCH (18:30)
--- NOTE | 2019-04-01 19:42 | CONS ---
DATE OF CONSULTATION: 04/01/2019 This is an 84-year-old woman who presented to the ER with complaints of left- sided pain at the side of her neck. Yesterday morning, she awoke and she noted she had a discomfort below her left jaw. The discomfort persisted. She went to a wedding that day, and after she got home in the evening, she noted worsening pain and she had a little trouble swallowing. She had no trouble with her saliva. She had no fevers or chills at home. She came to the ER. She had a temperature of 100.8. She received Zosyn, clindamycin, and Decadron. She had no evidence of any pharyngitis. She reports no sick contacts. There has been no travel. She has otherwise been well. In the ER, she had a CAT scan of her neck that was notable for left submandibular gland enhancement with stranding, suggesting of inflammation, no abscess. I spoke with the radiologist, who said there was no evidence of any jugular vein thrombosis in this contrast study. She has a past history of hypertension, dyslipidemia, DVT, PE, and CHF. She most recently, in January, had a kidney stone. Past surgical history is negative. SOCIAL HISTORY: No history of cigarette, alcohol, or substance use. She lives alone but is in contact with her children. Her PCP is Dr. Mccabe. She is allergic to BENICAR. Her medications at home include amlodipine, Eliquis, aspirin, Lasix, Lopressor, and Crestor. Review of systems is as per HPI. PHYSICAL EXAMINATION: Vital Signs: Her T-max was 100.8 in the ER. Current temperature is 97.8. Pulse is 77. Blood pressure 123/64. Respiratory rate 17. She is saturating 98% on room air. HEENT: Normocephalic. Her eyes are anicteric. She is easily able to open her mouth. She has no trismus. She has no evidence of any tonsillitis and her pharynx is clear without erythema. She has dentures in her upper mouth. She is unable to wear her lower dentures due to discomfort on the left side of her lower jaw. She has discomfort on palpation of the submandibular area where you can palpate a submandibular, tender mass. Under her tongue, she has evidence of swelling of the ducts of the submandibular gland on the left Heart: Regular rate and rhythm. Lungs: Clear to auscultation. Abdomen: Soft, nontender. Extremities: Without edema. Her white count is 9.9, hemoglobin 14, platelets 217, INR is 1. BUN 16, creatinine 0.4. Hemoglobin A1c of 5.6. influenza and group A streptococcus screens were negative. Blood cultures and throat culture are pending. CAT scan finding is as previously stated. Chest x-ray reveals no infiltrate. In summary, this is an 84-year-old woman who appears to have most likely a blocked submandibular gland, as evidenced by the swollen orifice of the duct and the swelling in her neck. There are no signs or symptoms of anything to suggest pharyngitis or any abscess in her neck. There is no evidence of Lemierre's syndrome or Sohail's angina or pharyngitis. Her airway, per discussion with Radiology, appears intact. Would continue vancomycin and Unasyn. Would hydrate her. ENT evaluation pending. Case was discussed with the hospitalist. XANDER JOSHI M.D. [id number] MTDD
[2019-04-01 19:51] VITALS: BMI 37.5
[2019-04-01] MEDS: ROSUVASTATIN CA 20 MG TABLET (FP) PO SCH (21:04)
[2019-04-01] MEDS: DEXAMETHASONE SOD PHOSPHATE 4 MG/1 ML VIAL IVPUSH SCH (22:28)
[2019-04-02] MEDS: AMPICILLIN NA/SULBACTAM NA 3 GM in SODIUM CHLORIDE 100 ML IVPB SCH ×4 (03:34→22:37)
[2019-04-02] MEDS: DEXAMETHASONE SOD PHOSPHATE 4 MG/1 ML VIAL IVPUSH SCH ×4 (03:34→22:36)
[2019-04-02] MEDS: SODIUM CHLORIDE 1,000 ML IV SCH ×2 (06:13→15:10)
[2019-04-02] MEDS: INSULIN SLIDING SCALE (NOVOLOG) 1 VIAL SQ SCH ×4 (06:15→16:37)
[2019-04-02] MEDS ORDERED: VANCOMYCIN HCL 1,250 MG in DEXTROSE 5%-WATER - 250 ML IVPB SCH (08:00)
[2019-04-02 09:02] LABS: BASO % 0.1 % (0-2.0); HEMATOCRIT 35.4 % (32.4-45.2); LYMPH % 8.5 % (8-40); MCH 30.9 pg (25.7-33.7); MCHC 33.9 g/dl (32.0-36.0); MEAN CELL VOLUME 91.2 fl (80-96); MEAN PLT VOLUME 8.6 fl (7.5-11.1); MONO % 2.1 % (3.8-10.2); NEUT % 89.3 % (42.8-82.8); PLATELET COUNT 204 K/MM3 (134-434); RBC 3.89 M/mm3 (3.60-5.2); RDW 13.4 % (11.6-15.6); WHITE BLOOD COUNT 15.2 K/mm3 (4.0-10.0)
[2019-04-02] MEDS: amLODIPine BESYLATE 5 MG TABLET (FP) PO SCH (09:15)
[2019-04-02] MEDS: APIXABAN 5 MG TABLET PO SCH ×2 (09:15→22:35)
[2019-04-02] MEDS: METOPROLOL TARTRATE 25 MG TABLET (FP) PO SCH ×2 (09:15→22:35)
[2019-04-02] MEDS: FUROSEMIDE 40 MG TABLET (FP) PO SCH (09:15)
[2019-04-02] MEDS: ASPIRIN 81 MG CHEWABLE TABLETS PO SCH (09:15)
[2019-04-02 09:25] LABS: BLOOD UREA NITROGEN 19.9 mg/dL (7-18); CALCIUM 8.8 mg/dL (8.5-10.1); CREATININE 0.9 mg/dL (0.55-1.3); POTASSIUM 3.6 mmol/L (3.5-5.1)
--- NOTE | 2019-04-02 13:31 | PN ---
Progress Note (short form) - Note Progress Note: feels improved still some submandibular swellling Vital Signs Period Temp Pulse Resp BP Sys/Charles Pulse Ox Last 24 Hr 97.6 F-98.7 F 53-64 18-18 113-128/48-64 94-94 neck left submandibular swelling- less tender, smaller +swollen duct under the tongue cor-rrr lungs clear abd soft,nt ext no edema CBC, BMP 04/02/19 07:56 04/02/19 07:56 Microbiology 04/01/19 01:05 Throat Throat Culture - Final NO BETA HEMOLYTIC STREPTOCOCCI ISOLATED 04/01/19 01:15 Blood - Peripheral Venous Blood Culture - Preliminary NO GROWTH OBTAINED AFTER 24 HOURS, INCUBATION TO CONTINUE FOR 4 DAYS. 04/01/19 01:15 Blood - Peripheral Venous Blood Culture - Preliminary NO GROWTH OBTAINED AFTER 24 HOURS, INCUBATION TO CONTINUE FOR 4 DAYS. imp/reccd submandibular swelling- ?blocked duct cultures vanco/unasyn IVF ENT evaluation pending d/w dr tracey
--- NOTE | 2019-04-02 13:37 | PN ---
Physical Exam: SUBJECTIVE: Patient seen and examined, endorses L submandibular pain slightly improved, tolerating soft/liquid diet, awaiting ENT evaluation. VS otherwise stable. OBJECTIVE: Vital Signs Period Temp Pulse Resp BP Sys/Charles Pulse Ox Last 24 Hr 97.6 F-98.7 F 53-64 18-18 113-128/48-64 94-94 GENERAL: The patient is awake, alert, and fully oriented, in no acute distress. HEAD: Normal with no signs of trauma. EYES: PERRL, extraocular movements intact, sclera anicteric, conjunctiva clear. No ptosis. ENT: Ears normal, nares patent, oropharynx clear without exudates, moist mucous membranes. NECK: neck supple, L submandibular palpable mass mildly tender, small area of erythema and small clogged duct-like lesion underneath tongue, good salivary production LUNGS: Breath sounds equal, clear to auscultation bilaterally, no wheezes, no crackles, no accessory muscle use. no stridor. HEART: Regular rate and rhythm, S1, S2 without murmur, rub or gallop. ABDOMEN: Soft, nontender, obese, normoactive bowel sounds, no guarding, no rebound, no hepatosplenomegaly, no masses. EXTREMITIES: 2+ pulses, warm, well-perfused, no edema. NEUROLOGICAL: Cranial nerves II through XII grossly intact. Normal speech, gait not observed. PSYCH: Normal mood, normal affect. SKIN: Warm, dry, normal turgor, no rashes or lesions noted Laboratory Results - last 24 hr 04/01/19 04/02/19 04/02/19 16:08 05:31 07:56 WBC RBC Hgb Hct MCV MCH MCHC RDW Plt Count MPV Absolute Neuts (auto) Neutrophils % Lymphocytes % Monocytes % Eosinophils % Basophils % Nucleated RBC % Sodium 144 Potassium 3.6 Chloride 109 H Carbon Dioxide 28 Anion Gap 8 BUN 19.9 H Creatinine 0.9 Est GFR (CKD-EPI)AfAm 68.53 Est GFR (CKD-EPI)NonAf 59.13 POC Glucometer 150 169 Random Glucose 152 H Calcium 8.8 04/02/19 04/02/19 07:56 11:57 WBC 15.2 H RBC 3.89 Hgb 12.0 Hct 35.4 MCV 91.2 MCH 30.9 MCHC 33.9 RDW 13.4 Plt Count 204 MPV 8.6 Absolute Neuts (auto) 13.6 H Neutrophils % 89.3 H D Lymphocytes % 8.5 D Monocytes % 2.1 L Eosinophils % 0.0 D Basophils % 0.1 Nucleated RBC % 0 Sodium Potassium Chloride Carbon Dioxide Anion Gap BUN Creatinine Est GFR (CKD-EPI)AfAm Est GFR (CKD-EPI)NonAf POC Glucometer 175 Random Glucose Calcium Active Medications Generic Name Dose Route Start Last Admin Trade Name Freq PRN Reason Stop Dose Admin Amlodipine Besylate 5 mg 04/01/19 10:00 04/02/19 09:15 Norvasc - PO 5 mg DAILY JORGE Administration Apixaban 5 mg 04/01/19 10:00 04/02/19 09:15 Eliquis - PO 5 mg BID JORGE Administration Aspirin 81 mg 04/01/19 10:00 04/02/19 09:15 Asa - PO 81 mg DAILY JORGE Administration Dexamethasone Sodium Phosphate 10 mg 04/01/19 15:45 04/02/19 09:15 Decadron Injection - IVPUSH 10 mg Q6H-IV JORGE Administration Furosemide 40 mg 04/01/19 14:25 04/02/19 09:15 Lasix - PO 40 mg DAILY JORGE Administration Sodium Chloride 1,000 mls @ 75 mls/hr 04/01/19 05:30 04/02/19 06:13 Normal Saline - IV Not Given ASDIR JORGE Ampicillin Sodium/Sulbactam 100 mls @ 200 mls/hr 04/01/19 16:00 04/02/19 09: 17 Sodium 3 gm/ Sodium Chloride IVPB 200 mls/hr Q6H-IV JORGE Administration Vancomycin HCl 1,250 mg/ 250 mls @ 166.667 mls/hr 04/02/19 08:00 04/02/19 11: 00 Dextrose IVPB 04/08/19 09:29 166.667 mls/hr Q12H JORGE Administration Protocol Insulin Aspart 1 vial 04/01/19 18:00 04/02/19 11:59 Novolog Vial Sliding Scale - SQ Not Given TIDAC JORGE Protocol Metoprolol Tartrate 25 mg 04/01/19 10:00 04/02/19 09:15 Lopressor - PO 25 mg BID JORGE Administration Rosuvastatin Calcium 20 mg 04/01/19 22:00 04/01/19 21:04 Crestor - PO 20 mg HS JORGE Administration ASSESSMENT/PLAN: 84 F h/o HTN, DVT/PE on AC, obesity, HLD, T2DM, presents with L submandibular sialodenitis on IV Unasyn. L submandibular sialoadenitis cont. IV Unasyn, follow blood cx, lemon cough drops PRN, gentle massage, adequate oral care ENT evaluation HFpEF not in exacerbation avoid excessive IV fluids, PO hydration cont. BB/statin HTN cont. BP meds DVT/PE cont. Eliquis HLD cont. statin T2DM ISS, basal insulin as needed for f/s control counseled on diet, exercise, weight loss, glucose management Med-surg DVT ppx: Eliquis Visit type - Emergency Visit Emergency Visit: Yes ED Registration Date: 04/01/19 Care time: The patient presented to the Emergency Department on the above date and was hospitalized for further evaluation of their emergent condition. - New Patient This patient is new to me today: Yes Date on this admission: 04/02/19 - Critical Care Critical Care patient: No - Discharge Referral Referred to [facility] Med P.C.: No
[2019-04-02] MEDS ORDERED: PT OWN MED DRAWER 7, Y5N ONE (15:00)
--- NOTE | 2019-04-02 17:41 | CONSULT ---
Consult - text type - Consultation Consultation Note: ENT consult 84 yo woman with sudden onset of left neck pain and swelling x 2 days. Improving on IV steroids and abx. Associated throat discomfort, which is now much less. CT report (images not viewable) indicates submandibular cellulitis without a drainable collection, increased blood flow of the left submandibular gland, and extension of edema into the hypopharynx with a possible hypopharyngeal mass. Hx of a recent renal calculus. Not usually a large volume of fluid drinker. P/WD overweight female sitting comfortably in bed in NAD No stridor Neck mildly tender and enlarged left submandibular gland Nose patent OC/OP moderate tenderness and erythema in left floor of mouth at the Livingston's duct punctum, with a palpable stone, and expressible purulence. FOL: bilateral yellow nasal discharge and crusts. GROUNDS PERSON, HP and larynx are normal , except mild arytenoid erythema. No masses seen. Imp: acute left submandibular sialoadenitis due to sialolithiasis, probably related to relative dehydration. Rhinitis. No evident hypopharyngeal lesions. Recommend continuing abx, and can be discharged on po abx for 10 days such as Augmentin 875 mg bid, along with a Medrol dose pack, with ENT outpatient follow up for sialolithotomy (surgical stone removal) under local anesthesia, if the stone does not come out on its own. Increase po fluid consumption, gland massage, and sialogogues.
[2019-04-02] MEDS: ROSUVASTATIN CA 20 MG TABLET (FP) PO SCH (22:35)
[2019-04-03] MEDS: AMPICILLIN NA/SULBACTAM NA 3 GM in SODIUM CHLORIDE 100 ML IVPB SCH ×2 (03:12→09:17)
[2019-04-03] MEDS: DEXAMETHASONE SOD PHOSPHATE 4 MG/1 ML VIAL IVPUSH SCH ×2 (03:15→09:14)
[2019-04-03] MEDS: SODIUM CHLORIDE 1,000 ML IV SCH (06:42)
[2019-04-03] MEDS: INSULIN SLIDING SCALE (NOVOLOG) 1 VIAL SQ SCH ×2 (06:57→10:39)
--- NOTE | 2019-04-03 08:48 | PN ---
Progress Note, Physician History of Present Illness: 84-year-old woman with a history of hypertension, dyslipidemia, prior DVT/PE, CHF Presents withsudden onset of neck and jaw pain and swelling. She noticed swelling and pain of her anterior left neck 1 day ago in the morning. The pain worsened since then and also had pain in the inside of her mouth. Patient reported that initially was having difficulty with breathing due to swelling in her neck and pain with swallowing. - Current Medication List Current Medications: Active Medications Amlodipine Besylate (Norvasc -) 5 mg PO DAILY [facility] Last Admin: 04/02/19 09:15 Dose: 5 mg Apixaban (Eliquis -) 5 mg PO BID [facility] Last Admin: 04/02/19 22:35 Dose: 5 mg Aspirin (Asa -) 81 mg PO DAILY [facility] Last Admin: 04/02/19 09:15 Dose: 81 mg Dexamethasone Sodium Phosphate (Decadron Injection -) 10 mg IVPUSH Q6H-IV [facility] Last Admin: 04/03/19 03:15 Dose: 10 mg Furosemide (Lasix -) 40 mg PO DAILY [facility] Last Admin: 04/02/19 09:15 Dose: 40 mg Sodium Chloride (Normal Saline -) 1,000 mls @ 75 mls/hr IV ASDIR [facility] Last Admin: 04/03/19 06:42 Dose: Not Given Ampicillin Sodium/Sulbactam (Sodium 3 gm/ Sodium Chloride) 100 mls @ 200 mls/ hr IVPB Q6H-IV [facility] Last Admin: 04/03/19 03:12 Dose: 200 mls/hr Insulin Aspart (Novolog Vial Sliding Scale -) 1 vial SQ TIDAC [facility]; Protocol Last Admin: 04/03/19 06:57 Dose: Not Given Metoprolol Tartrate (Lopressor -) 25 mg PO BID [facility] Last Admin: 04/02/19 22:35 Dose: 25 mg Rosuvastatin Calcium (Crestor -) 20 mg PO HS [facility] Last Admin: 04/02/19 22:35 Dose: 20 mg - Objective Vital Signs: Vital Signs Temperature 98.5 F 04/03/19 06:00 Pulse Rate 55 L 04/03/19 06:00 Respiratory Rate 18 04/03/19 06:00 Blood Pressure 132/60 04/03/19 06:00 O2 Sat by Pulse Oximetry (%) 94 L 04/02/19 21:00 HENT: Yes: Other (moderate tenderness and erythema in left floor of mouth at the Charu's duct punctum, with a palpable stone, and expressible purulence.) Neck: Yes: Tenderness (Neck mildly tender and enlarged left submandibular gland Nose patent), Other (Left neck without erythema but swollen, tender to palpation ) Labs: INR, PTT INR 1.18 (0.83-1.09) H 04/01/19 00:01 - ....Imaging Cat Scan: Report Reviewed (Infiltration in the left subcutaneous soft tissues, consistent with cellulitis, superficial to the left mandibular ramus and body, extending posteriorly to the left submandibular gland, which exhibits increased contrast uptake relative to the normal right submandibular gland, consistent with inflammation and hyperemia. Inflammatory infiltration is also suggested anteriorly extending into the left sublingual space, and extending inferiorly in the left parapharyngeal and paralaryngeal spaces, extending down to the vallecula, left false vocal cord to the top of the left cricoid cartilage. No drainable fluid collections.) Problem List - Problems (1) Prophylactic measure Code(s): Z29.9 - ENCOUNTER FOR PROPHYLACTIC MEASURES, UNSPECIFIED (2) Cellulitis and abscess of face Assessment/Plan: Recommend continuing abx, and can be discharged on po abx for 10 days such as Augmentin 875 mg bid, along with a Medrol dose pack, with ENT outpatient follow up for sialolithotomy (surgical stone removal) under local anesthesia, if the stone does not come out on its own. Increase po fluid consumption, gland massage, and sialogogues. 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
[2019-04-03 09:04] LABS: BASO % 0.1 % (0-2.0); HEMATOCRIT 34.4 % (32.4-45.2); HEMOGLOBIN 11.9 GM/dL (10.7-15.3); LYMPH % 10.5 % (8-40); MCH 31.5 pg (25.7-33.7); MCHC 34.6 g/dl (32.0-36.0); MEAN CELL VOLUME 90.9 fl (80-96); MEAN PLT VOLUME 8.8 fl (7.5-11.1); MONO % 2.1 % (3.8-10.2); NEUT % 87.3 % (42.8-82.8); PLATELET COUNT 187 K/MM3 (134-434); RBC 3.78 M/mm3 (3.60-5.2); RDW 13.5 % (11.6-15.6); WHITE BLOOD COUNT 10.1 K/mm3 (4.0-10.0)
[2019-04-03] MEDS ORDERED: PT OWN MED DRAWER 7, Y5N ONE ×2 (09:08→09:17)
[2019-04-03] MEDS: amLODIPine BESYLATE 5 MG TABLET (FP) PO SCH (09:13)
[2019-04-03] MEDS: METOPROLOL TARTRATE 25 MG TABLET (FP) PO SCH (09:13)
[2019-04-03] MEDS: FUROSEMIDE 40 MG TABLET (FP) PO SCH (09:13)
[2019-04-03] MEDS: ASPIRIN 81 MG CHEWABLE TABLETS PO SCH (09:13)
[2019-04-03] MEDS: APIXABAN 5 MG TABLET PO SCH (09:13)
[2019-04-03 09:30] LABS: BILIRUBIN,TOTAL 0.4 mg/dL (0.2-1); BLOOD UREA NITROGEN 22.1 mg/dL (7-18); CALCIUM 8.5 mg/dL (8.5-10.1); CREATININE 0.9 mg/dL (0.55-1.3); POTASSIUM 3.3 mmol/L (3.5-5.1); TOT PROT 6.2 g/dl (6.4-8.2)
[2019-04-03] MEDS ORDERED: AMOX TR/POT CLAV 875MG/125MG TABLETS (FP) PO SCH (10:59)
[2019-04-03] MEDS ORDERED: POTASSIUM CHLORIDE TABS 20 MEQ TABLET.ER (FP) PO ONE (11:30)
[2019-04-03 13:01] VITALS: BP 123/77; PULSE 90; TEMP 98
--- NOTE | 2019-04-03 13:38 | DS ---
Physical Exam: SUBJECTIVE: Patient seen and examined Medically cleared for discharge to home with f/u with ENT OBJECTIVE: Vital Signs Period Temp Pulse Resp BP Sys/Charles Pulse Ox Last 24 Hr 97.6 F-98.9 F 47-90 18-18 115-133/53-77 94-96 PHYSICAL EXAM GENERAL: The patient is awake, alert, and fully oriented, in no acute distress. HEAD: Normal with no signs of trauma. EYES: PERRL, extraocular movements intact, sclera anicteric, conjunctiva clear. ENT: Ears normal, nares patent, oropharynx clear without exudates, moist mucous membranes. NECK: Trachea midline, full range of motion, supple. LUNGS: Breath sounds equal, clear to auscultation bilaterally, no wheezes, no crackles, no accessory muscle use. HEART: Regular rate and rhythm, S1, S2 without murmur, rub or gallop. ABDOMEN: Soft, nontender, nondistended, normoactive bowel sounds, no guarding, no rebound, no hepatosplenomegaly, no masses. EXTREMITIES: 2+ pulses, warm, well-perfused, no edema. NEUROLOGICAL: Cranial nerves II through XII grossly intact. Normal speech, gait not observed. PSYCH: Normal mood, normal affect. SKIN: Warm, dry, normal turgor, no rashes or lesions noted. LABS Laboratory Results - last 24 hr 04/02/19 04/02/19 04/02/19 02:10 13:39 17:17 WBC RBC Hgb Hct MCV MCH MCHC RDW Plt Count MPV Absolute Neuts (auto) Neutrophils % Lymphocytes % Monocytes % Eosinophils % Basophils % Nucleated RBC % Sodium Potassium Chloride Carbon Dioxide Anion Gap BUN Creatinine Est GFR (CKD-EPI)AfAm Est GFR (CKD-EPI)NonAf POC Glucometer 141 Random Glucose Lactic Acid 2.3 H* Calcium Total Bilirubin AST ALT Alkaline Phosphatase Total Protein Albumin Vancomycin Pre-Dose 34.4 H* 04/03/19 04/03/19 04/03/19 06:43 07:13 07:13 WBC 10.1 H RBC 3.78 Hgb 11.9 Hct 34.4 MCV 90.9 MCH 31.5 MCHC 34.6 RDW 13.5 Plt Count 187 MPV 8.8 Absolute Neuts (auto) 8.8 H Neutrophils % 87.3 H Lymphocytes % 10.5 D Monocytes % 2.1 L Eosinophils % 0.0 Basophils % 0.1 Nucleated RBC % 0 Sodium 144 Potassium 3.3 L Chloride 109 H Carbon Dioxide 27 Anion Gap 8 BUN 22.1 H Creatinine 0.9 Est GFR (CKD-EPI)AfAm 68.53 Est GFR (CKD-EPI)NonAf 59.13 POC Glucometer 161 Random Glucose 162 H Lactic Acid Calcium 8.5 Total Bilirubin 0.4 AST 20 ALT 29 Alkaline Phosphatase 76 Total Protein 6.2 L Albumin 3.0 L Vancomycin Pre-Dose 04/03/19 10:37 WBC RBC Hgb Hct MCV MCH MCHC RDW Plt Count MPV Absolute Neuts (auto) Neutrophils % Lymphocytes % Monocytes % Eosinophils % Basophils % Nucleated RBC % Sodium Potassium Chloride Carbon Dioxide Anion Gap BUN Creatinine Est GFR (CKD-EPI)AfAm Est GFR (CKD-EPI)NonAf POC Glucometer 216 Random Glucose Lactic Acid Calcium Total Bilirubin AST ALT Alkaline Phosphatase Total Protein Albumin Vancomycin Pre-Dose HOSPITAL COURSE: Date of Admission:04/01/19 Date of Discharge: 04/03/19 - ....Imaging Cat Scan: Report Reviewed (Infiltration in the left subcutaneous soft tissues, consistent with cellulitis, superficial to the left mandibular ramus and body, extending posteriorly to the left submandibular gland, which exhibits increased contrast uptake relative to the normal right submandibular gland, consistent with inflammation and hyperemia. Inflammatory infiltration is also suggested anteriorly extending into the left sublingual space, and extending inferiorly in the left parapharyngeal and paralaryngeal spaces, extending down to the vallecula, left false vocal cord to the top of the left cricoid cartilage. No drainable fluid collections.) Problem List - Problems (1) Prophylactic measure resume home diet Code(s): Z29.9 - ENCOUNTER FOR PROPHYLACTIC MEASURES, UNSPECIFIED (2) Cellulitis and abscess of face Assessment/Plan: Improved with abx and steroids Seen by ENT Recommend continuing abx, and can be discharged on po abx for 10 days such as Augmentin 875 mg bid, along with a Medrol dose pack, with ENT outpatient follow up for sialolithotomy (surgical stone removal) under local anesthesia, if the stone does not come out on its own. Increase po fluid consumption, gland massage, and sialogogues. 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 (7) HTN (hypertension) Code(s): I10 - ESSENTIAL (PRIMARY) HYPERTENSION Qualifiers: Hypertension type: essential hypertension Qualified Code(s): I10 - Essential (primary) hypertension (8) History of CVA (cerebrovascular accident) Code(s): Z86.73 - PRSNL HX OF TIA (TIA), AND CEREB INFRC W/O RESID DEFICITS (9) Sialadenitis Code(s): K11.20 - SIALOADENITIS, UNSPECIFIED (10) Submandibular gland infection Code(s): K11.20 - SIALOADENITIS, UNSPECIFIED (11) Diabetes Code(s): E11.9 - TYPE 2 DIABETES MELLITUS WITHOUT COMPLICATIONS Minutes to complete discharge: 35 Discharge Summary Problems reviewed: Yes Reason For Visit: CELLULITIS AND ABSCESS OF FACE Hospital Course: Problem List - Problems (1) Prophylactic measure resume home diet Code(s): Z29.9 - ENCOUNTER FOR PROPHYLACTIC MEASURES, UNSPECIFIED (2) Cellulitis and abscess of face Assessment/Plan: Improved with abx and steroids Seen by ENT Recommend continuing abx, and can be discharged on po abx for 10 days such as Augmentin 875 mg bid, along with a Medrol dose pack, with ENT outpatient follow up for sialolithotomy (surgical stone removal) under local anesthesia, if the stone does not come out on its own. Increase po fluid consumption, gland massage, and sialogogues. 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 (7) HTN (hypertension) Code(s): I10 - ESSENTIAL (PRIMARY) HYPERTENSION Qualifiers: Hypertension type: essential hypertension Qualified Code(s): I10 - Essential (primary) hypertension (8) History of CVA (cerebrovascular accident) Code(s): Z86.73 - PRSNL HX OF TIA (TIA), AND CEREB INFRC W/O RESID DEFICITS (9) Sialadenitis Code(s): K11.20 - SIALOADENITIS, UNSPECIFIED (10) Submandibular gland infection Code(s): K11.20 - SIALOADENITIS, UNSPECIFIED (11) Diabetes Code(s): E11.9 - TYPE 2 DIABETES MELLITUS WITHOUT COMPLICATIONS Condition: Improved - Instructions Diet, Activity, Other Instructions: DISCHARGE YOUR VISIT You came to the hospital because you developed left neck pain and swelling. You improved with steroids and antibiotics and you improved. You were noted to have a stone in the submandilar area. This may need to be removed if it does not dislodge. Call for an appoitment. Massage the area to try to dislodge the stone. Drink a lot of fluids to keep hydrated. Take the antibiotics for 10 days. Complete the course of steroids. MEDICATIONS Please continue to take your home medications as prescribed. There was no changes NEW augmentin twice a day x 10 days prednisone as directed DIET Continue your home diet. Increase your oral fluids ADDITIONAL CARE Please make an appointment to see your primary care provider, Dr Mccabe 3 week from today. Call for an appointment with Dr Sanchez ADDITIONAL INFORMATION Please call 911 or come directly to the emergency department if you experience unusual headache, vision change, shortness of breath, chest pain, numbness, tingling, loss of alertness/awareness, loss of function, unusual bleeding or any alarming symptoms. Thank you for allowing me to care for you. Mc Jenkins, KEITHP, [facility] [phone] Referrals: Jamie Mccabe MD [Primary Care Provider] - Disposition: HOME - Home Medications Comprehensive Discharge Medication List: Ambulatory Orders Amlodipine Besylate [Norvasc -] 5 mg PO DAILY 03/15/18 Apixaban [Eliquis -] 5 mg PO BID 03/15/18 Aspirin [Children's Aspirin] 81 mg PO DAILY 03/15/18 Potassium Chloride 20 meq PO DAILY 03/15/18 Rosuvastatin [Crestor -] 20 mg PO HS 03/15/18 Sertraline HCl 50 mg PO HS 03/15/18 Amlodipine Besylate [Norvasc -] 5 mg PO DAILY 04/01/19 Apixaban [Eliquis -] 5 mg PO BID 04/01/19 Aspirin [ASA -] 81 mg PO DAILY 04/01/19 Furosemide [Lasix] 80 mg PO DAILY 04/01/19 Metoprolol Tartrate [Lopressor -] 25 mg PO BID 04/01/19 Rosuvastatin [Crestor -] 20 mg PO HS 04/01/19 Amox-Tr/K Cl [Augmentin 875-125mg Tablet -] 1 tab PO BID@0800,1730 #20 tablet Insulin Sliding Scale [Novolog Vial Sliding Scale -] 1 vial SQ TIDAC units Methylprednisolone [Medrol Dose Rich] 4 mg PO ASDIR #21 tablet 04/03/19 Prescription Drug Monitoring Program (I-STOP) results: I-STOP not reviewed Problem List - Problems (1) Prophylactic measure Code(s): Z29.9 - ENCOUNTER FOR PROPHYLACTIC MEASURES, UNSPECIFIED (2) Cellulitis and abscess of face 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 (7) HTN (hypertension) Code(s): I10 - ESSENTIAL (PRIMARY) HYPERTENSION Qualifiers: Hypertension type: essential hypertension Qualified Code(s): I10 - Essential (primary) hypertension (8) History of CVA (cerebrovascular accident) Code(s): Z86.73 - PRSNL HX OF TIA (TIA), AND CEREB INFRC W/O RESID DEFICITS (9) Sialadenitis Code(s): K11.20 - SIALOADENITIS, UNSPECIFIED (10) Submandibular gland infection Code(s): K11.20 - SIALOADENITIS, UNSPECIFIED (11) Diabetes Code(s): E11.9 - TYPE 2 DIABETES MELLITUS WITHOUT COMPLICATIONS This patient is new to me today: Yes Date on this admission: 04/03/19 Emergency Visit: Yes ED Registration Date: 04/01/19 Care time: The patient presented to the Emergency Department on the above date and was hospitalized for further evaluation of their emergent condition. Critical Care patient: No - Discharge Referral Referred to [facility] No
== END 2019-04-03 12:59 | disposition home or self-care (01) | DRG 155 ==
LOC: EDSEX 23:24 → JER 23:24 → MERGE 04-01 03:41 → JERBED 04-01 03:41 → J5S 04-01 12:51
PROVIDERS: ADMIT Internal Medicine; ATTEND Nurse Practitioner Acute Care
DX: K11.20 Sialoadenitis, unspecified (principal); I50.32 Chronic diastolic (congestive) heart failure; L03.211 Cellulitis of face; K11.5 Sialolithiasis; I11.0 Hypertensive heart disease with heart failure; E78.5 Hyperlipidemia, unspecified; Z86.718 Personal history of other venous thrombosis and embolism; Z86.711 Personal history of pulmonary embolism; E86.0 Dehydration; E66.3 Overweight; Z68.38 Body mass index [BMI] 38.0-38.9, adult; Z86.73 Personal history of transient ischemic attack (TIA), and cerebral infarction without residual deficits
CPT/HCPCS: 36415; 70492-TC; 71045-TC-FY; 80048; 80053; 82550; 82553; 82962; 83036; 83605; 83880; 84484; 85025; 85610; 87040; 87070; 87804; 87880; 99285-25; G0480; J0131; J1100; J7030; Q9967

== ENCOUNTER 2020-04-28 06:38 | Emergency (ER) | payer BC, OTHER ==
[2020-04-28 07:25] VITALS: BMI 35.7
[2020-04-28] MEDS ORDERED: ONDANSETRON 4 MG/2 ML VIAL IVPUSH ONE (07:58)
[2020-04-28] MEDS ORDERED: FAMOTIDINE 20 MG/50 ML IVPB 20 MG/50 ML MG IVPB ONE ×2 (07:58→08:16)
[2020-04-28] MEDS ORDERED: LACTATED RINGERS SOLUTION 1000 ML INFUS.BAG IV ONE (08:08)
[2020-04-28] MEDS ORDERED: ONDANSETRON 4 MG/2 ML VIAL ONE (08:16)
[2020-04-28 08:26] LABS: INR 1.2 (0.83-1.09); PROTHROMBIN TIME (PATIENT) 14.5 SEC (9.7-13.0)
[2020-04-28 08:28] LABS: BASO % 0.3 % (0-2.0); EOS % 1.8 % (0-4.5); HEMATOCRIT 38.4 % (32.4-45.2); HEMOGLOBIN 13.5 GM/dL (10.7-15.3); LYMPH % 20.2 % (8-40); MCH 32.1 pg (25.7-33.7); MCHC 35.3 g/dl (32.0-36.0); MEAN CELL VOLUME 90.9 fl (80-96); MEAN PLT VOLUME 8.4 fl (7.5-11.1); MONO % 8.1 % (3.8-10.2); NEUT % 69.6 % (42.8-82.8); PLATELET COUNT 204 K/MM3 (134-434); RBC 4.22 M/mm3 (3.60-5.2); RDW 14.4 % (11.6-15.6); WHITE BLOOD COUNT 7.1 K/mm3 (4.0-10.0)
[2020-04-28 08:29] LABS: ACTIVATED PTT 30.8 SECONDS (25.2-36.5)
[2020-04-28 08:33] LABS: CHLORIDE 101 mmol/L (98-107); SODIUM 138 mmol/L (136-145)
[2020-04-28 08:36] LABS: CALCIUM 9.4 mg/dL (8.5-10.1)
[2020-04-28 08:37] LABS: CO2 30 mmol/L (21-32); GLUCOSE,RANDOM 164 mg/dL (74-106); LIPASE 41 U/L (73-393)
[2020-04-28 08:39] LABS: CREATININE 1.2 mg/dL (0.55-1.3)
[2020-04-28 08:40] LABS: SGOT/AST 40 U/L (15-37); SGPT/ALT 33 U/L (13-61)
[2020-04-28 08:41] LABS: BILIRUBIN,TOTAL 0.9 mg/dL (0.2-1); TOT PROT 7.8 g/dl (6.4-8.2)
[2020-04-28 08:43] LABS: ALK PHOS 90 U/L (45-117)
[2020-04-28 08:44] LABS: ANION GAP 7 MMOL/L (8-16); POTASSIUM 2.8 mmol/L (3.5-5.1)
[2020-04-28] MEDS ORDERED: POTASSIUM CHLORIDE TABS 20 MEQ TABLET.ER (FP) PO ONE (08:45)
[2020-04-28] MEDS ORDERED: POTASSIUM CHLORIDE ORAL LIQUID 20 MEQ/15 ML PO ONE (08:48)
[2020-04-28] MEDS ORDERED: POTASSIUM CHLORIDE ORAL LIQUID 20 MEQ/15 ML ONE (08:58)
[2020-04-28] MEDS: KCL 10 MEQ IVPB 10 MEQ/100 ML INFUS.BAG IVPB SCH ×3 (09:14→12:33)
[2020-04-28 14:46] VITALS: BP 119/75; PULSE 72; TEMP 97.2
== END 2020-04-28 15:00 | disposition home or self-care (01) ==
LOC: JER 06:38
PROC: 3E033GC Introduction of Other Therapeutic Substance into Peripheral Vein, Percutaneous Approach (ICD-10-PCS; principal; 2020-04-28)
PROC: 3E033GC Introduction of Other Therapeutic Substance into Peripheral Vein, Percutaneous Approach (ICD-10-PCS; 2020-04-28)
DX: R11.2 Nausea with vomiting, unspecified (principal); R19.7 Diarrhea, unspecified
CPT/HCPCS: 36415; 71046-TC-FY; 74176-TC; 80053; 83690; 84484; 85025; 85610; 85730; 86850; 86900; 86901; 93005; 93010; 99285-25; C9803; U0003

== ENCOUNTER 2020-05-02 14:10 | Inpatient (IN) | payer OTHER, BC ==
[2020-05-02 14:26] VITALS: BMI 35.7
[2020-05-02 15:54] LABS: BASO % 0.1 % (0-2.0); EOS % 3.1 % (0-4.5); HEMATOCRIT 37.4 % (32.4-45.2); HEMOGLOBIN 12.6 GM/dL (10.7-15.3); LYMPH % 30.7 % (8-40); MCH 30.9 pg (25.7-33.7); MCHC 33.6 g/dl (32.0-36.0); MEAN PLT VOLUME 8.5 fl (7.5-11.1); MONO % 15.7 % (3.8-10.2); NEUT % 50.4 % (42.8-82.8); PLATELET COUNT 210 K/MM3 (134-434); RBC 4.07 M/mm3 (3.60-5.2); RDW 14.5 % (11.6-15.6); WHITE BLOOD COUNT 4.9 K/mm3 (4.0-10.0)
[2020-05-02 16:01] LABS: INR 1.4 (0.83-1.09); PROTHROMBIN TIME (PATIENT) 16.8 SEC (9.7-13.0)
[2020-05-02 16:06] LABS: CHLORIDE 109 mmol/L (98-107); SODIUM 143 mmol/L (136-145)
[2020-05-02 16:08] LABS: CALCIUM 8.9 mg/dL (8.5-10.1)
[2020-05-02 16:09] LABS: ALBUMIN 3.4 g/dl (3.4-5.0); CO2 26 mmol/L (21-32); GLUCOSE,RANDOM 108 mg/dL (74-106)
[2020-05-02 16:12] LABS: CREATININE 0.9 mg/dL (0.55-1.3); SGOT/AST 19 U/L (15-37); SGPT/ALT 25 U/L (13-61)
[2020-05-02 16:14] LABS: BILIRUBIN,TOTAL 0.6 mg/dL (0.2-1); TOT PROT 6.8 g/dl (6.4-8.2)
[2020-05-02 16:15] LABS: ALK PHOS 77 U/L (45-117); ANION GAP 8 MMOL/L (8-16); POTASSIUM 2.9 mmol/L (3.5-5.1)
[2020-05-02] MEDS ORDERED: POTASSIUM CHLORIDE 20 MEQ PREMIX IVPB 100 ML IVPB ONE ×2 (16:26→16:31)
[2020-05-02 17:16] LABS: MAGNESIUM 1.7 mg/dL (1.8-2.4)
[2020-05-02 17:17] LABS: LIPASE 39 U/L (73-393)
[2020-05-02] MEDS ORDERED: MAGNESIUM SULF 50% (8.12 MEQ/2 ML-1 GM VIAL) IVPB ONE (18:06)
[2020-05-02] MEDS ORDERED: ENOXAPARIN NA (PORCINE) 40 MG/0.4 ML DISP.SYRIN SQ SCH (21:00)
[2020-05-02] MEDS ORDERED: LACTATED RINGERS SOLUTION 1,000 ML/1,000 ML INFUS.BAG IV SCH (21:00)
[2020-05-02] MEDS: KCL 10 MEQ IVPB 10 MEQ/100 ML INFUS.BAG IVPB SCH ×2 (21:59→23:28)
[2020-05-02] MEDS: PANTOPRAZOLE SODIUM 40 MG VIAL IVPUSH SCH (21:59)
[2020-05-02 23:56] LABS: EPI CELLS >36 /uL (0-25.1); HYALINE CASTS 14 /uL (0-3.1); PH,URINE 5.5 (5.0-8.0); URINE APPEARANCE CLOUDY; URINE BACTERIA 173 /uL (0-1359); URINE BILIRUBIN NEGATIVE (NEGATIVE); URINE COLOR DK YELLOW; URINE GLUCOSE (UA) NEGATIVE (NEGATIVE); URINE KETONE TRACE (NEGATIVE); URINE LEUK ESTERASE 2+ (NEGATIVE); URINE NITRITE NEGATIVE (NEGATIVE); URINE PROTEIN 1+ (NEGATIVE); URINE RBC 22 /uL (0-23.9); URINE UROBILINOGEN 0.2 mg/dL (0.2-1.0); URINE WBC 83 /uL (0-25.8)
[2020-05-03] MEDS ORDERED: SODIUM CHLORIDE 1,000 ML IV SCH (02:15)
[2020-05-03] MEDS ORDERED: DEXTROSE 5%-WATER - 50 ML IVPB ONE ×2 (02:17→10:08)
[2020-05-03] MEDS ORDERED: cefTRIAXone SODIUM 1 GM VIAL ONE ×2 (02:17→10:08)
[2020-05-03] MEDS: CEFTRIAXONE 1 GM in DEXTROSE 5%-WATER - 50 ML IVPB SCH ×2 (02:22→10:10)
[2020-05-03] MEDS ORDERED: ENOXAPARIN NA (PORCINE) 40 MG/0.4 ML DISP.SYRIN SQ ONE (07:38)
[2020-05-03] MEDS: PANTOPRAZOLE SODIUM 40 MG VIAL IVPUSH SCH (10:10)
[2020-05-03 10:40] LABS: HEMATOCRIT 30.6 % (32.4-45.2); HEMOGLOBIN 10.7 GM/dL (10.7-15.3); MCHC 34.9 g/dl (32.0-36.0); MEAN CELL VOLUME 91.8 fl (80-96); MEAN PLT VOLUME 8.1 fl (7.5-11.1); PLATELET COUNT 165 K/MM3 (134-434); RBC 3.33 M/mm3 (3.60-5.2); RDW 14.2 % (11.6-15.6); WHITE BLOOD COUNT 4.3 K/mm3 (4.0-10.0)
[2020-05-03] MEDS ORDERED: PHYTONADIONE 10 MG/1 ML AMP IVPB ONE (11:29)
[2020-05-03 12:00] LABS: CHLORIDE 119 mmol/L (98-107); SODIUM 146 mmol/L (136-145)
[2020-05-03 12:04] LABS: BLOOD UREA NITROGEN 7.7 mg/dL (7-18); GLUCOSE,RANDOM 86 mg/dL (74-106)
[2020-05-03 12:07] LABS: CO2 19 mmol/L (21-32); CREATININE 0.5 mg/dL (0.55-1.3); MAGNESIUM 1.2 mg/dL (1.8-2.4); PHOSPHOROUS 1.7 mg/dL (2.5-4.9); SGOT/AST 11 U/L (15-37); SGPT/ALT 17 U/L (13-61)
[2020-05-03 12:08] LABS: BILIRUBIN,TOTAL 0.4 mg/dL (0.2-1)
[2020-05-03 12:10] LABS: ALK PHOS 48 U/L (45-117)
[2020-05-03] MEDS ORDERED: MAGNESIUM SULF 50% (8.12 MEQ/2 ML-1 GM VIAL) IVPB ONE (12:24)
[2020-05-03 12:29] LABS: ALBUMIN 2.3 g/dl (3.4-5.0); ANION GAP 8 MMOL/L (8-16); CALCIUM 6.4 mg/dL (8.5-10.1); POTASSIUM 2.4 mmol/L (3.5-5.1); TOT PROT 4.4 g/dl (6.4-8.2)
[2020-05-03] MEDS ORDERED: SODIUM CHLORIDE 0.45%/POT 20 MEQ/1,000 ML INFUS.BAG IV SCH (12:30)
[2020-05-03] MEDS ORDERED: POTASSIUM PHOSPHATE 30 MM in DEXTROSE 5%-WATER - 500 ML IVPB ONE (13:30)
[2020-05-03] MEDS ORDERED: HEPARIN NA (PORCINE) 5,000 UNITS/ML 1ML VIAL IVPUSH PRN ×2 (13:37)
[2020-05-03] MEDS: D5-1/2NS+40 MEQ KCL - 40 MEQ/1,000 ML INFUS.BAG IV SCH (14:08)
[2020-05-03] MEDS ORDERED: PT OWN MED DRAWER 7, Y5N ONE (17:58)
[2020-05-03] MEDS: HEPARIN SOD,PORK IN 0.45% NACL 25,000 UNITS/500 ML INFUS.BAG IVPB SCH (17:59)
[2020-05-03 19:04] LABS: EPI CELLS >36 /uL (0-25.1); HYALINE CASTS 9 /uL (0-3.1); URINE APPEARANCE CLOUDY; URINE BACTERIA 28 /uL (0-1359); URINE BILIRUBIN NEGATIVE (NEGATIVE); URINE COLOR YELLOW; URINE GLUCOSE (UA) NEGATIVE (NEGATIVE); URINE KETONE NEGATIVE (NEGATIVE); URINE LEUK ESTERASE 2+ (NEGATIVE); URINE NITRITE NEGATIVE (NEGATIVE); URINE PROTEIN NEGATIVE (NEGATIVE); URINE RBC 16 /uL (0-23.9); URINE UROBILINOGEN 0.2 mg/dL (0.2-1.0); URINE WBC 147 /uL (0-25.8)
[2020-05-04] MEDS ORDERED: PEG 3350/NA SULF BICARB CL/KCL 4000 ML SOLN.RECON PO ONE (09:00)
[2020-05-04 09:48] LABS: BASO % 0.3 % (0-2.0); EOS % 3.6 % (0-4.5); HEMATOCRIT 33.3 % (32.4-45.2); HEMOGLOBIN 11.4 GM/dL (10.7-15.3); LYMPH % 33.7 % (8-40); MCH 31.5 pg (25.7-33.7); MCHC 34.4 g/dl (32.0-36.0); MEAN CELL VOLUME 91.6 fl (80-96); MEAN PLT VOLUME 8.4 fl (7.5-11.1); MONO % 10.3 % (3.8-10.2); NEUT % 52.1 % (42.8-82.8); PLATELET COUNT 181 K/MM3 (134-434); RBC 3.63 M/mm3 (3.60-5.2); RDW 14.5 % (11.6-15.6); WHITE BLOOD COUNT 5.7 K/mm3 (4.0-10.0)
[2020-05-04 10:23] LABS: INR 1.15 (0.83-1.09); PROTHROMBIN TIME (PATIENT) 13.8 SEC (9.7-13.0)
[2020-05-04 10:33] LABS: CHLORIDE 109 mmol/L (98-107); POTASSIUM 3.5 mmol/L (3.5-5.1); SODIUM 141 mmol/L (136-145)
[2020-05-04 10:37] LABS: ANION GAP 8 MMOL/L (8-16); BLOOD UREA NITROGEN 6.8 mg/dL (7-18); CO2 24 mmol/L (21-32); GLUCOSE,RANDOM 131 mg/dL (74-106)
[2020-05-04 10:39] LABS: TOTAL IRON BINDING CAPACITY 248 ug/dL (250-450)
[2020-05-04 10:40] LABS: CREATININE 0.9 mg/dL (0.55-1.3); SGOT/AST 15 U/L (15-37); SGPT/ALT 26 U/L (13-61)
[2020-05-04 10:41] LABS: BILIRUBIN,TOTAL 0.4 mg/dL (0.2-1); TOT PROT 6.1 g/dl (6.4-8.2)
[2020-05-04 10:42] LABS: ALK PHOS 74 U/L (45-117)
[2020-05-04 10:52] LABS: ALBUMIN 3.1 g/dl (3.4-5.0); CALCIUM 8.5 mg/dL (8.5-10.1)
[2020-05-04] MEDS: PANTOPRAZOLE SODIUM 40 MG VIAL IVPUSH SCH (11:04)
[2020-05-04] MEDS ORDERED: BISACODYL 5 MG TABLET.DR (FP) PO ONE (18:00)
[2020-05-04] MEDS ORDERED: POTASSIUM CHLORIDE TABS 20 MEQ TABLET.ER (FP) PO ONE (18:26)
[2020-05-04] MEDS: D5-1/2NS+40 MEQ KCL - 40 MEQ/1,000 ML INFUS.BAG IV SCH (19:00)
[2020-05-04] MEDS: METOPROLOL TARTRATE 25 MG TABLET (FP) PO SCH (21:47)
[2020-05-04] MEDS: HEPARIN SOD,PORK IN 0.45% NACL 25,000 UNITS/500 ML INFUS.BAG IVPB SCH (21:47)
[2020-05-05] MEDS: D5-1/2NS+40 MEQ KCL - 40 MEQ/1,000 ML INFUS.BAG IV SCH (07:51)
[2020-05-05] MEDS: PANTOPRAZOLE SODIUM 40 MG VIAL IVPUSH SCH (11:31)
[2020-05-05] MEDS: METOPROLOL TARTRATE 25 MG TABLET (FP) PO SCH (11:32)
[2020-05-05 12:35] LABS: BASO % 0.8 % (0-2.0); HEMATOCRIT 34.6 % (32.4-45.2); LYMPH % 28.4 % (8-40); MCHC 34.8 g/dl (32.0-36.0); MEAN PLT VOLUME 8.2 fl (7.5-11.1); MONO % 8.9 % (3.8-10.2); NEUT % 57.9 % (42.8-82.8); PLATELET COUNT 198 K/MM3 (134-434); RBC 3.76 M/mm3 (3.60-5.2); RDW 14.6 % (11.6-15.6); WHITE BLOOD COUNT 5.5 K/mm3 (4.0-10.0)
[2020-05-05 12:40] LABS: INR 1.03 (0.83-1.09); PROTHROMBIN TIME (PATIENT) 12.6 SEC (9.7-13.0)
[2020-05-05 12:43] LABS: ACTIVATED PTT 29.3 SECONDS (25.2-36.5)
[2020-05-05 14:13] VITALS: PULSE 47
[2020-05-05 14:51] VITALS: BP 138/56; TEMP 97.8
[2020-05-05 17:06] LABS: TRANSGLUTAMINASE IGA < 2 U/mL (0-3); TRANSGLUTAMINASE IGG < 2 U/mL (0-5)
[2020-05-06] MEDS ORDERED: POLYETHYLENE GLYCOL 3350 119 GM BTL PO SCH (10:00)
== END 2020-05-05 19:03 | disposition home or self-care (01) | DRG 390 ==
LOC: JER 14:10 → JERBED 18:16 → J6S 21:48
PROVIDERS: ADMIT Internal Medicine; ATTEND Internal Medicine
PROC: 0DBL8ZX Excision of Transverse Colon, Via Natural or Artificial Opening Endoscopic, Diagnostic (ICD-10-PCS; 2020-05-05)
PROC: 0DBN8ZX Excision of Sigmoid Colon, Via Natural or Artificial Opening Endoscopic, Diagnostic (ICD-10-PCS; principal; 2020-05-05 10:30)
DX: K56.41 Fecal impaction (principal); E11.9 Type 2 diabetes mellitus without complications; E78.5 Hyperlipidemia, unspecified; R11.2 Nausea with vomiting, unspecified; I45.10 Unspecified right bundle-branch block; E87.6 Hypokalemia; N20.0 Calculus of kidney; K76.0 Fatty (change of) liver, not elsewhere classified; E83.42 Hypomagnesemia; I25.10 Atherosclerotic heart disease of native coronary artery without angina pectoris; K57.30 Diverticulosis of large intestine without perforation or abscess without bleeding; R91.1 Solitary pulmonary nodule; K64.9 Unspecified hemorrhoids; G47.00 Insomnia, unspecified; K55.20 Angiodysplasia of colon without hemorrhage; D64.9 Anemia, unspecified; K64.8 Other hemorrhoids; D12.6 Benign neoplasm of colon, unspecified; I11.0 Hypertensive heart disease with heart failure; I50.9 Heart failure, unspecified; I44.0 Atrioventricular block, first degree; F32.9 Major depressive disorder, single episode, unspecified; K29.70 Gastritis, unspecified, without bleeding; E66.9 Obesity, unspecified; Z68.35 Body mass index [BMI] 35.0-35.9, adult; Z86.711 Personal history of pulmonary embolism; Z86.73 Personal history of transient ischemic attack (TIA), and cerebral infarction without residual deficits; Z86.718 Personal history of other venous thrombosis and embolism; Z96.643 Presence of artificial hip joint, bilateral; Z80.0 Family history of malignant neoplasm of digestive organs
CPT/HCPCS: 36415; 80053; 81003; 82550; 82553; 82607; 82728; 82746; 83036; 83516; 83550; 83605; 83690; 83735; 84100; 84155; 84165; 84484; 85025; 85027; 85045; 85610; 85730; 86140; 87177; 87209; 87804; 88305-TC; 93005; 93010; 99285-25; C9803; J0131; J1644; U0003; U0005

== ENCOUNTER 2020-10-07 08:29 | Emergency (ER) | payer OTHER, BC ==
[2020-10-07 08:35] VITALS: BP 143/76; PULSE 87; TEMP 98.9; BMI 35.9
== END 2020-10-07 10:27 | disposition home or self-care (01) ==
LOC: JER 08:29
DX: M79.671 Pain in right foot (principal); I87.2 Venous insufficiency (chronic) (peripheral); R60.0 Localized edema
CPT/HCPCS: 73630-TC-RT-FY; 93971-TC; 99284-25

== ENCOUNTER 2020-11-01 11:13 | Emergency (ER) | payer OTHER, BC ==
[2020-11-01 11:43] VITALS: BP 140/70; PULSE 58; TEMP 97.8; BMI 34.9
[2020-11-01] MEDS ORDERED: DIPHTH,PERTUSS(ACELL),TET 0.5 ML DISP.SYRIN IM ONE ×2 (12:24→12:42)
[2020-11-01] MEDS ORDERED: IBUPROFEN 400 MG TABLET (FP) PO ONE ×2 (12:43)
== END 2020-11-01 13:24 | disposition home or self-care (01) ==
LOC: JER 11:13 → JERFT 11:13
PROC: 0HQDXZZ Repair Right Lower Arm Skin, External Approach (ICD-10-PCS; principal; 2020-11-01)
PROC: 3E0234Z Introduction of Serum, Toxoid and Vaccine into Muscle, Percutaneous Approach (ICD-10-PCS; 2020-11-01)
DX: S61.312A Laceration without foreign body of right middle finger with damage to nail, initial encounter (principal); W26.8XXA Contact with other sharp object(s), not elsewhere classified, initial encounter; Y92.9 Unspecified place or not applicable
CPT/HCPCS: 12001-25; 73130-TC-RT-FY; 90471; 90715; 99284-25

== ENCOUNTER 2021-06-20 09:39 | Observation (INO) | payer BC, OTHER ==
[2021-06-20 10:46] LABS: BASO % 0.7 % (0-2.0); EOS % 5.4 % (0-4.5); HEMATOCRIT 35.8 % (32.4-45.2); HEMOGLOBIN 12.4 GM/dL (10.7-15.3); LYMPH % 26.4 % (8-40); MCH 31.4 pg (25.7-33.7); MCHC 34.5 g/dl (32.0-36.0); MEAN PLT VOLUME 7.6 fl (7.5-11.1); NEUT % 59.5 % (42.8-82.8); PLATELET COUNT 176 10^3/uL (134-434); RBC 3.94 M/mm3 (3.60-5.2); RDW 13.9 % (11.6-15.6); WHITE BLOOD COUNT 5.7 K/mm3 (4.0-10.0)
[2021-06-20 11:29] LABS: ALBUMIN 3.3 g/dl (3.4-5.0); BILIRUBIN,TOTAL 0.6 mg/dL (0.2-1); BLOOD UREA NITROGEN 14.2 mg/dL (7-18); CALCIUM 8.8 mg/dL (8.5-10.1); CREATININE 0.8 mg/dL (0.55-1.3); TOT PROT 6.2 g/dl (6.4-8.2)
[2021-06-20] MEDS ORDERED: MAG HYDROX/AL HYDROX/SIMETH 30 ML UNIT-DOSE CUP PO ONE (11:56)
[2021-06-20] MEDS ORDERED: FAMOTIDINE 20 MG TABLET PO ONE (11:56)
[2021-06-20] MEDS ORDERED: MAG HYDROX/AL HYDROX/SIMETH 30 ML UNIT-DOSE CUP ONE (12:07)
[2021-06-20] MEDS ORDERED: FAMOTIDINE 20 MG TABLET ONE (12:07)
[2021-06-20 18:00] VITALS: BMI 37.7
[2021-06-20] MEDS ORDERED: MELATONIN 5 MG TABLETS PO ONE (20:54)
[2021-06-20] MEDS: APIXABAN 5 MG TABLET PO SCH (21:29)
[2021-06-20] MEDS ORDERED: ROSUVASTATIN CA 20 MG TABLET PO SCH (22:00)
[2021-06-21] MEDS: FUROSEMIDE 40 MG TABLET (FP) PO SCH ×2 (06:27→13:09)
[2021-06-21 07:30] LABS: BLOOD UREA NITROGEN 19.6 mg/dL (7-18)
[2021-06-21 07:31] LABS: BASO % 0.5 % (0-2.0); EOS % 3.7 % (0-4.5); HEMATOCRIT 33.7 % (32.4-45.2); HEMOGLOBIN 11.7 GM/dL (10.7-15.3); LYMPH % 27.2 % (8-40); MCH 31.5 pg (25.7-33.7); MCHC 34.7 g/dl (32.0-36.0); MEAN PLT VOLUME 7.9 fl (7.5-11.1); MONO % 10.5 % (3.8-10.2); NEUT % 58.1 % (42.8-82.8); PLATELET COUNT 155 10^3/uL (134-434); RDW 14.4 % (11.6-15.6); WHITE BLOOD COUNT 5.1 K/mm3 (4.0-10.0)
[2021-06-21 07:35] LABS: BILIRUBIN,TOTAL 0.5 mg/dL (0.2-1); TOT PROT 5.9 g/dl (6.4-8.2)
[2021-06-21 09:30] VITALS: BP 145/72; PULSE 66; TEMP 98
[2021-06-21] MEDS: APIXABAN 5 MG TABLET PO SCH (09:30)
[2021-06-21] MEDS ORDERED: PANTOPRAZOLE 40 MG TABLET PO SCH (10:00)
[2021-06-21] MEDS ORDERED: POTASSIUM CHLORIDE TABS 20 MEQ TABLET.ER (FP) PO SCH (10:00)
== END 2021-06-21 13:30 | disposition home or self-care (01) ==
LOC: JER 09:39 → JERBED 12:37 → J4W 17:30
PROVIDERS: ADMIT Internal Medicine; ATTEND Internal Medicine
DX: I25.10 Atherosclerotic heart disease of native coronary artery without angina pectoris (principal); I48.91 Unspecified atrial fibrillation; K57.90 Diverticulosis of intestine, part unspecified, without perforation or abscess without bleeding; Z86.711 Personal history of pulmonary embolism; Z79.01 Long term (current) use of anticoagulants; R07.9 Chest pain, unspecified; E66.9 Obesity, unspecified; Z68.37 Body mass index [BMI] 37.0-37.9, adult; E78.5 Hyperlipidemia, unspecified; I11.0 Hypertensive heart disease with heart failure; I50.810 Right heart failure, unspecified; K76.0 Fatty (change of) liver, not elsewhere classified; N20.0 Calculus of kidney; F32.9 Major depressive disorder, single episode, unspecified; Z88.8 Allergy status to other drugs, medicaments and biological substances
CPT/HCPCS: 36415; 71045-TC-FY; 80053; 83690; 84484; 85025; 93005; 93010; 93970-TC; 99285-25; C9803-CS; G0378; U0003; U0005

== ENCOUNTER 2021-10-25 18:33 | Emergency (ER) | payer OTHER ==
[2021-10-25 18:52] VITALS: BP 140/82; PULSE 76; RESP 18; TEMP 98; BMI 36.2
== END 2021-10-25 21:46 | disposition home or self-care (01) ==
LOC: JERFT 18:33
DX: M25.511 Pain in right shoulder (principal); M19.011 Primary osteoarthritis, right shoulder
CPT/HCPCS: 73030-TC-RT-FY; 99283-25

== ENCOUNTER 2022-05-12 16:25 | Emergency (ER) | payer OTHER ==
[2022-05-12 16:40] VITALS: BP 124/70; PULSE 65; RESP 18; TEMP 97.9; BMI 81.4
[2022-05-12] MEDS ORDERED: KETOROLAC TROMETHAMINE 15 MG/ML VIAL IM ONE (18:39)
[2022-05-12] MEDS ORDERED: KETOROLAC TROMETHAMINE 15 MG/ML VIAL ONE (18:42)
== END 2022-05-12 19:05 | disposition home or self-care (01) ==
LOC: JERFT 16:25
PROC: 3E0333Z Introduction of Anti-inflammatory into Peripheral Vein, Percutaneous Approach (ICD-10-PCS; principal; 2022-05-12)
DX: M10.9 Gout, unspecified (principal); M79.674 Pain in right toe(s)
CPT/HCPCS: 73630-TC-RT-FY; 96374; 99284-25

== ENCOUNTER 2022-08-10 14:39 | Emergency (ER) | payer OTHER ==
[2022-08-10 14:57] VITALS: BP 174/67; PULSE 89; RESP 16; TEMP 98.2; BMI 34.9
[2022-08-10 17:18] LABS: BASO % 0.7 % (0-2.0); EOS % 2.1 % (0-4.5); HEMATOCRIT 42.9 % (32.4-45.2); HEMOGLOBIN 14.4 GM/dL (10.7-15.3); MCH 30.2 pg (25.7-33.7); MCHC 33.4 g/dl (32.0-36.0); MEAN CELL VOLUME 90.3 fl (80-96); MEAN PLT VOLUME 8.5 fl (7.5-11.1); MONO % 8.4 % (3.8-10.2); NEUT % 59.8 % (42.8-82.8); PLATELET COUNT 190 10^3/uL (134-434); RBC 4.76 M/mm3 (3.60-5.2); RDW 13.6 % (11.6-15.6); WHITE BLOOD COUNT 6.1 K/mm3 (4.0-10.0)
[2022-08-10 17:25] LABS: ACTIVATED PTT 33.7 SECONDS (25.2-36.5)
[2022-08-10 17:28] LABS: POTASSIUM 4.4 mmol/L (3.5-5.1)
[2022-08-10 17:30] LABS: CALCIUM 9.8 mg/dL (8.5-10.1)
[2022-08-10 17:31] LABS: MAGNESIUM 2.1 mg/dL (1.8-2.4)
[2022-08-10 17:36] LABS: BILIRUBIN,TOTAL 0.4 mg/dL (0.2-1); TOT PROT 7.3 g/dl (6.4-8.2)
[2022-08-10 17:41] LABS: INR 1.23 (0.83-1.09); PROTHROMBIN TIME (PATIENT) 14.2 SEC (9.7-13.0)
== END 2022-08-10 21:29 | disposition home or self-care (01) ==
LOC: JER 14:39
DX: M79.605 Pain in left leg (principal)
CPT/HCPCS: 36415; 80053; 83735; 85025; 85610; 85730; 93971-TC; 99284-25

== ENCOUNTER 2023-08-02 10:04 | Emergency (ER) | payer OTHER ==
[2023-08-02 10:11] VITALS: BMI 35.6
[2023-08-02] MEDS ORDERED: ACETAMINOPHEN 325 MG TABLET (FP) ONE (11:10)
[2023-08-02] MEDS: ACETAMINOPHEN 500 MG TABLET (FP) PO ONE (11:35)
[2023-08-02 14:36] VITALS: BP 143/73; PULSE 95; RESP 17; TEMP 97.8
== END 2023-08-02 14:36 | disposition home or self-care (01) ==
LOC: JER 10:04
DX: M25.562 Pain in left knee (principal); M71.22 Synovial cyst of popliteal space [Baker], left knee
CPT/HCPCS: 73562-TC-LT-FY; 93971-TC; 99284-25